=== PATIENT | female | born 1950 | race Caucasian/White ===

== ENCOUNTER 2016-05-23 12:16 | Day surgery (SDC) | payer MEDICARE, MEDICAID ==
[~2016-05-23] VITALS: Ht 167.6 cm; Wt 87.7 kg
[~2016-05-23 12:16] MED LIST: ADVAIR 250/501 DISK INH; ASPIRIN81 MG PO; BROVANA15 MCG/2 M INH; BYSTOLIC10 MG PO; CORDARONE200 MG PO; CYMBALTA30 MG PO; GLUCOPHAGE500 MG PO; IPRAT-ALBUT 0.5-3 ML INH; ISOSORBIDE MONO60 M1 PO; LASIX20 MG PO; LOTENSIN20 MG PO; PLAVIX75 MG PO; PRADAXA150 MG PO; PRAVACHOL20 MG PO; RESTORIL22.5 MG PO; SYNTHROID25 MCG PO; VENTOLIN HFA18 GM INH; VISTARIL25 MG PO; ZANTAC150 MG PO
[2016-05-23 12:58] VITALS: BP 173/72; Ht 167.6 cm; Wt 87.7 kg
[2016-05-23 13:31] LABS: BASOPHILS 0.4 % (0.0-2.0); EOSINOPHILS 1.9 % (0-7); HEMATOCRIT 40.2 % (36.0-48.0); HEMOGLOBIN 13.1 g/dL (12-16); IMMATURE GRANULOCYTES 0.6 % (0-5); LYMPHOCYTES 33.3 % (15-50); MCH 29.4 pg (26.0-34.0); MCHC 32.6 g/dL (31.0-37.0); MCV 90.1 fL (80.0-100.0); MEAN PLATELET VOLUME 10.5 fL (7.4-10.4); MONOCYTES 9.7 % (2-11); NEUTROPHILS 54.1 % (40-80); PLATELET COUNT 171 10x3/uL (130-400); RBC 4.46 10x6/uL (4.00-5.40); RDW 14.6 % (11.5-14.5); WBC 4.7 10x3/uL (4.8-10.8)
[2016-05-23 13:36] LABS: APTT 25.9 SECONDS (22.8-39.4); INR 1.03 (0.85-1.17); PROTIME 13.3 SECONDS (11.6-15.0)
[2016-05-23 13:40] LABS: ALBUMIN 3.7 g/dL (3.4-5.0); BILIRUBIN - TOTAL 0.3 mg/dL (0.2-1.3); CALCIUM 8.8 mg/dL (8.5-10.1); CARBON DIOXIDE 25.8 mmol/L (21.0-32.0); CREATININE - SERUM 1.3 mg/dL (0.6-1.3); POTASSIUM - SERUM 4.8 mmol/L (3.5-5.1); PROTEIN - SERUM 6.6 g/dL (6.4-8.2)
--- NOTE | 2016-05-23 15:08 | NUR ---
1435 BACK FROM EGD SAT 93 % PUT ON 2L N/C UP TO 95%. RESP EVEN AND NONLABORED AND SOME DROWSY. C/L IN REACH.
--- NOTE | 2016-05-23 15:25 | NUR ---
1505 SAT 95 % ON ROOM AIR. IV DCD CATHETER INTACT. UP TO THE BR WITH ASSISTANCE,TOLERATED DIET.
--- NOTE | 2016-05-23 15:45 | NUR ---
1545 PATIENT DRESSED AND READY TO GO WAITING FOR DR. SANFORD TO ROUND. NO NEEDS VOICED PASSED AIR AND NO RESPIRATORY DOSTRESS.
--- NOTE | 2016-05-23 15:45 | NUR ---
1535 PATIENT VOIDED. SAT 95% ON ROOM AIR.
--- NOTE | 2016-05-23 17:30 | NUR ---
1625 DR. SANFORD ROUNDING ON PATIENT.
--- NOTE | 2016-05-23 17:32 | NUR ---
1630 IV DCD CATHETER INTACT. WENT OVER DISCHARGE INSTRUCTIONS AND VERBALLY UNDERSTANDS.
--- NOTE | 2016-05-23 17:32 | NUR ---
1635 DISCHARGED TO HOME VIA W/C.
--- NOTE | 2016-06-26 11:24 | OP ---
PATIENT NAME: UVALDO SANCHEZ MEDICAL RECORD: [id number] :48 LOCATION:[facility] ADMISSION DATE: SURGEON: MICHAEL SANFORD MD DATE OF OPERATION: 05/23/2016 PROCEDURE: EGD with biopsy, EGD with balloon dilatation. SCOPE: An Olympus video gastroscope and a CRE Microvasive balloon from ____ Nigerian. MEDICATIONS: Per TIVA anesthesia. The patient has multiple comorbidities to include cardiac arrhythmias, coronary artery disease, DVT. She is on Plavix and aspirin. Diabetes mellitus, glaucoma, hypertension, hepatitis C, obstructive sleep apnea, pulmonary embolism, and hypothyroidism. INDICATION FOR THE PROCEDURE: Anemia, epigastric pain, dysphagia, gastroesophageal reflux disease and esophageal stricture. FINDINGS: Informed consent was given. The patient was made comfortable with the above medications. After reaching an adequate level of sedation by slow IV push, the patient was placed on her left side. The endoscope was then advanced under direct visualization through the posterior pharyngeal area and advanced to the distal esophagus. At the distal esophageal area, a Schatzki's ring was appreciated and after the inspection part of the procedure was completed, a CRE Microvasive balloon was placed in this area, dilated to 60 Nigerian, held in place for 1 minute without complication. Biopsies were then taken off of the ring and of the distal esophageal inflammation. No ulcers were seen. A hiatal hernia was noted both on direct and retroflexed views. On entering the stomach, in the body of the stomach, a gastric ulcer was appreciated. This did not have a visible vessel and was not actively bleeding. The rest of the gastric mucosa had inflammation, a few erosions, but no other ulcers were appreciated. A biopsy was taken at the antral area looking for the presence of Helicobacter pylori. The duodenal bulb to the second portion had minimal inflammation present. Biopsy was obtained. The scope was then withdrawn. IMPRESSION: 1. Distal esophageal stricture dilated to 60-Nigerian without complication. 2. Reflux esophagitis. 3. Hiatal hernia. 4. Gastric ulcer within the body of the stomach without a visible vessel, not actively bleeding. 5. Gastritis. Biopsy taken at the antral area looking for the presence of Helicobacter pylori. 6. Duodenitis. PLAN: 1. We will ask the patient to take Protonix at a dose of 40 mg p.o. q.a.m. and ranitidine 300 mg p.o. q.h.s., prescriptions provided. 2. Caution with anti-inflammatory drugs. 3. Follow reflux precautions stringently, both dietary and positional. No chocolate, tomatoes, citrus, caffeine, fatty foods, peppermint. Return to clinic on a p.r.n. basis. 4. EGD in 8 weeks to document healing of the ulcers. TRANSINT:[id number] Voice Confirmation ID: [id number] DOCUMENT ID: [id number] OPERATIVE REPORT [id number] UVALDO SANCHEZ BRENDA MD at 1124 CC: JOMAR NAYAK MD and DANIELLE WILKINS MD [id number] DICTATION DATE: 05/23/16 1423 EYEGLASS FITTER: 05/23/16 1640 [facility] 05/23/[address] [address]
== END 2016-05-23 16:35 | disposition home or self-care (01) ==
LOC: D.OPS 12:16
PROVIDERS: Anesthesiology
DX: K29.80 Duodenitis without bleeding (principal); K44.9 Diaphragmatic hernia without obstruction or gangrene; K25.9 Gastric ulcer, unspecified as acute or chronic, without hemorrhage or perforation; K21.9 Gastro-esophageal reflux disease without esophagitis; K22.2 Esophageal obstruction; F17.200 Nicotine dependence, unspecified, uncomplicated; I25.10 Atherosclerotic heart disease of native coronary artery without angina pectoris; I10 Essential (primary) hypertension; E11.9 Type 2 diabetes mellitus without complications; E03.9 Hypothyroidism, unspecified; J44.9 Chronic obstructive pulmonary disease, unspecified; G47.30 Sleep apnea, unspecified; B19.20 Unspecified viral hepatitis C without hepatic coma

== ENCOUNTER 2016-06-21 09:26 | Emergency (ER) | payer MEDICARE, MEDICAID ==
[2016-05-23 12:58] VITALS: BMI 31.2
[2016-06-21 09:52] LABS: BASOPHILS 0.2 % (0.0-2.0); HEMATOCRIT 39.8 % (36.0-48.0); HEMOGLOBIN 13.2 g/dL (12-16); IMMATURE GRANULOCYTES 0.2 % (0-5); LYMPHOCYTES 19.9 % (15-50); MCH 29.2 pg (26.0-34.0); MCHC 33.2 g/dL (31.0-37.0); MCV 88.1 fL (80.0-100.0); MEAN PLATELET VOLUME 9.7 fL (7.4-10.4); MONOCYTES 5.8 % (2-11); NEUTROPHILS 71.9 % (40-80); PLATELET COUNT 143 10x3/uL (130-400); RBC 4.52 10x6/uL (4.00-5.40); RDW 14.4 % (11.5-14.5); WBC 5.9 10x3/uL (4.8-10.8)
[2016-06-21 10:06] LABS: ALBUMIN 2.9 g/dL (3.4-5.0); ALKALINE PHOSPHATASE 63 U/L (46-116); ALT (SGPT) 100 U/L (10-68); BILIRUBIN - TOTAL 0.28 mg/dL (0.2-1.3); CALC OSMOLALITY 276 mosm/kg (275-300); CARBON DIOXIDE 23.4 mmol/L (21.0-32.0); CHLORIDE - SERUM 101 mmol/L (98-107); CREATININE - SERUM 1.2 mg/dL (0.6-1.3); GLUCOSE 124 mg/dL (74-106); POTASSIUM - SERUM 4.7 mmol/L (3.5-5.1); PROTEIN - SERUM 6.8 g/dL (6.4-8.2); SODIUM 137 mmol/L (136-145); UREA NITROGEN 17 mg/dL (7-18); eGFR NON AFRICAN AMERICAN 47 mL/min (90-120)
[2016-06-21 10:17] LABS: CKMB 1.1 U/L (0.0-3.6); CREATINE KINASE 53 UL (21-215)
[2016-06-21 10:18] LABS: TROPONIN-I < 0.017 ng/mL (0.000-0.060)
[2016-06-21 11:44] LABS: APPEARANCE HAZY (CLEAR); BILIRUBIN NEGATIVE (NEGATIVE); COLOR STRAW (YELLOW); GLUCOSE NEGATIVE (NEGATIVE); KETONE NEGATIVE (NEGATIVE); LEUKOCYTE ESTERASE 1+ (NEGATIVE); NITRITE POSITIVE (NEGATIVE); PROTEIN TRACE mg/dL (NEGATIVE); UROBILINOGEN NORMAL (NORMAL)
[2016-06-21 11:45] LABS: EPITHELIAL CELLS 0-5 /hpf (0-5); RED CELLS - URINE 0-5 /hpf (0-5)
[2016-06-21 11:46] LABS: BACTERIA MANY /hpf (NONE SEEN)
== END 2016-06-21 15:29 | disposition home or self-care (01) ==
LOC: D.ER 09:26
PROVIDERS: Emergency Medicine
DX: R06.00 Dyspnea, unspecified (principal); N39.0 Urinary tract infection, site not specified; J45.909 Unspecified asthma, uncomplicated; C34.90 Malignant neoplasm of unspecified part of unspecified bronchus or lung; J44.9 Chronic obstructive pulmonary disease, unspecified; E11.9 Type 2 diabetes mellitus without complications; F17.200 Nicotine dependence, unspecified, uncomplicated; Z95.0 Presence of cardiac pacemaker

== ENCOUNTER → 2016-07-04 12:57 | Outpatient (CLI) | payer MEDICARE, MEDICAID ==
[2016-05-23 12:58] VITALS: BMI 31.2
[~2016-07-04 12:57] MED LIST changes: +STERAPRED 5MG 65 M1 PO; +ZANTAC300 MG PO
== END | disposition home or self-care (01) ==
LOC: D.RT 07-03 13:00
DX: J44.9 Chronic obstructive pulmonary disease, unspecified (principal)

== ENCOUNTER 2016-07-29 05:50 | Day surgery (SDC) | payer MEDICARE, MEDICAID ==
[~2016-07-29] VITALS: Ht 167.6 cm; Wt 87.7 kg
[~2016-07-29 05:50] MED LIST changes: -STERAPRED 5MG 65 M1 PO; -ZANTAC300 MG PO
[2016-07-29 06:27] LABS: BASOPHILS 0.3 % (0.0-2.0); EOSINOPHILS 1.1 % (0-7); HEMATOCRIT 39.5 % (36.0-48.0); HEMOGLOBIN 12.9 g/dL (12-16); IMMATURE GRANULOCYTES 0.4 % (0-5); LYMPHOCYTES 33.1 % (15-50); MCH 29.5 pg (26.0-34.0); MCHC 32.7 g/dL (31.0-37.0); MCV 90.4 fL (80.0-100.0); MEAN PLATELET VOLUME 10.2 fL (7.4-10.4); NEUTROPHILS 56.1 % (40-80); RBC 4.37 10x6/uL (4.00-5.40); RDW 15.7 % (11.5-14.5); WBC 7.4 10x3/uL (4.8-10.8)
[2016-07-29 06:31] LABS: PLATELET COUNT 201 10x3/uL (130-400)
[2016-07-29] MEDS ORDERED: ZANTAC300 MG PO (06:38)
[2016-07-29] MEDS ORDERED: STERAPRED 5MG 65 M1 PO (06:39)
[2016-07-29 06:47] VITALS: BP 178/79; Ht 167.6 cm; Wt 87.7 kg
[2016-07-29 06:50] LABS: ALBUMIN 3.5 g/dL (3.4-5.0); ANION GAP 12.9 mmol/L (8-16); BILIRUBIN - TOTAL 0.2 mg/dL (0.2-1.3); CALCIUM 9.5 mg/dL (8.5-10.1); CARBON DIOXIDE 28.5 mmol/L (21.0-32.0); CREATININE - SERUM 1.4 mg/dL (0.6-1.3); POTASSIUM - SERUM 4.4 mmol/L (3.5-5.1); PROTEIN - SERUM 7.1 g/dL (6.4-8.2)
[2016-07-29 07:16] LABS: INR 0.92 (0.85-1.17); PROTIME 12.2 SECONDS (11.6-15.0)
--- NOTE | 2016-07-29 07:43 | NUR ---
0743-INGARTE CRE BALLOON TO 60 FR.
--- NOTE | 2016-07-29 08:29 | NUR ---
0822 MT DIET SERVED. PT TALKING ON PHONE ARRANGING RIDE HOME.
--- NOTE | 2016-07-30 10:15 | OP ---
PATIENT NAME: UVALDO ASNCHEZ MEDICAL RECORD: [id number] :48 LOCATION:[facility] ADMISSION DATE: SURGEON: RANDY CABRERA DO DATE OF OPERATION: 07/29/2016 SCOPE: Olympus video gastroscope. MEDICATIONS: Propofol 300 mg IV per anesthesia. INDICATIONS: Past gastric ulcer visualized in April of this year. This is a followup to assure healing of the ulcer and she has also had some dysphagia requiring a dilation in the past. FINDINGS: Informed consent was given. The patient was made comfortable with the above medication. After reaching an adequate level of sedation by slow IV push, the patient was placed on her left side. The endoscope was then advanced under direct visualization through the mouth to the second portion of the duodenum. The upper, middle, and distal esophagus appeared normal other than a mild narrowing at the distal esophagus just superior to the GE junction. At the GE junction, there was mild LA class B reflux induced esophagitis present. The scope was advanced into the stomach and retroflexed to view the cardia where a small sliding hiatal hernia was present. The fundus, body and antrum appeared normal. There was some mild streaky erythema in the prepyloric region. The previously visualized ulcer has healed and was not present on this examination. Scope was advanced in the duodenum where the bulb and second portion of the duodenum appeared normal. Scope was then back into the stomach and then 18-20 mm dilating balloon was placed through the channel of the scope. Dilation was performed on the distal esophageal stenosis up to 20 mm successfully. The scope was then withdrawn from the patient. The patient tolerated the procedure well and there were no complications. IMPRESSION: 1. LA class B reflux induced esophagitis. 2. Distal esophageal stenosis, dilated up to 20 mm. 3. Small sliding hiatal hernia. 4. Streaky erythema consistent with possible gastritis in the prepyloric region. PLAN AND RECOMMENDATIONS: 1. Discharge home when recovery parameters are met. 2. Continue current diet. 3. Continue current medications. 4. Follow up in the GI clinic as needed. 5. Informed the clinic if the dysphagia does not improve. If this is the case, I would recommend a barium esophagram and consideration of a motility study. TRANSINT:[id number] Voice Confirmation ID: [id number] DOCUMENT ID: [id number] OPERATIVE REPORT [id number] UVALDO SANCHEZ RANYD CABRERA DO at 1015 CC: [id number] DICTATION DATE: 07/29/16 0753 [facility]: 07/29/16 1033 [facility] 07/29/16 [id number] [place] [address]
== END 2016-07-29 09:14 | disposition home or self-care (01) ==
LOC: D.OPS 05:50
PROVIDERS: Anesthesiology
DX: B37.81 Candidal esophagitis (principal); K22.2 Esophageal obstruction; K44.9 Diaphragmatic hernia without obstruction or gangrene

== ENCOUNTER → 2016-11-14 12:47 | Outpatient (CLI) | payer MEDICARE, MEDICAID ==
[2016-07-29 06:47] VITALS: BMI 31.2
[~2016-11-14 12:47] MED LIST changes: +STERAPRED 5MG 65 M1 PO; +ZANTAC300 MG PO
== END | disposition home or self-care (01) ==
LOC: D.US 12:47
DX: R60.0 Localized edema (principal)

== ENCOUNTER 2016-12-16 10:44 | Emergency (ER) | payer MEDICARE, MEDICAID ==
[2016-07-29 06:47] VITALS: BMI 31.2
[2016-12-16 12:00] LABS: BASOPHILS 0 % (0-2); EOSINOPHILS 0 % (0-7); HEMOGLOBIN 12.8 g/dL (12-16); IMMATURE GRANULOCYTES 1.2 % (0-5); LYMPHOCYTES 6.7 % (15-50); MCH 29.9 pg (26.0-34.0); MCHC 33.7 g/dL (31.0-37.0); MCV 88.8 fL (80.0-100.0); MONOCYTES 5.8 % (2-11); NEUTROPHILS 86.3 % (40-80); PLATELET COUNT 191 10x3/uL (130-400); RBC 4.28 10x6/uL (4.00-5.40); RDW 14.6 % (11.5-14.5); WBC 8.7 10x3/uL (4.8-10.8)
[2016-12-16 12:33] LABS: ALBUMIN 3.4 g/dL (3.4-5.0); ALKALINE PHOSPHATASE 48 U/L (46-116); ALT (SGPT) 27 U/L (10-68); BILIRUBIN - TOTAL 0.19 mg/dL (0.2-1.3); CALCIUM 8.7 mg/dL (8.5-10.1); CARBON DIOXIDE 26.3 mmol/L (21.0-32.0); CHLORIDE - SERUM 101 mmol/L (98-107); CREATININE - SERUM 1.9 mg/dL (0.6-1.3); POTASSIUM - SERUM 4.8 mmol/L (3.5-5.1); PROTEIN - SERUM 6.8 g/dL (6.4-8.2); SODIUM 136 mmol/L (136-145); UREA NITROGEN 37 mg/dL (7-18); eGFR NON AFRICAN AMERICAN 28 mL/min (90-120)
[2016-12-16 12:34] LABS: PRO BNP 2382 pg/mL (0-125)
[2016-12-16 12:35] LABS: CALC OSMOLALITY 286 mosm/kg (275-300); GLUCOSE 199 mg/dL (74-106); TROPONIN-I < 0.017 ng/mL (0.000-0.060)
== END 2016-12-16 16:18 | disposition home or self-care (01) ==
LOC: D.ER 10:44
PROVIDERS: Physician Assistant
DX: J44.1 Chronic obstructive pulmonary disease with (acute) exacerbation (principal); Z86.79 Personal history of other diseases of the circulatory system; Z85.118 Personal history of other malignant neoplasm of bronchus and lung; Z85.038 Personal history of other malignant neoplasm of large intestine; Z86.718 Personal history of other venous thrombosis and embolism; R07.81 Pleurodynia; E11.9 Type 2 diabetes mellitus without complications; F17.200 Nicotine dependence, unspecified, uncomplicated

== ENCOUNTER 2017-03-06 15:45 | Inpatient (IN) | payer MEDICARE, MEDICAID ==
[~2017-03-06] VITALS: Ht 167.6 cm; Wt 87.9 kg
--- NOTE | ~2017-03-06 | HEMODYNAMI ---
PATIENT:UVALDO SANCHEZ MEDICAL RECORD: [id number] : 48 LOCATION:[facility] D.2114 ADMISSION DATE: 03/06/17 Generatedon:03/07/201713:50 Patient name: UVALDO SANCHEZ Patient #: [id number] SSN: D OB: 1950 Date of study: 03/07/2017 Page: Of Hemodynamic Procedure Report Patient Data Patient Demographics Procedure consent was obtained First Name: UVALDO Gender: Female Last Name: DANIEL : 1950 [facility] Initial: HILLARY Age: 66 year(s) Patient #: [id number] Race: Unknown Additional ID: [id number] Contact details Address: [address] [place] [address] State: [place] City: [facility] Zip code: [address] Past Medical History Allergies Allergen Reaction Date Comments Reported Codeine 10/11/2015 Sulfa drugs 10/11/2015 Other allergy 03/07/2017 sulfa, codeine Admission Admission Data Admission Date: 03/06/2017 Admission Time: 18:38 Room #: D.2114 Lab Results Lab Result Date: 03/07/2017 Lab Result Time: 0:00 Biochemistry Name Units Result Min Max Creatinine mg/dl 1.4 --(----)*- 0.6 1.3 CBC Name Units Result Min Max Hematocrit % 45.1 --(-*--)-- 42 54 Hemoglobin g/dl 15.2 --(-*--)-- 13.5 17.5 Procedure Procedure Types Cath Procedure Diagnostic Procedure C [facility] w/Coronaries Cardioversion PCI Procedure Coronary Stent Initial Miscellaneous Procedures Moderate Sedation up to 45 minutes Procedure Description Procedure Date Procedure Date: 03/07/2017 Procedure Start Time: 13:34 Procedure End Time: 13:49 Procedure Staff Name Function Davie Griffin MD Performing Physician Jose Luis Arzate RT Scrub Triston Figueroa RN Nurse Pablo Mayo RT Monitor Maura Burgos RT Monitor Procedure Data Cath Procedure Fluoroscopy Diagnostic fluoroscopy Total fluoroscopy Time: 3.6 time: 3.6 min min Diagnostic fluoroscopy Total fluoroscopy dose: 492 dose: 492 mGy mGy Contrast Material Contrast Material Type Amount (ml) Isovue 300 98 Entry Location Entry Primary Successful Side Size Upsize Upsize Entry Closure Succes sful Closure Location (Fr) 1 (Fr) 2 (Fr) Remarks Device Remarks Femoral Right 5 Fr 6 Fr Exoseal artery Short Estimated blood loss: 10 ml Diagnostic catheters Device Type Used For End Catheter Placement Cordis 5Fr Pigtail Procedure Catheter (MP) Cordis 5Fr JL 4.0 Procedure Catheter (MP) Cordis 5Fr 3DRC Catheter Procedure (MP) Procedure Complications No complications Procedure Medications Medication Administration Route Dosage 0.9% NaCl I.V. 100 ml/hr Oxygen NC 2 l/min Heparin Flush Bag added to field 2 bags (1000units/500ml NS) Lidocaine 2% added to field 20 Refer to Anesthesia Notes for Sedation Medications Fentanyl I.V. 50 mcg Versed I.V. 1 mg Versed I.V. 1 mg Fentanyl I.V. 50 mcg Versed I.V. 1 mg Heparin Bolus I.V. 4000 units Versed I.V. 1 mg Hemodynamics Rest HGB: 15.2 (g/dl) Heart Rate: 105 (bpm) Snapshots Pre Cath Intra NCS Post Cath Vital Signs Time Heart Resp SPO2 etCO2 NIBP (mmHg) Rhythm Pain Sedation Rate (ipm) (%) (mmHg) Status Level (bpm) 13:05:52 105 17 94 9 135/76(107) NSR 0 (11) 10(A) , No pain 13:10:43 67 18 95 8.3 135/63(102) NSR 0 (11) 10(A) , No pain 13:15:36 66 20 95 25.7 136/96(133) NSR 0 (11) 10(A) , No pain 13:21:10 73 17 98 32.5 130/58(92) NSR 0 (11) 10(A) , No pain 13:26:05 68 26 100 15.9 70/29(50) NSR 0 (11) 10(A) , No pain 13:31:14 62 16 99 21.2 129/69(103) NSR 0 (11) 10(A) , No pain 13:36:01 65 14 99 16.6 115/66(92) NSR 0 (11) 10(A) , No pain 13:40:46 62 14 88 29.5 119/58(94) NSR 0 (11) 10(A) , No pain 13:45:30 62 20 99 34 127/66(103) NSR 0 (11) 10(A) , No pain Medications Time Medication Route Dose Verified Delivered Reason Notes Effectiveness by by 13:05:12 0.9% NaCl I.V. 100 Triston Triston Per physician ml/hr Carolina Figueroa RN RN 13:05:26 Oxygen NC 2 Triston Triston Per physician l/min Carolina Figueroa RN RN 13:05:40 Heparin Flush added 2 Triston Triston used for Bag to bags Carolina Figueroa procedure (1000units/500ml field RN RN NS) 13:05:58 Lidocaine 2% added 20ml Triston Triston for local to vial Carolina Figueroa anesthetic RN RN 13:07:17 Refer to Triston Triston for sedation Anesthesia Notes Carolina Figueroa for Sedation RN RN Medications 13:24:37 Fentanyl I.V. 50 Triston Triston for sedation mcg Carolina Figueroa RN RN 13:28:14 Versed I.V. 1 mg Triston Triston for sedation Carolina Figueroa RN RN 13:32:29 Versed I.V. 1 mg Triston Triston for sedation Carolina Figueroa RN RN 13:32:39 Fentanyl I.V. 50 Triston Triston for sedation mcg Carolina Figueroa RN RN 13:35:33 Versed I.V. 1 mg Triston Triston for sedation Carolina Figueroa RN RN 13:41:20 Heparin Bolus I.V. 4000 Triston Triston for units Carolina Figueroa anticoagulation RN RN 13:44:33 Versed I.V. 1 mg Triston Triston for sedation Carolina Figueroa RN gambreler helper Log Time Note 12:46:21 Jose Luis Arzate RT(R) sent for patient. Start room use. 12:46:23 Time tracking: Regular hours 12:46:28 Plan of Care:Hemodynamics will remain stable., Cardiac rhythm will remain stable., Comfort level will be maintained., Respiratory function will remain adequate., Patient/ family verbilizes understanding of procedure., Procedure tolerated without complication., Recovers from procedure without complications.. 12:47:44 H&P Date Dictated: 03/06/2017 Within 30 days and on chart., H&P Addendum completed by physician on day of procedure. (MUST COMPLETE FOR ALL OUTPATIENTS). 12:48:17 Lab Result : Creatinine 1.4 mg/dl 12:48:17 Lab Result : Hemoglobin 15.2 g/dl 12:48:17 Lab Result : Hematocrit 45.1 % 12:58:34 Patient arrived from [facility] to CCL 1. Patient remains on bed/stretcher for procedure. 12:58:35 Warm blankets applied, and tracie hugger turned on for patient comfort. 12:58:36 Correct patient and procedure confirmed by team. 12:58:38 Signed procedure consent form obtained from patient. 12:58:39 ECG and BP/O2 sat monitors applied to patient. 13:04:02 Pre-procedure instructions explained to patient. 13:04:03 Pre-op teaching completed and patient verbalized understanding. 13:04:06 Family in waiting room. 13:04:08 Patient NPO since Midnight. 13:04:23 Patient allergic to Other allergysulfa, codeine 13:04:28 Is the patient allergic to Iodine/contrast media? No. 13:04:44 Is patient on blood thinner?Yes 13:04:46 ACC The patient was administered the following blood thiners within the last 24 hours: ACCPlavix 13:04:54 Vital chart was started 13:04:57 Baseline sample Acquired. 13:05:12 0.9% NaCl 100 ml/hr I.V. was administered by Triston Figueroa RN; Per physician; 13:05:18 Patient diabetic? No. 13:05:23 Patient not . Patient is over age 55. 13:05:26 Oxygen 2 l/min NC was administered by Triston Figueroa RN; Per physician; 13:05:28 Previous problem with sedation/anesthesia? No ? 13:05:30 Snore? Yes 13:05:31 Sleep apnea? Yes 13:05:33 Deviated septum? No 13:05:34 Opens mouth fully? Yes 13:05:38 Sticks out tongue? Yes 13:05:40 Heparin Flush Bag (1000units/500ml NS) 2 bags added to field was administered by Triston Figueroa RN; used for procedure; 13:05:45 Airway obstruction? Yes COPD 13:05:52 Dentures? Yes OUT 13:05:58 Lidocaine 2% 20ml vial added to field was administered by Triston Figueroa RN; for local anesthetic; 13:06:23 DR. CAREY present and monitoring patient for TIVA. 13:06:36 Quick Combo opened to sterile field. 13:06:42 Quick combo pads placed on patients chest and back. 13:07:17 Refer to Anesthesia Notes for Sedation Medications was administered by Triston Figueroa RN; for sedation; 13:07:28 Full Disclosure recording started 13:07:44 IV patent on arrival in right forearm with 0.9% NaCl at O. 13:07:47 Lab results completed and on chart. 13:07:52 --------ALL STOP TIME OUT------ 13::53 Final Timeout: patient, procedure, and site verified with staff and physician. All members of the team are in agreement. 13:08:01 Sedation plan: TIVA Propofol 13:08:23 Procedure started. 13:08:32 Defibrillator synced and charged to 200 Joules. 13:08:37 Shock delivered. 13:08:58 Patient cardioverted to sinus rhythm . 13:11:45 PT. TRANSFERED FROM BED TO THE TABLE FOR [facility]. 13:22:38 Right groin area was prepped with chlora-prep and draped in sterile fashion 13:22:39 Alarms reviewed by R. N. 13:22:39 Sharps counted by scrub and verified by R.N. 13:22:44 Use device set Femoral Dx 13:24:37 Fentanyl 50 mcg I.V. was administered by Triston Figueroa RN; for sedation; 13:25:15 Acist Syringe opened to sterile field. 13:25:16 Bag Decanter opened to sterile field. 13:25:19 Acist Hand Control opened to sterile field. 13:25:19 Acist Manifold opened to sterile field. 13:25:21 Tegaderm 4 x 4 opened to sterile field. 13:25:22 Medline Cath Pack opened to sterile field. 13:25:22 Terumo 5Fr [place] Sheath opened to sterile field. 13:25:23 St Pablo 260cm J .035 wire opened to sterile field. 13:25:24 Diagnostic Infinity 5Fr Multipack catheter opened to sterile field. 13:28:14 Versed 1 mg I.V. was administered by Triston Figueroa RN; for sedation; 13:30:17 Zero performed for pressure channel P1 13:30:23 Zero performed for pressure channel P1 13:30:38 Zero performed for pressure channel P1 13:32:29 Versed 1 mg I.V. was administered by Triston Figueroa RN; for sedation; 13:32:39 Fentanyl 50 mcg I.V. was administered by Triston Figueroa RN; for sedation; 13:34:27 Local anesthetic to right femoral artery with Lidocaine 2% by Davie Griffin MD.INITIAL ACCESS ONLY 13:35:19 A 5 Fr sheath was inserted into the Right Femoral artery 13:35:28 A Cordis 5Fr Pigtail Catheter (MP) was advanced over the wire and used for Procedure. 13:35:33 Versed 1 mg I.V. was administered by Triston Figueroa RN; for sedation; 13:35:54 LV gram done using VO 13:35:57 Injector settings: Ml/sec: 10, Volume: 20, 13:36:00 LV hemodynamics recorded. 13:36:18 EF : 50 % 13:36:29 Catheter removed. 13:36:35 A Cordis 5Fr JL 4.0 Catheter (MP) was advanced over the wire and used for Procedure. 13:37:27 LCA angiography performed. 13:38:00 Terumo 6Fr [place] Sheath opened to sterile field. 13:38:09 Catheter removed. 13:38:19 A Cordis 5Fr 3DRC Catheter (MP) was advanced over the wire and used for Procedure. 13:38:30 Merit BasixCompak Inflation Kit opened to sterile field. 13:38:33 RCA angiography performed. 13:38:59 [place] QA on Request PT Graphix J 300cm 0.014 guide wire opened to sterile field. 13:39:00 Cordis 6FR XBLAD 3.5 guide catheter opened to sterile field. 13:39:04 Catheter removed. 13:39:14 Sheath upsized to a 6 Fr Short. 13:40:05 6 Fr XBLAD 3.5 guide catheter was inserted over the wire 13:40:08 PT GRAPHIX wire advanced. 13:40:24 Wire advanced across lesion. 13:41:20 Heparin Bolus 4000 units I.V. was administered by Triston Figueroa RN; for anticoagulation; 13:42:02 Wire removed. 13:42:12 Guide Catheter removed. unable to get back-up support 13:43:16 Medtronic Launcher 5Fr EBU 3.0 guide catheter opened to sterile field. 13:43:23 6 Fr EBU 3.0 guide catheter was inserted over the wire 13:43:37 PT GRAPHIX wire advanced. 13:44:33 Versed 1 mg I.V. was administered by Triston Figueroa RN; for sedation; 13:45:00 Wire advanced across lesion. 13:45:05 Inflation Number: 1 A Leroy OTW 3.5 x 18 stent was prepped and advanced across the Prox LAD. The stent was deployed at 19 PINKY for 0:10 (min:sec). 13:45:14 Stent catheter was removed intact over wire. 13:45:18 Wire removed. 13:45:18 Guide catheter removed. 13:45:28 Cordis 6Fr Exoseal opened to sterile field. 13:45:42 Sheath removed intact; hemostasis achieved with Exoseal to the Right Femoral artery. 13:45:44 Procedure ended.(Physican Out) 13:46:00 Fluoroscopy time 03.60 minutes. 13:46:04 Fluoroscopy dose: 492 mGy 13:46:04 Flurop Dose total: 492 13:46:09 Contrast amount:Isovue 300 98ml. 13:46:10 Sharps counted by scrub and verified by R.N. 13:46:16 Post-op/insertion site Right Femoral artery dressed using a 4 x 4 and Tegaderm. 13:46:23 Post right femoral artery:stable, soft, clean and dry 13:46:26 Post Procedure Pulses reassessed and unchanged 13:46:30 Post procedure: right dorsailis pedis pulse 1+ Palpable, but thready & weak; easily obliterated. 13:46:35 Post-procedure physical assessment completed. ASA score P 2 - A patient with mild systemic disease as per Davie Griffin MD. 13:46:40 Post procedure rhythm: unchanged. 13:46:43 Estimated blood loss: 10 ml 13:46:48 Post procedure instruction explained to patient.Patient verbalizes understanding. 13:46:49 Patient needs reinforcement of post procedure teaching. 13:47:26 Procedure type changed to Cath procedure, Diagnostic procedure, [facility], C w/Coronaries, Cardioversion, PCI procedure, Coronary Stent Initial, Miscellaneous Procedures, Moderate Sedation up to 45 minutes 13:48:53 Procedure and supply charges have been captured, reviewed, submitted and are correct. 13:48:55 Procedure Complication : No complications 13:49:03 Vital chart was stopped 13:49:03 See physician's report for complete and final results. 13:49:06 Report given to PCU. 13:49:08 Patient transfered to PCU with Bed. 13:49:14 Procedure ended. 13:49:14 Full Disclosure recording stopped 13:49:46 End room use (Document Last) Intervention Summary Intervention Notes Time ActionType Lesion and Equipment Action# Pressure Duration Attributes Used 13:45:05 Place stent Prox LAD Leroy OTW 1 19 00:10 3.5 x 18 stent Device Usage Item Name Manufacture Quantity Catalog Number Hospital Part Current Mini mal Lot# / Charge Number Stock Stock Serial# Code Quick Fanwards 1 [id number] 171338 546812 282881 5 Acist Acist 1 64580 054818 569163 927997 20 Syringe Medical Systems Inc Bag Microtek 1 2002S 256832 51536 526766 5 Decanter Medical Inc. Acist Hand Acist 1 05884 210680 144939 230596 5 Control Medical Systems Inc Acist Acist 1 35532 866586 857250 373414 5 Manifold Medical Systems Inc Tegaderm 4 3M 1 1626W 319542 011787 216277 5 x 4 Medline Cardinal 1 [id number] 751961 80994 038111 5 Cath Pack Health Terumo 5Fr Terumo 1 [id number] 392491 225822 954168 [address] Pablo 1 836040 953532 589636 198451 30 260cm J .035 wire Diagnostic Cardinal 1 [id number] 892920 05954 065332 30 Infinity Health 5Fr Multipack catheter Cordis 5Fr Cardinal 1 679866 5 Pigtail Health Catheter (MP) Cordis 5Fr Cardinal 1 692919 5 JL 4.0 Health Catheter (MP) Terumo 6Fr Terumo 1 [id number] 468773 191086 073859 40 [place] Sheath Cordis 5Fr Cardinal 1 538867 5 3DRC Health Catheter (MP) Merit Merit 1 [id number] 016620 088282 658641 15 BasixCompak Medical Inflation Kit [place] Sci [place] 1 [id number] 464055 748087 268910 5 PT [employer] J 300cm 0.014 guide wire Cordis 6FR Cardinal 1 [id number] 390932 893676 193190 10 XBLAD 3.5 Health guide catheter Medtronic Medtronic 1 [id number] 996023 777866 724982 1 Launcher 5Fr EBU 3.0 guide catheter Leroy OTW Medtronic 1 [id number] 634445 3759113 708065 5 [id number] 3.5 x 18 stent Cordis 6Fr Cardinal 1 [id number] 336847 923498 537354 10 [facility] Signature Audit [place] Stage Time Signature Unsigned Intra-Procedure 03/07/2017 Maura Burgos 1:50:51 PM RT(R) Signatures Monitor : Pablo Mayo RT Signature : Date : Time : Monitor : Maura Burgos Signature : RT Date : Time : [address] [address]
[2017-03-06 16:19] LABS: BASOPHILS 0.4 % (0-2); EOSINOPHILS 3.3 % (0-7); HEMATOCRIT 45.1 % (36.0-48.0); HEMOGLOBIN 15.2 g/dL (12-16); IMMATURE GRANULOCYTES 0.2 % (0-5); LYMPHOCYTES 25.6 % (15-50); MCH 30.2 pg (26.0-34.0); MCHC 33.7 g/dL (31.0-37.0); MCV 89.7 fL (80.0-100.0); MEAN PLATELET VOLUME 9.4 fL (7.4-10.4); MONOCYTES 13.1 % (2-11); NEUTROPHILS 57.4 % (40-80); PLATELET COUNT 153 10x3/uL (130-400); RBC 5.03 10x6/uL (4.00-5.40); RDW 14.7 % (11.5-14.5); WBC 5.1 10x3/uL (4.8-10.8)
[2017-03-06 17:29] LABS: ALBUMIN 3.6 g/dL (3.4-5.0); ALKALINE PHOSPHATASE 70 U/L (46-116); ALT (SGPT) 22 U/L (10-68); BILIRUBIN - TOTAL 0.26 mg/dL (0.2-1.3); CALC OSMOLALITY 282 mosm/kg (275-300); CALCIUM 9.7 mg/dL (8.5-10.1); CARBON DIOXIDE 26.2 mmol/L (21.0-32.0); CHLORIDE - SERUM 103 mmol/L (98-107); CREATININE - SERUM 1.4 mg/dL (0.6-1.3); POTASSIUM - SERUM 4.7 mmol/L (3.5-5.1); PROTEIN - SERUM 7.3 g/dL (6.4-8.2); SODIUM 141 mmol/L (136-145); UREA NITROGEN 21 mg/dL (7-18); eGFR NON AFRICAN AMERICAN 40 mL/min (90-120)
[2017-03-06 17:31] LABS: GLUCOSE 75 mg/dL (74-106)
[2017-03-06 17:38] LABS: CREATINE KINASE 120 UL (21-215)
[2017-03-06 17:39] LABS: TROPONIN-I < 0.017 ng/mL (0.000-0.060)
[2017-03-06 20:00] VITALS: BP 118/62
--- NOTE | 2017-03-06 20:09 | NUR ---
PT RECEIVED VIA WHEELCHAIR FROM ER, AWAKE, ALERT, ORIENTED. PT IS C/O CHEST PAIN AT THIS TIME AND ASKING FOR PAIN MEDICATION. I HAVE EXPLAINED TO PT THAT THERE ARE NO ORDERS FOR ANYTHING AT THIS TIME, BUT THAT I MUST CALL THE [facility] INTERN PHYSICIAN FOR FURTHER ORDERS. PT IS IN NO ACUTE DISTRESS. TELEMETRY HAS BEEN PLACED, NO FURTHER NEEDS AT THIS TIME. CONTINUE TO MONITOR CLOSELY.
--- NOTE | 2017-03-06 20:39 | NUR ---
J[facility] PARDO [facility] PAG[facility] FOR FURTHER ORDERS.
[2017-03-07] VITALS (7 sets, daily range): BP systolic 95–158; BP diastolic 49–69; Ht 167.6 cm; Wt 87.9 kg
--- NOTE | 2017-03-07 07:30 | NUR ---
RESTING QUIETLY AAOX 4 RESP UNLABORED C/O CHEST SORENESS 10/05 WILL CONTINUE TO MONITOR
[2017-03-07 08:58] LABS: BASOPHILS 0.2 % (0-2); EOSINOPHILS 3.8 % (0-7); HEMATOCRIT 37.1 % (36.0-48.0); HEMOGLOBIN 12.7 g/dL (12-16); IMMATURE GRANULOCYTES 0.3 % (0-5); LYMPHOCYTES 21.8 % (15-50); MCH 30.7 pg (26.0-34.0); MCHC 34.2 g/dL (31.0-37.0); MCV 89.6 fL (80.0-100.0); MEAN PLATELET VOLUME 9.6 fL (7.4-10.4); MONOCYTES 8.3 % (2-11); NEUTROPHILS 65.6 % (40-80); RBC 4.14 10x6/uL (4.00-5.40); RDW 13.7 % (11.5-14.5)
[2017-03-07 09:06] LABS: PLATELET COUNT 253 10x3/uL (130-400); WBC 8.7 10x3/uL (4.8-10.8)
[2017-03-07 09:09] LABS: ANION GAP 16.4 mmol/L (8-16); CALCIUM 10.3 mg/dL (8.5-10.1); CREATININE - SERUM 1.1 mg/dL (0.6-1.3)
[2017-03-07 09:10] LABS: POTASSIUM - SERUM 3.4 mmol/L (3.5-5.1)
[2017-03-08] VITALS: BP 143/62
--- NOTE | 2017-03-08 07:14 | NUR ---
PLACE PT ON 6L OXIMIZER IN ATTEMPT TO ELEVATE O2. CURRENTLY ON 29%FI02 SPO2 86. BILATERAL PREDOMINANT INSP/EXP WHEEZE TO R APEX. BILATERAL SYMETRICAL EXCURSION. POST APPLICATION OF [id number] NO IMMEDIATE S/S RESP DISTRESS
[2017-03-08 07:46] VITALS: BP 120/56
--- NOTE | 2017-03-08 07:53 | NUR ---
02 INCREASED TO 6L OXIMIZER. CRACKLES AND RHALES NOTED. DR. EDOUARD NOTIFIED. NEW ORDERS GIVEN.
--- NOTE | 2017-03-08 09:52 | NUR ---
CXR DONE. ABGS WNL. MORPHINE GIVEN FOR PAIN. WILL CONT. PLAN OF CARE.
[2017-03-08 11:23] VITALS: BP 118/52
[2017-03-08 15:40] VITALS: BP 127/56
[2017-03-08 20:00] VITALS: BP 128/46
[2017-03-09] VITALS: BP 130/57
[2017-03-09 04:00] VITALS: BP 130/55
--- NOTE | 2017-03-09 05:29 | NUR ---
PT RESTING WELL THIS SHIFT WITHOUT C/O OR DISTRESS NOTED. CALL LIGHT WITHIN REACH. WILL CONT TO MONITOR.
[2017-03-09 06:44] LABS: BASOPHILS 0 % (0-2); EOSINOPHILS 0 % (0-7); HEMATOCRIT 41.7 % (36.0-48.0); HEMOGLOBIN 13.4 g/dL (12-16); IMMATURE GRANULOCYTES 0.2 % (0-5); LYMPHOCYTES 3.3 % (15-50); MCH 29.6 pg (26.0-34.0); MCHC 32.1 g/dL (31.0-37.0); MEAN PLATELET VOLUME 10.4 fL (7.4-10.4); NEUTROPHILS 94.5 % (40-80); RBC 4.53 10x6/uL (4.00-5.40); RDW 14.4 % (11.5-14.5)
[2017-03-09 06:46] LABS: MCV 92.1 fL (80.0-100.0); PLATELET COUNT 131 10x3/uL (130-400); WBC 12.8 10x3/uL (4.8-10.8)
[2017-03-09 06:54] LABS: ANION GAP 13.3 mmol/L (8-16); CALCIUM 9.2 mg/dL (8.5-10.1); CARBON DIOXIDE 26.1 mmol/L (21.0-32.0); CREATININE - SERUM 1.3 mg/dL (0.6-1.3)
[2017-03-09 06:55] LABS: POTASSIUM - SERUM 4.4 mmol/L (3.5-5.1)
--- NOTE | 2017-03-09 10:36 | NUR ---
RESP UL ON ISER. TELEMETRY SR. CALL LIGHT IN REACH. WILL CONT. PLAN OF CARE.
[2017-03-09 12:04] VITALS: BP 137/55
[2017-03-09 16:12] VITALS: BP 168/91
[2017-03-09 20:00] VITALS: BP 131/80
--- NOTE | 2017-03-09 20:25 | NUR ---
PT EXPECTORATES LARGE AMOUNT THICK BROWN SPUTUM INTO STERILE COLLECTION CONTAINER AND SENT TO LAB FOR CULTURE AT THIS TIME.,
[2017-03-10] VITALS: BP 135/59
--- NOTE | 2017-03-10 02:05 | NUR ---
PT RESTING SOUNDLY WITHOUT C/O OR DISTRESS NOTED. NO NEEDS VOICED. WILL CONT TO MONITOR.
[2017-03-10 04:00] VITALS: BP 138/60
[2017-03-10 05:35] LABS: BASOPHILS 0 % (0-2); EOSINOPHILS 0 % (0-7); HEMATOCRIT 39.2 % (36.0-48.0); HEMOGLOBIN 12.8 g/dL (12-16); IMMATURE GRANULOCYTES 0.4 % (0-5); LYMPHOCYTES 2.6 % (15-50); MCH 29.6 pg (26.0-34.0); MCHC 32.7 g/dL (31.0-37.0); MCV 90.5 fL (80.0-100.0); MONOCYTES 1.9 % (2-11); NEUTROPHILS 95.1 % (40-80); PLATELET COUNT 148 10x3/uL (130-400); RBC 4.33 10x6/uL (4.00-5.40); RDW 14.4 % (11.5-14.5); WBC 15.5 10x3/uL (4.8-10.8)
[2017-03-10 05:42] LABS: ANION GAP 14.8 mmol/L (8-16); CALCIUM 9.1 mg/dL (8.5-10.1); CARBON DIOXIDE 24.9 mmol/L (21.0-32.0); CREATININE - SERUM 1.3 mg/dL (0.6-1.3); POTASSIUM - SERUM 4.7 mmol/L (3.5-5.1)
--- NOTE | 2017-03-10 07:30 | NUR ---
RECEIVED PT IN BED AAOX4 RESP SOB PT JUST RETURNED TO BED FROM BATHROOM DENIES ANY NEEDS AT THIS TIME
[2017-03-10 08:48] VITALS: BP 149/61
[2017-03-10 12:48] VITALS: BP 122/51
--- NOTE | 2017-03-10 13:00 | NUR ---
IV DC'D RT FOREARM WITH CATH TIP INTACT, LEAKING AT INSERTION SITE, NO REDNESS OR EDEMA NOTED. RESITED RT ARM 22G. X 1 ATTEMPT.
[2017-03-10 16:50] VITALS: BP 143/59
--- NOTE | 2017-03-10 19:00 | NUR ---
RECEIVED REPORT AND ASSUMED PT CARE FROM DAY SHIFT NURSE @ THIS TIME.
--- NOTE | 2017-03-10 20:05 | NUR ---
CALL LIGHT ON, ARRIVED INTO ROOM AND PT IN RESP DISTRESS. SATS 82-86% ON CONT PULSE OX AT THE BEDSIDE. PT STATES UNABLE TO CATCH HER BREATH. INSPIRATORY AND EXPIRATORY WHEEZES HEARDS THROUGHT OUT ALL LUNG GARVEY. CALL TO RESP THERAPIST TORO, COMES TO GIVE PT A PRN UPDRAFT AND TO ASSESS. PT GIVEN HS MEDS AT THIS TIME AND ALSO GIVEN LORAZEPAM 0.5 MG PO AND TUSSIONEX COUGH SYRUP ORDERED. PT ALSO C/O HEADACHE - FIORICET 1 PO GIVEN. AFTER UPDRAFT PT SATS STILL REMAINS IN UPPER 80'S. PER RESP TX OXIMIZER INCREASED TO 10 LPM. SATS LOW 90'S AND PT FEELS BETTER. WILL CONT TO MONITOR.
[2017-03-10 22:46] VITALS: BP 167/70
--- NOTE | 2017-03-10 23:39 | NUR ---
PT RESTING WELL WITHOUT FURTHER C/O OF RESP DISTRESS. CONT PULSE OX REMAINS ON AT THE BEDSIDE. WILL CONT TO MONITOR.
--- NOTE | 2017-03-11 01:53 | NUR ---
PT SATS 95% WITH 10 LPM ON HOME C-PAP. RESTING WELL. NO NEEDS VOICED. WILL CONT TO MONITOR.
[2017-03-11 05:05] VITALS: BP 137/51
--- NOTE | 2017-03-11 07:29 | NUR ---
RECEIVED PT IN BED AAOX4 RESP UNLABORED DENIES ANY NEEDS OR DISCOMFORT NAD NOTED
[2017-03-11 08:34] VITALS: BP 157/58
[2017-03-11 11:43] LABS: BASOPHILS 0 % (0-2); EOSINOPHILS 0 % (0-7); HEMATOCRIT 41.8 % (36.0-48.0); HEMOGLOBIN 13.8 g/dL (12-16); IMMATURE GRANULOCYTES 0.7 % (0-5); LYMPHOCYTES 3.2 % (15-50); MCH 29.7 pg (26.0-34.0); MCV 90.1 fL (80.0-100.0); MEAN PLATELET VOLUME 10.9 fL (7.4-10.4); MONOCYTES 3.8 % (2-11); NEUTROPHILS 92.3 % (40-80); RBC 4.64 10x6/uL (4.00-5.40); RDW 14.9 % (11.5-14.5); WBC 14.7 10x3/uL (4.8-10.8)
[2017-03-11 11:46] LABS: PLATELET COUNT 178 10x3/uL (130-400)
[2017-03-11 11:57] LABS: ANION GAP 15.8 mmol/L (8-16); CALCIUM 9.1 mg/dL (8.5-10.1); CREATININE - SERUM 1.5 mg/dL (0.6-1.3); VANCOMYCIN - TROUGH 20.1 ug/mL (10.0-20.0)
[2017-03-11 12:05] LABS: POTASSIUM - SERUM 3.8 mmol/L (3.5-5.1)
[2017-03-11 12:38] VITALS: BP 155/49
[2017-03-11 16:52] VITALS: BP 172/66
--- NOTE | 2017-03-11 21:13 | NUR ---
HS MEDS GIVEN WITH FRESH ICE WATER. ASSISTED PT WITH PLACEING C PAP ON. PT DENIES PAIN OR NEEDS, BED LOW, CL IN REACH.
[2017-03-11 22:54] VITALS: BP 166/72
--- NOTE | 2017-03-11 23:09 | NUR ---
NOTIFIED BY MT THAT PT HAS CONVERTED TO A FIB, RATE OF 97. WILL CONT TO MONITOR.
--- NOTE | 2017-03-12 02:56 | NUR ---
RESTING WITH EYES CLOSED, RESPERATIONS EVEN, NO S/S DISTRESS NOTED.
--- NOTE | 2017-03-12 04:24 | NUR ---
SLATE ROOFER AT BED SIDE TO OBTAIN VITALS.
[2017-03-12 04:27] VITALS: BP 148/68
[2017-03-12 07:52] VITALS: BP 152/80
--- NOTE | 2017-03-12 09:34 | NUR ---
RESP UL NO 02 16L OXIMIZER. IV PATENT. TELEMETRY UCAF. HR 111. CALL LIGHT IN REACH. WILL CONT. PLAN OF CARE.
[2017-03-12 11:59] VITALS: BP 150/86
[2017-03-12 14:59] VITALS: BP 155/80
[2017-03-12 19:00] VITALS: BP 149/86
--- NOTE | 2017-03-12 21:38 | NUR ---
HS MEDS GIVEN, NORCO 1 TAB GIVEN FOR C/O GENERALIZED PAIN, COUGH SYRUP ALSO GIVEN AT PT REQUEST. PT DENIES OTHER NEEDS, BED LOW, CL IN REACH.
[2017-03-12 23:29] VITALS: BP 163/93
--- NOTE | 2017-03-13 00:32 | NUR ---
RESTING WITH EYES CLOSED, RESPERATIONS EVEN, NO S/S DISTRESS NOTED.
[2017-03-13 04:05] VITALS: BP 159/75
--- NOTE | 2017-03-13 05:30 | NUR ---
WIRE STRAIGHTENING MACHINE OPERATOR AT BEDSIDE TO OBTAIN VITALS, WILL CONTINUE WITH PLAN OF CARE. CALL LIGHT IN REACH.
--- NOTE | 2017-03-13 06:05 | NUR ---
X RAY JUANITA AT BED SIDE TO DO PORTABLE CHEST XRAY, 2 VIEW NOT DONE AT THIS TIME DO TO PTS O2 SATS DROPPING WITH EXERTION.
[2017-03-13 07:33] VITALS: BP 174/86
[2017-03-13 11:37] VITALS: BP 153/81
--- NOTE | 2017-03-13 14:07 | NUR ---
Nutrition follow-up: Diet: low sodium PO intake ~75% of meals Labs reviewed Wt: 192# -> weight is down ~5#; pt is on Lasix at this time +BM Will continue to provide food choices with selective menus and honor food preferences within diet restrictions. RDN following.
[2017-03-13 15:34] VITALS: BP 175/82
--- NOTE | 2017-03-13 15:43 | NUR ---
Patient Name: UVALDO SANCHEZ Admission Status: ER Accout number: [id number] Admission Date: 03-09-2017 : 1950 Admission Diagnosis:UNSTABLE ANGINA Attending: LYN YOU Current LOS: 4 Anticipated DC Date: 03-17-2017 Planned Disposition: Home with Home Health Primary Insurance: [facility] PLANNED EXTERNAL PROVIDER: [facility] Discharge Planning Comments: * Is the patient Alert and Oriented? Yes 0 * How many steps to enter\exit or inside your home? NONE 0 * PCP DR. DANIELLE WILKINS 0 * Pharmacy [facility] 0 * Preadmission Environment Home Alone 0 * ADLs Independent 0 * Equipment CPAP Nebulizer Oxygen WALKER WITH SEAT 0 * Other Equipment OXYGEN AT NIGHT [facility] - MEDICAL EQUIPMENT PROVIDER PREFERENCE 0 * List name and contact numbers for known caregivers / representatives who currently or will assist patient after discharge: JOEL MAYORGA, REBECCA, 0 * Community resources currently utilized None 0 * Please name any agencies selected above. NONE 0 * Additional services required to return to the preadmission environment? No 0 * Can the patient safely return to the preadmission environment? Yes 0 * Has this patient been hospitalized within the prior 30 days at any hospital? No 0 CM MET WITH PT IN ROOM TO DISCUSS DISCHARGE PLANNING AND NEEDS. PT REPORTS LIVING AT HOME INDEPENDENTLY AND ALONE. PT HAS CPAP, NEBULIZER, HOME OXYGEN AND WALKER WITH SEAT FROM [facility]. PT HAS HAD [facility] IN THE PAST WITH NO OUTSIDE SERVICES ASSISTING IN THE HOME CURRENTLY. CM DISCUSSED AVAILABILITY OF HOME HEALTH, REHAB SERVICES AND MEDICAL EQUIPMENT. PT THINKS SHE WILL REQUIRE PORTABLE OXYGEN AND WOULD ACCEPT HOME HEALTH WITH [facility] IF THE DOCTOR FEELS IT TO BE NECESSARY. CHOICE FOR [facility] SIGNED. PT REPORTS HER CAR IS IN THE PARKING LOT IF SHE IS ALLOWED TO DRIVE HERSELF HOME, SHE WILL; IF NOT, PT'S NEIGHBOR WILL PICK HER UP AT DISCHARGE. PT PLANS TO DISCHARGE HOME ALONE, MAY NEED PORTABLE OXYGEN AND HOME HEALTH AT DISCHARGE. CM TO FOLLOW AND ASSIST. Open Claims Representative: Efrem Hale
[2017-03-13 20:00] VITALS: BP 151/86
--- NOTE | 2017-03-13 20:25 | NUR ---
HS MEDS GIVEN WITH FESH ICE WATER, NORCO 1 TAB GIVEN FOR C/O GENERALIZED PAIN.
--- NOTE | 2017-03-13 23:06 | NUR ---
RT AT BED SIDE TO ADMINISTER UPDRAFT.
--- NOTE | 2017-03-14 02:02 | NUR ---
CALL LIGHT IN REACH, WILL CONTINUE WITH PLAN OF CARE. 71 PACED WITH PVC ON TELEMETRY
[2017-03-14 04:00] VITALS: BP 122/80
[2017-03-14 06:27] LABS: BASOPHILS 0.1 % (0-2); EOSINOPHILS 0 % (0-7); HEMATOCRIT 44.8 % (36.0-48.0); HEMOGLOBIN 14.9 g/dL (12-16); IMMATURE GRANULOCYTES 0.7 % (0-5); LYMPHOCYTES 6.1 % (15-50); MCH 29.5 pg (26.0-34.0); MCHC 33.3 g/dL (31.0-37.0); MCV 88.7 fL (80.0-100.0); MEAN PLATELET VOLUME 10.7 fL (7.4-10.4); MONOCYTES 3.3 % (2-11); NEUTROPHILS 89.8 % (40-80); RBC 5.05 10x6/uL (4.00-5.40); RDW 14.4 % (11.5-14.5); WBC 13.7 10x3/uL (4.8-10.8)
[2017-03-14 06:40] LABS: ALBUMIN 2.7 g/dL (3.4-5.0); ANION GAP 13.2 mmol/L (8-16); BILIRUBIN - TOTAL 0.4 mg/dL (0.2-1.3); CALCIUM 8.9 mg/dL (8.5-10.1); CARBON DIOXIDE 29.2 mmol/L (21.0-32.0); CREATININE - SERUM 1.3 mg/dL (0.6-1.3); PHOSPHOROUS 3.8 mg/dL (2.5-4.9); POTASSIUM - SERUM 3.4 mmol/L (3.5-5.1); PROTEIN - SERUM 6.2 g/dL (6.4-8.2)
[2017-03-14 06:49] LABS: PLATELET COUNT 240 10x3/uL (130-400)
[2017-03-14 08:21] VITALS: BP 144/37
--- NOTE | 2017-03-14 10:13 | NUR ---
TELEMETRY FLUTTER WITH PACED BEATS. HR 75. RESP UL ON 02 8L OXIMIZER. IV PATENT. CALL LIGHT IN REACH. WILL CONT. PLAN OF CARE.
[2017-03-14 12:16] VITALS: BP 124/84
--- NOTE | 2017-03-14 14:14 | OP ---
PATIENT NAME: UVALDO SANCHEZ MEDICAL RECORD: [id number] :[birth year] LOCATION:D.M2 D.2114 ADMISSION DATE:03/09/17 SURGEON: KARISSA YOU MD DATE OF OPERATION: 03/07/2017 DATE OF SERVICE: 03/07/2017 PROCEDURES: 1. PTCA stent LAD. 2. DC cardioversion. 3. Left heart catheterization. 4. Selective coronary angiography. 5. Left ventriculogram. INDICATION: Angina, coronary artery disease, and atrial fibrillation. DESCRIPTION OF PROCEDURE PERFORMED: After informed consent was obtained and after detailed explanation of risks, benefits as well as alternative therapies, the patient elected to proceed with angiogram and angioplasty. The right femoral area was prepped and draped in normal sterile fashion. The right femoral artery was cannulated via modified Seldinger technique with placement of 6-Khmer sheath. All catheters exchanged through this sheath. FINDINGS: IV conscious sedation was performed for anesthesia. Heart rate, O2 saturation, blood pressure monitoring all remained stable. She received 1 shock restoring sinus rhythm. Left ventriculogram was performed in standard 30-degree VO view, reveals preserved cardiac wall motion, ejection fraction of 50%. SELECTIVE CORONARY ANGIOGRAPHY: 1. Left main showed no significant angiographic disease. 2. Left anterior descending has a previously placed stent. This has up to 75% in-stent restenosis in the proximal aspect. 3. Left circumflex shows mild irregularities, but no flow-limiting stenosis. 4. Right coronary has mild irregularities, but no flow-limiting stenosis. PTCA STENT OF THE LAD: The stent used is a 3.5 x 18 mm [place]. Result was 0% residual stenosis. OVERALL IMPRESSION: Successful percutaneous transluminal coronary angioplasty stent of the left anterior descending going from 75% initial stenosis to 0% residual stenosis. TRANSINT:[id number] Voice Confirmation ID: [id number] DOCUMENT ID: [id number] KARISSA YOU MD at 1414 CC: [id number] DICTATION DATE: 03/07/17 1353 BODY CORPORATE MANAGER: 03/07/17 1804 ADM IN [facility] [address] [place] [address]
[2017-03-14 16:44] VITALS: BP 140/76
[2017-03-14 20:00] VITALS: BP 159/80
[2017-03-15] VITALS: BP 159/79
--- NOTE | 2017-03-15 00:45 | NUR ---
INITIAL ROUNDS COMPLETED AT 1915 HRS. PT DENIED ANY DISCOMFORT. ASSESSMENT COMPLETED AT 1950 HRS. VSS. SR PER CM HR 66. O2 6L OXIMIZER. NS AT TKO TO R HAND. IV PATENT. LIGHT SCATTERED INSPIRATORY WHHEEZES NOTED TO UPPER LOBE. LUNGS DIMINISHED IN BASES BILAT. BRUISES NOTED TO BILAT ARMS. PM MEDS GIVEN. PT CURRETNLY RESTIN WITH EYES CLOSED WITH CPAP. RESP EVEN AND REGULAR. SR UP X2, CALL LIGHT WITHN REACH.
--- NOTE | 2017-03-15 02:42 | NUR ---
pt awake; denies any discomfort. will continue to monitor.
[2017-03-15 04:00] VITALS: BP 176/86
--- NOTE | 2017-03-15 04:37 | NUR ---
PT AWAKE; DENIES ANY DISCOMFORT. WILL CONTINUE TO MONITOR.
--- NOTE | 2017-03-15 06:26 | NUR ---
VSS THROUGHOUT NIGHT. SR/PACED PER CM . PT STATED NORCO HELPED PAIN. NEEDS MET; WILL CONTINUE TO MONITOR.
[2017-03-15 06:50] LABS: BASOPHILS 0 % (0-2); EOSINOPHILS 0 % (0-7); HEMATOCRIT 43.1 % (36.0-48.0); HEMOGLOBIN 14.4 g/dL (12-16); IMMATURE GRANULOCYTES 0.9 % (0-5); LYMPHOCYTES 5.6 % (15-50); MCH 29.3 pg (26.0-34.0); MCHC 33.4 g/dL (31.0-37.0); MCV 87.8 fL (80.0-100.0); MEAN PLATELET VOLUME 10.2 fL (7.4-10.4); MONOCYTES 2.7 % (2-11); NEUTROPHILS 90.8 % (40-80); PLATELET COUNT 217 10x3/uL (130-400); RBC 4.91 10x6/uL (4.00-5.40); WBC 10.8 10x3/uL (4.8-10.8)
[2017-03-15 07:02] LABS: ALBUMIN 2.3 g/dL (3.4-5.0); ANION GAP 12.5 mmol/L (8-16); BILIRUBIN - TOTAL 0.39 mg/dL (0.2-1.3); CALCIUM 8.4 mg/dL (8.5-10.1); CARBON DIOXIDE 30.8 mmol/L (21.0-32.0); CREATININE - SERUM 1.3 mg/dL (0.6-1.3); POTASSIUM - SERUM 3.3 mmol/L (3.5-5.1); PROTEIN - SERUM 6.1 g/dL (6.4-8.2)
--- NOTE | 2017-03-15 07:30 | NUR ---
RECEIVED PT IN BED AAOX4 RESP UNLABORED SKIN W/D COLOR WNL PT DENIES ANY NEEDS OR DISCOMFORT NAD NOTED
[2017-03-15 08:00] VITALS: BP 172/84
[2017-03-15 12:00] VITALS: BP 163/84
[2017-03-15 16:00] VITALS: BP 157/73
--- NOTE | 2017-03-15 19:26 | NUR ---
IV STARTED #22 TO INNER RFA WITH ATTEMPT X2. PT TOLERATED WELL. VANCOMYCIN IVAB RESTARTED.
[2017-03-15 20:00] VITALS: BP 173/63
--- NOTE | 2017-03-15 20:23 | NUR ---
ASSESSMEN T COMPLETED AT 1950 HRS. O2 4LNC. LUNGS WITH INSP WHHEEZES UPPER LOBES, DIMINISHED IN LOWER LOBES. BRUISES NOTED TO BILAT ARMS. IV TO INNER R FA WITH VANC INFUSING. WILL CONTINUE TO MONITOR. SR UP X2, CALL LIGHT WITHIN REACH.
--- NOTE | 2017-03-15 21:43 | NUR ---
PM MEDS GIVEN. NO DISTRESS NOTED.
--- NOTE | 2017-03-16 00:16 | NUR ---
PT RESTING WITH EYES CLOSED. RESP EVEN AND REGULAR. SR UP X2, CALL LIGHT WITHIN REACH.
[2017-03-16 01:15] VITALS: BP 183/83
--- NOTE | 2017-03-16 01:58 | NUR ---
PT RESTING WITH EYES CLOSED. RESP EVEN AND REGULAR. SR UP X2, CALL LIGHT WITHIN REACH.
--- NOTE | 2017-03-16 04:40 | NUR ---
PT AWAKE;DENIES ANY DISOCMFORT. WILL CONTINUE TO MONITOR.
[2017-03-16 05:19] VITALS: BP 176/98
[2017-03-16 05:19] LABS: BASOPHILS 0 % (0-2); EOSINOPHILS 0 % (0-7); HEMATOCRIT 42.8 % (36.0-48.0); HEMOGLOBIN 14.3 g/dL (12-16); IMMATURE GRANULOCYTES 1.3 % (0-5); MCH 29.1 pg (26.0-34.0); MCHC 33.4 g/dL (31.0-37.0); MCV 87.2 fL (80.0-100.0); NEUTROPHILS 90.7 % (40-80); PLATELET COUNT 220 10x3/uL (130-400); RBC 4.91 10x6/uL (4.00-5.40); RDW 13.8 % (11.5-14.5); WBC 10.9 10x3/uL (4.8-10.8)
[2017-03-16 05:38] LABS: ALBUMIN 2.3 g/dL (3.4-5.0); ANION GAP 9.3 mmol/L (8-16); BILIRUBIN - TOTAL 0.46 mg/dL (0.2-1.3); CARBON DIOXIDE 32.6 mmol/L (21.0-32.0); CREATININE - SERUM 1.1 mg/dL (0.6-1.3); PROTEIN - SERUM 5.9 g/dL (6.4-8.2)
[2017-03-16 05:40] LABS: POTASSIUM - SERUM 2.9 mmol/L (3.5-5.1)
--- NOTE | 2017-03-16 06:23 | NUR ---
AM K+ 2.9. KCL 20MEQ POWDER IN 120CC OF ORANGE JUICE GIVEN PER ELECTROLYTE PROTOCOL. STATES NORCO RELIVED PAIN. NEEDS MET; WILL CONTINUE TO MONITOR.
--- NOTE | 2017-03-16 07:41 | NUR ---
RECEIVED PT IN BED AAOX4 RESP UNLABORED O2 ON 2LPM NC DENIES ANY NEEDS AT THIS TIME NAD NOTED
[2017-03-16 07:51] VITALS: BP 171/80
[2017-03-16] MEDS ORDERED: XARELTO15 MG PO (14:00)
[2017-03-16] MEDS ORDERED: CARDIZEM CD240 MG PO (14:00)
[2017-03-16] MEDS ORDERED: BETAPACE 120 M120 MG PO (14:00)
--- NOTE | 2017-03-16 14:00 | NUR ---
REVIEWED DISCHARGE INSTRUCTIONS WITH PT STATES UNDERSTANDING COPY GIVEN SALINE LOCK PREVIOUSLY DCD SITE SHOWS SLIGHT BRUISING PT DISCHARGED TO HOME IN STABLE CONDITION WITH ALL PERSONAL BELONGINGS
--- NOTE | 2017-03-24 09:02 | DS ---
PATIENT:UVALDO DWYER :[birth year] MEDICAL RECORD: [id number] DISCHARGE SUMMARY ADMISSION DATE: 03/09/17 DISCHARGE DATE: 03/16/17 DATE OF DISCHARGE: 03/16/2017. DISCHARGE DIAGNOSES: 1. Pneumonia. 2. Atrial fibrillation. 3. Coronary artery disease. 4. Percutaneous transluminal coronary angioplasty stent to left anterior descending this admission. 5. Chronic obstructive pulmonary disease. 6. Hypertension. 7. Sick sinus syndrome, status post pacemaker. 8. History of lung cancer. 9. History of pulmonary embolus. HOSPITAL COURSE: Mrs. Dwyer presents with respiratory failure and angina, found to have pneumonia, treated with IV antibiotics, found to have coronary artery disease, status post PTCA stent of the LAD. She had atrial fibrillation, which was new. We did a cardioversion. She, however, reverted back to atrial fibrillation, question pulmonary fibrosis, amiodarone was stopped. She was placed on sotalol. There was also a question of a left atrial thrombus on the CT scan. She was put Xarelto. She had no further anginal symptomatology. She also was discharged with Plavix. Will follow up with [facility] in 1 month. TRANSINT:[id number] Voice Confirmation ID: [id number] DOCUMENT ID: [id number] KARISSA YOU MD at 0902 CC: [id number] DICTATION DATE: 03/17/17 1022 APPLIED RESEARCHER: 03/17/17 1219 DIS IN 03/16/17 [facility] [id number] [place] [address]
== END 2017-03-16 14:15 | disposition home or self-care (01) | DRG 246 ==
LOC: D.ER 15:45 → D.M2 18:38 → OBSVTIME 18:38 → D.M2 03-09 10:22
PROVIDERS: Emergency Medicine; Family Medicine; Internal Medicine Pulmonary Disease; ADMIT Internal Medicine Interventional Cardiology
PROC: B2151ZZ Fluoroscopy of Left Heart using Low Osmolar Contrast (ICD-10-PCS; 2017-03-07)
PROC: 027034Z Dilation of Coronary Artery, One Artery with Drug-eluting Intraluminal Device, Percutaneous Approach (ICD-10-PCS; principal; 2017-03-07 08:30)
PROC: 4A023N7 Measurement of Cardiac Sampling and Pressure, Left Heart, Percutaneous Approach (ICD-10-PCS; 2017-03-07 08:30)
PROC: B2111ZZ Fluoroscopy of Multiple Coronary Arteries using Low Osmolar Contrast (ICD-10-PCS; 2017-03-07 08:30)
DX: I25.110 Atherosclerotic heart disease of native coronary artery with unstable angina pectoris (principal); J18.9 Pneumonia, unspecified organism; J96.21 Acute and chronic respiratory failure with hypoxia; I50.23 Acute on chronic systolic (congestive) heart failure; J44.0 Chronic obstructive pulmonary disease with (acute) lower respiratory infection; J44.1 Chronic obstructive pulmonary disease with (acute) exacerbation; T82.855A Stenosis of coronary artery stent, initial encounter; F17.200 Nicotine dependence, unspecified, uncomplicated; Y83.8 Other surgical procedures as the cause of abnormal reaction of the patient, or of later complication, without mention of misadventure at the time of the procedure; I48.91 Unspecified atrial fibrillation; Z79.01 Long term (current) use of anticoagulants; G47.33 Obstructive sleep apnea (adult) (pediatric); K21.9 Gastro-esophageal reflux disease without esophagitis; K44.9 Diaphragmatic hernia without obstruction or gangrene; I11.0 Hypertensive heart disease with heart failure; I27.20 Pulmonary hypertension, unspecified; E87.6 Hypokalemia; K75.9 Inflammatory liver disease, unspecified; E11.40 Type 2 diabetes mellitus with diabetic neuropathy, unspecified; I51.3 Intracardiac thrombosis, not elsewhere classified; Z86.711 Personal history of pulmonary embolism; Z95.0 Presence of cardiac pacemaker

== ENCOUNTER 2017-04-07 22:13 | Emergency (ER) | payer MEDICARE, MEDICAID ==
[~2017-04-07 22:13] MED LIST changes: +BETAPACE 120 M120 MG PO; +CARDIZEM CD240 MG PO; +XARELTO15 MG PO
== END 2017-04-08 04:00 | disposition home or self-care (01) ==
LOC: D.ER 22:13
DX: S00.83XA Contusion of other part of head, initial encounter (principal); W01.0XXA Fall on same level from slipping, tripping and stumbling without subsequent striking against object, initial encounter; Y93.89 Activity, other specified; Y92.410 Unspecified street and highway as the place of occurrence of the external cause; S81.011A Laceration without foreign body, right knee, initial encounter; J44.9 Chronic obstructive pulmonary disease, unspecified; E11.9 Type 2 diabetes mellitus without complications; Z85.038 Personal history of other malignant neoplasm of large intestine; Z95.0 Presence of cardiac pacemaker

== ENCOUNTER → 2017-06-03 13:26 | Outpatient (CLI) | payer MEDICARE, MEDICAID | END | disposition home or self-care (01) | LOC: D.CT 13:26 | DX: M25.561 Pain in right knee (principal) ==

== ENCOUNTER → 2017-07-30 21:03 | Outpatient (CLI) | payer MEDICARE, MEDICAID | END | disposition home or self-care (01) | LOC: D.MAMMO 07-10 13:00 | DX: Z12.31 Encounter for screening mammogram for malignant neoplasm of breast (principal) ==

== ENCOUNTER 2018-01-29 12:10 | Inpatient (IN) | payer MEDICARE, MEDICAID ==
[~2018-01-29] VITALS: Ht 167.6 cm; Wt 91.5 kg
--- NOTE | ~2018-01-29 | CN ---
PATIENT NAME:UVALDO DWYER MEDICAL RECORD: [id number] : [birth year] LOCATION:CLAUDIAD.2311 ADMIT DATE: 01/29/18 ACCOUNT: [id number] CONSULTING PHYSICIAN: JOMAR NAYAK MD REFERRING PHYSICIAN: HARJINDER BANSAL MD DATE OF CONSULTATION: 01/30/2018 CONSULT REQUESTING PHYSICIAN: Harjinder Bansal MD REASON FOR CONSULTATION: Pneumonia, right lower lobe, pleurisy. HISTORY OF PRESENT ILLNESS: Ms. Dwyer is a 67-year-old female, very well known to me. According to the patient, she is sick for the last few days. She has a fever. She was coughing. She has a pleuritic type of chest pain on the left side. She also has some low-grade fever. She has shortness of breath with mild exertion. She was also wheezing. REVIEW OF SYSTEMS: As in history of present illness. PAST MEDICAL HISTORY: 1. COPD. 2. Obstructive sleep apnea, on CPAP machine at home. 3. Nocturnal hypoxia. 4. Gastroesophageal reflux disease. 5. Coronary artery disease. 6. History of congestive heart failure. 7. History of hypertension. 8. History of CA of the lung, status post left upper lobe lobectomy. 9. History of pneumonia in the past. PAST SURGICAL HISTORY: 1. She is status post left upper lobe lobectomy for CA of the lung. 2. Cardiac catheterization and stent placement. 3. Cervical spine fusion. 4. Status post pacemaker placement. 5. Hysterectomy. 6. Benign tumor removed from right breast. 7. Status post partial colectomy. 8. Left hip replacement. 9. Right hip replacement. ALLERGIES: SHE IS ALLERGIC TO SULFA AND CODEINE. MEDICATIONS: [employer] is reviewed. PERSONAL AND SOCIAL HISTORY: The patient is an ex-smoker. She is a nondrinker. FAMILY HISTORY: Noncontributory. PHYSICAL EXAMINATION: GENERAL: Now, the patient is lying comfortably in bed. She is not in acute distress. VITAL SIGNS: The blood pressure is 179/67, pulse is 85, respiration is 20, temperature 98.1, and SPO2 is 90% on 3 liters nasal cannula. HEENT: Conjunctivae are pink. Sclerae are not icteric. CONSULT REPORT [id number] UVALDO DWYER NECK: Supple, no JVD. CHEST: There are bibasilar crackles, wheezes on her forceful expiration. HEART: Rhythm regular, normal sound, no murmur. ABDOMEN: Soft, bowel sounds present. No hepatosplenomegaly. RECTAL: Deferred. EXTREMITIES: No cyanosis, no clubbing, no pedal edema. SKIN: Warm, normal turgor. CENTRAL NERVOUS SYSTEM: The patient is awake and alert. There are no obvious cranial nerve abnormality. The gait was not tested. LABORATORY DATA: CBC: The WBC is 10.9, hemoglobin 12.8, hematocrit 39. Chemistry: Sodium 135, potassium 4.5, BUN is 18, creatinine 1.2. The D-dimer is 1.09. IMAGING: CTA of the chest is negative for pulmonary thromboembolism. There are some atelectatic changes on the left side. There is also right lower lobe infiltrate. Ultrasound of the lower extremity is negative for the DVT. IMPRESSION: 1. Acute exacerbation of chronic obstructive pulmonary disease. 2. Cgihf-gb-ppvfpkb hypoxic respiratory failure. 3. Pneumonia, right lower lobe. 4. Pleurisy. 5. Leukocytosis. 6. Obstructive sleep apnea, on CPAP. 7. Elevated D-dimer, no pulmonary thromboembolism. RECOMMENDATION: 1. Continue supplemental oxygen. 2. Albuterol ipratropium nebulizer. 3. Brovana and budesonide nebulizer. 4. Albuterol ipratropium nebulizer. 5. Start on Singulair. 6. Mucinex. 7. Continue empiric Zithromax and Rocephin. 8. Ambien at night. 9. Follow up labs and chest radiograph. Thank you for involving me in the care of Ms. Dwyer. TRANSINT:[id number] Voice Confirmation ID: [id number] DOCUMENT ID: [id number] JOMAR NAYAK MD CC: DANIELLE WILKINS [id number] DICTATION DATE: 01/30/18 1452 TREE SHEAR OPERATOR: 01/30/18 1650 ADM IN [facility] [id number] [place] [address]
--- NOTE | ~2018-01-29 | MORECARE ---
CASE MANAGEMENT DISCHARGE SUMMARY PATIENT: UVALDO SANCHEZ UNIT: [id number] ADM DATE: 01/29/18 AGE: 67 : [birth year] SEX: F ROOM/BED: D.02 AUTHOR: ERIC,DOC PHYSICIAN: REFERRING PHYSICIAN: ASHU BANSAL MD DATE OF SERVICE: 02/06/18 Discharge Plan Patient Name: UVALDO SANCHEZ Facility: [facility]:[place] : 1950 Planned Disposition: Home Anticipated Discharge Date: 02/01/18 Discharge Date: 02/06/2018 Expected LOS: 3 Initial Reviewer: [email or web address] Initial Review Date: 01/29/2018 Generated: 02/06/18 6:26 pm Comments DCP- Discharge Planning Updated by [email or web address]: Anupama Millard on 02/06/18 4:[address] IMM explained and served @ 1550 DCP- Discharge Planning Updated by [email or web address]: Josefina Dow on 01/29/18 4:[address] Patient Name: UVALDO SANCHEZ Admission Status: ER Accout number: [id number] Admission Date: 01-29-2018 : 1950 Admission Diagnosis: Attending: NIMISHA, Current LOS: 1 Anticipated DC Date: 02-01-2018 Planned Disposition: Home Primary Insurance: [facility] [employer] Discharge Planning Comments: CM met with patient to complete initial dc planning assessment. CM educated patient on the CM role and verbal consent given by patient to complete assessment. Patient lives at home alone. Patient reports she in independent in her care at home and denied need for community resources at this time. She did report that she gets Meals on Wheels at home. Patient is unsure who her O2 company is at home. At discharge patient plans to return home and feels this is a safe discharge. CM will continue to follow and will assist as needed with dc plans/needs. See below for more assessment information. Is the patient Alert and Oriented? Yes * How many steps to enter\exit or inside your home? None * PCP Dr. Bean * Pharmacy [facility] * Preadmission Environment Home Alone * ADLs Independent * Equipment Cane CPAP Nebulizer Oxygen Walker * List name and contact numbers for known caregivers / representatives who currently or will assist patient after discharge: Terese Easley [phone] * Verbal permission to speak to the caregivers and representatives has been obtained from the patient. Yes * Community resources currently utilized Meals on Wheels * Additional services required to return to the preadmission environment? No * Can the patient safely return to the preadmission environment? Yes * Has this patient been hospitalized within the prior 30 days at any hospital? No Head Of Quality: Josefina Dow RN, [facility] DCPIA - Discharge Planning Initial Assessment Updated by [email or web address]: Josefina Dow on 01/29/18 4:58 pm * Is the patient Alert and Oriented? Yes * How many steps to enter\exit or inside your home? None * PCP Dr. Bean * Pharmacy [facility] * Preadmission Environment Home Alone * ADLs Independent * Equipment Cane CPAP Nebulizer Oxygen Walker * List name and contact numbers for known caregivers / representatives who currently or will assist patient after discharge: Terese Easley [phone] * Verbal permission to speak to the caregivers and representatives has been obtained from the patient. Yes * Community resources currently utilized Meals on Wheels * Additional services required to return to the preadmission environment? No * Can the patient safely return to the preadmission environment? Yes * Has this patient been hospitalized within the prior 30 days at any hospital? No Coverage Notice Reviewer: [email or web address] Tracee Millard Notice Issued Date-Time: 02/06/2018 15:50 Notice Type: IM Discharge Notice Notice Delivered To: Patient Relationship to Patient: Self Supervisor [employer] Name: Delivery Method: HAND - Hand Delivered Sun Days: Prior Verbal Notification: Recipient Understood Notice: Yes Recipient Signature: Yes Med Rec Note Co-signed by Attending: Coverage Notice Comment: Last DP export: 01/29/18 4:10 p Patient Name: UVALDO SANCHEZ Page [id number] at 1727 All edits/amendments must be made on the electronic document DICTATION DATE: 02/06/181725 LAY OUT DRAFTER: ROBERT 02/06/181725 RPT#: [id number] DC DATE:02/06/18 STATUS: DIS IN [facility] [address] [place] [address] END OF REPORT
--- NOTE | ~2018-01-29 | OP ---
PATIENT NAME: UVALDO SANCHEZ MEDICAL RECORD: [id number] :[birth year] LOCATION:[facility] ADMISSION DATE:01/29/18 SURGEON: KARISSA YOU MD DATE OF OPERATION: 02/05/2018 PROCEDURE: DC cardioversion. INDICATION: Atrial fibrillation. PROCEDURE IN DETAIL: IV conscious sedation was performed per anesthesia. Continuous heart rate, O2 saturation, blood pressure monitoring all undertaken, all of which remained stable. She received 1 shock at 275 joules restoring sinus rhythm. OVERALL IMPRESSION: Successful DC cardioversion from atrial fibrillation to sinus rhythm. TRANSINT:[id number] Voice Confirmation ID: [id number] DOCUMENT ID: [id number] KARISSA YOU MD at 0924 CC: [id number] DICTATION DATE: 02/05/18 1155 SPARK PLUG ASSEMBLER: 02/05/18 1202 DIS IN 02/06/18 [facility] [address] [place] [address]
[2018-01-29] MEDS ORDERED: PIOGLITAZONE15 MG PO (12:19)
[2018-01-29] MEDS ORDERED: ULTRAM50 MG PO (12:20)
[2018-01-29] MEDS ORDERED: IMODIUM2 MG PO (12:21)
[2018-01-29] MEDS ORDERED: CELEXA20 MG PO (12:22)
[2018-01-29] MEDS ORDERED: BAYER CHEWABLE81 MG PO (12:22)
[2018-01-29] MEDS ORDERED: AMBIEN10 MG PO (12:23)
[2018-01-29] MEDS ORDERED: MUCINEX DM ER1 EAC1 PO (12:24)
[2018-01-29 12:56] LABS: BASOPHILS 0.1 % (0-2); HEMATOCRIT 38.4 % (36.0-48.0); HEMOGLOBIN 12.8 g/dL (12-16); IMMATURE GRANULOCYTES 0.6 % (0-5); LYMPHOCYTES 16.7 % (15-50); MCHC 33.3 g/dL (31.0-37.0); MCV 87.1 fL (80.0-100.0); MEAN PLATELET VOLUME 9.5 fL (7.4-10.4); MONOCYTES 7.9 % (2-11); NEUTROPHILS 73.7 % (40-80); PLATELET COUNT 163 10x3/uL (130-400); RBC 4.41 10x6/uL (4.00-5.40); RDW 15.4 % (11.5-14.5); WBC 8.2 10x3/uL (4.8-10.8)
[2018-01-29 13:00] VITALS: BP 144/53
[2018-01-29 13:14] LABS: ALBUMIN 3.1 g/dL (3.4-5.0); ALKALINE PHOSPHATASE 56 U/L (46-116); ALT (SGPT) 77 U/L (10-68); BILIRUBIN - TOTAL 0.37 mg/dL (0.2-1.3); CALC OSMOLALITY 263 mosm/kg (275-300); CALCIUM 8.4 mg/dL (8.5-10.1); CARBON DIOXIDE 26.6 mmol/L (21.0-32.0); CHLORIDE - SERUM 98 mmol/L (98-107); CREATININE - SERUM 1.1 mg/dL (0.6-1.3); POTASSIUM - SERUM 4.4 mmol/L (3.5-5.1); PROTEIN - SERUM 6.6 g/dL (6.4-8.2); SODIUM 131 mmol/L (136-145); UREA NITROGEN 12 mg/dL (7-18); eGFR NON AFRICAN AMERICAN 52 mL/min (90-120)
[2018-01-29 13:15] LABS: GLUCOSE 108 mg/dL (74-106)
[2018-01-29 13:22] LABS: PRO BNP 3468 pg/mL (0-125); TROPONIN-I < 0.017 ng/mL (0.000-0.060)
[2018-01-29 14:00] VITALS: BP 163/53
[2018-01-29 15:00] VITALS: BP 149/54
[2018-01-29 16:00] VITALS: BP 185/79
[2018-01-29 17:58] VITALS: BP 185/74; BMI 30.7
[2018-01-29 20:00] VITALS: BP 137/56
[2018-01-29 20:08] LABS: CKMB 0.6 U/L (0.0-3.6); CREATINE KINASE 61 UL (21-215)
[2018-01-29 20:10] LABS: TROPONIN-I < 0.017 ng/mL (0.000-0.060)
[2018-01-30] VITALS: BP 138/56
[2018-01-30 02:05] LABS: CKMB 0.8 U/L (0.0-3.6); CREATINE KINASE 49 UL (21-215)
[2018-01-30 02:06] LABS: TROPONIN-I < 0.017 ng/mL (0.000-0.060)
[2018-01-30 04:00] VITALS: BP 145/71
[2018-01-30 06:53] LABS: BASOPHILS 0 % (0-2); EOSINOPHILS 0 % (0-7); HEMATOCRIT 39.1 % (36.0-48.0); HEMOGLOBIN 12.8 g/dL (12-16); IMMATURE GRANULOCYTES 0.2 % (0-5); LYMPHOCYTES 4.1 % (15-50); MCH 29.2 pg (26.0-34.0); MCHC 32.7 g/dL (31.0-37.0); MEAN PLATELET VOLUME 9.9 fL (7.4-10.4); MONOCYTES 1.2 % (2-11); NEUTROPHILS 94.5 % (40-80); PLATELET COUNT 167 10x3/uL (130-400); RBC 4.38 10x6/uL (4.00-5.40); RDW 15.7 % (11.5-14.5)
[2018-01-30 07:21] LABS: MCV 89.3 fL (80.0-100.0); WBC 10.9 10x3/uL (4.8-10.8)
[2018-01-30 07:25] LABS: ALKALINE PHOSPHATASE 55 U/L (46-116); ALT (SGPT) 65 U/L (10-68); BILIRUBIN - TOTAL 0.22 mg/dL (0.2-1.3); CALCIUM 8.1 mg/dL (8.5-10.1); CARBON DIOXIDE 27.9 mmol/L (21.0-32.0); CHLORIDE - SERUM 101 mmol/L (98-107); CKMB 0.9 U/L (0.0-3.6); CREATINE KINASE 54 UL (21-215); CREATININE - SERUM 1.2 mg/dL (0.6-1.3); MAGNESIUM - SERUM 1.9 mg/dL (1.8-2.4); POTASSIUM - SERUM 4.5 mmol/L (3.5-5.1); PROTEIN - SERUM 6.4 g/dL (6.4-8.2); SODIUM 135 mmol/L (136-145); TROPONIN-I < 0.017 ng/mL (0.000-0.060); eGFR NON AFRICAN AMERICAN 47 mL/min (90-120)
[2018-01-30 07:28] LABS: CALC OSMOLALITY 276 mosm/kg (275-300); GLUCOSE 187 mg/dL (74-106); UREA NITROGEN 18 mg/dL (7-18)
[2018-01-30 07:54] VITALS: BP 186/99
[2018-01-30 11:27] VITALS: BP 179/67
[2018-01-30 14:55] VITALS: BP 170/70
[2018-01-30 20:00] VITALS: BP 179/68
[2018-01-31] VITALS (22 sets, daily range): BP systolic 130–198; BP diastolic 68–111
[2018-01-31 03:43] LABS: BASOPHILS 0 % (0-2); EOSINOPHILS 0 % (0-7); HEMATOCRIT 43.4 % (36.0-48.0); HEMOGLOBIN 14.1 g/dL (12-16); IMMATURE GRANULOCYTES 0.5 % (0-5); LYMPHOCYTES 2.4 % (15-50); MCH 29.4 pg (26.0-34.0); MCHC 32.5 g/dL (31.0-37.0); MCV 90.6 fL (80.0-100.0); MEAN PLATELET VOLUME 10.3 fL (7.4-10.4); MONOCYTES 2.3 % (2-11); NEUTROPHILS 94.8 % (40-80); PLATELET COUNT 206 10x3/uL (130-400); RBC 4.79 10x6/uL (4.00-5.40); WBC 26.1 10x3/uL (4.8-10.8)
[2018-01-31 03:52] LABS: BILIRUBIN - TOTAL 0.24 mg/dL (0.2-1.3); CALCIUM 7.9 mg/dL (8.5-10.1); CARBON DIOXIDE 22.4 mmol/L (21.0-32.0); CREATININE - SERUM 1.4 mg/dL (0.6-1.3); MAGNESIUM - SERUM 2.1 mg/dL (1.8-2.4); PROTEIN - SERUM 6.9 g/dL (6.4-8.2)
[2018-01-31 03:53] LABS: ANION GAP 14.8 mmol/L (8-16); POTASSIUM - SERUM 5.2 mmol/L (3.5-5.1)
[2018-01-31 04:51] LABS: APPEARANCE CLEAR (CLEAR); BILIRUBIN NEGATIVE (NEGATIVE); COLOR YELLOW (YELLOW); GLUCOSE NEGATIVE (NEGATIVE); KETONE NEGATIVE (NEGATIVE); NITRITE NEGATIVE (NEGATIVE); PROTEIN NEGATIVE (NEGATIVE); UROBILINOGEN NORMAL (NORMAL)
[2018-02-01] VITALS (24 sets, daily range): BP systolic 133–186; BP diastolic 71–117
[2018-02-01 02:49] LABS: BASOPHILS 0 % (0-2); EOSINOPHILS 0 % (0-7); HEMATOCRIT 37.9 % (36.0-48.0); IMMATURE GRANULOCYTES 0.3 % (0-5); MCH 28.7 pg (26.0-34.0); MCHC 31.7 g/dL (31.0-37.0); MCV 90.7 fL (80.0-100.0); MEAN PLATELET VOLUME 10.4 fL (7.4-10.4); MONOCYTES 2.1 % (2-11); NEUTROPHILS 94.6 % (40-80); RBC 4.18 10x6/uL (4.00-5.40); RDW 16.2 % (11.5-14.5)
[2018-02-01 02:50] LABS: PLATELET COUNT 152 10x3/uL (130-400); WBC 13.2 10x3/uL (4.8-10.8)
[2018-02-01 02:57] LABS: ALBUMIN 2.7 g/dL (3.4-5.0); BILIRUBIN - TOTAL 0.17 mg/dL (0.2-1.3); CALCIUM 8.4 mg/dL (8.5-10.1); CREATININE - SERUM 1.4 mg/dL (0.6-1.3); MAGNESIUM - SERUM 2.1 mg/dL (1.8-2.4); POTASSIUM - SERUM 4.2 mmol/L (3.5-5.1); PROTEIN - SERUM 6.1 g/dL (6.4-8.2)
[2018-02-01 02:58] LABS: ANION GAP 10.8 mmol/L (8-16); CARBON DIOXIDE 28.4 mmol/L (21.0-32.0)
[2018-02-02] VITALS (40 sets, daily range): BP systolic 127–207; BP diastolic 72–148; BMI 30.6
[2018-02-02 05:26] LABS: BASOPHILS 0 % (0-2); EOSINOPHILS 0 % (0-7); HEMATOCRIT 38.8 % (36.0-48.0); HEMOGLOBIN 12.6 g/dL (12-16); IMMATURE GRANULOCYTES 0.2 % (0-5); LYMPHOCYTES 4.8 % (15-50); MCH 28.9 pg (26.0-34.0); MCHC 32.5 g/dL (31.0-37.0); MEAN PLATELET VOLUME 9.9 fL (7.4-10.4); MONOCYTES 3.2 % (2-11); NEUTROPHILS 91.8 % (40-80); PLATELET COUNT 156 10x3/uL (130-400); RBC 4.36 10x6/uL (4.00-5.40)
[2018-02-02 05:33] LABS: WBC 9.5 10x3/uL (4.8-10.8)
[2018-02-02 05:44] LABS: ALBUMIN 2.8 g/dL (3.4-5.0); ANION GAP 12.4 mmol/L (8-16); BILIRUBIN - TOTAL 0.33 mg/dL (0.2-1.3); CALCIUM 8.5 mg/dL (8.5-10.1); CARBON DIOXIDE 27.3 mmol/L (21.0-32.0); POTASSIUM - SERUM 3.7 mmol/L (3.5-5.1); PROTEIN - SERUM 6.2 g/dL (6.4-8.2)
[2018-02-02 22:27] LABS: CKMB 0.9 U/L (0.0-3.6); CREATINE KINASE 60 UL (21-215); TROPONIN-I 0.023 ng/mL (0.000-0.060)
[2018-02-03] VITALS (46 sets, daily range): BP systolic 103–152; BP diastolic 53–94
[2018-02-03 05:20] LABS: BASOPHILS 0 % (0-2); EOSINOPHILS 0 % (0-7); HEMATOCRIT 37.9 % (36.0-48.0); HEMOGLOBIN 12.4 g/dL (12-16); IMMATURE GRANULOCYTES 0.3 % (0-5); LYMPHOCYTES 6.7 % (15-50); MCH 28.6 pg (26.0-34.0); MCHC 32.7 g/dL (31.0-37.0); MCV 87.3 fL (80.0-100.0); MEAN PLATELET VOLUME 9.9 fL (7.4-10.4); MONOCYTES 5.5 % (2-11); NEUTROPHILS 87.5 % (40-80); PLATELET COUNT 143 10x3/uL (130-400); RBC 4.34 10x6/uL (4.00-5.40); RDW 15.4 % (11.5-14.5)
[2018-02-03 05:25] LABS: WBC 6.7 10x3/uL (4.8-10.8)
[2018-02-03 06:39] LABS: ALBUMIN 2.7 g/dL (3.4-5.0); BILIRUBIN - TOTAL 0.28 mg/dL (0.2-1.3); MAGNESIUM - SERUM 1.8 mg/dL (1.8-2.4); PROTEIN - SERUM 5.6 g/dL (6.4-8.2)
[2018-02-03 06:43] LABS: ANION GAP 6.3 mmol/L (8-16); CARBON DIOXIDE 35.5 mmol/L (21.0-32.0)
[2018-02-03 06:44] LABS: POTASSIUM - SERUM 2.8 mmol/L (3.5-5.1)
[2018-02-04] VITALS (22 sets, daily range): BP systolic 107–142; BP diastolic 51–88; Ht 167.6 cm; Wt 91.5 kg
[2018-02-04 05:21] LABS: BASOPHILS 0 % (0-2); EOSINOPHILS 0 % (0-7); HEMOGLOBIN 12.6 g/dL (12-16); LYMPHOCYTES 7.7 % (15-50); MCHC 33.2 g/dL (31.0-37.0); MCV 87.6 fL (80.0-100.0); MEAN PLATELET VOLUME 9.5 fL (7.4-10.4); MONOCYTES 5.2 % (2-11); NEUTROPHILS 86.1 % (40-80); PLATELET COUNT 145 10x3/uL (130-400); RBC 4.34 10x6/uL (4.00-5.40); RDW 15.6 % (11.5-14.5)
[2018-02-04 05:34] LABS: ANION GAP 8.3 mmol/L (8-16); CARBON DIOXIDE 34.8 mmol/L (21.0-32.0); CREATININE - SERUM 1.1 mg/dL (0.6-1.3); PHOSPHOROUS 3.3 mg/dL (2.5-4.9)
[2018-02-04 05:48] LABS: POTASSIUM - SERUM 3.1 mmol/L (3.5-5.1)
[2018-02-04 13:33] LABS: CKMB 0.3 U/L (0.0-3.6); CREATINE KINASE 68 UL (21-215)
[2018-02-04 23:12] LABS: CKMB 0.6 U/L (0.0-3.6); CREATINE KINASE 57 UL (21-215); TROPONIN-I 0.022 ng/mL (0.000-0.060)
[2018-02-05] VITALS (23 sets, daily range): BP systolic 109–141; BP diastolic 36–90
[2018-02-05 06:21] LABS: CREATINE KINASE 52 UL (21-215); TROPONIN-I < 0.017 ng/mL (0.000-0.060)
[2018-02-05 08:19] LABS: ANION GAP 9.4 mmol/L (8-16); CALCIUM 7.9 mg/dL (8.5-10.1); CARBON DIOXIDE 32.8 mmol/L (21.0-32.0); CREATININE - SERUM 1.2 mg/dL (0.6-1.3); PHOSPHOROUS 3.4 mg/dL (2.5-4.9); POTASSIUM - SERUM 3.2 mmol/L (3.5-5.1)
[2018-02-06] VITALS: BP 120/48
[2018-02-06 01:00] VITALS: BP 125/52
[2018-02-06 02:00] VITALS: BP 134/51
[2018-02-06 03:00] VITALS: BP 140/65
[2018-02-06 05:56] LABS: BASOPHILS 0 % (0-2); EOSINOPHILS 0 % (0-7); HEMATOCRIT 37.5 % (36.0-48.0); HEMOGLOBIN 12.2 g/dL (12-16); IMMATURE GRANULOCYTES 1.5 % (0-5); LYMPHOCYTES 6.6 % (15-50); MCH 28.6 pg (26.0-34.0); MCHC 32.5 g/dL (31.0-37.0); MCV 87.8 fL (80.0-100.0); MEAN PLATELET VOLUME 9.9 fL (7.4-10.4); MONOCYTES 4.2 % (2-11); NEUTROPHILS 87.7 % (40-80); PLATELET COUNT 156 10x3/uL (130-400); RBC 4.27 10x6/uL (4.00-5.40); RDW 15.7 % (11.5-14.5); WBC 7.9 10x3/uL (4.8-10.8)
[2018-02-06 06:00] VITALS: BP 127/71
[2018-02-06 06:11] LABS: ALBUMIN 2.5 g/dL (3.4-5.0); ANION GAP 10.6 mmol/L (8-16); BILIRUBIN - TOTAL 0.35 mg/dL (0.2-1.3); CARBON DIOXIDE 33.9 mmol/L (21.0-32.0); CREATININE - SERUM 1.1 mg/dL (0.6-1.3); MAGNESIUM - SERUM 1.9 mg/dL (1.8-2.4); PHOSPHOROUS 3.3 mg/dL (2.5-4.9); POTASSIUM - SERUM 3.5 mmol/L (3.5-5.1); PROTEIN - SERUM 5.4 g/dL (6.4-8.2)
[2018-02-06] MEDS ORDERED: HYDRALAZINE HCL50 MG PO (10:17)
[2018-02-06] MEDS ORDERED: ZESTRIL40 MG PO (10:17)
[2018-02-06] MEDS ORDERED: NORVASC10 MG PO (10:17)
[2018-02-06] MEDS ORDERED: LASIX40 MG PO (10:18)
[2018-02-06] MEDS ORDERED: TESSALON PERLE100 MG PO (10:18)
== END 2018-02-06 15:55 | disposition home or self-care (01) | DRG 177 ==
LOC: D.ER 12:10 → D.EDHOLD 15:47 → D.M2 15:47 → D.ICU 15:47 → D.CVICU 15:47 → D.M2 16:24 → D.ICU 01-31 03:33 → D.CVICU 02-04 16:00
PROVIDERS: Family Medicine; Internal Medicine Nephrology; Internal Medicine Pulmonary Disease
PROC: 5A09357 Assistance with Respiratory Ventilation, Less than 24 Consecutive Hours, Continuous Positive Airway Pressure (ICD-10-PCS; 2018-01-31)
PROC: 05H633Z Insertion of Infusion Device into Left Subclavian Vein, Percutaneous Approach (ICD-10-PCS; principal; 2018-02-01)
DX: J15.6 Pneumonia due to other Gram-negative bacteria (principal); J96.21 Acute and chronic respiratory failure with hypoxia; J96.22 Acute and chronic respiratory failure with hypercapnia; I13.0 Hypertensive heart and chronic kidney disease with heart failure and stage 1 through stage 4 chronic kidney disease, or unspecified chronic kidney disease; E87.2 Acidosis; E87.1 Hypo-osmolality and hyponatremia; F17.203 Nicotine dependence unspecified, with withdrawal; E72.20 Disorder of urea cycle metabolism, unspecified; R04.2 Hemoptysis; E11.22 Type 2 diabetes mellitus with diabetic chronic kidney disease; N18.3 Chronic kidney disease, stage 3 (moderate); I50.9 Heart failure, unspecified; E03.9 Hypothyroidism, unspecified; Z85.118 Personal history of other malignant neoplasm of bronchus and lung; E78.5 Hyperlipidemia, unspecified; F32.9 Major depressive disorder, single episode, unspecified; K21.9 Gastro-esophageal reflux disease without esophagitis; I25.10 Atherosclerotic heart disease of native coronary artery without angina pectoris; Z95.5 Presence of coronary angioplasty implant and graft; G47.33 Obstructive sleep apnea (adult) (pediatric); Z99.81 Dependence on supplemental oxygen; I48.0 Paroxysmal atrial fibrillation; E11.21 Type 2 diabetes mellitus with diabetic nephropathy; E11.65 Type 2 diabetes mellitus with hyperglycemia; J13 Pneumonia due to Streptococcus pneumoniae; J43.9 Emphysema, unspecified

== ENCOUNTER 2018-02-09 15:43 | Observation (INO) | payer MEDICARE, MEDICAID ==
[~2018-02-09] VITALS: Ht 167.6 cm; Wt 87.3 kg
--- NOTE | ~2018-02-09 | CN ---
PATIENT NAME:UVALDO SANCHEZ MEDICAL RECORD: [id number] : [birth year] LOCATION:D.Leif D.2119 ADMIT DATE: 02/09/18 ACCOUNT: [id number] CONSULTING PHYSICIAN: NAZ MAS MD REFERRING PHYSICIAN: DANIELLE WILKINS MD DATE OF CONSULTATION: 02/10/2018 HISTORY OF PRESENT ILLNESS: A 67-year-old female with a history of coronary artery disease, status post intervention. She also has a history of sick sinus syndrome, status post pacemaker placement and recent cardioversion and pneumonitis, has been trying to increase activity after previous illness, had onset of angina with minimal exertion yesterday, radiating to jaw accompanied with shortness of breath, chest heaviness, had a history of intervention approximately 1 year ago. Pacemaker interrogation, no recurrence of atrial fibrillation. We are asked to see her concerning her cardiovascular status. PAST MEDICAL HISTORY: 1. History of coronary artery disease as described above. 2. Sick sinus syndrome. 3. PAF. 4. Diabetes mellitus. 5. Hypothyroidism, on replacement. 6. Dyslipidemia. MEDICATIONS: Include, Brovana 15 mcg b.i.d., amlodipine 10 every day, hydralazine 100 t.i.d., lisinopril 40 daily every day, sotalol 120 b.i.d., aspirin 81 every day, Lasix 40 every day, Zantac 300 every day, pioglitazone 50 mg every day, Synthroid 25 mcg every day. ALLERGIES: SULFA, CODEINE. SOCIAL HISTORY: Nonsmoker, has some trouble with ADLs, has been trying to rehab some. REVIEW OF SYSTEMS: The patient reports easy bruising but reports no swollen glands. The patient reports no fever, no night sweats, no significant weight gain, no significant weight loss. No significant exercise tolerance. The patient reports no dry eyes, no irritation, no vision change. Patient reports no difficulty hearing and no ear pain. Patient reports no frequent nose bleeds or nose and sinus problems. Patient reports on arm pain on exertion. No shortness of breath while lying down. No history of heart murmur. Patient reports no cough, no wheezing or coughing up blood. Patient reports no abdominal pain, no vomiting. Normal appetite. No diarrhea and not vomiting blood. No nausea and no constipation. Patient reports no incontinence. No difficulty urinating. No hematuria. No increased frequency. Patient reports no muscle aches. No weakness, no arthralgias, no back pain. No swelling of the extremities. Patient reports no abnormal mole, no jaundice, no rashes. Reports no loss of consciousness. No weakness and no numbness. No seizures, dizziness, or headaches. The patient reports no depression, no sleep disturbance, feeling safe in a relationship and no alcohol abuse. Patient reports on fatigue. Reports no runny nose or sinus pressure. No itching, no hives, and no frequent sneezing. PHYSICAL EXAMINATION: GENERAL: Pleasant female, in no acute distress. CONSULT REPORT [id number] [facility] VITAL SIGNS: Blood pressure 145/63, pulse 80 and regular. HEENT: Normocephalic, atraumatic. NECK: No bruits noted. HEART: Regular. II/ systolic ejection murmur. LUNGS: Good air excursion. ABDOMEN: Soft, nontender. EXTREMITIES: Pulses 2+ with no edema. NEUROLOGIC: Grossly intact. Pacemaker interrogation shows no PAF, good sensing threshold. IMPRESSION: Acute coronary syndrome, probably exacerbated with recent illness and increased catecholamine drive. We will plan for diagnostic angiography, intervention based on above. TRANSINT:[id number] Voice Confirmation ID: [id number] DOCUMENT ID: [id number] NAZ MAS MD at 0802 CC: [id number] DICTATION DATE: 02/10/18829 HEAD PACKAGER: 02/10/18 1031 DIS IN 02/11/18 [facility] [address] [place] [address]
--- NOTE | ~2018-02-09 | MORECARE ---
CASE MANAGEMENT DISCHARGE SUMMARY PATIENT: UVALDO SANCHEZ [place] UNIT: [id number] ADM DATE: 02/09/18 AGE: 67 : 49 SEX: F ROOM/BED: D.1851 AUTHOR: LUIS REYES PHYSICIAN: REFERRING PHYSICIAN: DANIELLE WILKINS MD DATE OF SERVICE: 02/11/18 Discharge Plan Patient Name: UVALDO ASNCHEZ Facility: [facility]:[place] : 1950 Planned Disposition: Home Anticipated Discharge Date: 02/11/18 Discharge Date: 02/11/2018 Expected LOS: 2 Initial Reviewer: [id number] Initial Review Date: 02/11/2018 Generated: 02/11/18 5:53 pm Coverage Notice Reviewer: [id number] Tracee Crowley Notice Issued Date-Time: 02/10/2018 15:39 Notice Type: Medicare Outpatient Observation Notice Notice Delivered To: Patient Relationship to Patient: Self Tower Watchman Name: Delivery Method: HAND - Hand Delivered Sun Days: Prior Verbal Notification: Recipient Understood Notice: Recipient Signature: Med Rec Note Co-signed by Attending: Coverage Notice Comment: PATIENT VERY DROWSY, JUST BACK FROM [employer]. NOTICE LEFT ON BEDSIDE TABLE WITH MY NAME AND NUMBER IF SHE HAS QUESTIONS. EXPLAINED I WAS LEAVING FOR THE DAY AND WILL BE BACK TOMORROW, BUT UNSURE IF SHE UNDERSTOOD WHAT WAS BEING SAID. Patient Name: UVALDO SANCHEZ Page 14000 at 1653 All edits/amendments must be made on the electronic document DICTATION DATE: 02/11/181651 AVIONICS MECHANIC: ROBERT 02/11/181651 RPT#: [id number] DC DATE:02/11/18 STATUS: DIS IN [facility] [address] [place] [address] END OF REPORT
--- NOTE | ~2018-02-09 | EC ---
PATIENT:UVALDO SANCHEZ DATE OF SERVICE: 02/09/18 SEX: F MEDICAL RECORD: [id number] DATE OF : [birth year] LOCATION:D.M2 D.211 AGE OF PATIENT: 67 ADMISSION DATE: 02/09/18 REFERRING PHYSICIAN: INTERPRETING PHYSICIAN: KARISSA GRIFFIN MD ECHOCARDIOGRAM REPORT ECHO CHARGES 4 ECHO COMPLETE Date: 02/10/18 CLINICAL DIAGNOSIS: EVALUATE CHF ECHOCARDIOGRAPHIC MEASUREMENTS (adult normal given) AC root (d.<3.7cm) 2.4 cm LV Septum d (<1.2 cm> 1.6 cm Valve Excursion 1.2 cm LV Septum (systole) 1.7 cm Left Atria (s.<4.0cm> 4.2 cm LVPW d(<1.2cm) 0.8 cm RV (d.<2.3cm) 3.2 cm LVPW (sytole) 0.9 cm LV diastole(<5.6CM) 5.6 cm MV E-F(>70mm/sec) cm LV systole 4.8 cm LVOT Diameter 1.7 cm MV exc.(>10mm) cm Est.ejection fraction (50-75%) % DOPPLER: LVIT cm/sec A 34 cm/sec E 100 cm/sec LA cm/sec RVSP 28.8 mmHg LVOT 116 cm/sec AOP1/2T m/s Asc. Ao 154 cm/sec RVOT 81 cm/sec RA cm/sec PA 91 cm/sec AV Gradient Peak 9.5 mmHg AV Mean 6.3 mmHg AV Area 1.7 cm MV Gradient Peak 6.2 mmHg MV Mean 1.4 mmHg MV Area cm COMMENTS: Beck Tender: Domenic [facility] Net Sql Developer: 1 Dr. Griffin TAPE# PACS Pericardial Effusion N DATE OF SERVICE: 02/10/2018 FINDINGS: 1. Left ventricular chamber size is within normal limits. Left ventricular systolic function is normal. Overall ejection fraction estimated at 55%. 2. Left atrium is enlarged at 4.2 cm. Right atrium and right ventricular chamber sizes are within normal limits. 3. Valvular structures have normal structure and motion. No evidence of vegetative endocarditis. 4. Doppler interrogation reveals mild aortic insufficiency, mild mitral ECHOCARDIOGRAM REPORT [id number] UVADLO SANCHEZ regurgitation, trace tricuspid regurgitation. No other valvular insufficiency or stenosis. Pulmonary systolic pressure is estimated at 28 mmHg. 5. No evidence of pericardial effusion or left ventricular thrombus. TRANSINT:[id number] Voice Confirmation ID: [id number] DOCUMENT ID: [id number] KARISSA GRIFFIN MD at 0924 CC: [id number] DICTATION DATE: 02/10/18 1045 BINDERY HELPER: 02/10/18 1120 DIS IN 02/11/18 [place] [address] [place] [id number]
--- NOTE | ~2018-02-09 | HEMODYNAMI ---
PATIENT:UVALDO SANCHEZ MEDICAL RECORD: [id number] : 48 LOCATION:D. D.2119 ADMISSION DATE: 02/09/18 Generatedon:02/10/201814:41 Patient name: UVALDO SANCHEZ Patient #: [id number] SSN: D OB: 1950 Date of study: 02/10/2018 Page: Of Hemodynamic Procedure Report Patient Data Patient Demographics Procedure consent was obtained First Name: UVALDO Gender: Female Last Name: DANIEL : 1950 [facility] Initial: HILLARY Age: 67 year(s) Patient #: [id number] Race: Unknown Additional ID: [id number] Contact details Address: [address] [place] [address] State: [place] City: [facility] Zip code: [address] Past Medical History Allergies Allergen Reaction Date Comments Reported Codeine 10/11/2015 Sulfa drugs 10/11/2015 Other allergy 03/07/2017 sulfa, codeine Other allergy 02/10/2018 SULFA, CODEINE Admission Admission Data Admission Date: 02/09/2018 Admission Time: 18:16 Room #: D.2119 Lab Results Lab Result Date: 02/10/2018 Lab Result Time: 0:00 Biochemistry Name Units Result Min Max BUN mg/dl 19 --(----)*- 7 18 Creatinine mg/dl 1 --(--*-)-- 0.6 1.3 CBC Name Units Result Min Max Hemoglobin g/dl 14.8 --(-*--)-- 13.5 17.5 Procedure Procedure Types Cath Procedure Diagnostic Procedure LHC LHC w/Coronaries PCI Procedure Coronary Stent Coronary Stent Initial Procedure Description Procedure Date Procedure Date: 02/10/2018 Procedure Start Time: 14:17 Procedure End Time: 14:38 Procedure Staff Name Function Rickie Stacy MD Performing Physician Maura Burgos RT Monitor Jose Luis Arzate RT Scrub Klever Amor RN Electronics Scale Tester Jennifer Silva RN Electronics Scale Tester Lesia Snyder RT Monitor Procedure Data Cath Procedure Fluoroscopy Diagnostic fluoroscopy Total fluoroscopy Time: 3.7 time: 3.7 min min Diagnostic fluoroscopy Total fluoroscopy dose: dose: 1056 mGy 1056 mGy Contrast Material Contrast Material Type Amount (ml) Isovue 300 88 Entry Location Entry Primary Successful Side Size Upsize Upsize Entry Closure Succes sful Closure Location (Fr) 1 (Fr) 2 (Fr) Remarks Device Remarks Femoral Right 5 Fr 6 Fr Exoseal artery Short Estimated blood loss: 10 ml Diagnostic catheters Device Type Used For End Catheter Placement MULTIPACK JL 4.0 5Fr Left Coronary catheter Angiography MULTIPACK 3DRC 5Fr Right Coronary catheter Angiography DIAGNOSTIC JL 3.5 5Fr Left Coronary catheter ([id number]) Angiography MULTIPACK Pigtail 5 Fr LV Angiography catheter Procedure Complications No complications Procedure Medications Medication Administration Route Dosage Oxygen etCO2 Nasal cannula 2 l/min Heparin Flush Bag added to field 2 bags (1000units/500ml NS) 0.9% NaCl I.V. 100 ml/hr Lidocaine 2% added to field 20 Versed I.V. 2 mg Fentanyl I.V. 100 mcg Versed I.V. 2 mg Fentanyl I.V. 100 mcg Heparin Bolus I.V. 4000 units Integrilin (Bolus I.V. 7.9 ml 2mg/ml) Plavix P.O. 600 mg Hemodynamics Rest HGB: 14.8 (g/dl) Heart Rate: 60 (bpm) Pressure Samples Time Site Value (mmHg) Purpose Heart Use Rate(bpm) 14:24 LV 98/4,8 EDP 73 14:25 AO 111/56(68) Pullback 64 14:25 LV 100/10,11 Pullback 64 Gradients Valve Time Site 1 Site 2 Mean SEP/DFP Peak To Heart Use (mmHg) (sec/min) Peak Rate (mmHg) (bpm) Aortic 14:25 LV AO 0 6 0 64 100/10,11 111/56(68) Calculations Valve P-P Mean Valve Index Valve Source Name Gradient Area Flow (cm2) Aortic 0 0 0 0 Snapshots Pre Cath Intra NCS Post Cath Vital Signs Time Heart Resp SPO2 etCO2 NIBP Rhythm Pain Sedation Rate (ipm) (%) (mmHg) (mmHg) Status Level (bpm) 13:58:21 67 15 95 36 141/63(97) NSR 0 (11) 10(A) , No pain 14:02:43 62 26 96 37 118/54(90) NSR 0 (11) 10(A) , No pain 14:07:01 59 16 96 28.7 102/50(81) NSR 0 (11) 10(A) , No pain 14:11:13 61 16 96 30 103/53(80) NSR 0 (11) 10(A) , No pain 14:15:27 60 16 95 33 103/47(80) NSR 0 (11) 10(A) , No pain 14:19:37 59 15 97 33.2 100/58(78) NSR 0 (11) 9(A) , No pain 14:23:49 60 15 96 30 120/52(90) NSR 0 (11) 9(A) , No pain 14:27:59 60 17 96 33.2 119/52(94) NSR 0 (11) 9(A) , No pain 14:32:19 60 12 95 36.3 106/45(81) NSR 0 (11) 10(A) , No pain 14:36:33 60 15 96 35.5 86/46(67) NSR 0 (11) 10(A) , No pain Medications Time Medication Route Dose Verified Delivered Reason Notes Effectiveness by by 13:51:56 Oxygen etCO2 2 Rickie Zuniga Per physician Nasal l/min St Carlos Lizarraga RN cannula 13:52:03 Heparin Flush added 2 Rickie Zuniga used for Bag to bags [facility] Carlos Lizarraga RN procedure (1000units/500ml field CARDENAS NS) 13:52:13 0.9% NaCl I.V. 100 Rickie Zuniga Per physician ml/hr [facility] Carlos Lizarraga RN, MD 13:59:56 Lidocaine 2% added 20ml Rickie Damian for local to vial [place] [facility] Gonzalez anesthetic field MD CARDENAS 14:13:41 Versed I.V. 2 mg Rickie Ernst for sedation St Carlos Amor RN, MD 14:13:49 Fentanyl I.V. 100 Rickie Ernst for sedation mcg [facility] Carlos Amor RN, MD 14:18:20 Versed I.V. 2 mg Rickie Rodriguezie for sedation [facility] Carlos Amor RN, MD 14:18:23 Fentanyl I.V. 100 Rickie Ernst for sedation mcg [facility] Carlos Amor RN, MD 14:24:18 Heparin Bolus I.V. 4000 Rickie Ernst for verif ied units [facility] Carlos Amor RN anticoagulation with Dr. MD Quintanilla 14:28:50 Integrilin I.V. 7.9 Rickie Rodriguez for waste d (Bolus 2mg/ml) ml St Carlos Silva anticoagulation 2.1mL MD VILLAGOMEZ 14:31:12 Plavix P.O. [address] for mg [address] Carlos Silva antiplatelet RN therapy Procedure Log Time Note 13:27:22 Signed procedure consent form obtained from patient. 13:27:23 Time tracking: Regular hours (M-F 7:00 - 5:00) 13:27:28 Plan of Care:Hemodynamics will remain stable., Cardiac rhythm will remain stable., Comfort level will be maintained., Respiratory function will remain adequate., Patient/ family verbilizes understanding of procedure., Procedure tolerated without complication., Recovers from procedure without complications.. 13:27:32 Diagnostic Cath status Elective 13:27:40 H&P Date Dictated: 02/09/2018 Within 30 days and on chart., H&P Addendum completed by physician on day of procedure. (MUST COMPLETE FOR ALL OUTPATIENTS). 13:28:09 Lab Result : BUN 19 mg/dl 13:28:09 Lab Result : Hemoglobin 14.8 g/dl 13:28:09 Lab Result : Creatinine 1 mg/dl 13:28:52 Patient allergic to Other allergySULFA, CODEINE 13:36:31 Maura Burgos RT(R) sent for patient. Start room use. 13:51:56 Oxygen 2 l/min etCO2 Nasal cannula was administered by Efrain Lizarraga RN; Per physician; 13:52:03 Heparin Flush Bag (1000units/500ml NS) 2 bags added to field was administered by Efrain Lizarraga RN; used for procedure; 13:52:13 0.9% NaCl 100 ml/hr I.V. was administered by Efrain Lizarraga RN; Per physician; 13:52:19 Patient received from PCU to CCL 2 Alert and oriented. Tansferred to table in Supine position. 13:52:21 Warm blankets applied, and tracie hugger turned on for patient comfort. 13:52:21 Correct patient and procedure confirmed by team. 13:52:22 ECG and BP/O2 sat monitors applied to patient. 13:57:11 Vital chart was started 13:59:56 Lidocaine 2% 20ml vial added to field was administered by Rickie Stacy MD; for local anesthetic; 14:06:30 Baseline sample Acquired. 14:06:35 Rhythm: sinus rhythm 14:06:38 Full Disclosure recording started 14:06:39 Pre-procedure instructions explained to patient. 14:06:40 Pre-op teaching completed and patient verbalized understanding. 14:06:44 Family unavailable. 14:06:45 Patient NPO since Midnight. 14:06:47 Is the patient allergic to Iodine/contrast media? No. 14:06:49 Is patient on blood thinner?No 14:06:51 Patient diabetic? No. 14:06:53 Previous problem with sedation/anesthesia? No ? 14:06:56 Snore? Yes 14:06:57 Sleep apnea? Yes 14:06:58 Deviated septum? No 14:06:59 Opens mouth fully? Yes 14:06:59 Sticks out tongue? Yes 14:07:08 Airway obstruction? Yes COPD 14:07:13 Dentures? Yes OUT 14:07:16 Pre procedure: right dorsailis pedis pulse 1+ Palpable, but thready & weak; easily obliterated 14:07:19 Patient pain scale 0/10 ?. 14:09:25 IV patent on arrival in right forearm with 0.9% NaCl at [facility]. 14:09:28 Lab results completed and on chart. 14:09:32 Right groin area was prepped with chlora-prep and draped in sterile fashion 14:09:34 Alarms reviewed by R. N. 14:09:34 Sharps counted by scrub and verified by R.N. 14:11:59 Physician arrived 14:12:00 --------ALL STOP TIME OUT------ 14:12:01 Final Timeout: patient, procedure, and site verified with staff and physician. All members of the team are in agreement. 14:12:08 Right groin site verified by team. 14:12:14 Physical assessment completed. ASA score P 2 - A patient with mild systemic disease as per Rickie Stacy MD. 14:12:19 Sedation plan: IV Moderate Sedation Medication:Versed, Fentanyl 14:12:48 Zero performed for pressure channel P1 14:13:41 Versed 2 mg I.V. was administered by Klever Amor RN; for sedation; 14:13:49 Fentanyl 100 mcg I.V. was administered by Klever Amor RN; for sedation; 14:14:57 Use device set Femoral Dx 14:14:58 ACIST Syringe (33362) opened to sterile field. 14:14:58 Bag Decanter () opened to sterile field. 14:14:59 Medline Cath Pack ([id number]) opened to sterile field. 14:15:00 DIAGNOSTIC WIRE .035 260cm J wire (885930) opened to sterile field. 14:15:01 ACIST Hand Control (15664) opened to sterile field. 14:15:02 ACIST Manifold (97671) opened to sterile field. 14:15:03 DIAGNOSTIC Multipack 5Fr catheter set (CH0828) opened to sterile field. 14:15:05 Tegaderm 4 x 4 (1626W) opened to sterile field. 14:15:05 SHEATH Prelude 5Fr 0.035 (EUL-0E-62-035) opened to sterile field. 14:16:07 Lesia Snyder RT(R) relieved Jose Luis Arzate RT(R) as monitor 14:16:59 Procedure started. 14:17:02 Local anesthetic to right femoral artery with Lidocaine 2% by Rickie Stacy MD.INITIAL ACCESS ONLY 14:17:49 A 5 Fr sheath was inserted into the Right Femoral artery 14:18:17 A MULTIPACK JL 4.0 5Fr catheter was advanced over the wire and used for Left Coronary Angiography. 14:18:20 Versed 2 mg I.V. was administered by Klever Amor RN; for sedation; 14:18:23 Fentanyl 100 mcg I.V. was administered by Klever Amor RN; for sedation; 14:20:36 Catheter removed. 14:20:51 A MULTIPACK 3DRC 5Fr catheter was advanced over the wire and used for Right Coronary Angiography. 14:21:22 Catheter removed. 14:21:53 A DIAGNOSTIC JL 3.5 5Fr catheter ([id number]) was advanced over the wire and used for Left Coronary Angiography. 14:23:40 Catheter removed. 14:23:48 A MULTIPACK Pigtail 5 Fr catheter was advanced over the wire and used for LV Angiography. 14:24:18 Heparin Bolus 4000 units I.V. was administered by Klever Amor RN; for anticoagulation; verified with Dr. Quintanilla 14:25:18 Catheter removed. 14:26:12 Sheath upsized to a 6 Fr Short. 14:27:09 Use device set NIGHTMUTE PCI 14:27:12 SHEATH Prelude 6Fr 0.035 (BWW-4Q-52-035) opened to sterile field. 14:27:15 INFLATOR Merit BasixCompak (EP1599) opened to sterile field. 14:27:32 GUIDE 6FR JL 3.5 guide catheter ([id number]) opened to sterile field. 14:27:38 WHISPER 300cm guide wire ([id number]) opened to sterile field. 14:28:08 6 Fr JL 3.5 guide catheter was inserted over the wire 14:28:38 Whisper wire advanced. 14:28:50 Integrilin (Bolus 2mg/ml) 7.9 ml I.V. was administered by Jennifer Silva RN; for anticoagulation; wasted 2.1mL 14:30:24 Wire advanced across lesion. 14:31:12 Plavix 600 mg P.O. was administered by Jennifer Silva RN; for antiplatelet therapy; 14:31:33 Place stent Inflation Number: 1 A INTEGRITY OTW 3.5 X 12 stent ([id number]) was prepped and advanced across the Mid LAD. The stent was deployed at 14 PINKY for 0:45 (min:sec). 14:31:59 Stent catheter was removed intact over wire. 14:32:00 Wire removed. 14:32:01 Guide catheter removed. 14:32:19 EXOSEAL 6Fr (EX600) opened to sterile field. 14:32:58 Sheath removed intact; hemostasis achieved with Exoseal to the Right Femoral artery. 14:33:34 Procedure ended.(Physican Out) 14:36:51 Fluoroscopy time 03.70 minutes. 14:36:55 Fluoroscopy dose: 1056 mGy 14:36:55 Flurop Dose total: 1056 14:36:58 Contrast amount:Isovue 300 88ml. 14:37:02 Sharps counted by scrub and verified by R.N. 14:37:04 Insertion/operative site no bleeding no hematoma. 14:37:07 Post-op/insertion site Right Femoral artery dressed using a 4 x 4 and Tegaderm. 14:37:09 Post Procedure Pulses reassessed and unchanged 14:37:11 Post-procedure physical assessment completed. ASA score P 2 - A patient with mild systemic disease as per Rickie Stacy MD. 14:37:16 Post procedure rhythm: unchanged. 14:37:19 Estimated blood loss: 10 ml 14:37:20 Post procedure instruction explained to patient.Patient verbalizes understanding. 14:37:21 Patient needs reinforcement of post procedure teaching. 14:38:04 Procedure type changed to Cath procedure, Diagnostic procedure, LHC, LHC w/Coronaries, PCI procedure, Coronary Stent, Coronary Stent Initial 14:38:07 Procedure and supply charges have been captured, reviewed, submitted and are correct. 14:38:35 Procedure Complication : No complications 14:38:38 Vital chart was stopped 14:38:38 See physician's report for complete and final results. 14:38:43 Report given to PCU. 14:38:45 Patient transfered to PCU with Bed. 14:38:47 Procedure ended. 14:38:47 Full Disclosure recording stopped 14:39:08 End room use (Document Last) Intervention Summary Intervention Notes Time ActionType Lesion and Equipment Action# Pressure Duration Attributes Used 14:31:33 Place stent Mid LAD INTEGRITY 1 14 00:45 OTW 3.5 X 12 stent ([id number]) Device Usage Item Name Manufacture Quantity Catalog Number Hospital Part Current Minimal Lot# / Charge Number Stock Stock Serial# Code ACIST Syringe Acist 1 97794 876500 642600 393035 20 (74228) Medical Systems Inc Bag Decanter Microtek 1 2001S 504218 57414 418431 5 () Medical Inc. Medline Cath Cardinal 1 [id number] 514619 25894 463991 5 Pack Health ([id number]) DIAGNOSTIC WIRE [facility] [place] 1 930557 074131 952480 133898 30 .035 260cm J wire (558838) ACIST Hand Acist 1 77256 518088 219423 770997 5 Control (64726) Medical Systems Inc ACIST Manifold Acist 1 15186 787390 831987 964614 5 (94249) Medical Systems Inc DIAGNOSTIC Cardinal 1 WH9159 107189 14842 831529 30 Multipack 5Fr Health catheter set (PD3038) Tegaderm 4 x 4 3M 1 1626W 681868 745448 813090 5 (1626W) SHEATH Prelude Merit 1 [id number]-9T-[id number] 353247 742788 306634 5 5Fr 0.035 Medical (ZYV-3I-35-035) MULTIPACK JL Cardinal 1 456529 5 4.0 5Fr Health catheter MULTIPACK 3DRC Cardinal 1 244033 5 5Fr catheter Health DIAGNOSTIC JL Cardinal 1 [id number] 579240 341426 703564 5 3.5 5Fr Health catheter (727425L) MULTIPACK Cardinal 1 145059 5 Pigtail 5 Fr Health catheter SHEATH Prelude Merit 1 YHD-3U-60-35 535045 9528279 391941 5 6Fr 0.035 Medical (KHQ-4P-28-035) INFLATOR Merit Merit 1 AB4478 360436 851053 497225 15 [facility] ([id number]) GUIDE 6FR JL Medtronic 1 [id number] 679022 56313 975947 1 3.5 guide catheter (IJ9UE52) WHISPER 300cm Razo 1 [id number] 574414 266370 494073 5 guide wire Vascular ([id number]) INTEGRITY OTW Medtronic 1 [id number] 402968 472774 1 [id number] 3.5 X 12 stent ([id number]) EXOSEAL 6Fr Cardinal 1 EX600 946286 209552 287343 10 (EX600) Health Signature Audit [place] Stage Time Signature Unsigned Intra-Procedure 02/10/2018 Jose Luis Arzate 2:41:48 PM RT(R) Signatures Monitor : Maura Burgos Signature : RT Date : Time : Monitor : Lesia Signature : Counts RT Date : Time : [place] [id number] [place] [address]
--- NOTE | ~2018-02-09 | OP ---
PATIENT NAME: UVALDO SANCHEZ MEDICAL RECORD: [id number] :48 LOCATION:D.M2 D.2119 ADMISSION DATE:02/09/18 SURGEON: NAZ MAS MD DATE OF OPERATION: 02/10/2018 PROCEDURES: Left heart cath, selective coronary angiography, right femoral artery approach. CATHETERS: A 5-Mexican sheath, 5/4 left and right Ladi, 5/4 pig. The procedure was well tolerated. The patient was returned to cline. Sheath was removed. ExoSeal device was placed. FINDINGS: Left ventriculography in 30-degree VO view; normal wall motion and normal systolic function. CORONARY ANATOMY: LEFT MAIN: Left main is free of disease. LAD: LAD proximal to the previously placed stent shows about 80% end-stent restenosis. CIRCUMFLEX: Circumflex is free of disease. RIGHT CORONARY: It is somewhat of a codominant system with small right previously placed stents widely patent. PLAN: Intervention on LAD momentarily. DESCRIPTION OF PROCEDURE: A 5-Mexican sheath was exchanged for a 6-Mexican sheath. A JL-3.5 catheter provided excellent guide catheter support followed by 300-cm Whisper wire. Stent deployed was a 3.5 x 12 Integrity nondrug-eluting stent up to 14 atmospheres. Final injection shows excellent resolution of 80% stenosis, no significant residual. OSCAR flow was 3 throughout the procedure. Heparin and Integrilin were used in the case. Sheath was closed with ExoSeal device. Plavix was loaded in the lab. TRANSINT:[id number] Voice Confirmation ID: [id number] DOCUMENT ID: [id number] NAZ MAS MD at 0802 CC: [id number] DICTATION DATE: 02/10/18 1453 KILN FURNITURE SAW TENDER: 02/10/18 1525 DIS IN 02/11/18 [place] [id number] [place] [address]
[~2018-02-09 15:43] MED LIST changes: +AMBIEN10 MG PO; +BAYER CHEWABLE81 MG PO; +CELEXA20 MG PO; +HYDRALAZINE HCL50 MG PO; +IMODIUM2 MG PO; +LASIX40 MG PO; +MUCINEX DM ER1 EAC1 PO; +NORVASC10 MG PO; +PIOGLITAZONE15 MG PO; +TESSALON PERLE100 MG PO; +ULTRAM50 MG PO; +ZESTRIL40 MG PO
[2018-02-09 16:01] VITALS: BP 142/58
[2018-02-09 16:51] LABS: BASOPHILS 0.1 % (0-2); EOSINOPHILS 0.1 % (0-7); HEMATOCRIT 39.4 % (36.0-48.0); HEMOGLOBIN 13.2 g/dL (12-16); IMMATURE GRANULOCYTES 1.8 % (0-5); LYMPHOCYTES 14.7 % (15-50); MCH 29.1 pg (26.0-34.0); MCHC 33.5 g/dL (31.0-37.0); MCV 86.8 fL (80.0-100.0); MEAN PLATELET VOLUME 9.5 fL (7.4-10.4); MONOCYTES 7.4 % (2-11); NEUTROPHILS 75.9 % (40-80); PLATELET COUNT 157 10x3/uL (130-400); RBC 4.54 10x6/uL (4.00-5.40); WBC 9.7 10x3/uL (4.8-10.8)
[2018-02-09 17:00] VITALS: BP 149/62
[2018-02-09 17:00] LABS: APTT 20.2 SECONDS (22.8-39.4); INR 0.9 (0.85-1.17); PROTIME 11.8 SECONDS (11.6-15.0)
[2018-02-09 17:09] LABS: ALBUMIN 2.6 g/dL (3.4-5.0); ALKALINE PHOSPHATASE 38 U/L (46-116); ALT (SGPT) 139 U/L (10-68); BILIRUBIN - TOTAL 0.35 mg/dL (0.2-1.3); CALC OSMOLALITY 285 mosm/kg (275-300); CALCIUM 8.3 mg/dL (8.5-10.1); CARBON DIOXIDE 33.7 mmol/L (21.0-32.0); CHLORIDE - SERUM 98 mmol/L (98-107); CREATININE - SERUM 1.4 mg/dL (0.6-1.3); GLUCOSE 169 mg/dL (74-106); PROTEIN - SERUM 5.3 g/dL (6.4-8.2); SODIUM 138 mmol/L (136-145); UREA NITROGEN 28 mg/dL (7-18); eGFR NON AFRICAN AMERICAN 40 mL/min (90-120)
[2018-02-09 17:24] LABS: CKMB 0.9 U/L (0.0-3.6); CREATINE KINASE 103 UL (21-215); PRO BNP 8146 pg/mL (0-125); TROPONIN-I 0.025 ng/mL (0.000-0.060)
[2018-02-09 19:10] VITALS: BP 138/55
[2018-02-10 00:25] VITALS: BP 114/61
[2018-02-10 01:02] LABS: CKMB 0.6 U/L (0.0-3.6); CREATINE KINASE 83 UL (21-215); TROPONIN-I 0.028 ng/mL (0.000-0.060)
[2018-02-10 04:00] VITALS: BP 131/68
[2018-02-10 07:56] VITALS: BP 145/63
[2018-02-10 09:21] LABS: BASOPHILS 0 % (0-2); EOSINOPHILS 0.3 % (0-7); HEMOGLOBIN 12.7 g/dL (12-16); IMMATURE GRANULOCYTES 1.8 % (0-5); MCH 28.5 pg (26.0-34.0); MCHC 32.6 g/dL (31.0-37.0); MCV 87.6 fL (80.0-100.0); MEAN PLATELET VOLUME 9.8 fL (7.4-10.4); MONOCYTES 8.6 % (2-11); NEUTROPHILS 73.3 % (40-80); PLATELET COUNT 148 10x3/uL (130-400); RBC 4.45 10x6/uL (4.00-5.40); RDW 15.2 % (11.5-14.5); WBC 10.7 10x3/uL (4.8-10.8)
[2018-02-10 09:30] LABS: ANION GAP 6.4 mmol/L (8-16); CALCIUM 8.3 mg/dL (8.5-10.1); CARBON DIOXIDE 37.2 mmol/L (21.0-32.0); CREATININE - SERUM 1.2 mg/dL (0.6-1.3)
[2018-02-10 09:32] LABS: POTASSIUM - SERUM 3.6 mmol/L (3.5-5.1)
[2018-02-10 10:57] VITALS: BP 100/43
[2018-02-10 12:27] VITALS: Ht 167.6 cm; Wt 87.3 kg
[2018-02-10 13:35] LABS: TROPONIN-I 0.028 ng/mL (0.000-0.060)
[2018-02-10 15:30] VITALS: BP 99/44
[2018-02-10 21:28] VITALS: BP 108/45
[2018-02-11 01:34] VITALS: BP 141/57
[2018-02-11 06:10] VITALS: BP 143/64
[2018-02-11 10:19] VITALS: BP 127/61
[2018-02-11 11:20] VITALS: BP 109/52
[2018-02-11] MEDS ORDERED: PLAVIX75 MG PO (11:58)
== END 2018-02-11 13:19 | disposition home or self-care (01) ==
LOC: D.ER 15:43 → D.EDHOLD 18:16 → D.M2 18:16 → OBSVTIME 18:16 → D.M2 18:44
PROVIDERS: Emergency Medicine; Internal Medicine Interventional Cardiology
DX: I25.110 Atherosclerotic heart disease of native coronary artery with unstable angina pectoris (principal); Z95.0 Presence of cardiac pacemaker; I48.0 Paroxysmal atrial fibrillation; E11.65 Type 2 diabetes mellitus with hyperglycemia; E03.9 Hypothyroidism, unspecified; E78.5 Hyperlipidemia, unspecified; K21.9 Gastro-esophageal reflux disease without esophagitis; I50.9 Heart failure, unspecified; J44.9 Chronic obstructive pulmonary disease, unspecified; Z87.891 Personal history of nicotine dependence

== ENCOUNTER 2018-05-11 11:53 | Inpatient (IN) | payer MEDICARE, MEDICAID ==
[~2018-05-11] VITALS: Ht 152.4 cm; Wt 90.5 kg
--- NOTE | ~2018-05-11 | HEMODYNAMI ---
PATIENT:UVALDO SANCHEZ MEDICAL RECORD: [id number] : 48 LOCATION:D. D.1211 ADMISSION DATE: 05/11/18 Generatedon:05/21/201812:47 Patient name: UVALDO SANCHEZ Patient #: [id number] SSN: D OB: 1950 Date of study: 05/21/2018 Page: Of Hemodynamic Procedure Report Patient Data Patient Demographics Procedure consent was obtained First Name: UVALDO Gender: Female Last Name: DANIEL : 1950 [facility] Initial: HLILARY Age: 68 year(s) Patient #: [id number] Race: Unknown Additional ID: [id number] Contact details Address: [address] [place] [address] State: [place] City: [facility] Zip code: [address] Past Medical History Allergies Allergen Reaction Date Comments Reported Codeine 10/11/2015 Sulfa drugs 10/11/2015 Other allergy 03/07/2017 sulfa, codeine Other allergy 02/10/2018 SULFA, CODEINE Sulfa drugs 05/13/2018 Other allergy 05/21/2018 Sulfa, codeine Admission Admission Data Admission Date: 05/11/2018 Admission Time: 15:53 Admit Source: Other Room #: D.1211 Procedure Procedure Types Cath Procedure PCI Procedure Coronary Stent Coronary Stent Initial Procedure Description Procedure Date Procedure Date: 05/21/2018 Procedure Start Time: 12:37 Procedure End Time: 12:44 Procedure Staff Name Function Davie [facility] MD Performing Physician Kelly Davis RT Monitor Klever Amor RN Nurse Jenny Vasquez RT Scrub Procedure Data Cath Procedure Fluoroscopy Diagnostic fluoroscopy Total fluoroscopy Time: 1.2 time: 1.2 min min Diagnostic fluoroscopy Total fluoroscopy dose: 231 dose: 231 mGy mGy Contrast Material Contrast Material Type Amount (ml) Isovue 300 31 Entry Location Entry Primary Successful Side Size Upsize Upsize Entry Closure Feliz ccessful Closure Location (Fr) 1 (Fr) 2 (Fr) Remarks Device Remarks Radial Right 6 Fr Mechanical artery Short Compression Estimated blood loss: 5 ml Procedure Complications No complications Procedure Medications Medication Administration Route Dosage Oxygen etCO2 Nasal cannula 3 l/min Lidocaine 2% added to field 20 Heparin Flush Bag added to field 2 bags (1000units/500ml NS) 0.9% NaCl I.V. 100 ml/hr Benadryl I.V. 50 mg Heparin Bolus I.V. 4000 units Versed I.V. 1 mg Fentanyl I.V. 50 mcg Fentanyl I.V. 50 mcg Versed I.V. 0.5 mg Radial Cocktail I.A. 1 syringe (Verapomil 2mg/Nitro 400mcg/Heparin 1500units) Hemodynamics Rest Heart Rate: 80 (bpm) Snapshots Pre Cath Intra NCS Post Cath Vital Signs Time Heart Resp SPO2 etCO2 NIBP (mmHg) Rhythm Pain Sedation Rate (ipm) (%) (mmHg) Status Level (bpm) 12:17:32 78 15 98 0 165/106(135) Paced 0 (11) 10(A) , No pain 12:21:50 84 27 98 0 153/95(127) Paced 0 (11) 10(A) , No pain 12:26:04 84 17 98 0 162/101(129) Paced 0 (11) 10(A) , No pain 12:30:08 81 13 98 0 146/93(126) NSR 0 (11) 10(A) , No pain 12:34:22 80 17 97 0 148/87(119) NSR 0 (11) 10(A) , No pain 12:38:33 81 14 95 0 159/101(126) NSR 0 (11) 9(A) , No pain 12:42:54 61 12 94 0 125/79(95) NSR 0 (11) 10(A) , No pain Medications Time Medication Route Dose Verified Delivered Reason Not es Effectiveness by by 12:15:46 Oxygen etCO2 3 l/min Davie Ernst used for Nasal Elias Amor synthetic chemist cannula 12:16:04 Lidocaine 2% added 20ml Davie Broderick for local to vial Elias Griffin MD anesthetic field 12:16:10 Heparin Flush added 2 bags Davie Broderick used for Bag to Elias Griffin MD procedure (1000units/500ml field NS) 12:16:22 0.9% NaCl I.V. 100 Davie Buffie used for ml/hr Elias Amor RN procedure 12:19:55 Benadryl I.V. 50 mg Davie Ernst used for Elias Amor RN procedure 12:31:18 Versed I.V. 1 mg Davie Ernst for sedation Elias Amor RN 12:31:25 Fentanyl I.V. 50 mcg Davie Ernst for sedation Elias Amor RN 12:35:30 Versed I.V. 0.5 mg Davie Ernst for sedation Elias Amor RN 12:35:31 Fentanyl I.V. 50 mcg Davie Ernst for sedation Elias Amor RN 12:38:43 Radial Cocktail I.A. 1 Davie Broderick for (Verapomil syringe Elias Griffin MD vasodilation 2mg/Nitro 400mcg/Heparin 1500units) 12:39:40 Heparin Bolus I.V. 4000 Davie Ernst for dante ified units Elias Amor RN anticoagulation with dr griffin Procedure Log Time Note 11:45:40 Admit Source: Other 11:46:01 Diagnostic Cath status Elective 11:46:03 Jenny Vasquez RT(R) sent for patient. Start room use. 11:46:04 Time tracking: Regular hours (M-F 7:00 - 5:00) 11:46:08 Plan of Care:Hemodynamics will remain stable., Cardiac rhythm will remain stable., Comfort level will be maintained., Respiratory function will remain adequate., Patient/ family verbilizes understanding of procedure., Procedure tolerated without complication., Recovers from procedure without complications.. 11:47:23 Patient allergic to Other allergySulfa, codeine 12:07:00 Patient received from Med II to CCL 2 Alert and oriented. Tansferred to table in Supine position. 12:07:01 Warm blankets applied, and tracie hugger turned on for patient comfort. 12:07:01 Correct patient and procedure confirmed by team. 12:07:02 Signed procedure consent form obtained from patient. 12:07:03 ECG and BP/O2 sat monitors applied to patient. 12:15:46 Oxygen 3 l/min etCO2 Nasal cannula was administered by Klever Amor RN; used for procedure; 12:16:04 Lidocaine 2% 20ml vial added to field was administered by Davie Griffin MD; for local anesthetic; 12:16:10 Heparin Flush Bag (1000units/500ml NS) 2 bags added to field was administered by Davie Griffin MD; used for procedure; 12:16:22 0.9% NaCl 100 ml/hr I.V. was administered by Klever Amor RN; used for procedure; 12:16:27 Vital chart was started 12:17:45 Baseline sample Acquired. 12:17:52 Rhythm: sinus rhythm 12:18:06 Full Disclosure recording started 12:18:10 H&P Date Dictated: 05/21/2018 Within 30 days and on chart.. 12:18:11 Pre-procedure instructions explained to patient. 12:18:12 Pre-op teaching completed and patient verbalized understanding. 12:18:34 Family unavailable. 12:18:37 Patient NPO since Midnight. 12:18:39 Is the patient allergic to Iodine/contrast media? No. 12:18:50 Was the patient premedicated? No 12:18:52 Is patient on blood thinner?Yes 12:18:55 ACC The patient was administered the following blood thiners within the last 24 hours: ACCPlavix 12:18:56 Patient diabetic? No. 12:18:59 Previous problem with sedation/anesthesia? No ? 12:19:00 Snore? Yes 12:19:01 Sleep apnea? Yes 12:19:03 Deviated septum? No 12:19:04 Opens mouth fully? Yes 12:19:08 Sticks out tongue? Yes 12:19:19 Airway obstruction? Yes copd 12:19:23 Dentures? Yes in tight 12:19:26 Pre procedure: right dorsailis pedis pulse 2+ Normal; easily identifiable; not easily obliterated 12:19:27 Pre procedure: left dorsailis pedis pulse 2+ Normal; easily identifiable; not easily obliterated 12:19:29 Patient pain scale 0/10 ?. 12:19:40 IV patent on arrival in right antecubital with 0.9% NaCl at [facility]. 12:19:42 Lab results completed and on chart. 12:19:55 Benadryl 50 mg I.V. was administered by Klever Amor RN; used for procedure; 12:20:33 Right Radial & Right Groin area was prepped with chlora-prep and draped in sterile fashion 12:20:34 Alarms reviewed by Smith Ding 12:20:35 Sharps counted by scrub and verified by R.N. 12:29:00 Use device set Radial Dx or PCI 12:29:02 ACIST Syringe (68499) opened to sterile field. 12:29:02 Medline Cath Pack ([id number]) opened to sterile field. 12:29:02 Bag Decanter (2002S) opened to sterile field. 12:29:03 DIAGNOSTIC WIRE .035 260cm J wire (228042) opened to sterile field. 12:29:03 ACIST Hand Control (56393) opened to sterile field. 12:29:04 ACIST Manifold (08429) opened to sterile field. 12:29:04 Tegaderm 4 x 4 (1626W) opened to sterile field. 12:29:05 MBrace Wrist Support ([id number]) opened to sterile field. 12:29:06 SHEATH 6FR Slender (80-7690) opened to sterile field. 12:29:27 INFLATOR Merit BasixCompak (FC1862) opened to sterile field. 12:29:27 CHOICE PT Extra Support 182cm wire ([id number]) opened to sterile field. 12:30:44 Physician arrived 12:30:45 --------ALL STOP TIME OUT------ 12:30:46 Final Timeout: patient, procedure, and site verified with staff and physician. All members of the team are in agreement. 12:30:48 Right Radial & Right Groin site verified by team. 12:30:50 Physical assessment completed. ASA score P 2 - A patient with mild systemic disease as per Davie Griffin MD. 12:30:54 Sedation plan: IV Moderate Sedation Medication:Versed, Fentanyl 12:31:18 Versed 1 mg I.V. was administered by Klever Amor RN; for sedation; 12:31:25 Fentanyl 50 mcg I.V. was administered by Klever Amor RN; for sedation; 12:35:02 Zero performed for pressure channel P1 12:35:30 Versed 0.5 mg I.V. was administered by Klever Amor RN; for sedation; 12:35:31 Fentanyl 50 mcg I.V. was administered by Klever Amor RN; for sedation; 12:37:19 Procedure started. 12:37:35 Local anesthetic to right radial artery with Lidocaine 2% by Davie Griffin MD.INITIAL ACCESS ONLY 12:37:44 A 6 Fr Short sheath was inserted into the Right Radial artery 12:38:43 Radial Cocktail (Verapomil 2mg/Nitro 400mcg/Heparin 1500units) 1 syringe I.A. was administered by Davie Griffin MD; for vasodilation; 12:39:04 GUIDE 6FR XBLAD 3.5 catheter ([id number]) opened to sterile field. 12:39:13 6 Fr xblad 3.5 guide catheter was inserted over the wire 12:39:19 choice pt wire advanced. 12:39:20 Wire advanced across lesion. 12:39:40 Heparin Bolus 4000 units I.V. was administered by Klever Amor RN; for anticoagulation; verified with dr griffin 12:42:07 Place stent Inflation Number: 1 A BRIANNA RX 3.5 x 15 stent ([id number]) was prepped and advanced across the Prox LAD. The stent was deployed at 17 PINKY for 0:10 (min:sec). 12:43:13 Stent catheter was removed intact over wire. 12:43:15 Wire removed. 12:43:15 Guide catheter removed. 12:43:19 TR BAND Standard ([id number]) opened to sterile field. 12:43:31 Sheath removed intact; hemostasis achieved with Mechanical Compression to the Right Radial artery. 12:43:35 Procedure ended.(Physican Out) 12:43:50 Fluoroscopy time 01.20 minutes. 12:43:54 Flurop Dose total: 231 12:43:54 Fluoroscopy dose: 231 mGy 12:43:58 Contrast amount:Isovue 300 31ml. 12:43:59 Sharps counted by scrub and verified by R.N. 12:44:01 TR band inflated with 10cc of air. 12:44:03 Insertion/operative site no bleeding no hematoma. 12:44:09 Post right radial artery:stable 12:44:11 Post Procedure Pulses reassessed and unchanged 12:44:13 Post procedure rhythm: unchanged. 12:44:15 Estimated blood loss: 5 ml 12:44:17 Post procedure instruction explained to patient.Patient verbalizes understanding. 12:44:17 Patient needs reinforcement of post procedure teaching. 12:44:23 Procedure and supply charges have been captured, reviewed, submitted and are correct. 12:44:28 Procedure Complication : No complications 12:44:30 Vital chart was stopped 12:44:32 See physician's report for complete and final results. 12:44:37 Report given to [facility]. 12:44:40 Patient transfered to [facility] with Stretcher. 12:44:43 Procedure ended. 12:44:43 Full Disclosure recording stopped 12:45:07 ACC-PCI Only Patient was given prescriptions, or instructed by Davie Griffin MD to start/continue the following medications upon discharge: Plavix 12:45:09 End room use (Document Last) Intervention Summary Intervention Notes Time ActionType Lesion and Equipment Used Action# Pressure Duration Attributes 12:42:[address] Place stent Prox LAD BRIANNA RX 3.5 x 1 17 00:10 15 stent ([id number]) Device Usage Item Name Manufacture Quantity Catalog Number Hospital Part Current M inimal Lot# / Charge Number Stock Stock Serial# Code ACIST Syringe Acist 1 85896 797423 850786 420185 2 0 (82111) Medical Systems Inc Medline Cath Medline 1 [id number] 227394 92489 508163 5 Pack ([id number]) Bag Decanter Microtek 1 2001S 949090 03862 963095 5 (2001S) Medical Inc. DIAGNOSTIC [place] 1 460248 962111 443629 089308 3 0 WIRE .035 260cm J wire (855888) ACIST Hand Acist 1 38697 733021 831513 604406 5 Control Medical (13695) Systems Inc ACIST Manifold Acist 1 57207 428005 469629 137377 5 (54128) Medical Systems Inc Tegaderm 4 x 4 3M 1 1626W 560970 549956 320010 5 (1626W) MBrace Wrist Advanced 1 140-0250-00 991260 30933 820297 5 Support Vascular ([id number]) Dynamics SHEATH 6FR Terumo 1 [id number] 304342 781548 930037 5 Slender (80-1060) INFLATOR Merit Merit 1 ZQ0249 408888 992330 260563 1 5 Premium [employer]vert [employer] Medical ([id number]) CHOICE PT [place] 1 [id number] 383877 609738 368311 5 Extra Support Scientific 182cm wire ([id number]) GUIDE 6FR Cardinal 1 [id number] 593309 632336 331436 1 0 XBLAD 3.5 Health catheter (12752973) BRIANNA RX 3.5 x Medtronic 1 [id number] 011970 4860098 832653 5 [id number] 15 stent ([id number]) TR BAND Terumo 1 [id number] 466644 737572 066047 4 0 Standard ([id number]) Signature Audit [place] Stage Time Signature Unsigned Intra-Procedure 05/21/2018 Kelly Davis 12:46:52 PM RT(R) Signatures Monitor : Kelly Davis RT Signature : Date : Time : [place] [id number] [place] [address]
--- NOTE | ~2018-05-11 | HEMODYNAMI ---
PATIENT:UVALDO SANCHEZ MEDICAL RECORD: [id number] : 48 [facility] ADMISSION DATE: 05/11/18 Generatedon:05/13/201812:23 Patient name: UVALDO SANCHEZ Patient #: [id number] SSN: D OB: 1950 Date of study: 05/13/2018 Page: Of Hemodynamic Procedure Report Patient Data Patient Demographics Procedure consent was obtained First Name: UVALDO Gender: Female Last Name: DANIEL : 1950 [facility] Initial: HILLARY Age: 68 year(s) Patient #: [id number] Race: Unknown Additional ID: [id number] Contact details Address: [address] [place] [address] State: [place] City: [facility] Zip code: [address] Past Medical History Allergies Allergen Reaction Date Comments Reported Codeine 10/11/2015 Sulfa drugs 10/11/2015 Other allergy 03/07/2017 sulfa, codeine Other allergy 02/10/2018 SULFA, CODEINE Sulfa drugs 05/13/2018 Admission Admission Data Admission Date: 05/11/2018 Admission Time: 15:53 Room #: D.2115 Lab Results Lab Result Date: 05/13/2018 Lab Result Time: 0:00 Biochemistry Name Units Result Min Max BUN mg/dl 44 --(----)-* 7 18 Creatinine mg/dl 2.1 --(----)-* 0.6 1.3 CBC Name Units Result Min Max Hemoglobin g/dl 11.6 *-(----)-- 13.5 17.5 Procedure Procedure Types Cath Procedure Diagnostic Procedure C [facility] w/Coronaries Sedation Charges Moderate Sedation up to 15 minutes PCI Procedure Coronary Stent Coronary Stent Initial Procedure Description Procedure Date Procedure Date: 05/13/2018 Procedure Start Time: 12:08 Procedure End Time: 12:22 Procedure Staff Name Function Davie Griffin MD Performing Physician Triston Figueroa RN Loan Closer Maura Burgos RT Scryen Silva RN Nurse Lesia Snyder RT Monitor Procedure Data Cath Procedure Fluoroscopy Diagnostic fluoroscopy Total fluoroscopy Time: 1.4 time: 1.4 min min Diagnostic fluoroscopy Total fluoroscopy dose: 376 dose: 376 mGy mGy Contrast Material Contrast Material Type Amount (ml) Isovue 300 30 Entry Location Entry Primary Successful Side Size Upsize Upsize Entry Closure Succes sful Closure Location (Fr) 1 (Fr) 2 (Fr) Remarks Device Remarks Femoral Right 5 Fr 6 Fr Exoseal artery Short Estimated blood loss: 10 ml Diagnostic catheters Device Type Used For End Catheter Placement MULTIPACK JL 4.0 5Fr Left Coronary catheter Angiography MULTIPACK 3DRC 5Fr Right Coronary catheter Angiography MULTIPACK Pigtail 5 Fr LV Angiography catheter Procedure Complications No complications Procedure Medications Medication Administration Route Dosage 0.9% NaCl I.V. 100 ml/hr Oxygen etCO2 Nasal cannula 6 l/min Lidocaine 2% added to field 20 Heparin Flush Bag added to field 2 bags (1000units/500ml NS) Versed I.V. 1 mg Heparin Bolus I.V. 4000 units Hemodynamics Rest HGB: 11.6 (g/dl) Heart Rate: 74 (bpm) Snapshots Pre Cath Intra NCS Post Cath Vital Signs Time Heart Resp SPO2 etCO2 NIBP (mmHg) Rhythm Pain Sedation Rate (ipm) (%) (mmHg) Status Level (bpm) 12:03:35 68 19 80 33.9 205/97(154) NSR 0 (11) 10(A) , No pain 12:08:01 60 24 79 8.3 177/81(127) NSR 0 (11) 9(A) , No pain 12:16:58 60 22 79 16 151/68(125) NSR 0 (11) 9(A) , No pain 12:21:30 60 14 84 29.4 154/49(108) NSR 0 (11) 10(A) , No pain Medications Time Medication Route Dose Verified Delivered Reason Notes Effectiveness by by 12:02:31 Versed I.V. 1 mg Davie Jennifer for sedation Elias Silva RN 12:02:37 0.9% NaCl I.V. 100 Davie Jennifer used for ml/hr Elias Silva consulting marine engineer 12:02:43 Oxygen etCO2 6 Davie Jennifer used for Nasal l/min Elias Silva procedure cannula RN 12:02:49 Lidocaine 2% added 20ml Davie Davie for local to vial Elias Griffin MD anesthetic field 12:02:54 Heparin Flush added 2 Davie Broderick used for Bag to bags Elias Griffin MD procedure (1000units/500ml field NS) 12:17:25 Heparin Bolus I.V. 4000 Davie Jennifer for verif ied units Elias Silva anticoagulation with Dr. DAHLIA Griffin Procedure Log Time Note 11:41:06 Triston Figueroa RN sent for patient. Start room use. 11:44:24 Signed procedure consent form obtained from patient. 11:44:25 Diagnostic Cath status Elective 11:44:26 Time tracking: Regular hours (M-F 7:00 - 5:00) 11:44:31 Plan of Care:Hemodynamics will remain stable., Cardiac rhythm will remain stable., Comfort level will be maintained., Respiratory function will remain adequate., Patient/ family verbilizes understanding of procedure., Procedure tolerated without complication., Recovers from procedure without complications.. 11:45:26 Patient allergic to Sulfa drugs 11:45:53 Lab Result : BUN 44 mg/dl 11:45:53 Lab Result : Hemoglobin 11.6 g/dl 11:45:53 Lab Result : Creatinine 2.1 mg/dl 11:51:38 Patient received from Med II to CCL 1 Alert and oriented. Tansferred to table in Supine position. 11:51:39 Warm blankets applied, and tracie hugger turned on for patient comfort. 11:51:40 Correct patient and procedure confirmed by team. 11:51:42 ECG and BP/O2 sat monitors applied to patient. 11:53:56 H&P Date Dictated: 05/12/2018 Within 30 days and on chart.. 11:53:58 Pre-procedure instructions explained to patient. 11:53:59 Pre-op teaching completed and patient verbalized understanding. 11:54:02 Patient NPO since Midnight. 11:54:15 Lab results completed and on chart. 11:55:20 Is the patient allergic to Iodine/contrast media? No. 11:55:38 Is patient on blood thinner?Yes 11:55:42 ACC The patient was administered the following blood thiners within the last 24 hours: ACCPlavix 11:55:44 Patient diabetic? Yes. 11:55:45 If diabetic: On Metformin? Yes 11:55:47 If on Metformin: Last Dose? 05/11/2018 11:55:51 Previous problem with sedation/anesthesia? Yes ? 11:55:52 Snore? Yes 11:55:53 Sleep apnea? Yes 11:55:54 Deviated septum? No 11:55:54 Opens mouth fully? Yes 11:55:55 Sticks out tongue? Yes 11:56:02 Airway obstruction? Yes COPD 11:56:05 Dentures? Yes IN TIGHT 11:56:08 Pre procedure: right dorsailis pedis pulse 2+ Normal; easily identifiable; not easily obliterated 11:56:11 Patient pain scale 0/10 ?. 11:56:27 IV patent on arrival in right antecubital with 0.9% NaCl at [facility]. 11:56:32 Right groin area was prepped with chlora-prep and draped in sterile fashion 11:56:33 Alarms reviewed by R. N. 11:56:33 Sharps counted by scrub and verified by R.N. 11:56:37 Use device set Femoral Dx 11:56:38 ACIST Syringe (39283) opened to sterile field. 11:56:38 Bag Decanter (2002S) opened to sterile field. 11:56:39 Medline Cath Pack ([id number]) opened to sterile field. 11:56:39 ACIST Hand Control (78132) opened to sterile field. 11:56:40 ACIST Manifold (33366) opened to sterile field. 11:56:41 Tegaderm 4 x 4 (1626W) opened to sterile field. 11:56:43 SHEATH 5FR Young Harris (NHW359) opened to sterile field. 11:56:43 DIAGNOSTIC WIRE .035 260cm J wire (326463) opened to sterile field. 11:56:44 DIAGNOSTIC Multipack 5Fr catheter set ([id number]) opened to sterile field. 11:56:51 Vital chart was started 11:56:58 Baseline sample Acquired. 11:57:09 Full Disclosure recording started 11:57:17 Physician arrived 11:57:18 --------ALL STOP TIME OUT------ 11:57:18 Final Timeout: patient, procedure, and site verified with staff and physician. All members of the team are in agreement. 11:57:20 Right groin site verified by team. 11:57:23 Physical assessment completed. ASA score P 3 - A patient with severe systemic disease as per Davie Griffin MD. 11:57:25 Sedation plan: IV Moderate Sedation Medication:Versed, Fentanyl 12:02:31 Versed 1 mg I.V. was administered by Jennifer Silva RN; for sedation; 12:02:37 0.9% NaCl 100 ml/hr I.V. was administered by Jennifer Silva RN; used for procedure; 12:02:43 Oxygen 6 l/min etCO2 Nasal cannula was administered by Jennifer Silva RN; used for procedure; 12:02:49 Lidocaine 2% 20ml vial added to field was administered by Davie Griffin MD; for local anesthetic; 12:02:54 Heparin Flush Bag (1000units/500ml NS) 2 bags added to field was administered by Davie Griffin MD; used for procedure; 12:03:55 Zero performed for pressure channel P1 12:03:59 Zero performed for pressure channel P1 12:08:50 Procedure started. 12:08:52 Local anesthetic to right femoral artery with Lidocaine 2% by Davie Griffin MD.INITIAL ACCESS ONLY 12:11:26 Pt arrived to CL on 4LNC, SpO2 75% on 6LNC. Dr. Griffin notified and aware of O2 sats w/ no new orders given at this time. 12:11:28 A 5 Fr sheath was inserted into the Right Femoral artery 12:12:30 A MULTIPACK Pigtail 5 Fr catheter was advanced over the wire and used for LV Angiography. 12:12:31 LV gram done using VO 12:12:36 EF : 60 % 12:12:39 Injector settings: Ml/sec: 10, Volume: 20, 12:12:41 Catheter removed. 12:13:15 A MULTIPACK JL 4.0 5Fr catheter was advanced over the wire and used for Left Coronary Angiography. 12:13:23 Use device set [facility] PCI 12:13:25 SHEATH 6FR Young Harris (YST248) opened to sterile field. 12:13:34 INFLATOR Merit BasixCompak (RS5522) opened to sterile field. 12:13:36 CHOICE PT Extra Support 182cm wire ([id number]) opened to sterile field. 12:14:16 Catheter removed. 12:14:37 Sheath upsized to a 6 Fr Short. 12:15:05 A MULTIPACK 3DRC 5Fr catheter was advanced over the wire and used for Right Coronary Angiography. 12:15:37 Catheter removed. 12:15:53 GUIDE 6FR 3DRC catheter ([id number]) opened to sterile field. 12:16:53 6 Fr 3DRC guide catheter was inserted over the wire 12:17:10 CHOICE PT ES wire advanced. 12:17:25 Heparin Bolus 4000 units I.V. was administered by Jennifer Silva RN; for anticoagulation; verified with Dr. Griffin 12:18:23 Place stent Inflation Number: 1 A BRIANNA RX 2.5 x 15 stent ([id number]) was prepped and advanced across the Prox RCA. The stent was deployed at 19 PINKY for 0:08 (min:sec). 12:18:46 Stent catheter was removed intact over wire. 12:18:47 Wire removed. 12:18:47 Guide catheter removed. 12:18:55 Sheath removed intact; hemostasis achieved with Exoseal to the Right Femoral artery. 12:18:56 Procedure ended.(Physican Out) 12:19:32 Fluoroscopy time 01.40 minutes. 12:19:35 Flurop Dose total: 376 12:19:35 Fluoroscopy dose: 376 mGy 12:19:38 Contrast amount:Isovue 300 30ml. 12:19:39 Sharps counted by scrub and verified by R.N. 12:20:18 Insertion/operative site no bleeding no hematoma. 12:20:20 Post-op/insertion site Right Femoral artery dressed using a 4 x 4 and Tegaderm. 12:20:25 Post right femoral artery:stable, clean and dry 12:20:27 Post Procedure Pulses reassessed and unchanged 12:20:29 Post-procedure physical assessment completed. ASA score P 3 - A patient with severe systemic disease as per Davie Griffin MD. 12:20:32 Post procedure rhythm: sinus rhythm 12:20:39 Estimated blood loss: 10 ml 12:20:50 Post procedure instruction explained to patient.Patient verbalizes understanding. 12:20:51 Patient needs reinforcement of post procedure teaching. 12:21:01 Procedure and supply charges have been captured, reviewed, submitted and are correct. 12:21:11 Procedure type changed to Cath procedure, Diagnostic procedure, LHC, [facility] w/Coronaries, Sedation Charges, Moderate Sedation up to 15 minutes, PCI procedure, Coronary Stent, Coronary Stent Initial 12:21:15 See physician's report for complete and final results. 12:21:21 Procedure Complication : No complications 12:21:28 EXOSEAL 6Fr (EX600) opened to sterile field. 12:22:39 Vital chart was stopped 12:22:40 Report given to PCU. 12:22:44 Patient transfered to PCU with Bed. 12:22:52 Procedure ended. 12:22:52 Full Disclosure recording stopped 12:22:55 End room use (Document Last) Intervention Summary Intervention Notes Time ActionType Lesion and Equipment Used Action# Pressure Duration Attributes 12:18:23 Place stent Prox RCA BRIANNA RX 2.5 x 1 19 00:08 15 stent ([id number]) Device Usage Item Name Manufacture Quantity Catalog Number Hospital Part Current M inimal Lot# / Charge Number Stock Stock Serial# Code ACIST Syringe Acist 1 17097 277708 303613 523388 2 0 (94267) Medical Systems Inc Bag Decanter Microtek 1 2002S 231711 89218 721408 5 (2001S) Medical Inc. Medline Cath Medline 1 [id number] 113975 06868 651472 5 Pack ([id number]) ACIST Hand Acist 1 43437 683463 091519 625061 5 Control Medical (72449) Systems Inc ACIST Manifold Acist 1 22277 211172 079100 192607 5 (59072) Medical Systems Inc Tegaderm 4 x 4 3M 1 1626W 360403 579653 036925 5 (1626W) SHEATH 5FR Terumo 1 MQE511 465742 849305 768465 5 Young Harris (XKJ659) DIAGNOSTIC [place] 1 102472 498603 383767 256226 3 0 WIRE .035 260cm J wire (618770) DIAGNOSTIC Cardinal 1 DY3926 542210 84979 043332 3 0 Multipack 5Fr Health catheter set (CP3069) MULTIPACK JL Cardinal 1 822269 5 4.0 5Fr Health catheter SHEATH 6FR Terumo 1 QBL030 818895 893252 385848 4 0 Young Harris (YXE363) INFLATOR Merit Merit 1 LY1285 275460 474048 255144 [address] [facility] (OX8407) CHOICE PT Munden 1 [id number] 729744 195868 491336 5 Extra Support Scientific 182cm wire ([id number]) MULTIPACK 3DRC Cardinal 1 612973 5 5Fr catheter Health MULTIPACK Cardinal 1 212598 5 Pigtail 5 Fr Health catheter GUIDE 6FR 3DRC Medtronic 1 [id number] 182548 273030 097254 1 catheter ([id number]) BRIANNA RX 2.5 x Medtronic 1 [id number] 229248 6076641 336058 5 [id number] 15 stent ([id number]) EXOSEAL 6Fr Cardinal 1 EX600 938238 343473 293207 1 0 (EX600) Health Signature Audit [place] Stage Time Signature Unsigned Intra-Procedure 05/13/2018 Lesia 12:23:08 PM Counts RT(R) Signatures Monitor : Lesia Signature : Counts RT Date : Time : [place] [id number] [place] [address]
[2018-05-11 12:24] LABS: BASOPHILS 0.2 % (0-2); EOSINOPHILS 0.5 % (0-7); HEMOGLOBIN 12.6 g/dL (12-16); IMMATURE GRANULOCYTES 0.3 % (0-5); LYMPHOCYTES 9.2 % (15-50); MCH 27.4 pg (26.0-34.0); MCHC 30.7 g/dL (31.0-37.0); MCV 89.1 fL (80.0-100.0); MEAN PLATELET VOLUME 9.7 fL (7.4-10.4); MONOCYTES 8.1 % (2-11); NEUTROPHILS 81.7 % (40-80); RDW 15.7 % (11.5-14.5); WBC 6.5 10x3/uL (4.8-10.8)
[2018-05-11 12:25] LABS: PLATELET COUNT 194 10x3/uL (130-400)
[2018-05-11 12:44] LABS: ALKALINE PHOSPHATASE 44 U/L (46-116); ALT (SGPT) 14 U/L (10-68); CALC OSMOLALITY 280 mosm/kg (275-300); CALCIUM 8.9 mg/dL (8.5-10.1); CARBON DIOXIDE 30.3 mmol/L (21.0-32.0); CHLORIDE - SERUM 101 mmol/L (98-107); CREATININE - SERUM 1.3 mg/dL (0.6-1.3); GLUCOSE 165 mg/dL (74-106); POTASSIUM - SERUM 4.1 mmol/L (3.5-5.1); PROTEIN - SERUM 6.7 g/dL (6.4-8.2); SODIUM 138 mmol/L (136-145); UREA NITROGEN 16 mg/dL (7-18); eGFR NON AFRICAN AMERICAN 43 mL/min (90-120)
[2018-05-11 12:56] LABS: CKMB 0.7 U/L (0.0-3.6); CREATINE KINASE 65 UL (21-215); PRO BNP 3069 pg/mL (0-125); TROPONIN-I 0.033 ng/mL (0.000-0.060)
[2018-05-11 13:03] VITALS: BP 138/80
--- NOTE | 2018-05-11 13:30 | NUR ---
PT STABLE, CALL LIGHT WITHIN REACH, DENIES NEEDS, WILL CONTINUE TO MONITOR.
[2018-05-11 14:08] VITALS: BP 159/70
--- NOTE | 2018-05-11 15:00 | NUR ---
PT STABLE, CALL LIGHT WITHIN REACH, DENIES NEEDS, WILL CONTINUE TO MONITOR.
--- NOTE | 2018-05-11 16:00 | NUR ---
PT STABLE, CALL LIGHT WIHTIN REACH, DENIES NEEDS, WILL CONTINUE TO MONITOR.
[2018-05-11 17:00] VITALS: BP 112/50
--- NOTE | 2018-05-11 17:05 | NUR ---
ROCEPHIN INFUSION COMPLETE AT THIS TIME. PT STABLE, CALL LIGHT WITHIN REACH, DENIES NEEDS, WILL CONTINUE TO MONITOR.
[2018-05-11 17:15] VITALS: BP 145/77
--- NOTE | 2018-05-11 17:15 | NUR ---
ATTEMPTED TO CALL REPORT TO APOLONIA. NURSE NOT ON FLOOR. ROOM REPORTED NOT CLEAN PT STABLE, CALL LIGHT WITHIN REACH, DENIES NEEDS, WILL CONTINUE TO MONITOR.
--- NOTE | 2018-05-11 18:07 | NUR ---
REPORT CALLED TO NURSE APOLONIA. ROOM 2115. ROOM REPORT TO STILL BE DIRTY. PT STABLE, CALL LIGHT WITHIN REACH, DENIES NEEDS, WILL CONTINUE TO MONITOR.
--- NOTE | 2018-05-11 19:11 | NUR ---
REPORT HANDED OFF TO DAHLIA HUGHES. PT STABLE, CALL LIGHT WITHIN REACH, DENIES NEEDS. DINNER TRAY PROVIDED.
--- NOTE | 2018-05-11 20:04 | NUR ---
ARRIVED TO FLOOR FROM ER, ORIENTED TO UNIT AND PLACED ON TELEMETRY. CALL LIGHT IN REACH, SEE NURSE ASSESSMENT.
--- NOTE | 2018-05-11 20:24 | NUR ---
78 SR ON TELEMETRY
[2018-05-11 22:49] LABS: CREATINE KINASE 71 UL (21-215)
[2018-05-11 22:54] LABS: TROPONIN-I 0.227 ng/mL (0.000-0.060)
[2018-05-12] VITALS: BP 114/48
--- NOTE | 2018-05-12 03:20 | NUR ---
LYING IN BED, RESPIRATIONS EVEN AND UNLABORED. CALL LIGHT IN REACH, WILL CONTINUE WITH PLAN OF CARE.
[2018-05-12 04:00] VITALS: BP 120/57
[2018-05-12] MEDS ORDERED: K-TAB10 MEQ PO (04:35)
[2018-05-12] MEDS ORDERED: CARDIZEM CD240 MG PO (04:37)
[2018-05-12] MEDS ORDERED: SINGULAIR10 MG PO (04:39)
[2018-05-12 06:47] LABS: BASOPHILS 0 % (0-2); EOSINOPHILS 0 % (0-7); HEMATOCRIT 43.2 % (36.0-48.0); HEMOGLOBIN 13.2 g/dL (12-16); IMMATURE GRANULOCYTES 0.4 % (0-5); LYMPHOCYTES 6.9 % (15-50); MCH 27.8 pg (26.0-34.0); MCHC 30.6 g/dL (31.0-37.0); MCV 90.9 fL (80.0-100.0); MEAN PLATELET VOLUME 10.8 fL (7.4-10.4); MONOCYTES 0.2 % (2-11); NEUTROPHILS 92.5 % (40-80); PLATELET COUNT 222 10x3/uL (130-400); RBC 4.75 10x6/uL (4.00-5.40); WBC 5.2 10x3/uL (4.8-10.8)
[2018-05-12 07:40] LABS: ALBUMIN 3.2 g/dL (3.4-5.0); ALKALINE PHOSPHATASE 49 U/L (46-116); ALT (SGPT) 17 U/L (10-68); BILIRUBIN - TOTAL 0.25 mg/dL (0.2-1.3); CALCIUM 8.9 mg/dL (8.5-10.1); CARBON DIOXIDE 31.6 mmol/L (21.0-32.0); CHLORIDE - SERUM 97 mmol/L (98-107); CKMB 1.4 U/L (0.0-3.6); CREATINE KINASE 76 UL (21-215); GLUCOSE 190 mg/dL (74-106); POTASSIUM - SERUM 4.1 mmol/L (3.5-5.1); PROTEIN - SERUM 7.5 g/dL (6.4-8.2); SODIUM 137 mmol/L (136-145)
[2018-05-12 07:52] LABS: CALC OSMOLALITY 283 mosm/kg (275-300); CREATININE - SERUM 2.2 mg/dL (0.6-1.3); UREA NITROGEN 26 mg/dL (7-18); eGFR NON AFRICAN AMERICAN 23 mL/min (90-120)
[2018-05-12 07:57] LABS: TROPONIN-I 0.113 ng/mL (0.000-0.060)
[2018-05-12 09:10] VITALS: BP 137/44
--- NOTE | 2018-05-12 09:55 | NUR ---
NOT HAVING HC TODAY. DIET CONT. CALL LIGHT IN REACH. WILL CONT. PLAN OF CARE.
[2018-05-12 11:23] LABS: CKMB 1.6 U/L (0.0-3.6); CREATINE KINASE 71 UL (21-215)
[2018-05-12 11:24] LABS: TROPONIN-I 0.079 ng/mL (0.000-0.060)
[2018-05-12 11:53] VITALS: BP 107/59
--- NOTE | 2018-05-12 13:29 | EC ---
PATIENT:UVALDO SANCHEZ DATE OF SERVICE: 05/11/18 SEX: F MEDICAL RECORD: [id number] DATE OF : [birth year] LOCATION:D.M2 D.211 AGE OF PATIENT: 68 ADMISSION DATE: 05/11/18 REFERRING PHYSICIAN: INTERPRETING PHYSICIAN: KARISSA GRIFFIN MD ECHOCARDIOGRAM REPORT ECHO CHARGES 4 ECHO COMPLETE Date: 05/12/18 CLINICAL DIAGNOSIS: CHF ECHOCARDIOGRAPHIC MEASUREMENTS (adult normal given) AC root (d.<3.7cm) 2.8 cm LV Septum d (<1.2 cm> 1.5 cm Valve Excursion 1.6 cm LV Septum (systole) 1.7 cm Left Atria (s.<4.0cm> 4.0 cm LVPW d(<1.2cm) 0.8 cm RV (d.<2.3cm) 2.7 cm LVPW (sytole) 1.1 cm LV diastole(<5.6CM) 5.6 cm MV E-F(>70mm/sec) cm LV systole 4.5 cm LVOT Diameter 1.6 cm MV exc.(>10mm) cm Est.ejection fraction (50-75%) % DOPPLER: LVIT cm/sec A 37 cm/sec E 115 cm/sec LA cm/sec RVSP 37.7 mmHg LVOT 122 cm/sec AOP1/2T m/s Asc. Ao 150 cm/sec RVOT 69 cm/sec RA cm/sec PA 101 cm/sec AV Gradient Peak 9.0 mmHg AV Mean 4.4 mmHg AV Area 1.7 cm MV Gradient Peak 5.0 mmHg MV Mean 1.6 mmHg MV Area cm COMMENTS: Vp Production: Domenic [facility] Farm Machine Tender: 1 Dr. Griffin TAPE# PACS Pericardial Effusion N DATE OF SERVICE: 05/11/2018 ECHOCARDIOGRAM DATE OF SERVICE: 05/11/2018 FINDINGS: 1. Left ventricular chamber size is within normal limits. Left ventricular systolic function is normal. Overall ejection fraction estimated at 55%. 2. Left atrium, right atrium, and right ventricle chamber sizes are within ECHOCARDIOGRAM REPORT [id number] UVALDO SANCHEZ normal limits. 3. Valvular structures have normal structure and motion. 4. Doppler interrogation reveals mild tricuspid regurgitation, no other valvular insufficiency or stenosis. Pulmonary systolic pressure is estimated at 37 mmHg. 5. No evidence of pericardial effusion or left ventricular thrombus. TRANSINT:[id number] Voice Confirmation ID: [id number] DOCUMENT ID: [id number] KARISSA GRIFFIN MD at 1329 CC: [id number] DICTATION DATE: 05/12/18 1221 CAR DEALER: 05/12/18 1305 ADM IN [facility] [address] [place] [address]
--- NOTE | 2018-05-12 13:29 | CN ---
PATIENT NAME:UVALDO DWYER MEDICAL RECORD: [id number] : 48 LOCATION:D. D.2115 ADMIT DATE: 05/11/18 ACCOUNT: [id number] CONSULTING PHYSICIAN: KARISSA YOU MD REFERRING PHYSICIAN: TEREZA ROME MD DATE OF CONSULTATION: 05/11/2018 CARDIOLOGY CONSULT DIAGNOSES: 1. Angina. 2. Coronary artery disease. 3. Previous multivessel PTCA and stent. 4. Paroxysmal atrial fibrillation, controlled in sinus rhythm on Betapace. 5. Hypertension. 6. COPD. 7. Bronchitis/possible pneumonia. HISTORY: Mrs. Dwyer presents with chest discomfort and shortness of breath. She does have a history of COPD. Her cough has been productive as of recent. She has not had any fevers. She has past history of multivessel cardiac stenting, the last being in January. PHYSICAL EXAMINATION: GENERAL APPEARANCE: Well-nourished, well-developed, appears stated age. Level of distress, comfortable. PSYCHIATRIC: Mental status, alert, normal affect. Orientation, oriented to time, place and person. EYES: Lids and conjunctiva, noninjected. No discharge, no pallor. ENT: Lips, teeth, gums, normal dentition. Oropharynx, no cyanosis, no pallor. NECK: Carotid arteries, bilateral normal upstroke, no bruits, no thrills. JUGULAR VEINS: No jugular venous pressure or distention. CERVICAL LYMPH NODES: Nontender, nonenlarged. THYROID: Not enlarged. Nontender. No nodules. LUNGS: Respiratory effort, unlabored. CHEST: Normal curvature. No thoracic deformity. No chest wall tenderness. Percussion, resonant. Auscultation, clear. No wheezes, no rales, no rhonchi. CARDIOVASCULAR: Precordial exam, nondisplaced. No heaves or pericardial thrills. Rate and rhythm, regular. Heart sounds, normal S1, normal S2. No S3, no gallop, no rub. Systolic murmur, not heard. Diastolic murmur, not heard. EXTREMITIES: No cyanosis, no edema. Peripheral pulses, full and equal in all extremities, except as noted. No bruits appreciated. ABDOMEN: Soft, nondistended. Normal aorta. No bruit. Nontender. No masses. Liver, nontender, no hepatomegaly. Spleen, nontender, no splenomegaly. MUSCULOSKELETAL: No joint tenderness. No joint swelling. No erythema. NEUROLOGICAL: Normal gait, normal strength, normal tone. SKIN: Warm and dry. OVERALL IMPRESSION: Anginal symptomatology with COPD exacerbation. At this time, we will center treatment on the lung disease. She has no acute ST-T abnormalities on her EKG, hence she has not had ST elevation VT. We will give her morphine and nitro paste. We will plan for cardiac catheterization prior to discharge on this admission if she continues with this pattern. TRANSINT:[id number] Voice Confirmation ID: [id number] DOCUMENT ID: [id number] CONSULT REPORT [id number] UVALDO DWYER JEFFREY MD at 1329 CC: [id number] DICTATION DATE: 05/11/18 1631 MEDICAL LABORATORY TECHNICAL OFFICER: 05/11/18 193 ADM IN [facility] [address] [place] [address]
--- NOTE | 2018-05-12 13:30 | NUR ---
BILAT SCDS APPLIED.
[2018-05-12 15:43] VITALS: BMI 36.1
[2018-05-12 15:52] VITALS: BP 113/82; BP 83/32
--- NOTE | 2018-05-12 19:27 | NUR ---
RECIEVED UP IN BED WITH EYES OPEN AND TV ON. ALERT AND ORIENTED X4. TELEMETRY IN PLACE. SCD'S IN PLACE. DENIES ANY NEEDS AT THIS TIME.
[2018-05-12 20:00] VITALS: BP 131/52
[2018-05-13] VITALS (10 sets, daily range): BP systolic 120–178; BP diastolic 57–86
[2018-05-13 06:02] LABS: BASOPHILS 0.1 % (0-2); EOSINOPHILS 0 % (0-7); HEMATOCRIT 37.8 % (36.0-48.0); HEMOGLOBIN 11.6 g/dL (12-16); IMMATURE GRANULOCYTES 0.4 % (0-5); LYMPHOCYTES 4.2 % (15-50); MCH 27.4 pg (26.0-34.0); MCHC 30.7 g/dL (31.0-37.0); MCV 89.2 fL (80.0-100.0); MEAN PLATELET VOLUME 10.5 fL (7.4-10.4); MONOCYTES 2.8 % (2-11); NEUTROPHILS 92.5 % (40-80); PLATELET COUNT 192 10x3/uL (130-400); RBC 4.24 10x6/uL (4.00-5.40); RDW 15.7 % (11.5-14.5)
[2018-05-13 06:18] LABS: ANION GAP 10.6 mmol/L (8-16); CALCIUM 8.7 mg/dL (8.5-10.1); CREATININE - SERUM 2.1 mg/dL (0.6-1.3); POTASSIUM - SERUM 4.6 mmol/L (3.5-5.1)
--- NOTE | 2018-05-13 11:51 | NUR ---
PRE-OPS GIVEN. TO STRAIGHT EDGER BY BED.
--- NOTE | 2018-05-13 12:43 | NUR ---
BACK FROM . O2 SAT 96% ON 12L NRB. RIGHT GROIN STABLE WITHOUT BLEEDING OR HEMATOMA NOTED. WILL MONITOR.
--- NOTE | 2018-05-13 16:13 | NUR ---
RESP BECOMING WEAK AND SLOW. ABG CRITICAL. CHANGED FROM NON REBREATHER TO C-PAP. WAITING FOR ICU BED.
--- NOTE | 2018-05-13 16:39 | OP ---
PATIENT NAME: UVALDO SANCHEZ MEDICAL RECORD: [id number] :48 LOCATION:D.M2 D.2115 ADMISSION DATE:05/11/18 SURGEON: KARISSA YOU MD DATE OF OPERATION: 05/13/2018 PROCEDURES: 1. PTCA and stent, RCA. 2. Left heart catheterization. 3. Selective coronary angiography. 4. Left ventriculogram. INDICATION: Angina and coronary artery disease. PROCEDURE IN DETAIL: After informed consent was obtained with detailed explanation of risks and benefits as well as alternative therapies, the patient elected to proceed with angiogram and angioplasty. The right femoral area was prepped and draped in normal sterile fashion. The right femoral artery was cannulated via modified Seldinger technique with placement of 6-Citizen Of [place] sheath. All catheters were exchanged through this sheath. FINDINGS: The left ventriculogram performed in standard 30-degree VO view reveals good cardiac wall motion throughout all segments. Overall ejection fraction is estimated at 60%. SELECTIVE CORONARY ANGIOGRAPHY: 1. Left main is with no significant angiographic disease. 2. Left anterior descending has 75% stenosis proximally. 3. Left circumflex has [id number] irregularities, but no flow-limiting stenosis. 4. Right coronary has 80% to 85% stenosis proximally. PTCA AND STENT OF THE RCA: Stent used was 2.5 x 15 mm Leroy. Result was 0% residual stenosis. OVERALL IMPRESSION: Successful PTCA and stent of the RCA. Due to her renal insufficiency and dye conservation, we will proceed with PTCA and stent of the LAD at a separate setting in the near future. TRANSINT:[id number] Voice Confirmation ID: [id number] DOCUMENT ID: [id number] KARISSA YOU MD at 1639 CC: [id number] DICTATION DATE: 05/13/18 1228 PULMONOLOGIST: 05/13/18 1420 [place] [address]
--- NOTE | 2018-05-13 17:09 | NUR ---
TRANSFERED FROM ICU BY BED TO ROOM 2308.
--- NOTE | 2018-05-13 17:18 | NUR ---
1705 RECEIVED PATIENT FROM FLOOR PLACED ON BPAP AT 60% O2 SAT 99% HEART RATE 63 BP 214/87 (142) RR [address] ROME ON UNIT TO SEE PATIENT
--- NOTE | 2018-05-13 18:54 | NUR ---
1800 GAVE LASIX 40MG IV PLACED HERCULES CATH WITH CLEAR YELLOW RETURN
--- NOTE | 2018-05-13 19:10 | NUR ---
SHIFT ASSESSMENT COMPLETE. PT IS A&O X4 WITH NO COMPLAINTS OF PAIN OR DISCOMFORT. PERRLA, 3 MM, BRISK REACTION TO LIGHT. SHE WEARS DENTURES, BUT THEY ARE NOT IN AT THIS TIME. BIPAP ON @ 40% FIO2, O2 SAT 98%. WHEEZES HEARD BILAT. S1S2 AUDIBLE, NSR SHOWING ON MONITOR. ABD IS FLAT AND NONTENDER TO TOUCH, BS ACTIVE X4. HERCULES CATH INTACT DRAINING CLEAR YELLOW URINE. R GROIN CATH SITE DRESSING CDI, NO SIGNS OF HEMATOMA FORMATION NOTED. RADIAL AND PEDAL PULSES PALP. HAND BREAKER ENGINEER AND FOOT PUMPS EQUAL AND STRONG. CALL LIGHT IN REACH, BED IN LOWEST POSITION. VSS. WILL CONT WITH POC.
--- NOTE | 2018-05-13 20:00 | NUR ---
PT'S SISTER JOHNATHON AT BEDSIDE. PT AND SISTER BOTH STATED TO CALL HER (JOHNATHON) WITH ANY MAJOR MEDICAL CHANGES. EMERGENCY CONTACT UPDATED IN CHART.
--- NOTE | 2018-05-13 21:00 | NUR ---
PM MEDS TAKEN WITHOUT DIFFICULTY. BIPAP ON AT 40%. REPOSITIONED FOR COMFORT. VSS. CALL LIGHT IN REACH, WILL CONT WITH POC.
--- NOTE | 2018-05-13 23:00 | NUR ---
REASSESSMENT COMPLETE. NO CHANGES FROM PREVIOUS ASSESSMENT. VSS. R GROIN DRESSING CDI, NO HEMATOMA FORMATION NOTED. SHE IS RESTING PEACEFULLY AND DENIES ANY PAIN. CALL LIGHT IN REACH, BED IN LOWEST POSITION. WILL CONT TO MONITOR CLOSELY.
[2018-05-14] VITALS (25 sets, daily range): BP systolic 126–176; BP diastolic 64–100
--- NOTE | 2018-05-14 01:00 | NUR ---
REPOSITIONED FOR COMFORT. VSS. NO SIGNS OF PAIN OR DISCOMFORT AT THIS TIME. PT IS RESTING PEACEFULLY. WILL CONT WITH POC.
--- NOTE | 2018-05-14 03:10 | NUR ---
REASSESSMENT COMPLETE. PARTIAL LINEN CHANGE PROVIDED. SMALL SKIN TEAR NOTED ON BUTTOCKS, SCANT AMOUNT OF BLOOD. SMALL BM. PT STATES SHE IS HAVING 10/10 PAIN R/T R GROIN CATH SITE AND CHRONIC BACK PAIN. REPOSITIONED FOR COMFORT. ADMIN PRN PAIN MED PER ORDER. NO FURTHER FINDINGS AT THIS TIME. WILL CONT WITH POC.
--- NOTE | 2018-05-14 04:00 | NUR ---
HERCULES CARE PROVIDED. I&O COLLECTED.
[2018-05-14 05:03] LABS: BASOPHILS 0 % (0-2); EOSINOPHILS 0 % (0-7); HEMATOCRIT 38.6 % (36.0-48.0); HEMOGLOBIN 12.1 g/dL (12-16); IMMATURE GRANULOCYTES 0.8 % (0-5); MCH 28.3 pg (26.0-34.0); MCHC 31.3 g/dL (31.0-37.0); MCV 90.2 fL (80.0-100.0); MEAN PLATELET VOLUME 10.9 fL (7.4-10.4); MONOCYTES 3.7 % (2-11); NEUTROPHILS 91.5 % (40-80); PLATELET COUNT 162 10x3/uL (130-400); RBC 4.28 10x6/uL (4.00-5.40); RDW 15.7 % (11.5-14.5)
[2018-05-14 05:06] LABS: WBC 10.4 10x3/uL (4.8-10.8)
--- NOTE | 2018-05-14 05:10 | NUR ---
REPOSITIONED FOR COMFORT. VSS. PT DENIES ANY NEEDS AT THIS TIME. WILL CONT WITH POC.
[2018-05-14 05:31] LABS: ALBUMIN 2.9 g/dL (3.4-5.0); ANION GAP 13.5 mmol/L (8-16); BILIRUBIN - TOTAL 0.17 mg/dL (0.2-1.3); CALCIUM 8.5 mg/dL (8.5-10.1); CARBON DIOXIDE 28.9 mmol/L (21.0-32.0); MAGNESIUM - SERUM 2.1 mg/dL (1.8-2.4); PHOSPHOROUS 5.4 mg/dL (2.5-4.9); POTASSIUM - SERUM 4.4 mmol/L (3.5-5.1); PROTEIN - SERUM 6.5 g/dL (6.4-8.2)
--- NOTE | 2018-05-14 07:41 | NUR ---
PT RESTING WITH BIPAP ON. AROUSED BY VERBAL STIMULI. NO S/S OF ACUTE DISTRESS. CL IN PLACE.
--- NOTE | 2018-05-14 10:30 | NUR ---
PT RESTING IN BED. WANTS TO EAT. RESP WAITING ON ABG RESULTS. ELECTRICIAN TELEPHONE VISITING ABOUT PT INTAKE AND ADDING A SUPPLEMENT SINCE PT IS NOT EATING. CO OF L ABD PAIN. MORPHINE GIVEN PER MD ORDER. NO S/S OF ACUTE DISTRESS. CL IN PLACE.
--- NOTE | 2018-05-14 10:31 | NUR ---
Nutrition follow-up: Pt now in ICU. BIPAP in place and unable to eat at this time. Labs reviewed +BM Wt: 196# Pt scheduled for cath 05/15/18 Due to destating when BIPAP removed, recommend starting ProcalAmine PPN @ 75 ml/hr to meet 25% of estimated kcal needs and 100% of estimated protein needs. RDN following.
--- NOTE | 2018-05-14 12:49 | NUR ---
PT RESTING IN BED. BIPAP ON. HOB ELEVATED 45. NO S/S OF ACUTE DISTRESS. CL IN PLACE.
--- NOTE | 2018-05-14 13:37 | NUR ---
PT RESTING IN BED WITH EYES CLOSED. AROUSED BY VERBAL STIMULI.BIPAP ON. NO S/S OF ACUTE DISTRESS. CL IN PLACE.
--- NOTE | 2018-05-14 17:21 | NUR ---
LATE ENTRY 1700: TOOK PT TO LUNG SCAN WITH RESP. PT TRANSFER TO TABLE. BIPAP ON. PT NOT CRIS WELL. SAT PT UP. TRANSFERED BACK TO STRETCHER. PT STABLE. BROUGHT PT BACK TO UNIT. BIPAP ON. FAN BROUGHT IN TO ROOM. NO S/S OF ACUTE DISTRESS. CL IN PLACE.
--- NOTE | 2018-05-14 18:22 | NUR ---
IV LEAKING. DC WITH TIP IN TACT.. RESITED TO R FOREARM. 22 GAUGE. FLUSHED WELL. NO REDDNESS OR SWELLING NOTED. NO S/S OF ACUTE DISTRESS. CL IN PLACE.
--- NOTE | 2018-05-14 19:00 | NUR ---
SHIFT ASSESSMENT COMPLETE. PT IS A&OX4 AND STATES THAT SHE HAS MINOR PAIN SECONDARY TO HER R GROIN INCISION. REPOSITIONED FOR COMFORT. SEE FLOWSHEET FOR FURTHER DETAILS. BIPAP ON AND FUNCTIONING, FIO2 @ 40%. R FA PIV INFUSING NS @ KVO. PACEMAKER NOTED TO R UPPER CHEST. L HAND WRAPPED IN COBAN, SKIN TEAR NOTED. R STERLING CATH SITE CDI, NO S/S OF HEMATOMA FORMATION NOTED. SMALL SKIN TEAR ON BUTTOCKS. HERCULES CATH INTACT DRAINING CLEAR YELLOW URINE. RADIAL AND PEDAL PULSES PALP, ALL SENSATIONS FELT IN UPPER AND LOWER EXT, CAP REFILL < 3 SEC. S1S2 AUDIBLE, NSR SHOWING ON MONITOR. RR SHALLOW, EXP WHEEZES HEARD THROUGHOUT MOST LOBES, LEFT UPPER LOBECTOMY NOTED IN PT'S HX. ORAL CARE PROVIDED. CALL LIGHT IN REACH, PT DENIES ANY FURTHER NEEDS AT THIS TIME. WILL CONT WITH POC.
--- NOTE | 2018-05-14 21:00 | NUR ---
FSBS 159. PT IS UNABLE TO TOLERATE EATING DUE TO INCREASED SOB WITHOUT BIPAP. HELD INSULIN. PO MEDS TAKEN. ORAL CARE PROVIDED. REPOSITIONED FOR COMFORT. VSS. WILL CONT WITH POC.
--- NOTE | 2018-05-14 23:00 | NUR ---
REASSESSMENT COMPLETE. SEE FLOWSHEET FOR FURTHER DETAILS. VSS. REPOSITIONED FOR COMFORT. WILL CONT WITH POC.
[2018-05-15] VITALS (25 sets, daily range): BP systolic 117–174; BP diastolic 68–103
--- NOTE | 2018-05-15 01:00 | NUR ---
PT RESTING PEACEFULLY WITH NO SIGNS OF ACUTE DISTRESS NOTED. VSS. WILL CONT WITH POC.
--- NOTE | 2018-05-15 03:00 | NUR ---
REASSESSMENT COMPLETE. NO CHANGES IN PT CONDITION. VSS. SEE FLOWSHEET FOR FURTHER DETAILS. REPOSITIONED FOR COMFORT. ORAL CARE PROVIDED. WILL CONT TO MONITOR.
[2018-05-15 04:16] LABS: BASOPHILS 0.1 % (0-2); EOSINOPHILS 0 % (0-7); HEMATOCRIT 41.5 % (36.0-48.0); HEMOGLOBIN 12.6 g/dL (12-16); IMMATURE GRANULOCYTES 1.1 % (0-5); MCH 27.5 pg (26.0-34.0); MCHC 30.4 g/dL (31.0-37.0); MCV 90.4 fL (80.0-100.0); MEAN PLATELET VOLUME 10.6 fL (7.4-10.4); MONOCYTES 4.6 % (2-11); NEUTROPHILS 90.2 % (40-80); PLATELET COUNT 143 10x3/uL (130-400); RBC 4.59 10x6/uL (4.00-5.40); RDW 15.5 % (11.5-14.5); WBC 10.9 10x3/uL (4.8-10.8)
[2018-05-15 04:20] LABS: CARBON DIOXIDE 27.1 mmol/L (21.0-32.0); CREATININE - SERUM 1.6 mg/dL (0.6-1.3); PHOSPHOROUS 4.7 mg/dL (2.5-4.9)
[2018-05-15 04:23] LABS: POTASSIUM - SERUM 5.1 mmol/L (3.5-5.1)
--- NOTE | 2018-05-15 05:15 | NUR ---
PO MEDS ADMINISTERED. PT DENIES ANY NEEDS AT THIS TIME. REPOSITIONED FOR COMFORT. WILL CONT WITH POC.
--- NOTE | 2018-05-15 10:24 | NUR ---
VENITAM CHANGE NOTED. AFIB RVR. 100 TO 120. BETAPACE GIVEN. CARDIOLOGY HERE AT BS. REPORTED FINDINGS. REC;D NOTICE THAT PT WILL GO TO ELECTRONICS TEST ENGINEER TODAY. WILL OBTAIN CONCENT FORM.
--- NOTE | 2018-05-15 10:47 | MORECARE ---
CASE MANAGEMENT DISCHARGE SUMMARY PATIENT: UVALDO SANCHEZ [facility]ILL[place] UNIT: [id number] ADM DATE: 05/11/18 AGE: 68 : 48 SEX: F ROOM/BED: D.2308 AUTHOR: LUIS REYES PHYSICIAN: REFERRING PHYSICIAN: TEREZA ROME MD DATE OF SERVICE: 05/15/18 Discharge Plan Patient Name: UVALDO SANCHEZ [facility] : 1950 Planned Disposition: Anticipated Discharge Date: Discharge Date: Expected LOS: Initial Reviewer: [email or web address] Initial Review Date: 05/11/2018 Generated: 05/15/18 11:46 am Comments DCP- Discharge Planning Updated by [email or web address]: Anupama Millard on 05/15/18 9:[address] CM attempted to do intake assessment for discharge planning. Patient is currently on BiPap and unable to talk. No family available at this time. CM will continue to follow and assist as needed with discharge planning / needs Patient Name: UVALDO SANCHEZ Page [id number] at 1047 All edits/amendments must be made on the electronic document DICTATION DATE: 05/15/18 1046 TIME STUDY CLERK: ROBERT 05/15/18 1046 RPT#: [id number] DC DATE: STATUS: ADM IN [facility] [address] [place] [address] END OF REPORT
--- NOTE | 2018-05-15 12:45 | NUR ---
ABG RESULTS GIVEN TO DR EDMONDS. DR EDMONDS SPOKE TO PT'S SISTER AT BS. MANAGER OF DIGITAL CALLED AND REPORT THAT PT IS NOT GOING TO MANAGER OF DIGITAL TODAY.
--- NOTE | 2018-05-15 14:58 | NUR ---
PT PLACED ON 2LNC AND BIPAP TAKEN OFF. PT SIPS WATER WITH OUT DIFFICULTY.
--- NOTE | 2018-05-15 19:00 | NUR ---
SHIFT ASSESSMENT COMPLETE. PT IS CONFUSED TO PLACE AND SITUATION. REORIENTED EASILY, PERRLA, 3 MM, BRISK REACTION TO LIGHT. SKIN PROTECTOR NOTED ON BRIDGE OF NOSE. BIPAP ON @ 40%. S1S2 AUDIBLE, HR 93, A-FIB NOTED ON MONITOR. RR SHALLOW, EXP WHEEZES HEARD BILAT. ABD IS SOFT, BS ACTIVE X4. R GROIN CATH SITE DRESSING CDI, NO HEMATOMA FORMATION NOTED. L HAND SKIN TEAR NOTED, OINTMENT AND 2X2'S PLACED OVER SITE, WRAPPED WITH BRYNN BANDAGE. HERCULES CATH INTACT DRAINING CLEAR YELLOW URINE. RADIAL AND PEDAL PULSES PALP. R FA PIV INFUSING NS @ KVO. CALL LIGHT IN REACH. REPOSITIONED FOR COMFORT. VSS. WILL CONT WITH POC.
--- NOTE | 2018-05-15 21:00 | NUR ---
PO MEDS GIVEN WITHOUT DIFFICULTY. PT DRANK 1/2 GLUCERNA SHAKE. FSBS 153, 2 UN INSULIN ADMIN PER SLIDING SCALE. ORAL CARE PROVIDED. REPOSTIIONED FOR COMFORT. WILL CONT WITH POC. CALL LIGHT IN REACH. PT DENIES ANY FURTHER NEEDS.
--- NOTE | 2018-05-15 23:10 | NUR ---
REASSESSMENT COMPLETE. NO CHANGES FROM PREVIOUS ASSESSMENT. REPOSITIONED FOR COMFORT. SEE FLOWSHEET FOR FURTHER DETAILS. VSS. WILL CONT WITH POC.
[2018-05-16] VITALS (24 sets, daily range): BP systolic 124–197; BP diastolic 50–100
--- NOTE | 2018-05-16 | NUR ---
COMPLETE BED BATH AND LINEN CHANGE PROVIDED. PT ABLE TO ASSIST WITH TURNING, TOLERATED WELL. RT AT BEDSIDE TO GIVE PT NEW BIPAP MASK. VSS. WILL CONT WITH POC.
--- NOTE | 2018-05-16 01:00 | NUR ---
PT RESTING. NO SIGNS OF ACUTE DISTRESS NOTED.
--- NOTE | 2018-05-16 03:10 | NUR ---
REASSESSMENT COMPLETE. PT DENEIS ANY NEEDS AT THIS TIME. HR REMAINS IN A-FIB. NO CHANGES FROM PREVIOUS ASSESSMENT. WILL CONT TO MONITOR CLOSELY.
[2018-05-16 03:59] LABS: BASOPHILS 0 % (0-2); EOSINOPHILS 0 % (0-7); HEMATOCRIT 39.5 % (36.0-48.0); HEMOGLOBIN 12.4 g/dL (12-16); IMMATURE GRANULOCYTES 0.7 % (0-5); LYMPHOCYTES 6.7 % (15-50); MCH 27.4 pg (26.0-34.0); MCHC 31.4 g/dL (31.0-37.0); MEAN PLATELET VOLUME 10.4 fL (7.4-10.4); MONOCYTES 4.6 % (2-11); PLATELET COUNT 145 10x3/uL (130-400); RBC 4.52 10x6/uL (4.00-5.40); RDW 15.1 % (11.5-14.5)
[2018-05-16 04:05] LABS: MCV 87.4 fL (80.0-100.0); WBC 5.8 10x3/uL (4.8-10.8)
[2018-05-16 04:12] LABS: CALCIUM 9.2 mg/dL (8.5-10.1); CARBON DIOXIDE 33.6 mmol/L (21.0-32.0); CREATININE - SERUM 1.4 mg/dL (0.6-1.3); MAGNESIUM - SERUM 2.2 mg/dL (1.8-2.4); POTASSIUM - SERUM 4.6 mmol/L (3.5-5.1)
[2018-05-16 04:18] LABS: PHOSPHOROUS 2.3 mg/dL (2.5-4.9)
--- NOTE | 2018-05-16 05:00 | NUR ---
REPOSITIONED FOR COMFORT. PT DENIES ANY NEEDS. WILL CONT WITH POC.
--- NOTE | 2018-05-16 07:00 | NUR ---
PIV TO R FA INFILTRATED. WARM COMPRESSED APPLIED TO SKIN. PT IS ANXIOUIS AND STATES, "I CAN'T BE POKED ANYMORE!" REPOSITIONED PT AND INSTRUCTED HER TO TAKE DEEP BREATHS. PT IS STABLE. WILL RESITE PIV.
--- NOTE | 2018-05-16 07:10 | NUR ---
CALLED PHARM FOR 15 mM SODIUM PHOS.
--- NOTE | 2018-05-16 08:49 | NUR ---
ATTEMPTS TO OBTAIN IV ACCESS REMAIN UNSUCCESSFUL AFTER SEVERAL ATTEMPTS. MEAL TRAY PROVIDED AND TAKEN OFF BIPAP TO ALLOW PT TO EAT. MEAL TRAY SET UP DONE AND PT FEEDS SELF.
--- NOTE | 2018-05-16 10:40 | NUR ---
RESITE IV 20GA TO RT FA. IV ABX INFUSING ORDERED.
--- NOTE | 2018-05-16 19:14 | NUR ---
REPORT RECEIVED, CARE ASSUMED. INITIAL ASSESSMENT COMPLETED, SEE FLOWSHEET. NO SIGNS OF ACUTE DISTRESS. SISTER CALLED AND VERIFIED PASSWORD, UPDATE GIVEN VIA PHONE. WILL CONTINUE TO MONITOR.
--- NOTE | 2018-05-16 21:14 | NUR ---
NO ACUTE CHANGES NOTED. NO SIGNS OF ACUTE DISTRESS. WILL CONTINUE TO MONITOR.
--- NOTE | 2018-05-16 23:14 | NUR ---
REASSESSMENT COMPLETED, SEE FLOWSHEET. NO SIGNS OF ACUTE DISTRESS. WILL CONTINUE TO MONITOR.
[2018-05-17] VITALS (24 sets, daily range): BP systolic 138–169; BP diastolic 62–107
--- NOTE | 2018-05-17 01:15 | NUR ---
PT RESTING IN BED WITH EYES CLOSED. NO SIGNS OF ACUTE DISTRESS. WILL CONTINUE TO MONITOR.
--- NOTE | 2018-05-17 03:15 | NUR ---
REASSESSMENT COMPLETED, SEE FLOWSHEET. PT RESTING IN BED WITH EYES CLOSED. NO SIGNS OF ACUTE DISTRESS. WILL CONTINUE TO MONITOR.
[2018-05-17 03:18] LABS: BASOPHILS 0.2 % (0-2); EOSINOPHILS 0 % (0-7); HEMATOCRIT 39.6 % (36.0-48.0); HEMOGLOBIN 12.6 g/dL (12-16); IMMATURE GRANULOCYTES 0.8 % (0-5); MCH 27.5 pg (26.0-34.0); MCHC 31.8 g/dL (31.0-37.0); MCV 86.5 fL (80.0-100.0); MEAN PLATELET VOLUME 10.6 fL (7.4-10.4); MONOCYTES 6.3 % (2-11); NEUTROPHILS 83.7 % (40-80); PLATELET COUNT 157 10x3/uL (130-400); RBC 4.58 10x6/uL (4.00-5.40); RDW 15.2 % (11.5-14.5); WBC 6.1 10x3/uL (4.8-10.8)
[2018-05-17 03:40] LABS: ANION GAP 9.4 mmol/L (8-16); CALCIUM 9.2 mg/dL (8.5-10.1); CARBON DIOXIDE 31.4 mmol/L (21.0-32.0); CREATININE - SERUM 1.5 mg/dL (0.6-1.3); MAGNESIUM - SERUM 2.3 mg/dL (1.8-2.4); PHOSPHOROUS 2.8 mg/dL (2.5-4.9); POTASSIUM - SERUM 4.8 mmol/L (3.5-5.1)
--- NOTE | 2018-05-17 05:15 | NUR ---
PT RESTING IN BED WITH EYES CLOSED. AM LABS REVIEWED, NO ACTION REQUIRED. NO SIGNS OF ACUTE DISTRESS. WILL CONTINUE TO MONITOR.
--- NOTE | 2018-05-17 07:00 | NUR ---
AWAKES EASILY TO VERBAL STIMULI. BIPAP MASK ON PATIENT. BILATERAL LUNG CONGESTION NOTED. IV RIGHT FOREARM WITHOUT REDNESS OR SWELLING INFUSING WITH NS AT KVO RATE HERCULES CATH PATENT. MONITOR SR. NO DISTRESS.
--- NOTE | 2018-05-17 08:00 | NUR ---
OFF BIPAP FOR BREAKFAST ON NC AT 4 LITERS.
--- NOTE | 2018-05-17 09:00 | NUR ---
PO MEDS GIVEN TAKEN WITHOUT DIFFICULTY NO RESP DISTRESS.
--- NOTE | 2018-05-17 10:30 | NUR ---
RESP DISTRESS. BLOOD PRESSURE UP PULSE OX IN 80'S. BIPAP REPLACED. VERY ANXIOUS MORPHINE 4 MG IV GIVEN.
--- NOTE | 2018-05-17 11:30 | NUR ---
RESTING WELL NO DISTRESS
--- NOTE | 2018-05-17 12:00 | NUR ---
VISITORS HERE. AWAKES EASILY. LUNCH SERVED. BIPAP OFF ON NC AT 4 LITERS. NO APPETITE FEW BITES OF MASH POTATOES. DR. EDMONDS HERE.
--- NOTE | 2018-05-17 12:45 | NUR ---
SEEING BUGS ON THE GALAN STATES THERE IS WATER DRIPPING FROM THE CEILING.
--- NOTE | 2018-05-17 13:00 | NUR ---
RESP DISTRESS. PULSE OX AT 86%. PLACED BACK ON BIPAP AT 40%
--- NOTE | 2018-05-17 13:40 | NUR ---
RESTING WELL NO DISTRESS
--- NOTE | 2018-05-17 15:00 | NUR ---
BI PAP MASK ON NO DISTRESS
--- NOTE | 2018-05-17 17:00 | NUR ---
BI PAP MASK ON WATCH TV. NAPPING AT INTERVALS
--- NOTE | 2018-05-17 19:00 | NUR ---
SHIFT ASSESSMENT COMPLETE. REMOVED BIPAP FOR PHYSICAL ASSESSMENT. NC ON @ 4 L/MIN AT THIS TIME. PT IS A&O X2, CONFUSED OF TIME AND SITUATION. SHE REORIENTS EASILY. NOSE AND THROAT ARE DRY FROM BIPAP. ORAL CARE PROVIDED. POOR DENTITION NOTED. S1S2 AUDIBLE, NSR SHOWING ON MONITOR. PACEMAKER ON RIGHT UPPER CHEST. EXP WHEEZE HEARD BILAT. NON-PRODUCTIVE WET COUGH. ABD FLAT AND NON TENDER TO TOUCH. R FA PIV INFUSING NS @ KVO. BILAT ARMS HAVE BRUISING NOTED. ELEVATED L ARM D/T DEPENDENT EDEMA. SKIN TEAR ON L HAND, ERIBERTO. HERCULES CATH INTACT DRAINING CLEAR YELLOW URINE. R GROIN, CATH SITE, NO HEMATOMA FORMATION NOTED. RADIAL AND PEDAL PULSES PALP. SCDS REMOVED AND SKIN ASSESSED, WNL. NON-SKID SOCKS PROVIDED. REPOSITIONED FOR COMFORT. VSS. CALL LIGHT IN REACH. WILL CONT CLOSE MONITORING IN ICU.
--- NOTE | 2018-05-17 21:10 | NUR ---
FSBS 165, 2 UN INSULIN ADMIN PER SLIDING SCALE. PO MEDS TAKED WITHOUT DIFFICULTY. REPOSITIONED FOR COMFORT. VSS. CALL LIGHT IN REACH. WILL CONT WITH POC.
--- NOTE | 2018-05-17 23:10 | NUR ---
REASSESSMENT COMPLETE. PT IS CONFUSED TO SITUATION. REORIENTS EASILY. NO CHANGES FROM PREVIOUS ASSESSMENT. NO S/S OF RESP DISTRESS NOTED AT THIS TIME. CALL LIGHT IN REACH. BED IN LOWEST POSITION. WILL CONT WITH POC.
[2018-05-18] VITALS (25 sets, daily range): BP systolic 130–170; BP diastolic 68–91; Ht 152.4 cm; Wt 90.5 kg
--- NOTE | 2018-05-18 00:20 | NUR ---
R FA PIV SITE LEAKING. REDRESSED. NO REDNESS OR SWELLING NOTED. PIV INTACT AND INFUSING WITH NO COMPLICATIONS. REPOSITIONED FOR COMFORT. BIPAP ON @ 40%. PARTIAL LINEN CHANGE PROVIDED. SHE DENIES ANY FURTHER NEEDS. WILL CONT WITH POC.
--- NOTE | 2018-05-18 01:10 | NUR ---
PT RESTING WITH NO SIGNS OF ACUTE DISTRESS NOTED. VSS. BIPAP ON @ 40%. CALL LIGHT IN REACH. WILL CONT WITH POC.
--- NOTE | 2018-05-18 03:10 | NUR ---
REASSESSMENT COMPLETE. NO CHANGES FROM PREVIOUS ASSESSMENT. PT RESTING PEACEFULLY WITH NO SIGNS OF ACUTE DISTRESS. BIPAP ON @ 40%, O2 SAT 98%. CALL LIGHT WITHIN REACH. WILL CONT WITH POC.
[2018-05-18 04:29] LABS: HEMATOCRIT 40.3 % (36.0-48.0); HEMOGLOBIN 12.9 g/dL (12-16); MCH 27.3 pg (26.0-34.0); MCV 85.4 fL (80.0-100.0); MEAN PLATELET VOLUME 10.1 fL (7.4-10.4); PLATELET COUNT 160 10x3/uL (130-400); RBC 4.72 10x6/uL (4.00-5.40); RDW 15.1 % (11.5-14.5); WBC 5.9 10x3/uL (4.8-10.8)
[2018-05-18 04:58] LABS: ALBUMIN 2.8 g/dL (3.4-5.0); ANION GAP 11.4 mmol/L (8-16); BILIRUBIN - TOTAL 0.41 mg/dL (0.2-1.3); CALCIUM 9.5 mg/dL (8.5-10.1); CARBON DIOXIDE 31.2 mmol/L (21.0-32.0); CREATININE - SERUM 1.4 mg/dL (0.6-1.3); MAGNESIUM - SERUM 2.3 mg/dL (1.8-2.4); PHOSPHOROUS 3.1 mg/dL (2.5-4.9); POTASSIUM - SERUM 4.6 mmol/L (3.5-5.1); PROTEIN - SERUM 6.1 g/dL (6.4-8.2)
--- NOTE | 2018-05-18 05:00 | NUR ---
REPOSITIONED FOR COMFORT. LAB AT [facility] DRAWING LAB. SHE DENIES ANY NEEDS AT THIS TIME. WILL CONT WITH POC.
[2018-05-18 05:12] LABS: EOSINOPHILS 1 % (0-7); LYMPHOCYTES 9 % (15-50); MONOCYTES 5 % (2-11); NEUTROPHILS 85 % (40-80); PLATELET ESTIMATE NORMAL
--- NOTE | 2018-05-18 06:40 | NUR ---
CONSENTS SIGNED AND PLACED ON FRONT OF CHART.
--- NOTE | 2018-05-18 07:00 | NUR ---
REC'D REPORT AND RESUMED CARE, SLEEPING WITH BIPAP IN USE, 40% FIO2, SAT 97% ON MONITOR, AROUSABLE TO VERBAL STIMULI, ORIENTED X4, ASSESSMENT COMPLETE PER FLOWSHEET, DENIES PAIN, CALL LIGHT IN REACH, NO NEEDS AT THIS TIME
--- NOTE | 2018-05-18 08:00 | NUR ---
CALL TO ANESTHESIOLOGY TEACHER RE PENDING CATH, PATIENT NO SCHEDULE FOR TODAY AND WILL NEED RESPIRATORY CLEARANCE BEFORE GOING BACK, BREAKFAST TRAY TO BEDSIDE. BIPAP OFF, INDEPENDENT WITH SET UP AND EATING
--- NOTE | 2018-05-18 09:18 | NUR ---
MORNING MEDS GIVEN PER PAR FLOWSHEET, BIPAP BACK ON
--- NOTE | 2018-05-18 10:30 | NUR ---
Nutrition follow-up: Diet: consistent CHO PO intake very poor due to breathing issues Bipap in place labs reviewed Wt: 192# Scheduled for heart cath today Will need nutrition support started soon if po intake remains poor. RDN following.
--- NOTE | 2018-05-18 11:21 | NUR ---
PC FROM SISTER ALLY, PASSWORD OBTAIN, STATUS GIVEN, PLEASE CALL HER WITH ANY ACUTE CHANGES
--- NOTE | 2018-05-18 12:05 | NUR ---
REFUSED LUNCH TRAY, STATES SHE WANTED TO SLEEP AND KEEP BIPAP ON AT THIS TIME
--- NOTE | 2018-05-18 14:34 | NUR ---
SLEEPING WITH NO SIGN OF DISTRESS, VSS, DENIES PAIN AT THIS TIME
--- NOTE | 2018-05-18 17:00 | NUR ---
BIPAP OFF AND 4L HF NC ON FOR DINNER MEAL
--- NOTE | 2018-05-18 17:50 | NUR ---
ULTRAM 50 MG PO GIVNE FOR PAIN 12/05 IN THRORACIC AREA, BIPAP BACK ON AFTER, PER REQUEST
--- NOTE | 2018-05-18 18:32 | MORECARE ---
CASE MANAGEMENT DISCHARGE SUMMARY PATIENT: UVALDO SANCHEZ HILLARY UNIT: [id number] ADM DATE: 05/11/18 AGE: 68 : 48 SEX: F ROOM/BED: D.2308 AUTHOR: LUIS REYES PHYSICIAN: REFERRING PHYSICIAN: TEREZA ROME MD DATE OF SERVICE: 05/18/18 Discharge Plan Patient Name: UVALDO SANCHEZ Facility: [facility]:[place] : 1950 Planned Disposition: Home Anticipated Discharge Date: Discharge Date: Expected LOS: Initial Reviewer: [email or web address] Initial Review Date: 05/18/2018 Generated: 05/18/18 7:32 pm Comments DCP- Discharge Planning Updated by [email or web address]: Anupama Millard on 05/15/18 9:[address] CM attempted to do intake assessment for discharge planning. Patient is currently on BiPap and unable to talk. No family available at this time. CM will continue to follow and assist as needed with discharge planning / needs DCPIA - Discharge Planning Initial Assessment Updated by [email or web address]: Anupama Millard on 05/18/18 6:29 pm * Is the patient Alert and Oriented? Yes * How many steps to enter\exit or inside your home? * PCP [facility] * Pharmacy [facility] * Preadmission Environment Home Alone * ADLs Independent * Other Equipment BIPAP, 02, CANE, WALKER, NEBULIZER, * List name and contact numbers for known caregivers / representatives who currently or will assist patient after discharge: JOSH TELLEZ - AUNT - ?? * Verbal permission to speak to the caregivers and representatives has been obtained from the patient. Yes * Community resources currently utilized Home Health * Please name any agencies selected above. UNKNOWN PROVIDER * Additional services required to return to the preadmission environment? No * Can the patient safely return to the preadmission environment? Yes * Has this patient been hospitalized within the prior 30 days at any hospital? No Last DP export: 05/15/18 9:46 a Patient Name: UVALDO SANCHEZ Page [id number] at 1832 All edits/amendments must be made on the electronic document DICTATION DATE: 01/21/19 1832 MATH TEACHER: ROBERT 05/18/181831 RPT#: [id number] DC DATE: STATUS: ADM IN [facility] [address] [place] [address] END OF REPORT
--- NOTE | 2018-05-18 18:41 | MORECARE ---
CASE MANAGEMENT DISCHARGE SUMMARY PATIENT: UVALDO SANCHEZ H[place] UNIT: [id number] ADM DATE: 05/11/18 AGE: 68 : 48 SEX: F ROOM/BED: D.2308 AUTHOR: ERIC,DOC PHYSICIAN: REFERRING PHYSICIAN: TEREZA ROME MD DATE OF SERVICE: 05/18/18 Discharge Plan Patient Name: UVALDO SANCHEZ Facility: [facility]:[place] : 1950 Planned Disposition: Home Anticipated Discharge Date: Discharge Date: Expected LOS: Initial Reviewer: [email or web address] Initial Review Date: 05/18/2018 Generated: 05/18/18 7:41 pm Comments DCP- Discharge Planning Updated by [email or web address]: Anupama Millard on 05/18/18 5:[address] Patient Name: UVALDO SANCHEZ Admission Status: ER Accout number: [id number] Admission Date: 05-11-2018 : 1950 Admission Diagnosis:CHRONIC OBSTRUCTIVE PULMONARY DISEASE W (ACUTE) EXACERB Attending: TEREZA ROME Current LOS: 7 Anticipated DC Date: Planned Disposition: Home Primary Insurance: [facility] [employer] Discharge Planning Comments: CM met with patient at bedside. Patient states she lives alone and plans to return to her home after discharge. Patient states she has a BIPAP, 02, nebulizer, walker and cane at home. Patient states she has home health visits but doesn't know who her provider is. CM will continue to follow and assist as needed with discharge planning / needs. Half Section Ironer: Anupama Millard DCP- Discharge Planning Updated by [email or web address]: Anupama Millard on 05/15/18 9:[address] CM attempted to do intake assessment for discharge planning. Patient is currently on BiPap and unable to talk. No family available at this time. CM will continue to follow and assist as needed with discharge planning / needs DCPIA - Discharge Planning Initial Assessment Updated by [email or web address]: Anupama Millard on 05/18/18 6:29 pm * Is the patient Alert and Oriented? Yes * How many steps to enter\exit or inside your home? * PCP [facility] * Pharmacy [facility] * Preadmission Environment Home Alone * ADLs Independent * Other Equipment BIPAP, 02, CANE, WALKER, NEBULIZER, * List name and contact numbers for known caregivers / representatives who currently or will assist patient after discharge: JOSH TELLEZ - AUNT - ?? * Verbal permission to speak to the caregivers and representatives has been obtained from the patient. Yes * Community resources currently utilized Home Health * Please name any agencies selected above. UNKNOWN PROVIDER * Additional services required to return to the preadmission environment? No * Can the patient safely return to the preadmission environment? Yes * Has this patient been hospitalized within the prior 30 days at any hospital? No Last DP export: 05/18/18 5:32 p Patient Name: UVALDO SANCHEZ Page [id number] at 1841 All edits/amendments must be made on the electronic document DICTATION DATE: 05/18/181839 VIDEO PRODUCTION ASSISTANT: ROBERT 05/18/181839 RPT#: [id number] DC DATE: STATUS: ADM IN [facility] [address] [place] [address] END OF REPORT
--- NOTE | 2018-05-18 19:00 | NUR ---
SHIFT ASSESSMENT COMPLETE. PT IS LYING IN BED AND DOES NOT COMPLAIN OF ANY PAIN OR DISCOMFORT. BIPAP ON @ 40%. SHE IS AGITATED AND STATES THAT SHE WANTS HER HEART CATH. EDUCATED HER ON HER PLAN OF CARE AND STATED THAT HER RESP STAUS IS NOT STABLE AT THIS TIME. SHE STATES THAT SHE UNDERSTANDS. REPOSITIONED HER IN THE BED. S1S2 AUDIBLE. HR 60, NSR SHOWING ON MONITOR. R CHEST PACEMAKER NOTED. BILAT EXP WHEEZES HEARD. ABD FLAT, NONTENDER TO TOUCH. BS HYPOACTIVE X4. OLD CATH SITE NOTED TO R GROIN. HERCULES CATH INTACT DRAINING CONCENTRATED URINE. SCDS REMOVED AND SKIN ASSESSED, WNL. RADIAL AND PEDAL PULSES PALP. BILAT ARMS, BRUISING NOTED. L ARM SKIN TEAR. VSS. ALL NEEDS MET. WILL CONT WITH POC.
--- NOTE | 2018-05-18 21:00 | NUR ---
PO MEDS TAKEN WITHOUT DIFFICULTY. PT PLACED ON 4 L VIA NC. TOLERATED WELL. NO NEEDS AT THIS TIME. WILL CONT WITH POC.
--- NOTE | 2018-05-18 23:00 | NUR ---
REASSESSMENT COMPLETE. COMPLETE LINEN CHANGE PROVIDED. SMALL SKIN TEAR NOTED ON L ELBOW. DRESSED WOUND. NO CHANGES FROM PREVIOUS ASSESSMENT. VSS. CALL LIGHT IN REACH. WILL CONT TO MONITOR.
[2018-05-19] VITALS (23 sets, daily range): BP systolic 117–163; BP diastolic 49–97
--- NOTE | 2018-05-19 01:00 | NUR ---
PT RESTING COMFORTABLY. NO SIGNS OF ACUTE DISTRESS NOTED. VSS. WILL CONT WITH POC.
--- NOTE | 2018-05-19 03:00 | NUR ---
REASSESSMENT COMPLETE. NO CHANGES FROM PREVIOUS ASSESSMENT. SEE FLOWSHEET FOR FURTHER DETAILS. VSS. WILL CONT WITH POC.
[2018-05-19 04:59] LABS: BASOPHILS 0.2 % (0-2); EOSINOPHILS 0 % (0-7); HEMATOCRIT 40.5 % (36.0-48.0); HEMOGLOBIN 13.2 g/dL (12-16); IMMATURE GRANULOCYTES 0.7 % (0-5); LYMPHOCYTES 7.8 % (15-50); MCH 27.4 pg (26.0-34.0); MCHC 32.6 g/dL (31.0-37.0); MCV 84.2 fL (80.0-100.0); MEAN PLATELET VOLUME 10.8 fL (7.4-10.4); MONOCYTES 3.5 % (2-11); NEUTROPHILS 87.8 % (40-80); PLATELET COUNT 133 10x3/uL (130-400); RBC 4.81 10x6/uL (4.00-5.40); RDW 15.1 % (11.5-14.5); WBC 8.8 10x3/uL (4.8-10.8)
--- NOTE | 2018-05-19 05:05 | NUR ---
REPOSITIONED FOR COMFORT. PT STATES THAT SHE WOULD LIKE A BREAK FROM BIPAP. PLACED 4 L/MIN VIA NC. O2 SAT 98%, RR EVEN AND UNLABORED. WILL CONT TO MONITOR CLOSELY.
[2018-05-19 05:33] LABS: ALBUMIN 2.7 g/dL (3.4-5.0); BILIRUBIN - TOTAL 0.44 mg/dL (0.2-1.3); CALCIUM 9.2 mg/dL (8.5-10.1); CARBON DIOXIDE 28.8 mmol/L (21.0-32.0); CREATININE - SERUM 1.3 mg/dL (0.6-1.3); POTASSIUM - SERUM 4.8 mmol/L (3.5-5.1); PROTEIN - SERUM 5.9 g/dL (6.4-8.2)
--- NOTE | 2018-05-19 07:00 | NUR ---
REC'D REPORT AND RESUMED CARE, SLEEPING WITH BIPAP IN USE, 40% FIO2, SAT 97%, VSS, AROUSES TO VERBAL STIMULI, CONFUSED RE: SITUATION, ASSESSMENT COMPLETE PER FLOWSHEET, SELF REPOSITIONS, CALL LIGHT IN REACH, NO NEEDS AT THIS TIME
--- NOTE | 2018-05-19 08:10 | NUR ---
BREAKFAST TRAY TO BEDSIDE, BIPAP OFF, 4L NC ON INDEPENDENT WITH SET UP AND EATING
--- NOTE | 2018-05-19 09:30 | NUR ---
MORNING MEDS TO BEDSIDE, TOLERATED WITHOUT DIFFICULTY, BIPAP BACK ON
--- NOTE | 2018-05-19 11:00 | NUR ---
RESTING WITH NO SIGN OF DISTRESS, VSS, CONTINUES ON BIPAP CALL LIGHT IN REACH NO NEEDS AT THIS TIME
--- NOTE | 2018-05-19 12:30 | NUR ---
BIPAP OF FOR LUNCH, INDEPENDENT WITH SET UP AND EATING
--- NOTE | 2018-05-19 13:05 | NUR ---
BIPAP BACK ON, POST LUNCH, NO OTHER NEEDS AT THIS TIME
--- NOTE | 2018-05-19 15:00 | NUR ---
ASSESSMENT COMPLETED, NO ACUTE CHANGE FROM PREVIOUS, VSS, BIPAP IN USE
--- NOTE | 2018-05-19 17:10 | NUR ---
DINNER TRAY TO BEDSIDE, BIPAP OFF, INDEPENDENT WITH MEAL
[2018-05-20] VITALS (19 sets, daily range): BP systolic 106–173; BP diastolic 66–95
[2018-05-20 04:56] LABS: BASOPHILS 0 % (0-2); EOSINOPHILS 0 % (0-7); HEMOGLOBIN 13.1 g/dL (12-16); IMMATURE GRANULOCYTES 0.9 % (0-5); LYMPHOCYTES 5.3 % (15-50); MCH 27.7 pg (26.0-34.0); MCHC 32.8 g/dL (31.0-37.0); MCV 84.6 fL (80.0-100.0); MEAN PLATELET VOLUME 10.7 fL (7.4-10.4); MONOCYTES 2.7 % (2-11); NEUTROPHILS 91.1 % (40-80); PLATELET COUNT 150 10x3/uL (130-400); RBC 4.73 10x6/uL (4.00-5.40); RDW 15.2 % (11.5-14.5); WBC 9.3 10x3/uL (4.8-10.8)
[2018-05-20 05:18] LABS: ALBUMIN 2.5 g/dL (3.4-5.0); ANION GAP 11.2 mmol/L (8-16); BILIRUBIN - TOTAL 0.37 mg/dL (0.2-1.3); CALCIUM 8.6 mg/dL (8.5-10.1); CARBON DIOXIDE 30.4 mmol/L (21.0-32.0); CREATININE - SERUM 1.3 mg/dL (0.6-1.3); POTASSIUM - SERUM 4.6 mmol/L (3.5-5.1); PROTEIN - SERUM 5.8 g/dL (6.4-8.2)
--- NOTE | 2018-05-20 07:00 | NUR ---
SLEEPING, ALLOWED TO SLEEP. NO DISTRESS. ON BIPAP MACHINE
--- NOTE | 2018-05-20 09:00 | NUR ---
AWAKEN FOR BREAKFAST PLACED ON 4 LITERS NC. ATE FAIR NO RESP DISTRESS. STATES HER CHEST PAIN IS BETTER, HER ARMS ARE HURTING MORE RIGHT NOW. IV RIGHT AC WITHOUT REDNESS OR SWELLING. HERCULES CATH PATENT. MONITOR SR. PATIENT TALKING ON HER CELL PHONE
--- NOTE | 2018-05-20 10:42 | NUR ---
Nutrition follow-up: Diet: consistent CHO PO Intake ~50% of meals; improved Labs reviewed Wt: 185# RDN following.
--- NOTE | 2018-05-20 11:00 | NUR ---
NAPPING AT INTERVALS AND TALKING ON HER CELL PHONE NO DISTRESS
--- NOTE | 2018-05-20 12:00 | NUR ---
LUNCH TRAY SERVED ATE 30%. NO DISTRESS
--- NOTE | 2018-05-20 14:00 | NUR ---
resting well napping at intervals without bipap, no resp distress pulse greater than 96%. denies any shortness of breath,
--- NOTE | 2018-05-20 16:00 | NUR ---
no distress watching tv talking on cell phone. still on nc no resp distress. no shortness of breath. patient states her breathing is better
--- NOTE | 2018-05-20 17:33 | NUR ---
ate fair at super tray. denies any pain at all. no resp distress.
--- NOTE | 2018-05-20 18:15 | NUR ---
REPORT CALLED TO DENNIS ON MED 3. PATIENT TRANSFERED TO ROOM 1211 PER BED. PATIENT TOLERATED WELL TRANSFERED ON OXYGEN. WITH CELL PHONE AND CELL PHONE RECORDING ARTIST. MESSAGE LEFT FOR SISTER JOHNATHON OF TRANSFER
--- NOTE | 2018-05-20 19:50 | NUR ---
PATIENT RECEIVED FROM ICU. BED IN LOW POSITION WITH SIDERAILS X2 AND CALL LIGHT WITHIN REACH. CATHETER PRODUCING CLEAR YELLOW URINE. THE PATIENT WAS EDUCATED ON USE OF A CALL LIGHT AND DEMONSTRATED UNDERSTANDING VIA TEACHBACK METHOD. THE PATIENT APPEARS COMFORTABLE WITH QUESTIONS OR CONCERNS AT THIS TIME.
[2018-05-21] VITALS (11 sets, daily range): BP systolic 131–165; BP diastolic 62–92
--- NOTE | 2018-05-21 02:35 | NUR ---
THE PATIENT APPEARS TO BE SLEEPING AND LOOKS COMFORTABLE.
[2018-05-21 07:37] LABS: BASOPHILS 0 % (0-2); EOSINOPHILS 0 % (0-7); HEMATOCRIT 41.2 % (36.0-48.0); HEMOGLOBIN 13.2 g/dL (12-16); IMMATURE GRANULOCYTES 0.6 % (0-5); MCH 27.2 pg (26.0-34.0); MCV 84.9 fL (80.0-100.0); MEAN PLATELET VOLUME 10.4 fL (7.4-10.4); MONOCYTES 2.9 % (2-11); NEUTROPHILS 92.5 % (40-80); PLATELET COUNT 134 10x3/uL (130-400); RBC 4.85 10x6/uL (4.00-5.40)
[2018-05-21 07:43] LABS: WBC 13.7 10x3/uL (4.8-10.8)
[2018-05-21 08:07] LABS: ALBUMIN 2.5 g/dL (3.4-5.0); ANION GAP 12.8 mmol/L (8-16); BILIRUBIN - TOTAL 0.41 mg/dL (0.2-1.3); CALCIUM 8.7 mg/dL (8.5-10.1); CARBON DIOXIDE 29.1 mmol/L (21.0-32.0); CREATININE - SERUM 1.2 mg/dL (0.6-1.3); POTASSIUM - SERUM 4.9 mmol/L (3.5-5.1); PROTEIN - SERUM 5.6 g/dL (6.4-8.2)
--- NOTE | 2018-05-21 10:05 | NUR ---
OFF FLOOR TO RADIOLOGY VIA .
--- NOTE | 2018-05-21 12:01 | NUR ---
OFF FLOOR TO PROFESSIONAL ATHLETES COACH VIA BED.
--- NOTE | 2018-05-21 13:05 | NUR ---
RETURNED TO ROOM FROM ELECTRICAL CONTRACTOR VIA BED. VSS. O2 2L NC IN USE. TR BAND IN USE TO R WRIST. DROWSY BUT AWAKENS TO VERBAL STIUMULI.
--- NOTE | 2018-05-21 14:14 | NUR ---
VISITING WITH FAMILY. DEWATERING FILTERING SUPERVISOR IN USE-SHOWING AFIB WITH PACED BEATS PER TECH.
--- NOTE | 2018-05-21 16:00 | NUR ---
2 CC'S OF AIR REMOVED FROM TR BAND. NO BLEEDING NOTED.
--- NOTE | 2018-05-21 16:30 | NUR ---
NO BLEEDING NOTED TO R WRIST. 2 MORE CC'S REMOVED.
--- NOTE | 2018-05-21 18:00 | NUR ---
NO BLEEDING NOTED. TR BAND REMOVED. BANDAID APPLIED TO R WRIST. BRUISING NOTED TO R FA.
--- NOTE | 2018-05-21 18:15 | OP ---
PATIENT NAME: UVALDO SANCHEZ MEDICAL RECORD: [id number] :48 LOCATION:D.M3 D.1211 ADMISSION DATE:05/11/18 SURGEON: KARISSA YOU MD DATE OF OPERATION: 05/21/2018 DATE OF SERVICE: 05/21/2018 PROCEDURES: 1. PTCA stent LAD. 2. Selective coronary angiography. INDICATION: Angina and coronary artery disease. PROCEDURE IN DETAIL: After informed consent was obtained and after a detailed description of risks, benefits as well as alternative therapies, the patient elected to proceed with angiogram and angioplasty. The right radial area was prepped and draped in normal sterile fashion. Right radial artery was cannulated via modified Seldinger technique with placement of 6-Puerto Rican sheath. All catheters exchanged through this sheath. FINDINGS: The left anterior descending has 75% stenosis proximally. This was addressed with a 3.5 x 15-mm Leroy stent taken to 17 atmospheres. Result was 0% residual stenosis. OVERALL IMPRESSION: Successful percutaneous transluminal coronary angioplasty stent of the left anterior descending going from 75% initial stenosis to 0% residual. TRANSINT:[id number] Voice Confirmation ID: [id number] DOCUMENT ID: [id number] KARISSA YOU MD at 1815 CC: [id number] DICTATION DATE: 05/21/18 1245 MIX CHEMIST: 05/21/18 1316 ADM IN [place] [address] [place] [address]
[2018-05-22 07:51] LABS: ALBUMIN 2.2 g/dL (3.4-5.0); BILIRUBIN - TOTAL 0.33 mg/dL (0.2-1.3); CALCIUM 8.4 mg/dL (8.5-10.1); CARBON DIOXIDE 25.7 mmol/L (21.0-32.0); CREATININE - SERUM 1.2 mg/dL (0.6-1.3); POTASSIUM - SERUM 4.7 mmol/L (3.5-5.1); PROTEIN - SERUM 5.3 g/dL (6.4-8.2)
[2018-05-22 07:52] LABS: BASOPHILS 0.1 % (0-2); EOSINOPHILS 0 % (0-7); HEMATOCRIT 39.7 % (36.0-48.0); HEMOGLOBIN 12.9 g/dL (12-16); IMMATURE GRANULOCYTES 0.8 % (0-5); LYMPHOCYTES 4.9 % (15-50); MCH 27.4 pg (26.0-34.0); MCHC 32.5 g/dL (31.0-37.0); MCV 84.5 fL (80.0-100.0); MEAN PLATELET VOLUME 11.2 fL (7.4-10.4); MONOCYTES 3.4 % (2-11); NEUTROPHILS 90.8 % (40-80); PLATELET COUNT 136 10x3/uL (130-400); WBC 12.7 10x3/uL (4.8-10.8)
[2018-05-22 08:00] VITALS: BP 144/76
--- NOTE | 2018-05-22 08:00 | NUR ---
AM ROUNDS COMPLETED. INTRODUCED MYSELF TO PT PRIMARY RN FOR TODAYS SHIFT. PT IS A&O SITTING UP IN BED RESTING QUIETLY. SHIFT ASSESSMENT COMPLETED. PT STATES SHE SLEPT ALRIGHT BUT C/O HER R.WRIST HURTING WHERE HER TR BAND WAS, BRUISING NOTED BUT NO S/S OF HEMATOMA OR BLEEDING. WILL PAGE PRIMARY AND INQUIRE ABOUT A PAIN MEDICATION. PT VOICED THANKS. NO CURRENT NEEDS AT THIS TIME. CL IN REACH, BED IN LOWEST, SIDE RAILS X2. WILL CTM.
[2018-05-22 12:00] VITALS: BP 134/69
--- NOTE | 2018-05-22 14:10 | NUR ---
PT SITTING UP IN BED ARGUING WITH HER SISTER ON THE PHONE. PT STATES SHE IS ANNOYING HER AND CONTINUES TO BOTHER HER I TOLD PT WE CAN SCREEN HER CALLS IF NEEDED AND SHE DENIES AT THIS TIME. PT C/O ACHING ALL OVER BUT MORE PAIN IN R.WRIST R/T HEART CATH. PROVIDED PT WITH JACOB IGLESIAS REQUESTED AND SHE VOICED THANKS. NO FURTHER NEEDS AT THIS TIME. CL IN REACH, BED IN LOWEST, SIDE RAILS X2. WILL CTM.
[2018-05-22 16:00] VITALS: BP 138/80
--- NOTE | 2018-05-22 16:24 | NUR ---
Rehab [facility]te- Acute Inpatient Rehab prescreen order received. The patient has [facility] insurance and will require a PreAuth prior to an acute inpatient rehab stay. Will being the PreAuth process. WIll follow at this time. Thank you for this referral! Roxane De Jesus RN Clinical Liaison, [facility] Re[facility]
[2018-05-22 19:00] VITALS: BP 139/78
--- NOTE | 2018-05-22 19:17 | NUR ---
PT IN BED. DENIES NEEDS AT THIS TIME.
[2018-05-23] VITALS: BP 132/67
[2018-05-23 04:00] VITALS: BP 146/74
[2018-05-23 06:43] LABS: BASOPHILS 0 % (0-2); EOSINOPHILS 0 % (0-7); HEMATOCRIT 39.1 % (36.0-48.0); HEMOGLOBIN 12.8 g/dL (12-16); IMMATURE GRANULOCYTES 0.8 % (0-5); LYMPHOCYTES 4.5 % (15-50); MCH 27.4 pg (26.0-34.0); MCHC 32.7 g/dL (31.0-37.0); MCV 83.5 fL (80.0-100.0); MEAN PLATELET VOLUME 10.5 fL (7.4-10.4); MONOCYTES 2.8 % (2-11); NEUTROPHILS 91.9 % (40-80); PLATELET COUNT 121 10x3/uL (130-400); RBC 4.68 10x6/uL (4.00-5.40); RDW 15.1 % (11.5-14.5)
[2018-05-23 07:04] LABS: ALBUMIN 2.2 g/dL (3.4-5.0); ANION GAP 10.3 mmol/L (8-16); BILIRUBIN - TOTAL 0.48 mg/dL (0.2-1.3); CALCIUM 8.3 mg/dL (8.5-10.1); CARBON DIOXIDE 27.4 mmol/L (21.0-32.0); CREATININE - SERUM 1.2 mg/dL (0.6-1.3); POTASSIUM - SERUM 4.7 mmol/L (3.5-5.1); PROTEIN - SERUM 5.1 g/dL (6.4-8.2)
[2018-05-23 07:57] VITALS: BP 148/71
--- NOTE | 2018-05-23 08:11 | NUR ---
PT SITTING UP IN BED EATING BREAKFAST, RESPIRATIONS EVEN AND UNLABORED, NO S/S OF DISTRESS NOTED. WHEEZES NOTED IN BILAT UPPER LOBES. BRUISES NOTED ALL OVER PT. HERCULES CATHETER NOTED, GOOD OUTPUT. DENIES NEEDS AT THIS TIME. BED LOW AND LOCKED, SR UP X2, CL IN EASY REACH. WILL CONTINUE TO MONITOR THROUGHOUT THE DAY.
[2018-05-23 12:00] VITALS: BP 129/73
--- NOTE | 2018-05-23 12:07 | NUR ---
PT ATTEMPTED TO SIT UP IN BED AND REMOVED IV FROM RIGHT AC. ATTEMPTED TO RESITE IV, UNABLE. WILL PROBABLY NEED NEED SURGERY CONSULT FOR A CENTRAL LINE IF FLUIDS ARE NEEDED. WILL SPEAK WITH DR. NAYAK TO SEE ABOUT MAYBE STARTING SOME PO STEROIDS.
--- NOTE | 2018-05-23 14:13 | NUR ---
PT HERE FOR COPD FOR THIS VISIT PT DENIES NEEDS AT THIS TIME WILL CONTINUE TO MONITOR
--- NOTE | 2018-05-23 14:45 | NUR ---
PT ASSISTED BACK TO BED PER PHYSICAL THERAPY. DENIES FURTHER NEEDS AT THIS TIME. CL IN EASY REACH.
[2018-05-23 17:43] LABS: APPEARANCE CLEAR (CLEAR); BILIRUBIN NEGATIVE (NEGATIVE); COLOR YELLOW (YELLOW); EPITHELIAL CELLS 0-5 /hpf (0-5); GLUCOSE NEGATIVE (NEGATIVE); KETONE NEGATIVE (NEGATIVE); NITRITE NEGATIVE (NEGATIVE); PROTEIN 1+ mg/dL (NEGATIVE); UROBILINOGEN NORMAL (NORMAL); WHITE CELLS - URINE 0-5 /hpf (0-5)
--- NOTE | 2018-05-23 19:21 | NUR ---
PT IN BED. C/O OF NAUSEA. NO IV ACCESS AT THIS TIME. WILL ATTEMPT TO RESITE TO PROVIDE IV ANTI EMETIC. PT DENIES FURTHER NEEDS AT THIS TIME.
--- NOTE | 2018-05-24 03:51 | NUR ---
PT REFUSED NITRO APPLICATION AT THIS TIME.
--- NOTE | 2018-05-24 07:39 | NUR ---
PT LAYING IN BED RESTING, RESPIRATIONS EVEN AND UNLABORED, NO S/S OF DISTRESS NOTED. WHEEZES TO UPPER LOBES NOTED UPON EXPIRATION. LOWER LOBES DIMINISHED SOUNDING. DENIES NEEDS AT THIS TIME, PT KEPT NPO AT THIS TIME FOR TESTING. BED LOW AND LOCKED, SR UP X2, CL IN EASY REACH. WILL CONTINUE TO MONITOR.
[2018-05-24 07:59] LABS: HEMATOCRIT 43.3 % (36.0-48.0); HEMOGLOBIN 14.3 g/dL (12-16); MCH 27.6 pg (26.0-34.0); MCV 83.4 fL (80.0-100.0); MEAN PLATELET VOLUME 11.1 fL (7.4-10.4); PLATELET COUNT 140 10x3/uL (130-400); RBC 5.19 10x6/uL (4.00-5.40); RDW 15.2 % (11.5-14.5)
[2018-05-24 08:12] LABS: ALBUMIN 2.4 g/dL (3.4-5.0); ANION GAP 14.2 mmol/L (8-16); BILIRUBIN - TOTAL 0.54 mg/dL (0.2-1.3); CALCIUM 8.3 mg/dL (8.5-10.1); CARBON DIOXIDE 24.7 mmol/L (21.0-32.0); CREATININE - SERUM 1.3 mg/dL (0.6-1.3); POTASSIUM - SERUM 4.9 mmol/L (3.5-5.1); PROTEIN - SERUM 5.4 g/dL (6.4-8.2)
[2018-05-24 08:42] LABS: LYMPHOCYTES 8 % (15-50); MONOCYTES 1 % (2-11); NEUTROPHILS 90 % (40-80); PLATELET ESTIMATE NORMAL
[2018-05-24 12:00] VITALS: BP 148/75
[2018-05-24 16:00] VITALS: BP 134/86
--- NOTE | 2018-05-24 19:17 | NUR ---
NGT PLACED TO RIGHT NARE, LOW INTERMITTENT SUCTION. LIGHT BROWN OUTPUT NOTED IN CANISTER. PT TOLERATED PROCEDURE WELL. DENIES NEEDS. CL IN EASY REACH.
[2018-05-24 20:39] VITALS: BP 155/60
[2018-05-25 00:35] VITALS: BP 154/78
--- NOTE | 2018-05-25 01:40 | NUR ---
A/OX4. NG TUBE CAME OUT. PT DOESNT KNOW HOW IT CAME OUT. PLACED ANOTHER NG TUBE. POSIVITE RETURN ON RESIDUAL STOMACH CONTENTS. CHECKED PLACEMENT WITH STETHOSCOPE. WILL CONTINUE POC.
--- NOTE | 2018-05-25 02:22 | NUR ---
PT STATED THAT SHE WOULD NOT WEAR BIPAP OR 3L NC BECAUSE OF NG TUBE IN PLACE. RT STATED IMPORTANCE OF OXYGEN AND BIPAP. PT WANTED TO WAIT UNTIL LATER.
[2018-05-25 04:46] VITALS: BP 163/86
[2018-05-25 07:56] LABS: HEMATOCRIT 42.7 % (36.0-48.0); HEMOGLOBIN 13.9 g/dL (12-16); MCH 27.4 pg (26.0-34.0); MCHC 32.6 g/dL (31.0-37.0); MCV 84.2 fL (80.0-100.0); MEAN PLATELET VOLUME 10.7 fL (7.4-10.4); PLATELET COUNT 128 10x3/uL (130-400); RBC 5.07 10x6/uL (4.00-5.40); RDW 15.6 % (11.5-14.5); WBC 21.3 10x3/uL (4.8-10.8)
[2018-05-25 08:08] VITALS: BP 167/88
[2018-05-25 08:09] LABS: ALBUMIN 2.4 g/dL (3.4-5.0); BILIRUBIN - TOTAL 0.57 mg/dL (0.2-1.3); CALCIUM 8.4 mg/dL (8.5-10.1); CARBON DIOXIDE 26.9 mmol/L (21.0-32.0); CREATININE - SERUM 1.2 mg/dL (0.6-1.3); POTASSIUM - SERUM 4.9 mmol/L (3.5-5.1); PROTEIN - SERUM 5.3 g/dL (6.4-8.2)
[2018-05-25 08:56] LABS: LYMPHOCYTES 7 % (15-50); MONOCYTES 3 % (2-11); NEUTROPHILS 90 % (40-80)
[2018-05-25 08:59] LABS: HYPER SEGMENTED NEUTROPHILS OCC; PLATELET ESTIMATE NORMAL; ROULEAUX OCC
[2018-05-25 12:16] VITALS: BP 145/97
[2018-05-25 17:21] VITALS: BP 152/83
--- NOTE | 2018-05-25 18:34 | NUR ---
OT NOTE: PT COMPLETED BUE AROM EXS FOR INCREASED AX TOLERANCE . PT COMPLETED FACE WASH WITH SET UP. THANK YOU, KAROL PERRY
--- NOTE | 2018-05-25 19:08 | NUR ---
PATIENT IS SLEEPING. BED IS DWON LOW WITH SIDE RAILS UP X2. CALL LIGHT IS IN REACH.
[2018-05-25 20:00] VITALS: BP 138/85
[2018-05-26 01:32] VITALS: BP 138/80
[2018-05-26 04:00] VITALS: BP 135/90
--- NOTE | 2018-05-26 05:02 | NUR ---
ATTEMPTED THROUGHOUT THE NIGHT TO ASK PT TO WEAR BIPAP REFUSED
[2018-05-26 07:25] LABS: BASOPHILS 0 % (0-2); EOSINOPHILS 0 % (0-7); HEMATOCRIT 42.9 % (36.0-48.0); HEMOGLOBIN 13.8 g/dL (12-16); IMMATURE GRANULOCYTES 0.5 % (0-5); LYMPHOCYTES 4.9 % (15-50); MCH 27.5 pg (26.0-34.0); MCHC 32.2 g/dL (31.0-37.0); MCV 85.6 fL (80.0-100.0); MONOCYTES 7.3 % (2-11); NEUTROPHILS 87.3 % (40-80); PLATELET COUNT 105 10x3/uL (130-400); RBC 5.01 10x6/uL (4.00-5.40); RDW 15.4 % (11.5-14.5); WBC 22.2 10x3/uL (4.8-10.8)
[2018-05-26 07:34] LABS: ALBUMIN 2.3 g/dL (3.4-5.0); ANION GAP 8.9 mmol/L (8-16); BILIRUBIN - TOTAL 0.47 mg/dL (0.2-1.3); CALCIUM 8.3 mg/dL (8.5-10.1); CARBON DIOXIDE 32.1 mmol/L (21.0-32.0); CREATININE - SERUM 1.2 mg/dL (0.6-1.3); PROTEIN - SERUM 5.2 g/dL (6.4-8.2)
[2018-05-26 08:32] VITALS: BP 163/94
--- NOTE | 2018-05-26 10:34 | NUR ---
[facility]. NG TUBE TO RT NOSTRIL. MONITOR SHOWING FLUTTER 130.
--- NOTE | 2018-05-26 12:19 | NUR ---
pt again refused abg will try later
--- NOTE | 2018-05-26 14:09 | NUR ---
NPO x2days Prior to this pt eating fairly well On Procalamine at 75mL/hour RD to continue to monitor and follow up
--- NOTE | 2018-05-26 15:18 | NUR ---
OT NOTE: PERFORMED BED MOB WITH MIN/MOD ASSIST FOR ROLLING; MOD ASSIST FOR SUPINE TO SIT; MAX/TOTAL ASSIST WITH TRANSFERS FROM BED TO TOILET. ABLE TO MAINTAIN STATIC SITTING ON BS COMMODE; MAX ASSIST FOR TOILET HYGIENE. ABLE TO PERFORM GROOMING TASKS WITH SET UP. LISA BENZ, OTR/L
--- NOTE | 2018-05-26 19:55 | NUR ---
NOTIFIED BY TELE THAT THE PATIENT'S IS 130 UNCONT A-FIB. PATIENT IS ALERT AND ORIENTED AND IS ASYPMTOMATIC. ADMINISTERED NEXT DOSE OF BETAPACE. PATIENT DENIES OTHER NEEDS AT THIS TIME. BED IN LOWEST POSITION AND CALL LIGHT WITHIN REACH. ENCOURAGED THE PATIENT TO CALL IF SHE HAS NEEDS. WILL CONTINUE TO MONITOR.
--- NOTE | 2018-05-26 20:51 | NUR ---
MONITOR READING 110 UNCONT A-FIB
--- NOTE | 2018-05-26 21:49 | NUR ---
OT NOTE: PT COMPLETED BED MOB WITH SIDE ROLLING WITH MIN A. PT COMPLETED TOILET HYGIENE TASKS WITH MAX A. PT COMPLETED GROOMING TASK WITH MIN A. THANK YOU, KAROL PERRY
--- NOTE | 2018-05-26 22:55 | NUR ---
NGT DC. PT DENIES PAIN AT THIS TIME. COUGH NOTED. INFOMED PT TO TAKE SMALL DRINKS AT THIS TIME. PT AGREED. NO FURTHER CONCERNS AT THIS TIME.
--- NOTE | 2018-05-26 23:54 | NUR ---
PT SITTING UP IN BED. A/O, WEAKNESS NOTED. NITROPASTE REMOVED FROM R CHEST, REAPPLIED TO L CHEST. HERCULES IN PLACE. L WRIST IV- PROCAL @ 75 CC/HR. 3L 02 VIA NC. VITALS STABLE. MEDS TAKEN WITHOUT DIFFICULTY. NGT OUT AT THIS TIME. NON PRODUCTIVE COUGH NOTED. NO FURTHER CONCERNS AT THIS TIME. BED LOWERED AND LOCKED. CL IN REACH. WILL CPOC.
[2018-05-27] VITALS: BP 122/57
[2018-05-27 04:00] VITALS: BP 124/58
[2018-05-27 07:23] LABS: BASOPHILS 0.1 % (0-2); EOSINOPHILS 0.1 % (0-7); HEMATOCRIT 39.4 % (36.0-48.0); HEMOGLOBIN 12.3 g/dL (12-16); IMMATURE GRANULOCYTES 0.6 % (0-5); LYMPHOCYTES 5.7 % (15-50); MCHC 31.2 g/dL (31.0-37.0); MCV 86.6 fL (80.0-100.0); MEAN PLATELET VOLUME 10.9 fL (7.4-10.4); MONOCYTES 4.8 % (2-11); NEUTROPHILS 88.7 % (40-80); PLATELET COUNT 100 10x3/uL (130-400); RBC 4.55 10x6/uL (4.00-5.40); RDW 15.6 % (11.5-14.5); WBC 19.3 10x3/uL (4.8-10.8)
[2018-05-27 07:41] LABS: ALBUMIN 2.2 g/dL (3.4-5.0); ANION GAP 9.5 mmol/L (8-16); BILIRUBIN - TOTAL 0.61 mg/dL (0.2-1.3); CALCIUM 8.5 mg/dL (8.5-10.1); CARBON DIOXIDE 32.9 mmol/L (21.0-32.0); MAGNESIUM - SERUM 2.3 mg/dL (1.8-2.4); PHOSPHOROUS 2.9 mg/dL (2.5-4.9); POTASSIUM - SERUM 4.4 mmol/L (3.5-5.1)
[2018-05-27 11:05] VITALS: BP 124/80
[2018-05-27 14:11] VITALS: BP 142/54
[2018-05-27 17:20] VITALS: BP 128/68
--- NOTE | 2018-05-27 18:08 | NUR ---
OT NOTE: PT COMPLETED BUE AROM EXS FOR INCREASED I WITH ADLS. PT COMPLETED SELF GROOM WITH SET UP. THANK YOU, KAROL KAPLAN
--- NOTE | 2018-05-27 19:40 | NUR ---
PT CALLING NEEDING TO GET TO BEDSIDE COMMODE. PT UP TO SIDE OF BED WITH ONE PERSON ASSIST. PT WILL NOT BEAR WEIGHT TO LEGS. 2 PERSON ASSIST TO BSC, 80% ASSIST TO BSC. ONCE DONE WITH SMALL BM LIQUID WITH SOME FORMED STOOL CHAIR FOR APPROX 30 MINS. THAN TOOK 2 PERSONS TO ASSIST PT BACK TO BED. MAX ASSIST. PT BACK INTO BED APPROX 2044 PT HAS NO S/S OF DISTRESS. BEDLOW AND CALL LIGHT IN REACH. FIXED STAT LOCK TO DELISA, FIXED TELEMETRY . PT HAS A SMALL SKIN TEAR ON LEFT OUTER LOWER LEG FROM TRANSFER. PLACED NAME AND DATE ON BOARD. PT HAS NO IV ACCESS AT THIS TIME. PT STATES SHE DOESNT NEED ONE. BRADEN HAS BEEN D/C'D. WILL CPOC
[2018-05-27 20:00] VITALS: BP 115/62
--- NOTE | 2018-05-27 23:30 | NUR ---
PT RESTING IN BED. NO S/S OF DISTRESS. BED LOW AND CALL LIGHT IN REACH. 3L O2 NC. RESP EVEN AND UNLABORED. COUGH PRODUCTIVE DARK YELLOW THICK SPUTUM. PT WILL CALL FOR ASSIST WHEN NEEDED. WILL CPOC
[2018-05-28] VITALS: BP 109/51
--- NOTE | 2018-05-28 00:26 | NUR ---
PT FSBS IS 156, REFUSES ANY COVERAGE AT THIS TIME. PT HAS NO S/S OF DISTRESS. RESP EVEN AND UNLABORED. BEDLOW AND CALL LIGHT IN REACH. 3L O2 NC. WILL CPOC
--- NOTE | 2018-05-28 02:32 | NUR ---
RESP PLACED BIPAP ON PT PER PULMONARY PLAN, ONCE NGT OUT THAN RESUME BIPAP 11/12,
--- NOTE | 2018-05-28 03:10 | NUR ---
PT COMPLAINS OF GENERALIZED PAIN AND DISCOMFORT. NORCO GIVEN PT DENIES ANY OTHER NEEDS. PLACED BIPAP BACK ON. PT HAS NO S/S OF DISTRESS. WILL CPOC
[2018-05-28 04:00] VITALS: BP 108/54
--- NOTE | 2018-05-28 04:23 | NUR ---
PT REFUSES NITRO PASTE AT THIS TIME. PT STATES SHE IS FEELING FINE AND JUST WANTS TO SLEEP. PT BEDLOW AND CALL LIGHT IN REACH. BIPAP ON, NO S/S OF DISTRESS. WILL CPOC
[2018-05-28 06:36] LABS: BASOPHILS 0 % (0-2); EOSINOPHILS 0.4 % (0-7); HEMATOCRIT 34.5 % (36.0-48.0); HEMOGLOBIN 10.8 g/dL (12-16); IMMATURE GRANULOCYTES 0.4 % (0-5); LYMPHOCYTES 7.2 % (15-50); MCH 26.9 pg (26.0-34.0); MCHC 31.3 g/dL (31.0-37.0); MCV 85.8 fL (80.0-100.0); MEAN PLATELET VOLUME 10.4 fL (7.4-10.4); MONOCYTES 3.7 % (2-11); NEUTROPHILS 88.3 % (40-80); PLATELET COUNT 80 10x3/uL (130-400); RBC 4.02 10x6/uL (4.00-5.40); RDW 15.8 % (11.5-14.5)
[2018-05-28 06:59] LABS: ALBUMIN 1.9 g/dL (3.4-5.0); ALKALINE PHOSPHATASE 32 U/L (46-116); ALT (SGPT) 36 U/L (10-68); BILIRUBIN - TOTAL 0.56 mg/dL (0.2-1.3); CALC OSMOLALITY 293 mosm/kg (275-300); CALCIUM 8.1 mg/dL (8.5-10.1); CARBON DIOXIDE 30.5 mmol/L (21.0-32.0); CHLORIDE - SERUM 107 mmol/L (98-107); CREATININE - SERUM 0.8 mg/dL (0.6-1.3); GLUCOSE 125 mg/dL (74-106); POTASSIUM - SERUM 3.8 mmol/L (3.5-5.1); PROTEIN - SERUM 4.6 g/dL (6.4-8.2); SODIUM 144 mmol/L (136-145); UREA NITROGEN 30 mg/dL (7-18); eGFR NON AFRICAN AMERICAN 75 mL/min (90-120)
[2018-05-28 07:00] LABS: WBC 12.7 10x3/uL (4.8-10.8)
[2018-05-28 08:04] LABS: PLATELET ESTIMATE DECREASED
--- NOTE | 2018-05-28 10:46 | NUR ---
RESTING QUIETLY IN BED. DENIES ANY NEEDS AT THIS TIME.
--- NOTE | 2018-05-28 11:30 | MORECARE ---
CASE MANAGEMENT DISCHARGE SUMMARY PATIENT: UVALDO SANCHEZ [place] UNIT: [id number] ADM DATE: 05/11/18 AGE: 68 : 49 SEX: F ROOM/BED: D.1211 AUTHOR: ERIC,DOC PHYSICIAN: REFERRING PHYSICIAN: TEREZA ROME MD DATE OF SERVICE: 05/28/18 Discharge Plan Patient Name: UVALDO SANCHEZ Facility: [facility]:[place] : 1950 Planned Disposition: Home Anticipated Discharge Date: Discharge Date: Expected LOS: Initial Reviewer: [email or web address] Initial Review Date: 05/18/2018 Generated: 05/28/18 12:30 pm Comments DCP- Discharge Planning Updated by [id number]: Linda Caballero on 05/28/18 10:[address] Patient Name: UVALDO SANCHEZ Admission Status: ER Accout number: [id number] Admission Date: 05-11-2018 : 1950 Admission Diagnosis:CHRONIC OBSTRUCTIVE PULMONARY DISEASE W (ACUTE) EXACERB Attending: TEREZA ROME Current LOS: 17 Anticipated DC Date: Planned Disposition: Home Primary Insurance: [facility] MEDICARE SOLUTIONS Discharge Planning Comments: CM SPOKE WITH PATIENT'S SISTER ANAHI ON THE PHONE. HER NUMBER IS [phone], SHE IS AT WORK RIGHT NOW. I EXPLAINED TO HER THAT IF HER SISTER IS TOO LOW FUNCTION FOR IP REHAB THEN WE WOULD NEED TO DO SNF. SHE STATED SHE WOULD LIKE THE [facility]. SHE WANTS TO MEET WITH THE [facility] AT THE HOSPITAL AT 11 TOMORROW IF POSSIBLE. CM WILL FOLLOW AND ASSIST NEEDED WITH DC PLANNING/NEEDS. Senior Production Manager: Linda Caballero DCP- Discharge Planning Updated by [id number]: Anupama Millard on 05/18/18 5:[address] Patient Name: UVALOD SANCHEZ Admission Status: ER Accout number: [id number] Admission Date: 05-11-2018 : 1950 Admission Diagnosis:CHRONIC OBSTRUCTIVE PULMONARY DISEASE W (ACUTE) EXACERB Attending: TEREZA ROME Current LOS: 7 Anticipated DC Date: Planned Disposition: Home Primary Insurance: [facility] MEDICARE SOLUTIONS Discharge Planning Comments: CM met with patient at bedside. Patient states she lives alone and plans to return to her home after discharge. Patient states she has a BIPAP, 02, nebulizer, walker and cane at home. Patient states she has home health visits but doesn't know who her provider is. CM will continue to follow and assist as needed with discharge planning / needs. Senior Production Manager: Anupama Millard DCP- Discharge Planning Updated by [id number]: Anupama Millard on 05/15/18 9:[address] CM attempted to do intake assessment for discharge planning. Patient is currently on BiPap and unable to talk. No family available at this time. CM will continue to follow and assist as needed with discharge planning / needs DCPIA - Discharge Planning Initial Assessment Updated by [id number]: Anupama Millard on 05/18/18 6:29 pm * Is the patient Alert and Oriented? Yes * How many steps to enter\exit or inside your home? * PCP [facility] * Pharmacy [facility] * Preadmission Environment Home Alone * ADLs Independent * Other Equipment BIPAP, 02, CANE, WALKER, NEBULIZER, * List name and contact numbers for known caregivers / representatives who currently or will assist patient after discharge: JOSH TELLEZ - AUNT - ?? * Verbal permission to speak to the caregivers and representatives has been obtained from the patient. Yes * Community resources currently utilized Home Health * Please name any agencies selected above. UNKNOWN PROVIDER * Additional services required to return to the preadmission environment? No * Can the patient safely return to the preadmission environment? Yes * Has this patient been hospitalized within the prior 30 days at any hospital? No Last DP export: 05/18/18 5:41 p Patient Name: UVALDO SANCHEZ Page [id number] at 1130 All edits/amendments must be made on the electronic document DICTATION DATE: 05/28/18 112 RETROFIT INSTALLER: ROBERT 05/28/18 112 RPT#: [id number] DC DATE: STATUS: ADM IN [facility] [address] [place] [address] END OF REPORT
--- NOTE | 2018-05-28 15:25 | NUR ---
OT NOTE: PT REPORTED FEELING BETTER TODAY. MAX ASSIST FOR TOILETING AND HYGIENE SHE IS CURRENTLY USING BEDPAN. ABLE TO PERFORM BED MOB WITH MIN ASSIST FOR SUPINE TO SIT. INSTRUCTED PT TO PERFORM SIT TO STAND WITH USE OF WALKER, HOWEVER, SHE CONTINUES TO USE ONLY UES...DOES NOT ATTEMPT TO USE QUADS. HAD PT PERFORM KNEE FLEX/EXT AND HIP FLEX EXS..TESTED STRENGTH WHICH WAS APPROX 3+/5 KELY. EXPLAINED TO PT THAT SHE HAD THE STRENGTH TO STAND AND WAS UNSURE WHY SHE WAS UNABLE TO DO SO. WITH ASSIST OF MYSELF AND P.T.. WE ASSISTED PT FROM SIT TO STAND WITH MAX ASSIST, AND WITH USE OF WALKER, PT WAS ABLE TO SUPPORT HERSELF IN STANDING FOR APPROX 30 SEC. WITH ENCOURAGEMENT, PT WAS ABLE TO PERFORM BED MOB WITH VERY MINIMAL ASSIST TO GET LEGS BACK INTO BED. INSTRUCTED ON UE/LE EXS THAT SHE CAN PERFORM WHILE LIEING DOWN. WILL REQUIRED CONTINUED THERAPY UPON DC. LISA BENZ, OTR/L
--- NOTE | 2018-05-28 19:02 | NUR ---
DR EDMONDS CAME THROUGH AND VERBALIZED TO TELL RT TO CHANGE THE BIPAP SETTINGS TO 13/7 VERBALIZED TO JERMAN AND HE CHANGED SETTINGS ORDERED. PT PULLED UP IN BED AND REPOSITIONED. PT DENIES ANY NEEDS. NO S/S OF DISTRESS. 3L O2 NC. PT WILL CALL FOR ASSIST WHEN NEEDED. NAME AND DATE PLACED ON BOARD. WILL CPOC
--- NOTE | 2018-05-28 19:58 | NUR ---
DONNED BILEVEL 07/11 YANET 2 40% SPO2 98% PT DONNED APPLICATION WELL
[2018-05-28 20:00] VITALS: BP 132/68
--- NOTE | 2018-05-28 20:15 | NUR ---
PT FAMILY HERE AND BROUGHT PT FAST FOOD. PT SITTING UP IN BED, HOB ELEVATED 35, BIPAP ON. PT HAS NO S/S OF DISTRESS. RESP EVEN AND UNLABORED. WILL TAKE BIPAP OFF AND NC ON AT 3L IF PT REQUEST. PT HAS CALLLIGHT IN REACH. WILL CPOC
--- NOTE | 2018-05-28 21:03 | NUR ---
OT NOTE: PT COMPLETED FACE WASHING WITH SET UP. PT COMPLETED BUE AROM AXS. THANK YOU, KAROL PERRY
--- NOTE | 2018-05-29 00:08 | NUR ---
PT REFUSES FSBS AT THIS TIME. NORCO GIVEN FOR GENERALIZED PAIN. PT BIPAP PLACED BACK ON. PT BEDLOW AND CALL LIGHT IN REACH. WILL CPOC
[2018-05-29 00:30] VITALS: BP 131/68
[2018-05-29 04:00] VITALS: BP 153/55
--- NOTE | 2018-05-29 04:44 | NUR ---
MORNING MEDS GIVEN. NORCO GIVEN FOR DISCOMFORT. PT DENIES ANY NEEDS, 3L O2 NC. NO S/S OF DISTRESS. BEDLOW AND CALL LIGHT IN REACH. WILL CPOC
--- NOTE | 2018-05-29 05:41 | NUR ---
FSBS IS 118, NO INSULIN NEEDED PER SLIDING SCALE. WILL CPOC
[2018-05-29 06:43] LABS: ALBUMIN 1.9 g/dL (3.4-5.0); ALKALINE PHOSPHATASE 35 U/L (46-116); ALT (SGPT) 28 U/L (10-68); BILIRUBIN - TOTAL 0.59 mg/dL (0.2-1.3); CALC OSMOLALITY 287 mosm/kg (275-300); CARBON DIOXIDE 27.7 mmol/L (21.0-32.0); CHLORIDE - SERUM 106 mmol/L (98-107); CREATININE - SERUM 0.8 mg/dL (0.6-1.3); GLUCOSE 118 mg/dL (74-106); POTASSIUM - SERUM 3.6 mmol/L (3.5-5.1); PROTEIN - SERUM 4.8 g/dL (6.4-8.2); SODIUM 142 mmol/L (136-145); UREA NITROGEN 24 mg/dL (7-18); eGFR NON AFRICAN AMERICAN 75 mL/min (90-120)
[2018-05-29 06:47] LABS: BASOPHILS 0 % (0-2); EOSINOPHILS 0.4 % (0-7); HEMATOCRIT 33.1 % (36.0-48.0); HEMOGLOBIN 10.4 g/dL (12-16); IMMATURE GRANULOCYTES 0.5 % (0-5); LYMPHOCYTES 7.1 % (15-50); MCH 26.7 pg (26.0-34.0); MCHC 31.4 g/dL (31.0-37.0); MCV 85.1 fL (80.0-100.0); MEAN PLATELET VOLUME 10.4 fL (7.4-10.4); MONOCYTES 3.5 % (2-11); NEUTROPHILS 88.5 % (40-80); RBC 3.89 10x6/uL (4.00-5.40); RDW 15.8 % (11.5-14.5); WBC 12.1 10x3/uL (4.8-10.8)
[2018-05-29 07:05] LABS: PLATELET COUNT 86 10x3/uL (130-400)
[2018-05-29 07:15] VITALS: BP 145/75
--- NOTE | 2018-05-29 08:43 | NUR ---
AWAKE AND ALERT. ORIENTED X3. NO C/O AT THIS TIME. LUNGS HAVE INSPIRATROY WHEEZES NOTED IN UPPPER LOBES. NO COUGH NOTED. SKIN IS INTACT WITHOUT REDNESS. UP TO CHIAR FOR BREAKFAST. BACK TO BED MAS ASSIST OF 2. NO IV ACCESS. DENIES NEEDS. HERCULES PATENT WITH CLEAR YELLOW URINE. SCD'S IN PLACE.
[2018-05-29 12:00] VITALS: BP 132/74
--- NOTE | 2018-05-29 12:00 | NUR ---
REFUSED TO GET OOB FOR LUNCH. BUT SAT SELF UP ON SIDE OF BED WITH GREAT EFFORT. DENIES NEEDS.
--- NOTE | 2018-05-29 13:49 | NUR ---
IV SITED TO LEFT HAND AFTER ONE ATTEMPT WITH 22G. TOLERATED WELL.
--- NOTE | 2018-05-29 14:23 | NUR ---
Nutrition Follow Up: Chart reviewed. Diet has been advanced and po intake is improving. Noted pt's family has brought fast food in at times. Diet: ADA PO Intake: 25% meal avg I<O BM: 05/27/18 Labs reviewed Meds noted including Prednisone Rec continue current diet as tolerated. RD following.
--- NOTE | 2018-05-29 15:39 | MORECARE ---
CASE MANAGEMENT DISCHARGE SUMMARY PATIENT: UVALDO SANCHEZ UNIT: [id number] ADM DATE: 05/11/18 AGE: 68 : 49 SEX: F ROOM/BED: D.1211 AUTHOR: ERICDOC PHYSICIAN: REFERRING PHYSICIAN: TEREZA ROME MD DATE OF SERVICE: 05/29/18 Discharge Plan Patient Name: UVALDO SANCHEZ Facility: [facility]:[place] : 1950 Planned Disposition: Home Anticipated Discharge Date: Discharge Date: Expected LOS: Initial Reviewer: [email or web address] Initial Review Date: 05/18/2018 Generated: 05/29/18 4:39 pm Comments DCP- Discharge Planning Updated by [email or web address]: Linda Caballero on 05/29/18 2:[address] Patient Name: UVALDO SANCHEZ Admission Status: ER Accout number: [id number] Admission Date: 05-11-2018 : 1950 Admission Diagnosis:CHRONIC OBSTRUCTIVE PULMONARY DISEASE W (ACUTE) EXACERB Attending: TEREZA ROME Current LOS: 18 Anticipated DC Date: Planned Disposition: Home Primary Insurance: [facility] MEDICARE SOLUTIONS Discharge Planning Comments: NEIL SPOKE WITH MIGUEL IN IP REHAB, SHE STATES PATIENT INSURANCE DENIED INPT REHAB STAY. IF DR. EDMONDS WANTS TO DO A P2P WITH THE [facility] HE NEEDS TO CALL [phone] BY FRIDAY AT 3PM. CM PAGED DR. EDMONDS AND WILL ATEMPT TO GET HIM THE MESSAGE BEFORE FRIDAY. Cleaner And Presser: Linda Caballero DCP- Discharge Planning Updated by [id number]: Linda Caballero on 05/28/18 10:[address] Patient Name: UVALDO SANCHEZ Admission Status: ER Accout number: [id number] Admission Date: 05-11-2018 : 1950 Admission Diagnosis:CHRONIC OBSTRUCTIVE PULMONARY DISEASE W (ACUTE) EXACERB Attending: TEREZA ROME Current LOS: 17 Anticipated DC Date: Planned Disposition: Home Primary Insurance: [facility] MEDICARE SOLUTIONS Discharge Planning Comments: CM SPOKE WITH PATIENT'S SISTER CRISTIAN ON THE PHONE. HER NUMBER IS [phone], SHE IS AT WORK RIGHT NOW. I EXPLAINED TO HER THAT IF HER SISTER IS TOO LOW FUNCTION FOR IP REHAB THEN WE WOULD NEED TO DO SNF. SHE STATED SHE WOULD LIKE [facility]. SHE WANTS TO MEET WITH THE [facility] AT THE HOSPITAL AT 11 TOMORROW IF POSSIBLE. CM WILL FOLLOW AND ASSIST NEEDED WITH DC PLANNING/NEEDS. Cleaner And Presser: Lindaana Caballero DCP- Discharge Planning Updated by [email or web address]: Anupama Millard on 05/18/18 5:[address] Patient Name: UVALDO SANCHEZ Admission Status: ER Accout number: [id number] Admission Date: 05-11-2018 : 1950 Admission Diagnosis:CHRONIC OBSTRUCTIVE PULMONARY DISEASE W (ACUTE) EXACERB Attending: TEREZA ROME Current LOS: 7 Anticipated DC Date: Planned Disposition: Home Primary Insurance: [facility] MEDICARE SOLUTIONS Discharge Planning Comments: CM met with patient at bedside. Patient states she lives alone and plans to return to her home after discharge. Patient states she has a BIPAP, 02, nebulizer, walker and cane at home. Patient states she has home health visits but doesn't know who her provider is. CM will continue to follow and assist as needed with discharge planning / needs. Cleaner And Presser: Anupama Millard DCP- Discharge Planning Updated by [id number]: Anupama Millard on 05/15/18 9:[address] CM attempted to do intake assessment for discharge planning. Patient is currently on BiPap and unable to talk. No family available at this time. CM will continue to follow and assist as needed with discharge planning / needs DCPIA - Discharge Planning Initial Assessment Updated by [id number]: Anupama Millard on 05/18/18 6:29 pm * Is the patient Alert and Oriented? Yes * How many steps to enter\exit or inside your home? * PCP [facility] * Pharmacy [facility] * Preadmission Environment Home Alone * ADLs Independent * Other Equipment BIPAP, 02, CANE, WALKER, NEBULIZER, * List name and contact numbers for known caregivers / representatives who currently or will assist patient after discharge: JOSH TELLEZ - AUNT - ?? * Verbal permission to speak to the caregivers and representatives has been obtained from the patient. Yes * Community resources currently utilized Home Health * Please name any agencies selected above. UNKNOWN PROVIDER * Additional services required to return to the preadmission environment? No * Can the patient safely return to the preadmission environment? Yes * Has this patient been hospitalized within the prior 30 days at any hospital? No Coverage Notice Reviewer: [email or web address] Tracee Caballero Notice Issued Date-Time: 05/28/2018 11:35 Notice Type: Patient Choice Letter Notice Delivered To: Family Member Relationship to Patient: Sister Field Representative/Health Education Name: cristian Delivery Method: PHONE - Phone Sun Days: Prior Verbal Notification: Recipient Understood Notice: Yes Recipient Signature: Med Rec Note Co-signed by Attending: Coverage Notice Comment: Sister elizabeth will be here at hospital Friday at 11pm and requested the [facility] if she needs a SNF. Last DP export: 05/28/18 10:30 a Patient Name: UVALDO SANCHEZ Page 10421 at 1539 All edits/amendments must be made on the electronic document DICTATION DATE: 05/29/188 PHARMACY TECHNICIAN INSTRUCTOR: ROBERT 05/29/181537 RPT#: [id number] DC DATE: STATUS: ADM IN [facility] [address] [place] [address] END OF REPORT
--- NOTE | 2018-05-29 15:49 | MORECARE ---
CASE MANAGEMENT DISCHARGE SUMMARY PATIENT: UVALDO SANCHEZ [place] UNIT: [id number] ADM DATE: 05/11/18 AGE: 68 : 49 SEX: F ROOM/BED: D.1211 AUTHOR: ERICDOC PHYSICIAN: REFERRING PHYSICIAN: TEREZA ROME MD DATE OF SERVICE: 05/29/18 Discharge Plan Patient Name: UVALDO SANCHEZ Facility: [facility]:[place] : 1950 Planned Disposition: Home Anticipated Discharge Date: Discharge Date: Expected LOS: Initial Reviewer: [id number] Initial Review Date: 05/18/2018 Generated: 05/29/18 4:49 pm Comments DCP- Discharge Planning Updated by [email or web address]: Linda Caballero on 05/29/18 2:[address] Patient Name: UVALDO SANCHEZ Admission Status: ER Accout number: [id number] Admission Date: 05-11-2018 : 1950 Admission Diagnosis:CHRONIC OBSTRUCTIVE PULMONARY DISEASE W (ACUTE) EXACERB Attending: TEREZA ROME Current LOS: 18 Anticipated DC Date: Planned Disposition: Home Primary Insurance: [facility] MEDICARE SOLUTIONS Discharge Planning Comments: CM SPOKE WITH MIGUEL IN IP REHAB, SHE STATES PATIENT INSURANCE DENIED INPT REHAB STAY. IF DR. EDMONDS WANTS TO DO A P2P WITH THE [facility] HE NEEDS TO CALL [phone] BY FRIDAY AT 3PM. CM PAGED DR. EDMONDS AND WILL ATEMPT TO GET HIM THE MESSAGE BEFORE FRIDAY. Board Of Directors: Linda Caballero Appended by Linda Caballero on 05/29/2018 15:46 SOLDERING MACHINE OPERATOR HELPER: SPOKE WITH DR. EDMONDS AND PRIMARY SHOULD DO THE P2P. SENT MSG TO [facility] TO SEE WHAT THEY WANT TO DO. DCP- Discharge Planning Updated by [email or web address]: Linda Caballero on 05/28/18 10:[address] Patient Name: UVALDO SANCHEZ Admission Status: ER Accout number: [id number] Admission Date: 05-11-2018 : 1950 Admission Diagnosis:CHRONIC OBSTRUCTIVE PULMONARY DISEASE W (ACUTE) EXACERB Attending: TEREZA ROME Current LOS: 17 Anticipated DC Date: Planned Disposition: Home Primary Insurance: [facility] [employer] SOLUTIONS Discharge Planning Comments: CM SPOKE WITH PATIENT'S SISTER CRISTIAN ON THE PHONE. HER NUMBER IS [phone], SHE IS AT WORK RIGHT NOW. I EXPLAINED TO HER THAT IF HER SISTER IS TOO LOW FUNCTION FOR IP REHAB THEN WE WOULD NEED TO DO SNF. SHE STATED [facility]. SHE WANTS TO [facility]ET WITH [facility] AT [facility]OSPITAL AT 11 TOMORROW IF POSSIBLE. CM WILL FOLLOW AND ASSIST NEEDED WITH DC PLANNING/NEEDS. Board Of Directors: Linda Caballero DCP- Discharge Planning Updated by [id number]: Anupama Millard on 05/18/18 5:[address] Patient Name: UVALDO SANCHEZ Admission Status: ER Accout number: [id number] Admission Date: 05-11-2018 : 1950 Admission Diagnosis:CHRONIC OBSTRUCTIVE PULMONARY DISEASE W (ACUTE) EXACERB Attending: TEREZA ROME Current LOS: 7 Anticipated DC Date: Planned Disposition: Home Primary Insurance: [facility] [employer] SOLUTIONS Discharge Planning Comments: CM met with patient at bedside. Patient states she lives alone and plans to return to her home after discharge. Patient states she has a BIPAP, 02, nebulizer, walker and cane at home. Patient states she has home health visits but doesn't know who her provider is. CM will continue to follow and assist as needed with discharge planning / needs. Board Of Directors: Anupama Millard DCP- Discharge Planning Updated by [email or web address]: Anupama Millard on 05/15/18 9:[address] CM attempted to do intake assessment for discharge planning. Patient is currently on BiPap and unable to talk. No family available at this time. CM will continue to follow and assist as needed with discharge planning / needs DCPIA - Discharge Planning Initial Assessment Updated by [email or web address]: Anupama Millard on 05/18/18 6:29 pm * Is the patient Alert and Oriented? Yes * How many steps to enter\exit or inside your home? * PCP [facility] * Pharmacy [facility] * Preadmission Environment Home Alone * ADLs Independent * Other Equipment BIPAP, 02, CANE, WALKER, NEBULIZER, * List name and contact numbers for known caregivers / representatives who currently or will assist patient after discharge: JOSH GEOFF - AUNT - ?? * Verbal permission to speak to the caregivers and representatives has been obtained from the patient. Yes * Community resources currently utilized Home Health * Please name any agencies selected above. UNKNOWN PROVIDER * Additional services required to return to the preadmission environment? No * Can the patient safely return to the preadmission environment? Yes * Has this patient been hospitalized within the prior 30 days at any hospital? No Coverage Notice Reviewer: [id number] Tracee Linda Caballero Notice Issued Date-Time: 05/28/2018 11:35 Notice Type: Patient Choice Letter Notice Delivered To: Family Member Relationship to Patient: Sister Human Service Worker Name: cristian Delivery Method: PHONE - Phone Sun Days: Prior Verbal Notification: Recipient Understood Notice: Yes Recipient Signature: Med Rec Note Co-signed by Attending: Coverage Notice Comment: Sister elizabeth will be here at hospital Friday at 11pm and requested the [facility] if she needs a SNF. Last DP export: 05/29/18 2:39 pm Patient Name: UVALDO SANCHEZ Page 44225 at 154 All edits/amendments must be made on the electronic document DICTATION DATE: 05/29/18 1549 FACILITIES MAINTENANCE WORKER: ROBERT 05/29/18 1549 RPT#: [id number] DC DATE: STATUS: ADM IN [facility] [address] [place] [address] END OF REPORT
--- NOTE | 2018-05-29 15:54 | NUR ---
Recieved a call from [facility] with [facility]. This patient has been denied for the acute rehab per their director medical safety. If the physician disagrees a peer to peer can be done by calling [phone] before 3:00 pm 06/01/18. Discussed with the CM Lisa. Katarina Francisco RN Clinical Liaison, Rehab
[2018-05-29 16:00] VITALS: BP 132/66
--- NOTE | 2018-05-29 16:13 | NUR ---
OT NOTE: PT COMPLETED BUE AROM EXS FOR INCREASED I WITH BED MOB. PT COMPLETED GROOMING TASKS WITH SET UP. THANK YOU, KAROL PERRY
--- NOTE | 2018-05-29 17:50 | NUR ---
ATE ONLY A FEW BITES OF SUPPER. DENIES NEEDS.
--- NOTE | 2018-05-29 18:00 | NUR ---
FSBS 157. GIVEN 2 UNITS REGULAR SUBQ PER SS.
--- NOTE | 2018-05-29 19:35 | NUR ---
PT RESTING IN BED WATCHING TV. NAME AND DATE PLACED ON BOARD. PT IS AAO X4, ON 4L O2 NC, BIPAP AT BEDSIDE. LUNGS COURSE ON EXHALE, IRREGULAR HR, LEFT HAND 22G WITH NS INFUSING KVO. PT LLQ HYPERACTIVE, LUQ HYPOACTIVE,RLQ HYPERACTIVE, RUQ ACTIVE. PT C/O TENDERNESS IN ABDOMEN. PT HAS OLD SKIN TEARS ON HAND AND ARMS. TRACE EDEMA UPPER AND LOWER EXTREM. SCD'S ON BILATERAL LOWER EXTREM. HERCULES NOTED NO KINKS OR LOOPS. PT WILL CALL FOR ASSIST WHEN NEEDED. NO S/S OF DISTERSS. WILL CPOC
[2018-05-29 20:00] VITALS: BP 105/53
--- NOTE | 2018-05-29 22:38 | NUR ---
PT COMPLAINING OF DISCOMFORT, NORCO GIVEN. PT DENIES ANY OTHER NEEDS. NO S/S OF DISTRESS. WILL CPOC
[2018-05-30] VITALS: BP 143/69
--- NOTE | 2018-05-30 00:13 | NUR ---
PLACED BIPAP ON PATIENT AND SHE KEPT IT ON FOR A FEW MINUTES AND STATED "I CAN NOT WEAR THAT MASK,I JUST CANT AND HAD TO TAKE IT OFF AND PLACE HER BACK ON 4LPM NASAL CANNULA
--- NOTE | 2018-05-30 00:23 | NUR ---
PT FSBS IS 92, NO INSULIN NEEDED PER SLIDING SCALE. PT DENIES ANY NEEDS. NO S/S OF DISTRESS. CALL LIGHT IN REACH. WILL CPOC
[2018-05-30 04:00] VITALS: BP 141/88
--- NOTE | 2018-05-30 08:05 | NUR ---
FSBS IS 93 NO INSULIN NEEDED
[2018-05-30 08:38] VITALS: BP 126/49
--- NOTE | 2018-05-30 08:39 | NUR ---
PT AAOX4 RESP EVEN AND NONALABORED, PT HAVING A SCAN DONE AT THIS TIME, NO SIGNS OF DISTRESS NOTED, CL IN REACH
[2018-05-30 12:37] VITALS: BP 121/58
--- NOTE | 2018-05-30 14:30 | NUR ---
SITTING UP IN CHAIR. CALL LIGHT WITHIN REACH.
[2018-05-30 17:29] VITALS: BP 103/51
[2018-05-30 20:00] VITALS: BP 134/62
--- NOTE | 2018-05-30 22:41 | NUR ---
PT SITTING UP IN BED WITH CPAP ON. A/O X 4. HERCULES IN PLACE. VITALS STABLE. TOOK MEDS WITHOUT DIFFICULTY. NITRO APPLIED TO L CHEST. L HAND IV WITH NS @ KVO. 4L 02 VIA NC. SCDS ON AND WORKING PROPERLY. PACEMAKER TO R CHEST. CAF ON TELEMETRY. NO FURTHER CONCERNS AT THIS TIME. BED LOWERED AND LOCKED. CL IN REACH. WILL CONTINUE TO MONITOR.
[2018-05-31] VITALS: BP 147/71
--- NOTE | 2018-05-31 03:29 | NUR ---
PATIENT RESTING IN BED WITH EYES CLOSED AND NO S/S OF DISTRESS. BED IN LOWEST POSITION AND CALL LIGHT WITHIN REACH. WILL CONTINUE TO MONITOR.
[2018-05-31 04:00] VITALS: BP 154/50
--- NOTE | 2018-05-31 05:29 | NUR ---
PT LAYING IN BED RESTING. VITALS STABLE. TOOK MORNING MEDS WITHOUT DIFFICULTY. BS 84, NO TREATMENT. NOTED UPON ENTRY INTO ROOM WITH TILE SHADER THAT PT HERCULES WAS LEAKING ONTO FLOOR. HERCULES EMPTIED OF 500 CC YELLOW URINE, HERCULES SECURED SHUT AND HUNG ON A NON MOVEABLE PART OF BED. PT DENIES PAIN AT THIS TIME. NO FURTHER CONCERNS. BED LOWERED AND LOCKED. CL IN REACH. WILL CPOC.
[2018-05-31 06:43] LABS: BASOPHILS 0 % (0-2); EOSINOPHILS 0.7 % (0-7); HEMATOCRIT 33.4 % (36.0-48.0); HEMOGLOBIN 10.6 g/dL (12-16); IMMATURE GRANULOCYTES 0.5 % (0-5); LYMPHOCYTES 10.6 % (15-50); MCH 26.8 pg (26.0-34.0); MCHC 31.7 g/dL (31.0-37.0); MCV 84.3 fL (80.0-100.0); MEAN PLATELET VOLUME 9.5 fL (7.4-10.4); MONOCYTES 4.2 % (2-11); RBC 3.96 10x6/uL (4.00-5.40); RDW 15.6 % (11.5-14.5)
[2018-05-31 06:51] LABS: ANION GAP 12.4 mmol/L (8-16); CALCIUM 7.9 mg/dL (8.5-10.1); POTASSIUM - SERUM 3.4 mmol/L (3.5-5.1)
[2018-05-31 07:02] LABS: PLATELET COUNT 113 10x3/uL (130-400)
--- NOTE | 2018-05-31 07:59 | NUR ---
PT AAOX4 RESP EVEN AND NONLABORED, NO SIGNS OF DISTRESS NOTED, REQUESTING A CUP OF WATER BROUGHT TO PT AT THIS TIME, NO OTHER NEEDS EXPRESSED, CL IN REACH WILL CONTINUE TO MONITOR
[2018-05-31 08:05] VITALS: BP 166/77
[2018-05-31 12:00] VITALS: BP 142/64
--- NOTE | 2018-05-31 12:44 | NUR ---
PT SITTING IN CHAIR AT BEDSIDE REQUESTING TO BE BACK IN BED PHYSICAL THERAPY PAGED
--- NOTE | 2018-05-31 13:57 | NUR ---
ASSISTANT STORE MANAGER NOTES - 3L O2 PER NC, CPAP AT NIGHT, DYSPNEA ON EXERTION. HERCULES IN PLACE.
--- NOTE | 2018-05-31 14:28 | NUR ---
OT NOTE: PT UP IN CHAIR; STATED THAT SHE WAS FEELING BETTER. INFORMED PT THAT WE WOULD BE PRACTICING SIT TO STAND WITH USE OF WALKER. PT IMMEDIATELY BEGAN TO STATE THAT SHE COULDNT DO IT...SHE WASNT STRONG ENOUGH..AND THAT SHE JUST WANTED THE [facility] TO PICK HER UP AND PUT HER IN BED AGAIN. BEGAN BREATHING RAPIDLY AND BECAME VERY ANXIOUS (BEFORE WE EVEN ATTEMPTED THE TASK)..HAD PT PERFORM KNEE FLEX/EXT EXS X 15 REPS PRIOR TO ATTEMPT. INSTRUCTED PT ON PROPER HAND POSITIONING AND POSTURE PRIOR TO. PT WOULD ATTEMPT TO PUSH WITH ARMS BUT ABSOLUTELY NO QUAD FIRE FOR STANDING. EXPLAINED TO PT THAT SHE HAD TO USE HER LEGS TO ASSIST..AND THOUGH SHE SAID THAT SHE WAS, SHE WAS SHOWN THAT SHE WAS NOT USING QUAD MUSCLES. ATTEMPTED 3 MORE TIMES, THEN P.T.CAME IN AND WE ATTEMPTED 3 MORE TIMES. P.T. HAD TO END UP TRANSFERRING HER WITH MAX/TOTAL ASSIST BACK TO BED; MIN ASSIST WITH SIT TO SUPINE AND MOD ASSIST FOR SCOOTING UP IN BED. LISA BENZ, OTR/L
[2018-05-31 16:00] VITALS: BP 119/59
--- NOTE | 2018-05-31 18:37 | NUR ---
PT AAOX4 RESP EVEN AND NONLABORED, NO SIGNS OF DISTRESS NOTED, CL IN REACH
--- NOTE | 2018-05-31 19:35 | MORECARE ---
CASE MANAGEMENT DISCHARGE SUMMARY PATIENT: UVALDO SANCHEZ UNIT: [id number] ADM DATE: 05/11/18 AGE: 68 : 49 SEX: F ROOM/BED: D.1211 AUTHOR: ERIC,DOC PHYSICIAN: REFERRING PHYSICIAN: TEREZA ROME MD DATE OF SERVICE: 05/31/18 Discharge Plan Patient Name: UVALDO SANCHEZ Facility: [facility]:[place] : 1950 Planned Disposition: Home Anticipated Discharge Date: Discharge Date: Expected LOS: Initial Reviewer: [id number] Initial Review Date: 05/18/2018 Generated: 05/31/18 8:34 pm Comments DCP- Discharge Planning Updated by [email or web address]: Josefina Dow on 05/31/18 6:[address] ORDER RECEIVED: Call [employer] about trilogy not working..... CM called [employer] [place]) [phone], spoke to Diallo and he stated he would be here in the morning to see what was wrong with her machine and get it serviced. CM faxed order to him @ [phone]. Josefina Dow RN, [facility] DCP- Discharge Planning Updated by [id number]: Linda Caballero on 05/29/18 2:[address] Patient Name: UVALDO SANCHEZ Admission Status: ER Accout number: [id number] Admission Date: 05-11-2018 : 1950 Admission Diagnosis:CHRONIC OBSTRUCTIVE PULMONARY DISEASE W (ACUTE) EXACERB Attending: TEREZA ROME Current LOS: 18 Anticipated DC Date: Planned Disposition: Home Primary Insurance: [facility] MED[employer] SOLUTIONS Discharge Planning Comments: CM SPOKE WITH MIGUEL IN IP REHAB, SHE STATES PATIENT INSURANCE DENIED INPT REHAB STAY. IF DR. EDMONDS WANTS TO DO A P2P WITH THE [facility] HE NEEDS TO CALL [phone] BY FRIDAY AT 3PM. CM PAGED DR. EDMONDS AND WILL ATEMPT TO GET HIM THE MESSAGE BEFORE FRIDAY. Plating Stripper: Linda Caballero Appended by Linda Caballero on 05/29/2018 15:46 POEM WRITER: SPOKE WITH DR. EDMONDS AND PRIMARY SHOULD DO THE P2P. SENT MSG TO [facility] TO SEE WHAT THEY WANT TO DO. DCP- Discharge Planning Updated by [id number]: Linda Caballero on 05/28/18 10:[address] Patient Name: UVALDO SANCHEZ Admission Status: ER Accout number: [id number] Admission Date: 05-11-2018 : 1950 Admission Diagnosis:CHRONIC OBSTRUCTIVE PULMONARY DISEASE W (ACUTE) EXACERB Attending: TEREZA ROME Current LOS: 17 Anticipated DC Date: Planned Disposition: Home Primary Insurance: [facility] [employer]UTIONS Discharge Planning Comments: CM SPOKE WITH PATIENT'S SISTER CRISTIAN ON THE PHONE. HER NUMBER IS [phone], SHE IS AT WORK RIGHT NOW. I EXPLAINED TO HER THAT IF HER SISTER IS TOO LOW FUNCTION FOR IP REHAB THEN WE WOULD NEED TO DO SNF. SHE STATED SHE WOULD LIKE [facility]. SHE WANTS TO MEET WITH [facility] AT THE HOSPITAL AT 11 TOMORROW IF POSSIBLE. CM WILL FOLLOW AND ASSIST NEEDED WITH DC PLANNING/NEEDS. Plating Stripper: Linda Caballero DCP- Discharge Planning Updated by [email or web address]: Anupama Milalrd on 05/18/18 5:[address] Patient Name: UVALDO SANCHEZ Admission Status: ER Accout number: [id number] Admission Date: 05-11-2018 : 1950 Admission Diagnosis:CHRONIC OBSTRUCTIVE PULMONARY DISEASE W (ACUTE) EXACERB Attending: TEREZA ROME Current LOS: 7 Anticipated DC Date: Planned Disposition: Home Primary Insurance: [facility] [employer]UT[employer] Discharge Planning Comments: CM met with patient at bedside. Patient states she lives alone and plans to return to her home after discharge. Patient states she has a BIPAP, 02, nebulizer, walker and cane at home. Patient states she has home health visits but doesn't know who her provider is. CM will continue to follow and assist as needed with discharge planning / needs. Plating Stripper: Anupama Millard DCP- Discharge Planning Updated by [id number]: Anupama Millard on 05/15/18 9:[address] CM attempted to do intake assessment for discharge planning. Patient is currently on BiPap and unable to talk. No family available at this time. CM will continue to follow and assist as needed with discharge planning / needs DCPIA - Discharge Planning Initial Assessment Updated by [email or web address]: Anupama Millard on 05/18/18 6:29 pm * Is the patient Alert and Oriented? Yes * How many steps to enter\exit or inside your home? * PCP [facility] * Pharmacy [facility] * Preadmission Environment Home Alone * ADLs Independent * Other Equipment BIPAP, 02, CANE, WALKER, NEBULIZER, * List name and contact numbers for known caregivers / representatives who currently or will assist patient after discharge: JOSH TELLEZ - AUNT - ?? * Verbal permission to speak to the caregivers and representatives has been obtained from the patient. Yes * Community resources currently utilized Home Health * Please name any agencies selected above. UNKNOWN PROVIDER * Additional services required to return to the preadmission environment? No * Can the patient safely return to the preadmission environment? Yes * Has this patient been hospitalized within the prior 30 days at any hospital? No Coverage Notice Reviewer: [id number] Tracee Caballero Notice Issued Date-Time: 05/28/2018 11:35 Notice Type: Patient Choice Letter Notice Delivered To: Family Member Relationship to Patient: Sister Silver Cleaner Name: cristian Delivery Method: PHONE - Phone Sun Days: Prior Verbal Notification: Recipient Understood Notice: Yes Recipient Signature: Med Rec Note Co-signed by Attending: Coverage Notice Comment: Sister elizabeth will be here at hospital Friday at 11pm and requested [facility] if she needs a SNF. Last DP export: 05/29/18 2:49 pm Patient Name: UVALDO SANCHEZ Page 48701 at 1935 All edits/amendments must be made on the electronic document DICTATION DATE: 05/31/181933 BAG MACHINE ADJUSTER: ROBERT 05/31/181933 RPT#: [id number] DC DATE: STATUS: ADM IN [facility] [address] [place] [address] END OF REPORT
--- NOTE | 2018-05-31 23:52 | NUR ---
CHECKED PT FSBS 141
--- NOTE | 2018-05-31 23:58 | NUR ---
REST QUIELTY IN BED, CALL LIGHT IN REACH.
--- NOTE | 2018-06-01 02:17 | NUR ---
PATIENT RESTING IN BED WITH EYES CLOSED AND NO S/S OF DISTRESS. BED IN LOWEST POSITION AND CALL LIGHT WITHIN REACH. WILL CONTINUE TO MONITOR.
[2018-06-01 07:36] LABS: ANION GAP 11.6 mmol/L (8-16); CALCIUM 8.1 mg/dL (8.5-10.1); CARBON DIOXIDE 28.1 mmol/L (21.0-32.0); CREATININE - SERUM 0.9 mg/dL (0.6-1.3); POTASSIUM - SERUM 3.7 mmol/L (3.5-5.1)
[2018-06-01 07:50] LABS: BASOPHILS 0 % (0-2); EOSINOPHILS 0.4 % (0-7); HEMATOCRIT 32.1 % (36.0-48.0); HEMOGLOBIN 10.2 g/dL (12-16); IMMATURE GRANULOCYTES 0.4 % (0-5); LYMPHOCYTES 12.9 % (15-50); MCH 26.6 pg (26.0-34.0); MCHC 31.8 g/dL (31.0-37.0); MCV 83.8 fL (80.0-100.0); MEAN PLATELET VOLUME 10.3 fL (7.4-10.4); MONOCYTES 4.1 % (2-11); NEUTROPHILS 82.2 % (40-80); RBC 3.83 10x6/uL (4.00-5.40); RDW 15.7 % (11.5-14.5)
[2018-06-01 07:52] LABS: PLATELET COUNT 145 10x3/uL (130-400)
--- NOTE | 2018-06-01 07:53 | NUR ---
VANCOMYCIN TROUGH WAS ELEVATED AT 24.9 WILL LOWER DOSES DOWN TO 1 GRAM Q 12H RESTART DOSING A 1500 TODAY
[2018-06-01 08:38] VITALS: BP 136/65
--- NOTE | 2018-06-01 08:57 | NUR ---
LYING IN BED WITH EYES CLOSED. CALL LIGHT IN EASY REACH.
[2018-06-01 12:30] VITALS: BP 135/67
--- NOTE | 2018-06-01 14:45 | NUR ---
OT NOTE: PRACTICED TRANSFER FROM WC TO BED WITH ASSIST X 2. PT WANTED TO BE LIFTED BACK TO BED, BUT EXPLAINED THAT IT WOULD NOT BE CONSIDERED THERAPY AND SHE WOULD NOT GAIN ANY INDEP BY DOING IT THAT WAY. REQUIRED MOD ASSIST X 2 FOR SIT TO STAND WITH WALKER, THEN PT WAS ABLE TO TAKE APPROX 3 STEPS TO BED WITH WALKER AND MIN ASSIST. EDUCATED ON EXS SHE COULD PERFORM IN BED. LISA BENZ, OTR/L
[2018-06-01 17:03] VITALS: BP 131/64
--- NOTE | 2018-06-01 18:13 | NUR ---
HERCULES BAG LEAKING. CHANGED BAG WITH NEW. SCD'S ON PATIENT ALL DAY, REFUSES TO WEAR OVERNIGHT.
--- NOTE | 2018-06-01 18:30 | NUR ---
OT NOTE: PT COMPLETED BUE AROM FOR INCREASED STRENGTH. PT COMPLETED SIDE ROLLING WITH SBA. THANK YOU, KAROL PERRY
--- NOTE | 2018-06-01 20:21 | NUR ---
REST IN BED, CALL LIGHT IN REACH.
--- NOTE | 2018-06-01 21:25 | NUR ---
PLACED PT ON HOME TRILOGY UNIT PER HOME SETTINGS PT STATES FITS WELL FEELS COMFORTABLE
[2018-06-01 22:01] VITALS: BP 133/70
[2018-06-02] VITALS: BP 141/84
--- NOTE | 2018-06-02 01:46 | NUR ---
LYING IN BED WITH EYES CLOSED. SNORING. RESP NONLABORED. O2 @ 6L/NC. IV INFUSING WITHOUT DIFF. HERCULES CATH PATENT AND DRAINING YELLOW URINE. NO DISTRESS. SR ELEVATED X2. CL IN REACH.
--- NOTE | 2018-06-02 02:09 | NUR ---
REST QUIELTY IN BED, CALL LIGHT IN REACH.
--- NOTE | 2018-06-02 05:56 | NUR ---
FSBS 106.
[2018-06-02 05:59] VITALS: BP 149/94
[2018-06-02 07:03] LABS: BASOPHILS 0.1 % (0-2); EOSINOPHILS 0.2 % (0-7); HEMATOCRIT 33.7 % (36.0-48.0); HEMOGLOBIN 10.6 g/dL (12-16); IMMATURE GRANULOCYTES 0.4 % (0-5); LYMPHOCYTES 12.3 % (15-50); MCH 26.5 pg (26.0-34.0); MCHC 31.5 g/dL (31.0-37.0); MCV 84.3 fL (80.0-100.0); MEAN PLATELET VOLUME 9.3 fL (7.4-10.4); MONOCYTES 4.2 % (2-11); NEUTROPHILS 82.8 % (40-80); PLATELET COUNT 133 10x3/uL (130-400); RDW 15.8 % (11.5-14.5)
[2018-06-02 07:22] LABS: ANION GAP 11.6 mmol/L (8-16); CALCIUM 8.4 mg/dL (8.5-10.1); CARBON DIOXIDE 28.3 mmol/L (21.0-32.0); CREATININE - SERUM 0.9 mg/dL (0.6-1.3); POTASSIUM - SERUM 3.9 mmol/L (3.5-5.1)
--- NOTE | 2018-06-02 08:27 | MORECARE ---
CASE MANAGEMENT DISCHARGE SUMMARY PATIENT: UVALDO SANCHEZ UNIT: [id number] ADM DATE: 05/11/18 AGE: 68 : 49 SEX: F ROOM/BED: D.1211 AUTHOR: ERIC,DOC PHYSICIAN: REFERRING PHYSICIAN: TEREZA ROME MD DATE OF SERVICE: 06/02/18 Discharge Plan Patient Name: UVALDO SANCHEZ Facility: [facility]:[place] : 1950 Planned Disposition: Longterm Facility Anticipated Discharge Date: Discharge Date: Expected LOS: Initial Reviewer: [id number] Initial Review Date: 05/18/2018 Generated: 06/02/18 9:27 am Comments DCP- Discharge Planning Updated by [email or web address]: Josefina Dow on 05/31/18 6:[address] ORDER RECEIVED: Call [employer] about trilogy not working..... CM called [facility]) [phone], spoke to Diallo and he stated he would be here in the morning to see what was wrong with her machine and get it serviced. CM faxed order to him @ [phone]. Josefina Dow RN, [facility] DCP- Discharge Planning Updated by [email or web address]: Linda Caballero on 05/29/18 2:[address] Patient Name: UVALDO SANCHEZ Admission Status: ER Accout number: [id number] Admission Date: 05-11-2018 : 1950 Admission Diagnosis:CHRONIC OBSTRUCTIVE PULMONARY DISEASE W (ACUTE) EXACERB Attending: TEREZA ROME Current LOS: 18 Anticipated DC Date: Planned Disposition: Home Primary Insurance: [facility] MEDICARE SOLUTIONS Discharge Planning Comments: CM SPOKE WITH MIGUEL IN IP REHAB, SHE STATES PATIENT INSURANCE DENIED INPT REHAB STAY. IF DR. EDMONDS WANTS TO DO A P2P WITH THE [employer] HE NEEDS TO CALL [phone] BY FRIDAY AT 3PM. CM PAGED DR. EDMONDS AND WILL ATEMPT TO GET HIM THE MESSAGE BEFORE FRIDAY. Engagement Liaison: Linda Caballero Appended by Linda Caballero on 05/29/2018 15:46 BATH STEWARD/STEWARDESS: SPOKE WITH DR. EDMONDS AND PRIMARY SHOULD DO THE P2P. SENT MSG TO [facility] TO SEE WHAT THEY WANT TO DO. DCP- Discharge Planning Updated by [id number]: Linda Caballero on 05/28/18 10:[address] Patient Name: UVALDO SANCHEZ Admission Status: ER Accout number: [id number] Admission Date: 05-11-2018 : 1950 Admission Diagnosis:CHRONIC OBSTRUCTIVE PULMONARY DISEASE W (ACUTE) EXACERB Attending: TEREZA ROME Current LOS: 17 Anticipated DC Date: Planned Disposition: Home Primary Insurance: [facility] MEDICARE SOLUTIONS Discharge Planning Comments: CM SPOKE WITH PATIENT'S SISTER CRISTIAN ON THE PHONE. HER NUMBER IS [phone], SHE IS AT WORK RIGHT NOW. I EXPLAINED TO HER THAT IF HER SISTER IS TOO LOW FUNCTION FOR IP REHAB THEN WE WOULD NEED TO DO SNF. SHE STATED SHE WOULD LIKE [facility]. SHE WANTS TO MEET WITH [facility] AT THE HOSPITAL AT 11 TOMORROW IF POSSIBLE. CM WILL FOLLOW AND ASSIST NEEDED WITH DC PLANNING/NEEDS. Engagement Liaison: Linda Caballero DCP- Discharge Planning Updated by [email or web address]: Anupama Millard on 05/18/18 5:[address] Patient Name: UVALDO SANCHEZ Admission Status: ER Accout number: [id number] Admission Date: 05-11-2018 : 1950 Admission Diagnosis:CHRONIC OBSTRUCTIVE PULMONARY DISEASE W (ACUTE) EXACERB Attending: TEREZA ROME Current LOS: 7 Anticipated DC Date: Planned Disposition: Home Primary Insurance: [facility] MEDICARE SOLUTIONS Discharge Planning Comments: CM met with patient at bedside. Patient states she lives alone and plans to return to her home after discharge. Patient states she has a BIPAP, 02, nebulizer, walker and cane at home. Patient states she has home health visits but doesn't know who her provider is. CM will continue to follow and assist as needed with discharge planning / needs. Engagement Liaison: Anupama Millard DCP- Discharge Planning Updated by [email or web address]: Anupama Millard on 05/15/18 9:[address] CM attempted to do intake assessment for discharge planning. Patient is currently on BiPap and unable to talk. No family available at this time. CM will continue to follow and assist as needed with discharge planning / needs DCPIA - Discharge Planning Initial Assessment Updated by [id number]: Anupama Millard on 05/18/18 6:29 pm * Is the patient Alert and Oriented? Yes * How many steps to enter\exit or inside your home? * PCP [facility] * [facility] * Preadmission Environment Home Alone * ADLs Independent * Other Equipment BIPAP, 02, CANE, WALKER, NEBULIZER, * List name and contact numbers for known caregivers / representatives who currently or will assist patient after discharge: JOSH TELLEZ - AUNT - ?? * Verbal permission to speak to the caregivers and representatives has been obtained from the patient. Yes * Community resources currently utilized Home Health * Please name any agencies selected above. UNKNOWN PROVIDER * Additional services required to return to the preadmission environment? No * Can the patient safely return to the preadmission environment? Yes * Has this patient been hospitalized within the prior 30 days at any hospital? No External Providers External Provider: [facility] Next Contact Date: Service Request Date: Service Type: Resolution: Reviewer: Comments: Coverage Notice Reviewer: [id number] Tracee Caballero Notice Issued Date-Time: 05/28/2018 11:35 Notice Type: Patient Choice Letter Notice Delivered To: Family Member Relationship to Patient: Sister Awning Hanger Helper Name: cristian Delivery Method: PHONE - Phone Sun Days: Prior Verbal Notification: Recipient Understood Notice: Yes Recipient Signature: Med Rec Note Co-signed by Attending: Coverage Notice Comment: Sister elizabeth will be here at hospital Friday at 11pm and requested the [facility] if she needs a SNF. Reviewer: [id number] Tracee Caballero Notice Issued Date-Time: 06/02/2018 8:23 Notice Type: Patient Choice Letter Notice Delivered To: Patient Relationship to Patient: Self Awning Hanger Helper Name: Delivery Method: HAND - Hand Delivered Sun Days: Prior Verbal Notification: Recipient Understood Notice: Yes Recipient Signature: Yes Med Rec Note Co-signed by Attending: Coverage Notice Comment: [facility] Reviewer: [id number] Tracee Caballero Notice Issued Date-Time: 06/02/2018 8:23 Notice Type: IM Discharge Notice Notice Delivered To: Patient Relationship to Patient: Awning Hanger Helper Name: Delivery Method: - Sun Days: Prior Verbal Notification: Recipient Understood Notice: Recipient Signature: Med Rec Note Co-signed by Attending: Coverage Notice Comment: Last DP export: 05/31/18 6:35 pm Patient Name: UVALDO SANCHEZ Page [phone] at 0827 All edits/amendments must be made on the electronic document DICTATION DATE: 06/02/18825 WILDERNESS GUIDE: ROBERT 06/02/18825 RPT#: [id number] DC DATE: STATUS: ADM IN [facility] [address] [place] [address] END OF REPORT
--- NOTE | 2018-06-02 08:39 | MORECARE ---
CASE MANAGEMENT DISCHARGE SUMMARY PATIENT: UVALDO SANCHEZ UNIT: [id number] ADM DATE: 05/11/18 AGE: 68 : 49 SEX: F ROOM/BED: D.1211 AUTHOR: ERCI,DOC PHYSICIAN: REFERRING PHYSICIAN: TEREZA ROME MD DATE OF SERVICE: 06/02/18 Discharge Plan Patient Name: UVALDO SANCHEZ Facility: [facility]:[place] : 1950 Planned Disposition: Prison Facility Anticipated Discharge Date: Discharge Date: Expected LOS: Initial Reviewer: [id number] Initial Review Date: 05/18/2018 Generated: 06/02/18 9:39 am Comments DCP- Discharge Planning Updated by [email or web address]: Linda Caballero on 06/02/18 7:[address] Patient Name: UVALDO SANCHEZ Admission Status: ER Accout number: [id number] Admission Date: 05-11-2018 : 1950 Admission Diagnosis:CHRONIC OBSTRUCTIVE PULMONARY DISEASE W (ACUTE) EXACERB Attending: TEREZA ROME Current LOS: 22 Anticipated DC Date: Planned Disposition: Prison Facility Primary Insurance: [facility] MEDICARE SOLUTIONS Discharge Planning Comments: CM SPOKE WITH PATIENT , WALDO SIGNED FOR [facility]. ARIK CONTACTED AT THE [facility] AND REFERRAL FAXED. IMM SIGNED. WAITING TO HEAR BACK FROM THE [facility]. Director Of Integrated Marketing: Linda Caballero DCP- Discharge Planning Updated by [email or web address]: Josefina Dow on 05/31/18 6:[address] ORDER RECEIVED: Call [employer] [facility] about trilogy not working..... CM called [facility]) [phone], spoke to Diallo and he stated he would be here in the morning to see what was wrong with her machine and get it serviced. CM faxed order to him @ [phone]. Josefina Dow RN, [facility] DCP- Discharge Planning Updated by [id number]: Linda Caballero on 05/29/18 2:[address] Patient Name: UVALDO SANCHEZ Admission Status: ER Accout number: [id number] Admission Date: 05-11-2018 : 1950 Admission Diagnosis:CHRONIC OBSTRUCTIVE PULMONARY DISEASE W (ACUTE) EXACERB Attending: TEREZA ROME Current LOS: 18 Anticipated DC Date: Planned Disposition: Home Primary Insurance: [facility] MEDICARE SOLUTIONS Discharge Planning Comments: CM SPOKE WITH MIGUEL IN IP REHAB, SHE STATES PATIENT INSURANCE DENIED INPT REHAB STAY. IF DR. EDMONDS WANTS TO DO A P2P WITH THE [employer] HE NEEDS TO CALL [phone] BY FRIDAY AT 3PM. CM PAGED DR. EDMONDS AND WILL ATEMPT TO GET HIM THE MESSAGE BEFORE FRIDAY. Director Of Integrated Marketing: Linda Caballero Appended by Linda Caballero on 05/29/2018 15:46 HOTEL OR MOTEL MANAGER: SPOKE WITH DR. EDMONDS AND PRIMARY SHOULD DO THE P2P. SENT MSG TO [facility] TO SEE WHAT THEY WANT TO DO. DCP- Discharge Planning Updated by [email or web address]: Linda Caballero on 05/28/18 10:[address] Patient Name: UVALDO SANCHEZ Admission Status: ER Accout number: [id number] Admission Date: 05-11-2018 : 1950 Admission Diagnosis:CHRONIC OBSTRUCTIVE PULMONARY DISEASE W (ACUTE) EXACERB Attending: TEREZA ROME Current LOS: 17 Anticipated DC Date: Planned Disposition: Home Primary Insurance: [facility] MEDICARE SOLUTIONS Discharge Planning Comments: CM SPOKE WITH PATIENT'S SISTER CRISTIAN ON THE PHONE. HER NUMBER IS [phone], SHE IS AT WORK RIGHT NOW. I EXPLAINED TO HER THAT IF HER SISTER IS TOO LOW FUNCTION FOR IP REHAB THEN WE WOULD NEED TO DO SNF. SHE STATED SHE WOULD LIKE [facility]. SHE WANTS TO MEET WITH THE [facility] AT THE HOSPITAL AT 11 TOMORROW IF POSSIBLE. CM WILL FOLLOW AND ASSIST NEEDED WITH DC PLANNING/NEEDS. Director Of Integrated Marketing: Linda Caballero DCP- Discharge Planning Updated by [id number]: Anupama Millard on 05/18/18 5:[address] Patient Name: UVALDO SANCHEZ Admission Status: ER Accout number: [id number] Admission Date: 05-11-2018 : 1950 Admission Diagnosis:CHRONIC OBSTRUCTIVE PULMONARY DISEASE W (ACUTE) EXACERB Attending: TEREZA ROME Current LOS: 7 Anticipated DC Date: Planned Disposition: Home Primary Insurance: [facility] MEDICARE SOLUTIONS Discharge Planning Comments: CM met with patient at bedside. Patient states she lives alone and plans to return to her home after discharge. Patient states she has a BIPAP, 02, nebulizer, walker and cane at home. Patient states she has home health visits but doesn't know who her provider is. CM will continue to follow and assist as needed with discharge planning / needs. Director Of Integrated Marketing: Anupama Millard DCP- Discharge Planning Updated by [id number]: Anupama Millard on 05/15/18 9:[address] CM attempted to do intake assessment for discharge planning. Patient is currently on BiPap and unable to talk. No family available at this time. CM will continue to follow and assist as needed with discharge planning / needs DCPIA - Discharge Planning Initial Assessment Updated by [email or web address]: Anupama Millard on 05/18/18 6:29 pm * Is the patient Alert and Oriented? Yes * How many steps to enter\exit or inside your home? * PCP [facility] * Pharmacy [facility] * Preadmission Environment Home Alone * ADLs Independent * Other Equipment BIPAP, 02, CANE, WALKER, NEBULIZER, * List name and contact numbers for known caregivers / representatives who currently or will assist patient after discharge: JOSH TELLEZ - AUNT - ?? * Verbal permission to speak to the caregivers and representatives has been obtained from the patient. Yes * Community resources currently utilized Home Health * Please name any agencies selected above. UNKNOWN PROVIDER * Additional services required to return to the preadmission environment? No * Can the patient safely return to the preadmission environment? Yes * Has this patient been hospitalized within the prior 30 days at any hospital? No External Providers External Provider: [facility] and [facility] Next Contact Date: Service Request Date: Service Type: Resolution: Reviewer: Comments: Coverage Notice Reviewer: [id number] Tracee Caballero Notice Issued Date-Time: 06/02/2018 8:23 Notice Type: Patient Choice Letter Notice Delivered To: Patient Relationship to Patient: Self Wet Process Miller Name: Delivery Method: HAND - Hand Delivered Sun Days: Prior Verbal Notification: Recipient Understood Notice: Yes Recipient Signature: Yes Med Rec Note Co-signed by Attending: Coverage Notice Comment: [facility] Reviewer: [id number] Tracee Caballero Notice Issued Date-Time: 05/28/2018 11:35 Notice Type: Patient Choice Letter Notice Delivered To: Family Member Relationship to Patient: Sister Wet Process Miller Name: cristian Delivery Method: PHONE - Phone Sun Days: Prior Verbal Notification: Recipient Understood Notice: Yes Recipient Signature: Med Rec Note Co-signed by Attending: Coverage Notice Comment: Sister will be here at hospital Friday at 11pm and requested [facility] if she needs a SNF. Reviewer: [id number] - Linda Caballero Notice Issued Date-Time: 06/02/2018 8:23 Notice Type: IM Discharge Notice Notice Delivered To: Patient Relationship to Patient: Wet Process Miller Name: Delivery Method: - Sun Days: Prior Verbal Notification: Recipient Understood Notice: Recipient Signature: Med Rec Note Co-signed by Attending: Coverage Notice Comment: Last DP export: 06/02/18 7:27 am Patient Name: UVALDO SANCHEZ Page [phone] at 0839 All edits/amendments must be made on the electronic document DICTATION DATE: 06/02/18838 MENTALLY IMPAIRED TEACHER: ROBERT 06/02/1839 RPT#: [id number] DC DATE: STATUS: ADM IN [facility] [address] [place] [address] END OF REPORT
[2018-06-02 09:43] VITALS: BP 149/78
--- NOTE | 2018-06-02 10:52 | NUR ---
OT NOTE: PT PERFORMED BED MOB WITH MIN ASSIST; MAX ASSIST FOR SIT TO STAND WITH WALKER; MIN ASSIST FOR TRANSFER WITH 3-4 STEPS TO BS COMMODE; MAX ASSIST WITH HYGIENE, HOWEVER, PT ABLE TO STAY STANDING FOR APPROX 1 MIN WHILE HYGIENE WAS PERFORMED; MIN ASSIST WITH BED MOB BACK TO BED. GROOMING TASKS WITH SET UP. LISA BENZ, OTR/L
[2018-06-02 11:45] VITALS: BP 119/50
--- NOTE | 2018-06-02 17:23 | NUR ---
OT NOTE: PT COMPLETED UE AROM EXS. PT COMPLETED BED MOB (SIDE ROLLING) WITH SBA. PT COMPLETED GROOMING TASK WITH SET UP. THANK YOU, KAROL PERRY
[2018-06-02 19:54] VITALS: BP 118/53
--- NOTE | 2018-06-02 20:00 | NUR ---
LYING IN BED. ALERT AND ORIENTED X4. IRRITABLE. STATES SHE IS BEING DISCHARGED TOMORROW TO REHAB. RESP IRREG. SOB NOTED. O2 @ 3L/NC. NONPROD COUGH NOTED. HERCULES CATH PATENT AND DRAINING DK YELLOW URINE. TELEMETRY SHOWS PACED AFIB WITH RATE OF 90. BRUISES NOTED TO BUE. SCDS ON BILAT. NO IV ACCESS. DENIES PAIN. NO DISTRESS. SR ELEVATED X2. CL IN REACH.
--- NOTE | 2018-06-03 01:49 | NUR ---
HAS RESTED WELL TONIGHT. REFUSED TO WEAR BIPAP. NO DISTRESS. REFUSED MIDNIGHT INSULIN. CL IN REACH.
--- NOTE | 2018-06-03 02:09 | NUR ---
PT HAS IV MEDS SCHEDULED BUT REFUSES TO LET STAFF RESTART IV.
[2018-06-03 05:12] VITALS: BP 155/83
[2018-06-03 06:56] LABS: BASOPHILS 0 % (0-2); EOSINOPHILS 0.4 % (0-7); HEMATOCRIT 34.7 % (36.0-48.0); HEMOGLOBIN 11.1 g/dL (12-16); IMMATURE GRANULOCYTES 0.3 % (0-5); LYMPHOCYTES 11.7 % (15-50); MCH 26.7 pg (26.0-34.0); MCV 83.4 fL (80.0-100.0); MEAN PLATELET VOLUME 9.2 fL (7.4-10.4); MONOCYTES 3.9 % (2-11); NEUTROPHILS 83.7 % (40-80); PLATELET COUNT 157 10x3/uL (130-400); RBC 4.16 10x6/uL (4.00-5.40); RDW 15.9 % (11.5-14.5); WBC 9.7 10x3/uL (4.8-10.8)
[2018-06-03 07:07] LABS: ANION GAP 10.9 mmol/L (8-16); CALCIUM 8.4 mg/dL (8.5-10.1); CARBON DIOXIDE 29.3 mmol/L (21.0-32.0); CREATININE - SERUM 0.9 mg/dL (0.6-1.3)
[2018-06-03 07:10] LABS: POTASSIUM - SERUM 3.2 mmol/L (3.5-5.1)
[2018-06-03 08:27] VITALS: BP 147/67
--- NOTE | 2018-06-03 08:45 | NUR ---
WAS CALLED TO THE ROOM BY 2 XRAY STAFF TO ASSIST THEM WITH GETTING THE PATIENT OFF THE FLOOR. WHEN ENTERING THE ROOM THE PATIENT WAS ON THE FLOOR, RESTING ON HER KNEES WITH THE WALKER OVER HER. CHARGE NURSE, NAMRATA ALSO ASSISTED THE THREE OF US GET THE PATIENT BACK INTO THE BED. XRAY STAFF REPORTS THEY WILL FILL OUT INCIDENT REPORT. PATIENT DENIES HITTING HER HEAD, STATED "THEY JUST LOWERED ME TO THE FLOOR".
--- NOTE | 2018-06-03 09:45 | NUR ---
DR BAUER AT THE BEDSIDE AT THIS TIME AND WAS NOTIFIED OF THE PATIENTS INCIDENT THIS MORNING WITH THE XRAY STUDENTS. NO NEW ORDERS GIVEN.
--- NOTE | 2018-06-03 09:53 | NUR ---
PAGED DR MAYO AT THIS TIME THROUGH ANSWERING SERVICE, SPOKE TO AIDAN
--- NOTE | 2018-06-03 09:58 | NUR ---
CALLED [facility] TELLE[facility], THE EMERGENCY CONTACT FOR THE PATIENT. LEFT HER A MESSAGE TO RETURN THE CALL, LEFT THE NURSE STATION DESK PHONE NUMBER ALL ON VOICEMAIL. ENSURED HER THERE WAS NO EMERGENCY JUST REQUESTING A RETURN CALL.
--- NOTE | 2018-06-03 10:04 | NUR ---
CALLED DR MAYO AND REPORTED THE INCIDENT WITH THE STUDENTS EASING THE PATIENT TO THE FLOOR THIS MORNING, INFORMED HIM OF DR EDMONDS ALSO BEING NOTIFIED, NO NEW ORDERES GIVEN AT THIS TIME
[2018-06-03 11:16] VITALS: BP 122/56
--- NOTE | 2018-06-03 13:56 | MORECARE ---
CASE MANAGEMENT DISCHARGE SUMMARY PATIENT: UVALDO SANCHEZ UNIT: [id number] ADM DATE: 05/11/18 AGE: 68 : 49 SEX: F ROOM/BED: D.1211 AUTHOR: ERICDOC PHYSICIAN: REFERRING PHYSICIAN: TEREZA ROME MD DATE OF SERVICE: 06/03/18 Discharge Plan Patient Name: UVALDO SANCHEZ Facility: [facility]:[place] : 1950 Planned Disposition: Group Home Facility Anticipated Discharge Date: Discharge Date: Expected LOS: Initial Reviewer: [id number] Initial Review Date: 05/18/2018 Generated: 06/03/18 2:56 pm Comments DCP- Discharge Planning Updated by [id number]: Linda Caballero on 06/03/18 12:[address] Patient Name: UVALDO SANCHEZ Admission Status: ER Accout number: [id number] Admission Date: 05-11-2018 : 1950 Admission Diagnosis:CHRONIC OBSTRUCTIVE PULMONARY DISEASE W (ACUTE) EXACERB Attending: TEREZA ROME Current LOS: 23 Anticipated DC Date: Planned Disposition: Group Home Facility Primary Insurance: [facility] MEDICARE SOLUTIONS Discharge Planning Comments: The [facility] has accepted, as soon as the dc order is put in the nurse or cm can call the [facility] for van transport and to give report. CM will follow and assist as needed with dc planning/needs. The [facility] number is [phone]. Bag Worker: Linda Caballero DCP- Discharge Planning Updated by [id number]: Linda Caballero on 06/02/18 7:[address] Patient Name: UVALDO SANCHEZ Admission Status: ER Accout number: [id number] Admission Date: 05-11-2018 : 1950 Admission Diagnosis:CHRONIC OBSTRUCTIVE PULMONARY DISEASE W (ACUTE) EXACERB Attending: TEREZA ROME Current LOS: 22 Anticipated DC Date: Planned Disposition: Group Home Facility Primary Insurance: [facility] MEDICARE SOLUTIONS Discharge Planning Comments: CM SPOKE WITH PATIENT , WALDO SIGNED FOR THE [facility] SNF. ARIK CONTACTED AT THE [facility] AND REFERRAL FAXED. IMM SIGNED. WAITING TO HEAR BACK FROM THE [facility]. Bag Worker: Linda Caballero DCP- Discharge Planning Updated by [id number]: Josefina Dow on 05/31/18 6:[address] ORDER RECEIVED: Call [employer] about trilogy not working..... CM called [facility]) [phone], spoke to Diallo and he stated he would be here in the morning to see what was wrong with her machine and get it serviced. CM faxed order to him @ [phone]. Josefina Dow RN, [facility] DCP- Discharge Planning Updated by [id number]: Linda Caballero on 05/29/18 2:[address] Patient Name: UVALDO SANCHEZ Admission Status: ER Accout number: [id number] Admission Date: 05-11-2018 : 1950 Admission Diagnosis:CHRONIC OBSTRUCTIVE PULMONARY DISEASE W (ACUTE) EXACERB Attending: TEREZA ROME Current LOS: 18 Anticipated DC Date: Planned Disposition: Home Primary Insurance: [facility] MEDICARE SOLUTIONS Discharge Planning Comments: CM SPOKE WITH MIGUEL IN IP REHAB, SHE STATES PATIENT INSURANCE DENIED INPT REHAB STAY. IF DR. EDMONDS WANTS TO DO A P2P WITH THE [employer] HE NEEDS TO CALL [phone] BY FRIDAY AT 3PM. CM PAGED DR. EDMONDS AND WILL ATEMPT TO GET HIM THE MESSAGE BEFORE FRIDAY. Bag Worker: Linda Caballero Appended by Linda Caballero on 05/29/2018 15:46 PIERCER: SPOKE WITH DR. EDMONDS AND PRIMARY SHOULD DO THE P2P. SENT MSG TO [facility] TO SEE WHAT THEY WANT TO DO. DCP- Discharge Planning Updated by [id number]: Lindaana Caballero on 05/28/18 10:[address] Patient Name: UVALDO SANCHEZ Admission Status: ER Accout number: [id number] Admission Date: 05-11-2018 : 1950 Admission Diagnosis:CHRONIC OBSTRUCTIVE PULMONARY DISEASE W (ACUTE) EXACERB Attending: TEREZA ROME Current LOS: 17 Anticipated DC Date: Planned Disposition: Home Primary Insurance: [facility] MEDICARE SOLUTIONS Discharge Planning Comments: CM SPOKE WITH PATIENT'S SISTER ANAHI ON THE PHONE. HER NUMBER IS [phone], SHE IS AT WORK RIGHT NOW. I EXPLAINED TO HER THAT IF HER SISTER IS TOO LOW FUNCTION FOR IP REHAB THEN WE WOULD NEED TO DO SNF. SHE STATED SHE WOULD LIKE [facility]. SHE WANTS TO MEET WITH [facility] AT THE [facility]OSP[facility] AT 11 TOMORROW IF POSSIBLE. CM WILL FOLLOW AND ASSIST NEEDED WITH DC PLANNING/NEEDS. Bag Worker: Linda Caballero DCP- Discharge Planning Updated by [id number]: Anupama Millard on 05/18/18 5:[address] Patient Name: UVALDO SANCHEZ Admission Status: ER Accout number: [id number] Admission Date: 05-11-2018 : 1950 Admission Diagnosis:CHRONIC OBSTRUCTIVE PULMONARY DISEASE W (ACUTE) EXACERB Attending: TEREZA ROME Current LOS: 7 Anticipated DC Date: Planned Disposition: Home Primary Insurance: [facility] MEDICARE SOLUTIONS Discharge Planning Comments: CM met with patient at bedside. Patient states she lives alone and plans to return to her home after discharge. Patient states she has a BIPAP, 02, nebulizer, walker and cane at home. Patient states she has home health visits but doesn't know who her provider is. CM will continue to follow and assist as needed with discharge planning / needs. Bag Worker: Anupama Millard DCP- Discharge Planning Updated by [id number]: Anupama Millard on 05/15/18 9:[address] CM attempted to do intake assessment for discharge planning. Patient is currently on BiPap and unable to talk. No family available at this time. CM will continue to follow and assist as needed with discharge planning / needs DCPIA - Discharge Planning Initial Assessment Updated by [email or web address]: Anupama Millard on 05/18/18 6:29 pm * Is the patient Alert and Oriented? Yes * How many steps to enter\exit or inside your home? * PCP [facility] * Pharmacy [facility] * Preadmission Environment Home Alone * ADLs Independent * Other Equipment BIPAP, 02, CANE, WALKER, NEBULIZER, * List name and contact numbers for known caregivers / representatives who currently or will assist patient after discharge: JOSH TELLEZ - AUNT - ?? * Verbal permission to speak to the caregivers and representatives has been obtained from the patient. Yes * Community resources currently utilized Home Health * Please name any agencies selected above. UNKNOWN PROVIDER * Additional services required to return to the preadmission environment? No * Can the patient safely return to the preadmission environment? Yes * Has this patient been hospitalized within the prior 30 days at any hospital? No Coverage Notice Reviewer: [id number] Tracee Caballero Notice Issued Date-Time: 05/28/2018 11:35 Notice Type: Patient Choice Letter Notice Delivered To: Family Member Relationship to Patient: Sister Chef De Froid Name: anahi Delivery Method: PHONE - Phone Sun Days: Prior Verbal Notification: Recipient Understood Notice: Yes Recipient Signature: Med Rec Note Co-signed by Attending: Coverage Notice Comment: Sister elizabeth will be here at hospital Friday at 11pm and requested the [facility] if she needs a SNF. Reviewer: [id number] Caballero Notice Issued Date-Time: 06/02/2018 8:23 Notice Type: Patient Choice Letter Notice Delivered To: Patient Relationship to Patient: Self Chef De Froid Name: Delivery Method: HAND - Hand Delivered Sun Days: Prior Verbal Notification: Recipient Understood Notice: Yes Recipient Signature: Yes Med Rec Note Co-signed by Attending: Coverage Notice Comment: [facility] Reviewer: [id number] Caballero Notice Issued Date-Time: 06/02/2018 8:23 Notice Type: IM Discharge Notice Notice Delivered To: Patient Relationship to Patient: Chef De Froid Name: Delivery Method: - Sun Days: Prior Verbal Notification: Recipient Understood Notice: Recipient Signature: Med Rec Note Co-signed by Attending: Coverage Notice Comment: Last DP export: 06/02/18 7:39 am Patient Name: UVALDO SANCHEZ Page [id number] at 1356 All edits/amendments must be made on the electronic document DICTATION DATE: 06/03/18 1350 TIN POURER: ROBERT 06/03/18 1355 RPT#: [id number] [place] DATE: STATUS: ADM IN [facility] [address] [place] [address] END OF REPORT
[2018-06-03] MEDS ORDERED: Nystatin Oral Susp [ PO (14:18)
[2018-06-03] MEDS ORDERED: LEVOFLOXACIN500 MG PO (14:18)
[2018-06-03] MEDS ORDERED: ATROVENT 0.02%2.5 ML UPD (14:19)
[2018-06-03] MEDS ORDERED: XOPENEX 0.0.63 MG/3 INH (14:19)
[2018-06-03] MEDS ORDERED: DALIRESP500 MCG PO (14:20)
[2018-06-03] MEDS ORDERED: PULMICORT0.5 MG/21 UPD (14:20)
[2018-06-03] MEDS ORDERED: VITAMIN B-1100 M1 PO (14:21)
[2018-06-03] MEDS ORDERED: FOLIC ACID1 MG PO (14:21)
[2018-06-03] MEDS ORDERED: FLORAJEN3 CAPS460 MG PO (14:21)
[2018-06-03] MEDS ORDERED: PREDNISONE20 MG PO (14:21)
--- NOTE | 2018-06-03 15:24 | MORECARE ---
CASE MANAGEMENT DISCHARGE SUMMARY PATIENT: UVALDO SANCHEZ UNIT: [id number] ADM DATE: 05/11/18 AGE: 68 : [birth year] SEX: F ROOM/BED: D.1211 AUTHOR: ERICDOC PHYSICIAN: REFERRING PHYSICIAN: TEREZA ROME MD DATE OF SERVICE: 06/03/18 Discharge Plan Patient Name: UVALDO SANCHEZ Facility: [facility]:[place] : 1950 Planned Disposition: Nursing Home Facility Anticipated Discharge Date: Discharge Date: Expected LOS: Initial Reviewer: [id number] Initial Review Date: 05/18/2018 Generated: 06/03/18 4:24 pm Comments DCP- Discharge Planning Updated by [id number]: Linda Caballero on 06/03/18 12:[address] Patient Name: UVALDO SANCHEZ Admission Status: ER Accout number: [id number] Admission Date: 05-11-2018 : 1950 Admission Diagnosis:CHRONIC OBSTRUCTIVE PULMONARY DISEASE W (ACUTE) EXACERB Attending: TEREZA ROME Current LOS: 23 Anticipated DC Date: Planned Disposition: Nursing Home Facility Primary Insurance: [facility] MEDICARE SOLUTIONS Discharge Planning Comments: The [facility] has accepted, as soon as the dc order is put in the nurse or cm can call the [facility] for van transport and to give report. CM will follow and assist as needed with dc planning/needs. The [facility] number is [phone]. Credit Coordinator: Linda Caballero DCP- Discharge Planning Updated by [id number]: Linda Caballero on 06/02/18 7:[address] Patient Name: UVALDO SANCHEZ Admission Status: ER Accout number: [id number] Admission Date: 05-11-2018 : 1950 Admission Diagnosis:CHRONIC OBSTRUCTIVE PULMONARY DISEASE W (ACUTE) EXACERB Attending: TEREZA ROME Current LOS: 22 Anticipated DC Date: Planned Disposition: Nursing Home Facility Primary Insurance: [facility] MEDICARE SOLUTIONS Discharge Planning Comments: CM SPOKE WITH PATIENT , WALDO SIGNED FOR THE [facility] SNF. ARIK CONTACTED AT THE [facility] AND REFERRAL FAXED. IMM SIGNED. WAITING TO HEAR BACK FROM THE [facility]. Credit Coordinator: Linda Caballero DCP- Discharge Planning Updated by [id number]: Josefina Dow on 05/31/18 6:[address] ORDER RECEIVED: Call [employer] about trilogy not working..... CM called [facility]) [phone], spoke to Diallo and he stated he would be here in the morning to see what was wrong with her machine and get it serviced. CM faxed order to him @ [phone]. Josefina Dow RN, [facility] DCP- Discharge Planning Updated by [id number]: Linda Caballero on 05/29/18 2:[address] Patient Name: UVALDO SANCHEZ Admission Status: ER Accout number: [id number] Admission Date: 05-11-2018 : 1950 Admission Diagnosis:CHRONIC OBSTRUCTIVE PULMONARY DISEASE W (ACUTE) EXACERB Attending: TEREZA ROME Current LOS: 18 Anticipated DC Date: Planned Disposition: Home Primary Insurance: [facility] MEDICARE SOLUTIONS Discharge Planning Comments: CM SPOKE WITH MIGUEL IN IP REHAB, SHE STATES PATIENT INSURANCE DENIED INPT REHAB STAY. IF DR. EDMONDS WANTS TO DO A P2P WITH THE [employer] HE NEEDS TO CALL [phone] BY FRIDAY AT 3PM. CM PAGED DR. EDMONDS AND WILL ATEMPT TO GET HIM THE MESSAGE BEFORE FRIDAY. Credit Coordinator: Linda Caballero Appended by Linda Caballero on 05/29/2018 15:46 CHIEF CLERK SHELTER: SPOKE WITH DR. EDMONDS AND PRIMARY SHOULD DO THE P2P. SENT MSG TO [facility] TO SEE WHAT THEY WANT TO DO. DCP- Discharge Planning Updated by [id number]: Lindaana Caballero on 05/28/18 10:[address] Patient Name: UVLADO SANCHEZ Admission Status: ER Accout number: [id number] Admission Date: 05-11-2018 : 1950 Admission Diagnosis:CHRONIC OBSTRUCTIVE PULMONARY DISEASE W (ACUTE) EXACERB Attending: TEREZA ROME Current LOS: 17 Anticipated DC Date: Planned Disposition: Home Primary Insurance: [facility] MEDICARE SOLUTIONS Discharge Planning Comments: CM SPOKE WITH PATIENT'S SISTER ANAHI ON THE PHONE. HER NUMBER IS [phone], SHE IS AT WORK RIGHT NOW. I EXPLAINED TO HER THAT IF HER SISTER IS TOO LOW FUNCTION FOR IP REHAB THEN WE WOULD NEED TO DO SNF. SHE STATED SHE WOULD LIKE [facility]. SHE WANTS TO MEET WITH THE [facility] AT THE HOSPITAL AT 11 TOMORROW IF POSSIBLE. CM WILL FOLLOW AND ASSIST NEEDED WITH DC PLANNING/NEEDS. Credit Coordinator: Linda Caballero DCP- Discharge Planning Updated by [id number]: Anupama Millard on 05/18/18 5:[address] Patient Name: UVALDO SANCHEZ Admission Status: ER Accout number: [id number] Admission Date: 05-11-2018 : 1950 Admission Diagnosis:CHRONIC OBSTRUCTIVE PULMONARY DISEASE W (ACUTE) EXACERB Attending: TEREZA ROME Current LOS: 7 Anticipated DC Date: Planned Disposition: Home Primary Insurance: [facility] MEDICARE SOLUTIONS Discharge Planning Comments: CM met with patient at bedside. Patient states she lives alone and plans to return to her home after discharge. Patient states she has a BIPAP, 02, nebulizer, walker and cane at home. Patient states she has home health visits but doesn't know who her provider is. CM will continue to follow and assist as needed with discharge planning / needs. Credit Coordinator: Anupama Millard DCP- Discharge Planning Updated by [id number]: Anupama Millard on 05/15/18 9:[address] CM attempted to do intake assessment for discharge planning. Patient is currently on BiPap and unable to talk. No family available at this time. CM will continue to follow and assist as needed with discharge planning / needs DCPIA - Discharge Planning Initial Assessment Updated by [id number]: Anupama Millard on 05/18/18 6:29 pm * Is the patient Alert and Oriented? Yes * How many steps to enter\exit or inside your home? * PCP [facility] * Pharmacy [facility] * Preadmission Environment Home Alone * ADLs Independent * Other Equipment BIPAP, 02, CANE, WALKER, NEBULIZER, * List name and contact numbers for known caregivers / representatives who currently or will assist patient after discharge: JOSH TELLEZ - AUNT - ?? * Verbal permission to speak to the caregivers and representatives has been obtained from the patient. Yes * Community resources currently utilized Home Health * Please name any agencies selected above. UNKNOWN PROVIDER * Additional services required to return to the preadmission environment? No * Can the patient safely return to the preadmission environment? Yes * Has this patient been hospitalized within the prior 30 days at any hospital? No External Providers External Provider: [facility] [place] Next Contact Date: Service Request Date: Service Type: Resolution: Reviewer: Comments: Coverage Notice Reviewer: [id number] Tracee Caballero Notice Issued Date-Time: 05/28/2018 11:35 Notice Type: Patient Choice Letter Notice Delivered To: Family Member Relationship to Patient: Photovoltaic Installation Technician Name: anahi Delivery Method: PHONE - Phone Sun Days: Prior Verbal Notification: Recipient Understood Notice: Yes Recipient Signature: Med Rec Note Co-signed by Attending: Coverage Notice Comment: Sister elizabeth will be here at hospital Friday at 11pm and requested the [facility] if she needs a SNF. Reviewer: [id number] Tracee Caballero Notice Issued Date-Time: 06/02/2018 8:23 Notice Type: Patient Choice Letter Notice Delivered To: Patient Relationship to Patient: Self Photovoltaic Installation Technician Name: Delivery Method: HAND - Hand Delivered Sun Days: Prior Verbal Notification: Recipient Understood Notice: Yes Recipient Signature: Yes Med Rec Note Co-signed by Attending: Coverage Notice Comment: the [facility] snf Reviewer: [id number] Tracee Caballero Notice Issued Date-Time: 06/02/2018 8:23 Notice Type: IM Discharge Notice Notice Delivered To: Patient Relationship to Patient: Photovoltaic Installation Technician Name: Delivery Method: - Sun Days: Prior Verbal Notification: Recipient Understood Notice: Recipient Signature: Med Rec Note Co-signed by Attending: Coverage Notice Comment: Last DP export: 06/03/18 12:56 pm Patient Name: UVALDO SANCHEZ Page 01961 at 1524 All edits/amendments must be made on the electronic document DICTATION DATE: 06/03/18 1524 [employer] PROGRAM MANAGER: ROBERT 06/03/18 1524 RPT#: [id number] DC DATE: STATUS: ADM IN [facility] [address] [place] [address] END OF REPORT
--- NOTE | 2018-06-03 15:35 | NUR ---
CALLED REPORT TO ELLEN Milton LVN AT THE [facility], [phone]. THE PATIENT IS GOING TO BE PICKED UP AT 1600 AND GOING TO ROOM 105
--- NOTE | 2018-06-03 15:41 | NUR ---
BOTH STENT CARD GIVEN TO THE PATIENT, SISTER IN THE ROOM
--- NOTE | 2018-06-03 15:46 | NUR ---
HERCULES REMOVED AT THIS TIME
--- NOTE | 2018-06-03 15:53 | MORECARE ---
CASE MANAGEMENT DISCHARGE SUMMARY PATIENT: UVALDO SANCHEZ UNIT: [id number] ADM DATE: 05/11/18 AGE: 68 : 49 SEX: F ROOM/BED: D.1211 AUTHOR: ERICDOC PHYSICIAN: REFERRING PHYSICIAN: TEREZA ROME MD DATE OF SERVICE: 06/03/18 Discharge Plan Patient Name: UVALDO SANCHEZ Facility: [facility]:[place] : 1950 Planned Disposition: Long Term Facility Anticipated Discharge Date: Discharge Date: Expected LOS: Initial Reviewer: [email or web address] Initial Review Date: 05/18/2018 Generated: 06/03/18 4:53 pm Comments DCP- Discharge Planning Updated by [email or web address]: Linda Caballero on 06/03/18 12:[address] Patient Name: UVALDO SANCHEZ Admission Status: ER Accout number: [id number] Admission Date: 05-11-2018 : 1950 Admission Diagnosis:CHRONIC OBSTRUCTIVE PULMONARY DISEASE W (ACUTE) EXACERB Attending: TEREZA ROME Current LOS: 23 Anticipated DC Date: Planned Disposition: Long Term Facility Primary Insurance: [facility] MEDICARE SOLUTIONS Discharge Planning Comments: The [facility] has accepted, as soon as the dc order is put in the nurse or cm can call the [facility] for van transport and to give report. CM will follow and assist as needed with dc planning/needs. The [facility] number is [phone]. Dog Breeder: Linda Caballero DCP- Discharge Planning Updated by [email or web address]: Linda Caballero on 06/02/18 7:[address] Patient Name: UVALDO SANCHEZ Admission Status: ER Accout number: [id number] Admission Date: 05-11-2018 : 1950 Admission Diagnosis:CHRONIC OBSTRUCTIVE PULMONARY DISEASE W (ACUTE) EXACERB Attending: TEREZA ROME Current LOS: 22 Anticipated DC Date: Planned Disposition: Long Term Facility Primary Insurance: [facility] MEDICARE SOLUTIONS Discharge Planning Comments: CM SPOKE WITH PATIENT , WALDO SIGNED FOR THE [facility] SNF. ARIK CONTACTED AT THE [facility] AND REFERRAL FAXED. IMM SIGNED. WAITING TO HEAR BACK FROM THE [facility]. Dog Breeder: Linda Caballero DCP- Discharge Planning Updated by [id number]: Josefina Dow on 05/31/18 6:[address] ORDER RECEIVED: Call [employer] about trilogy not working..... CM called [facility]) [phone], spoke to Diallo and he stated he would be here in the morning to see what was wrong with her machine and get it serviced. CM faxed order to him @ [phone]. Josefina Dow RN, [facility] DCP- Discharge Planning Updated by [id number]: Linda Caballero on 05/29/18 2:[address] Patient Name: UVALDO SANCHEZ Admission Status: ER Accout number: [id number] Admission Date: 05-11-2018 : 1950 Admission Diagnosis:CHRONIC OBSTRUCTIVE PULMONARY DISEASE W (ACUTE) EXACERB Attending: TEREZA ROME Current LOS: 18 Anticipated DC Date: Planned Disposition: Home Primary Insurance: [facility] MEDICARE SOLUTIONS Discharge Planning Comments: CM SPOKE WITH MIGUEL IN IP REHAB, SHE STATES PATIENT INSURANCE DENIED INPT REHAB STAY. IF DR. EDMONDS WANTS TO DO A P2P WITH THE [employer] HE NEEDS TO CALL [phone] BY FRIDAY AT 3PM. CM PAGED DR. EDMONDS AND WILL ATEMPT TO GET HIM THE MESSAGE BEFORE FRIDAY. Dog Breeder: Linda Caballero Appended by Linda Caballero on 05/29/2018 15:46 GEOTECHNICIAN: SPOKE WITH DR. EDMONDS AND PRIMARY SHOULD DO THE P2P. SENT MSG TO [facility] TO SEE WHAT THEY WANT TO DO. DCP- Discharge Planning Updated by [id number]: Lindaana Caballero on 05/28/18 10:[address] Patient Name: UVALDO SANCHEZ Admission Status: ER Accout number: [id number] Admission Date: 05-11-2018 : 1950 Admission Diagnosis:CHRONIC OBSTRUCTIVE PULMONARY DISEASE W (ACUTE) EXACERB Attending: TEREZA ROME Current LOS: 17 Anticipated DC Date: Planned Disposition: Home Primary Insurance: [facility] MEDIC[employer] SOLUTIONS Discharge Planning Comments: CM SPOKE WITH PATIENT'S SISTER ANAHI ON THE PHONE. HER NUMBER IS [phone], SHE IS AT WORK RIGHT NOW. I EXPLAINED TO HER THAT IF HER SISTER IS TOO LOW FUNCTION FOR IP REHAB THEN WE WOULD NEED TO DO SNF. SHE STATED SHE WOULD LIKE [facility]. SHE [facility]S TO [facility]ET WITH [facility] AT [facility] AT 11 TOMORROW IF POSSIBLE. CM WILL FOLLOW AND ASSIST NEEDED WITH DC PLANNING/NEEDS. Dog Breeder: Linda Caballero DCP- Discharge Planning Updated by [id number]: Anupama Millard on 05/18/18 5:[address] Patient Name: UVALDO SANCHEZ Admission Status: ER Accout number: [id number] Admission Date: 05-11-2018 : 1950 Admission Diagnosis:CHRONIC OBSTRUCTIVE PULMONARY DISEASE W (ACUTE) EXACERB Attending: TEREZA ROME Current LOS: 7 Anticipated DC Date: Planned Disposition: Home Primary Insurance: [facility] MEDICARE SOLUTIONS Discharge Planning Comments: CM met with patient at bedside. Patient states she lives alone and plans to return to her home after discharge. Patient states she has a BIPAP, 02, nebulizer, walker and cane at home. Patient states she has home health visits but doesn't know who her provider is. CM will continue to follow and assist as needed with discharge planning / needs. Dog Breeder: Anupama Millard DCP- Discharge Planning Updated by [id number]: Anupama Millard on 05/15/18 9:[address] CM attempted to do intake assessment for discharge planning. Patient is currently on BiPap and unable to talk. No family available at this time. CM will continue to follow and assist as needed with discharge planning / needs DCPIA - Discharge Planning Initial Assessment Updated by [id number]: Anupama Millard on 05/18/18 6:29 pm * Is the patient Alert and Oriented? Yes * How many steps to enter\exit or inside your home? * PCP [facility] * Pharmacy [facility] * Preadmission Environment Home Alone * ADLs Independent * Other Equipment BIPAP, 02, CANE, WALKER, NEBULIZER, * List name and contact numbers for known caregivers / representatives who currently or will assist patient after discharge: JOSH TELLEZ - AUNT - ?? * Verbal permission to speak to the caregivers and representatives has been obtained from the patient. Yes * Community resources currently utilized Home Health * Please name any agencies selected above. UNKNOWN PROVIDER * Additional services required to return to the preadmission environment? No * Can the patient safely return to the preadmission environment? Yes * Has this patient been hospitalized within the prior 30 days at any hospital? No Coverage Notice Reviewer: [email or web address] Tracee Caballero Notice Issued Date-Time: 05/28/2018 11:35 Notice Type: Patient Choice Letter Notice Delivered To: Family Member Relationship to Patient: Sister Automatic Nailing Machine Operator Name: anahi Delivery Method: PHONE - Phone Sun Days: Prior Verbal Notification: Recipient Understood Notice: Yes Recipient Signature: Med Rec Note Co-signed by Attending: Coverage Notice Comment: Sister elizabeth will be here at hospital Friday at 11pm and requested the [facility] if she needs a SNF. Reviewer: [id number] Caballero Notice Issued Date-Time: 06/02/2018 8:23 Notice Type: Patient Choice Letter Notice Delivered To: Patient Relationship to Patient: Self Automatic Nailing Machine Operator Name: Delivery Method: HAND - Hand Delivered Sun Days: Prior Verbal Notification: Recipient Understood Notice: Yes Recipient Signature: Yes Med Rec Note Co-signed by Attending: Coverage Notice Comment: [facility] Reviewer: [id number] Caballero Notice Issued Date-Time: 06/02/2018 8:23 Notice Type: IM Discharge Notice Notice Delivered To: Patient Relationship to Patient: Automatic Nailing Machine Operator Name: Delivery Method: - Sun Days: Prior Verbal Notification: Recipient Understood Notice: Recipient Signature: Med Rec Note Co-signed by Attending: Coverage Notice Comment: Last DP export: 06/03/18 2:24 pm Patient Name: UVALDO SANCHEZ Page [id number] at 1553 All edits/amendments must be made on the electronic document DICTATION DATE: 06/03/181551 LABOR ARBITRATOR HEARING OFFICE: ROBERT 06/03/18 1552 RPT#: [id number] [place] DATE: STATUS: ADM IN [facility] [address] [place] [address] END OF REPORT
--- NOTE | 2018-06-03 16:41 | NUR ---
REMOVED THE HERCULES, AND IV. ASSISTED THE PATIENT TO PUT A PULL UP ON, AND CODE MUSCLE WAS CALLED TO ASSIST THE PATIENT TO THE WHEELCHAIR. PATIENT LEFT VIA WHEELCHAIR TO BE TRANSPORTED TO THE [facility]. ALL PERSONAL BELONGINGS SENT WITH THE PATIENT.
--- NOTE | 2018-06-03 17:22 | MORECARE ---
CASE MANAGEMENT DISCHARGE SUMMARY PATIENT: UVALDO SANCHEZ HILLARY UNIT: [id number] ADM DATE: 05/11/18 AGE: 68 : 49 SEX: F ROOM/BED: D.1211 AUTHOR: ERIC,DOC PHYSICIAN: REFERRING PHYSICIAN: TEREZA ROME MD DATE OF SERVICE: 06/03/18 Discharge Plan Patient Name: UVALDO SANCHEZ Facility: [facility]:[place] : 1950 Planned Disposition: Assisted Facility Anticipated Discharge Date: 06/03/18 Discharge Date: 06/03/2018 Expected LOS: 23 Initial Reviewer: [email or web address] Initial Review Date: 05/18/2018 Generated: 06/03/18 6:21 pm Comments DCP- Discharge Planning Updated by [id number]: Linda Caballero on 06/03/18 12:[address] Patient Name: UVALDO SANCHEZ Admission Status: ER Accout number: [id number] Admission Date: 05-11-2018 : 1950 Admission Diagnosis:CHRONIC OBSTRUCTIVE PULMONARY DISEASE W (ACUTE) EXACERB Attending: TEREZA ROME Current LOS: 23 Anticipated DC Date: Planned Disposition: Assisted Facility Primary Insurance: [facility] MEDICARE SOLUTIONS Discharge Planning Comments: The [facility] has accepted, as soon as the dc order is put in the nurse or cm can call the [facility] for van transport and to give report. CM will follow and assist as needed with dc planning/needs. The [facility] number is [phone]. Wait Staff: Linda Caballero DCP- Discharge Planning Updated by [email or web address]: Linda Caballero on 06/02/18 7:[address] Patient Name: UVALDO SANCHEZ Admission Status: ER Accout number: [id number] Admission Date: 05-11-2018 : 1950 Admission Diagnosis:CHRONIC OBSTRUCTIVE PULMONARY DISEASE W (ACUTE) EXACERB Attending: TEREZA ROME Current LOS: 22 Anticipated DC Date: Planned Disposition: Assisted Facility Primary Insurance: [facility] MEDICARE SOLUTIONS Discharge Planning Comments: CM SPOKE WITH PATIENT , WALDO SIGNED FOR THE [facility] SNF. ARIK CONTACTED AT THE [facility] AND REFERRAL FAXED. IMM SIGNED. WAITING TO HEAR BACK FROM THE [facility]. Wait Staff: Linda Caballero DCP- Discharge Planning Updated by [id number]: Josefina Dow on 05/31/18 6:[address] ORDER RECEIVED: Call [employer] about trilogy not working..... CM called [facility]) [phone], spoke to Diallo and he stated he would be here in the morning to see what was wrong with her machine and get it serviced. CM faxed order to him @ [phone]. Josefina Dow RN, [facility] DCP- Discharge Planning Updated by [id number]: Linda Caballero on 05/29/18 2:[address] Patient Name: UVALDO SANCHEZ Admission Status: ER Accout number: [id number] Admission Date: 05-11-2018 : 1950 Admission Diagnosis:CHRONIC OBSTRUCTIVE PULMONARY DISEASE W (ACUTE) EXACERB Attending: TEREZA ROME Current LOS: 18 Anticipated DC Date: Planned Disposition: Home Primary Insurance: [facility] MEDICARE SOLUTIONS Discharge Planning Comments: NEIL SPOKE WITH MIGUEL IN IP REHAB, SHE STATES PATIENT INSURANCE DENIED INPT REHAB STAY. IF DR. EDMONDS WANTS TO DO A P2P WITH THE [employer] HE NEEDS TO CALL [phone] BY FRIDAY AT 3PM. CM PAGED DR. EDMONDS AND WILL ATEMPT TO GET HIM THE MESSAGE BEFORE FRIDAY. Wait Staff: Linda Caballero Appended by Linda Caballero on 05/29/2018 15:46 [employer]P [employer]: SPOKE WITH DR. EDMONDS AND PRIMARY SHOULD DO THE P2P. SENT MSG TO [facility] TO SEE WHAT THEY WANT TO DO. DCP- Discharge Planning Updated by [id number]: Linda Caballero on 05/28/18 10:[address] Patient Name: UVALDO SANCHEZ Admission Status: ER Accout number: [id number] Admission Date: 05-11-2018 : 1950 Admission Diagnosis:CHRONIC OBSTRUCTIVE PULMONARY DISEASE W (ACUTE) EXACERB Attending: TEREZA ROME Current LOS: 17 Anticipated DC Date: Planned Disposition: Home Primary Insurance: [facility] [employer] SOLUTIONS Discharge Planning Comments: CM SPOKE WITH PATIENT'S SISTER ANAHI ON THE PHONE. HER NUMBER IS [phone], SHE IS AT WORK RIGHT NOW. I EXPLAINED TO HER THAT IF HER SISTER IS TOO LOW FUNCTION FOR IP REHAB THEN WE WOULD NEED TO DO SNF. SHE STATED [facility]OULD LIKE [facility]. SHE WANTS TO MEET WITH THE [facility] AT THE [facility]OS[facility] AT 11 TOMORROW IF POSSIBLE. CM WILL FOLLOW AND ASSIST NEEDED WITH DC PLANNING/NEEDS. Wait Staff: Linda Caballero DCP- Discharge Planning Updated by [email or web address]: Anupama Millard on 05/18/18 5:[address] Patient Name: UVALDO SANCHEZ Admission Status: ER Accout number: [id number] Admission Date: 05-11-2018 : 1950 Admission Diagnosis:CHRONIC OBSTRUCTIVE PULMONARY DISEASE W (ACUTE) EXACERB Attending: TEREZA ROME Current LOS: 7 Anticipated DC Date: Planned Disposition: Home Primary Insurance: [facility] [employer] SOLUTIONS Discharge Planning Comments: CM met with patient at bedside. Patient states she lives alone and plans to return to her home after discharge. Patient states she has a BIPAP, 02, nebulizer, walker and cane at home. Patient states she has home health visits but doesn't know who her provider is. CM will continue to follow and assist as needed with discharge planning / needs. Wait Staff: Anupama Millard DCP- Discharge Planning Updated by [email or web address]: Anupama Millard on 05/15/18 9:[address] CM attempted to do intake assessment for discharge planning. Patient is currently on BiPap and unable to talk. No family available at this time. CM will continue to follow and assist as needed with discharge planning / needs DCPIA - Discharge Planning Initial Assessment Updated by [email or web address]: Anupama Millard on 05/18/18 6:29 pm * Is the patient Alert and Oriented? Yes * How many steps to enter\exit or inside your home? * PCP [facility] * Pharmacy [facility] * Preadmission Environment Home Alone * ADLs Independent * Other Equipment BIPAP, 02, CANE, WALKER, NEBULIZER, * List name and contact numbers for known caregivers / representatives who currently or will assist patient after discharge: JOSH TELLEZ - AUNT - ?? * Verbal permission to speak to the caregivers and representatives has been obtained from the patient. Yes * Community resources currently utilized Home Health * Please name any agencies selected above. UNKNOWN PROVIDER * Additional services required to return to the preadmission environment? No * Can the patient safely return to the preadmission environment? Yes * Has this patient been hospitalized within the prior 30 days at any hospital? No Coverage Notice Reviewer: [email or web address] Tracee Caballero Notice Issued Date-Time: 05/28/2018 11:35 Notice Type: Patient Choice Letter Notice Delivered To: Family Member Relationship to Patient: Advertising Specialist Name: anahi Delivery Method: PHONE - Phone Sun Days: Prior Verbal Notification: Recipient Understood Notice: Yes Recipient Signature: Med Rec Note Co-signed by Attending: Coverage Notice Comment: Sister elizabeth will be here at hospital Friday at 11pm and [facility] if she needs a SNF. Reviewer: [email or web address] Tracee Caballero Notice Issued Date-Time: 06/02/2018 8:23 Notice Type: Patient Choice Letter Notice Delivered To: Patient Relationship to Patient: Self Advertising Specialist Name: Delivery Method: HAND - Hand Delivered Sun Days: Prior Verbal Notification: Recipient Understood Notice: Yes Recipient Signature: Yes Med Rec Note Co-signed by Attending: Coverage Notice Comment: [facility] Reviewer: [id number] Caballero Notice Issued Date-Time: 06/02/2018 8:23 Notice Type: IM Discharge Notice Notice Delivered To: Patient Relationship to Patient: Advertising Specialist Name: Delivery Method: - Sun Days: Prior Verbal Notification: Recipient Understood Notice: Recipient Signature: Med Rec Note Co-signed by Attending: Coverage Notice Comment: Last DP export: 06/03/18 2:53 pm Patient Name: UVALDO SANCHEZ Page [id number] at 1722 All edits/amendments must be made on the electronic document DICTATION DATE: 06/03/181720 RATE AND COST ANALYST: ROBERT 06/03/181720 RPT#: [id number] DC DATE:06/03/18 STATUS: DIS IN [facility] [address] [place] [address] END OF REPORT
== END 2018-06-03 16:30 | DRG 981 ==
LOC: D.ER 11:53 → D.ICU 15:53 → D.M3 15:53 → D.EDHOLD 15:53 → D.M2 15:53 → D.ICU 05-13 16:59 → D.M3 05-20 19:02
PROVIDERS: Family Medicine; Internal Medicine Interventional Cardiology; Internal Medicine Pulmonary Disease; ADMIT Internal Medicine Nephrology
PROC: B2111ZZ Fluoroscopy of Multiple Coronary Arteries using Low Osmolar Contrast (ICD-10-PCS; 2018-05-13)
PROC: B2151ZZ Fluoroscopy of Left Heart using Low Osmolar Contrast (ICD-10-PCS; 2018-05-13)
PROC: 4A023N7 Measurement of Cardiac Sampling and Pressure, Left Heart, Percutaneous Approach (ICD-10-PCS; 2018-05-13)
PROC: 5A09357 Assistance with Respiratory Ventilation, Less than 24 Consecutive Hours, Continuous Positive Airway Pressure (ICD-10-PCS; 2018-05-13)
PROC: 027034Z Dilation of Coronary Artery, One Artery with Drug-eluting Intraluminal Device, Percutaneous Approach (ICD-10-PCS; principal; 2018-05-13 11:45)
PROC: 027034Z Dilation of Coronary Artery, One Artery with Drug-eluting Intraluminal Device, Percutaneous Approach (ICD-10-PCS; 2018-05-21)
DX: J44.1 Chronic obstructive pulmonary disease with (acute) exacerbation (principal); I50.33 Acute on chronic diastolic (congestive) heart failure; J96.21 Acute and chronic respiratory failure with hypoxia; J96.22 Acute and chronic respiratory failure with hypercapnia; J18.9 Pneumonia, unspecified organism; I13.0 Hypertensive heart and chronic kidney disease with heart failure and stage 1 through stage 4 chronic kidney disease, or unspecified chronic kidney disease; E87.1 Hypo-osmolality and hyponatremia; N17.9 Acute kidney failure, unspecified; G93.40 Encephalopathy, unspecified; J98.11 Atelectasis; B37.0 Candidal stomatitis; K56.7 Ileus, unspecified; N18.9 Chronic kidney disease, unspecified; E11.22 Type 2 diabetes mellitus with diabetic chronic kidney disease; I48.0 Paroxysmal atrial fibrillation; G47.33 Obstructive sleep apnea (adult) (pediatric); K21.9 Gastro-esophageal reflux disease without esophagitis; E78.5 Hyperlipidemia, unspecified; F32.9 Major depressive disorder, single episode, unspecified; R53.81 Other malaise; Z72.89 Other problems related to lifestyle; G89.29 Other chronic pain; D72.829 Elevated white blood cell count, unspecified; J44.0 Chronic obstructive pulmonary disease with (acute) lower respiratory infection

== ENCOUNTER 2018-11-17 14:00 | Outpatient (CLI) | payer MEDICARE, MEDICAID ==
[2018-05-18 15:48] VITALS: BMI 36.1
[~2018-11-17 14:00] MED LIST changes: +ATROVENT 0.02%2.5 ML UPD; +DALIRESP500 MCG PO; +FLORAJEN3 CAPS460 MG PO; +FOLIC ACID1 MG PO; +K-TAB10 MEQ PO; +LEVOFLOXACIN500 MG PO; +Nystatin Oral Susp [ PO; +PREDNISONE20 MG PO; +PULMICORT0.5 MG/21 UPD; +SINGULAIR10 MG PO; +VITAMIN B-1100 M1 PO; +XOPENEX 0.0.63 MG/3 INH
== END 2018-11-17 14:30 | disposition home or self-care (01) ==
LOC: D.MAMMO 14:00
PROVIDERS: ATTEND Emergency Medicine
DX: Z12.31 Encounter for screening mammogram for malignant neoplasm of breast (principal)

== ENCOUNTER → 2018-12-17 08:37 | Outpatient (CLI) | payer MEDICARE, MEDICAID ==
[2018-05-18 15:48] VITALS: BMI 36.1
[~2018-12-17 08:37] MED LIST changes: +CARDIZEM CD360 MG PO; +FLUTICASONE PR; +HUMULIN R100 U/ML SC; +MUCINEX600 MG PO; +MUCUS RELIEF; +PREDNISONE5 MG; +VITAMIN B-12500 MCG PO; +VITAMIN C500 M1 PO; +VITAMIN E; +[UNRECOGNIZED DRUG - OTHER]
== END | disposition home or self-care (01) ==
LOC: D.RT 10-28 08:00 → D.RAD 10-28 09:00 → D.RT 10-30 09:00 → D.RAD 10-30 09:00 → D.RT 12-08 15:00 → D.RAD 08:37
PROVIDERS: ATTEND Internal Medicine Pulmonary Disease
DX: J44.9 Chronic obstructive pulmonary disease, unspecified (principal)

== ENCOUNTER 2018-12-20 18:25 | Inpatient (IN) | payer MEDICARE, MEDICAID ==
[~2018-12-20] VITALS: Ht 167.6 cm; Wt 89.2 kg
[~2018-12-20 18:25] MED LIST changes: -CARDIZEM CD360 MG PO; -FLUTICASONE PR; -HUMULIN R100 U/ML SC; -MUCINEX600 MG PO; -MUCUS RELIEF; -PREDNISONE5 MG; -VITAMIN B-12500 MCG PO; -VITAMIN C500 M1 PO; -VITAMIN E; -[UNRECOGNIZED DRUG - OTHER]
[2018-12-20] MEDS ORDERED: AMBIEN10 MG PO (18:33)
[2018-12-20] MEDS ORDERED: ULTRAM50 MG PO (18:34)
[2018-12-20] MEDS ORDERED: PIOGLITAZONE15 MG PO (18:34)
[2018-12-20] MEDS ORDERED: BETAPACE 120 M120 MG PO (18:35)
[2018-12-20] MEDS ORDERED: VITAMIN E (18:37)
[2018-12-20] MEDS ORDERED: [UNRECOGNIZED DRUG - OTHER] (18:37)
[2018-12-20] MEDS ORDERED: ASPIRIN81 MG PO (18:38)
[2018-12-20] MEDS ORDERED: MUCUS RELIEF (18:38)
[2018-12-20] MEDS ORDERED: FLUTICASONE PR (18:39)
[2018-12-20] MEDS ORDERED: VITAMIN B-12500 MCG PO (18:39)
[2018-12-20] MEDS ORDERED: CARDIZEM CD360 MG PO (18:40)
[2018-12-20] MEDS ORDERED: VITAMIN C500 M1 PO (18:42)
[2018-12-20 19:12] LABS: BASOPHILS 0.1 % (0-2); EOSINOPHILS 1.1 % (0-7); HEMATOCRIT 40.3 % (36.0-48.0); HEMOGLOBIN 12.7 g/dL (12-16); IMMATURE GRANULOCYTES 0.6 % (0-5); LYMPHOCYTES 16.5 % (15-50); MCH 24.4 pg (26.0-34.0); MCHC 31.5 g/dL (31.0-37.0); MCV 77.5 fL (80.0-100.0); MEAN PLATELET VOLUME 9.9 fL (7.4-10.4); NEUTROPHILS 73.7 % (40-80); PLATELET COUNT 167 10x3/uL (130-400); RDW 18.5 % (11.5-14.5); WBC 9.7 10x3/uL (4.8-10.8)
[2018-12-20 19:44] LABS: ALKALINE PHOSPHATASE 56 U/L (46-116); ALT (SGPT) 67 U/L (10-68); BILIRUBIN - TOTAL 0.25 mg/dL (0.2-1.3); CALC OSMOLALITY 289 mosm/kg (275-300); CALCIUM 9.2 mg/dL (8.5-10.1); CHLORIDE - SERUM 101 mmol/L (98-107); CREATININE - SERUM 1.6 mg/dL (0.6-1.3); GLUCOSE 114 mg/dL (74-106); POTASSIUM - SERUM 3.8 mmol/L (3.5-5.1); SODIUM 139 mmol/L (136-145); UREA NITROGEN 43 mg/dL (7-18); eGFR NON AFRICAN AMERICAN 34 mL/min (90-120)
[2018-12-20 19:51] LABS: CKMB 0.5 U/L (0.0-3.6); CREATINE KINASE 50 UL (21-215); PRO BNP 8837 pg/mL (0-125)
[2018-12-20 19:58] LABS: TROPONIN-I < 0.017 ng/mL (0.000-0.060)
[2018-12-20 20:09] VITALS: BP 146/76
--- NOTE | 2018-12-20 21:58 | NUR ---
REPORT RECEIVED FROM CASSIE IN THE ER.
[2018-12-20 22:28] VITALS: BP 128/73; BMI 30.7
--- NOTE | 2018-12-20 22:38 | NUR ---
ADMISSION ASSESSMENT COMPLETE.
[2018-12-21 04:00] VITALS: BP 115/76
[2018-12-21 05:36] LABS: BASOPHILS 0 % (0-2); EOSINOPHILS 0 % (0-7); HEMATOCRIT 38.9 % (36.0-48.0); HEMOGLOBIN 11.9 g/dL (12-16); IMMATURE GRANULOCYTES 0.6 % (0-5); LYMPHOCYTES 4.4 % (15-50); MCH 24.1 pg (26.0-34.0); MCHC 30.6 g/dL (31.0-37.0); MCV 78.7 fL (80.0-100.0); MEAN PLATELET VOLUME 10.3 fL (7.4-10.4); MONOCYTES 0.5 % (2-11); NEUTROPHILS 94.5 % (40-80); PLATELET COUNT 164 10x3/uL (130-400); RBC 4.94 10x6/uL (4.00-5.40); RDW 18.6 % (11.5-14.5); WBC 8.5 10x3/uL (4.8-10.8)
[2018-12-21 05:59] LABS: ANION GAP 11.2 mmol/L (8-16); CALCIUM 8.6 mg/dL (8.5-10.1); CREATININE - SERUM 1.6 mg/dL (0.6-1.3); POTASSIUM - SERUM 4.2 mmol/L (3.5-5.1)
--- NOTE | 2018-12-21 07:50 | NUR ---
PATIENT RESTING WITH 02 2L/NC, IV PATENT TO RIGHT AC, COUGH WITH WHEEZING AND RHONCHI. CL IN REACH
[2018-12-21 09:02] VITALS: BP 141/77
[2018-12-21 09:35] LABS: APPEARANCE CLEAR (CLEAR); COLOR YELLOW (YELLOW); NITRITE NEGATIVE (NEGATIVE)
[2018-12-21 09:36] LABS: BILIRUBIN NEGATIVE (NEGATIVE); GLUCOSE NEGATIVE (NEGATIVE); KETONE NEGATIVE (NEGATIVE); PROTEIN 1+ mg/dL (NEGATIVE); UROBILINOGEN NORMAL (NORMAL)
[2018-12-21 09:40] LABS: BACTERIA FEW /hpf (NONE SEEN); EPITHELIAL CELLS NSEEN /hpf (0-5); RED CELLS - URINE NONE SEEN /hpf (0-5); WHITE CELLS - URINE 0-5 /hpf (0-5)
[2018-12-21 12:35] VITALS: Ht 167.6 cm; Wt 89.2 kg
[2018-12-21 13:12] VITALS: BP 140/88
[2018-12-21 18:02] VITALS: BP 114/63
--- NOTE | 2018-12-21 19:35 | NUR ---
PT SITTING UP IN BED WITHOUT DISTRESS, ALERT AND ORIENTED. IV RIGHT AC INFUSING NS @ KVO. REFUSES SCDS. RESP AT BEDSIDE ADMINISTERING BREATHING TX. PT WITH FREQUENT COUGH, NON PRODUCTIVE. INFORMED OF NEED FOR CULTURE. VERBALIZED UNDERSTANDING. GENERALIZED PAIN 5/10, WORSE WITH COUGHING. DENIES OTHER NEEDS. CL IN REACH, WILL CTM
[2018-12-21 20:00] VITALS: BP 109/48
[2018-12-22 04:00] VITALS: BP 116/61
[2018-12-22 06:51] LABS: BASOPHILS 0 % (0-2); EOSINOPHILS 0 % (0-7); HEMATOCRIT 38.6 % (36.0-48.0); HEMOGLOBIN 11.9 g/dL (12-16); IMMATURE GRANULOCYTES 0.5 % (0-5); LYMPHOCYTES 2.5 % (15-50); MCH 25.1 pg (26.0-34.0); MCHC 30.8 g/dL (31.0-37.0); MONOCYTES 3.2 % (2-11); NEUTROPHILS 93.8 % (40-80); PLATELET COUNT 179 10x3/uL (130-400); RBC 4.74 10x6/uL (4.00-5.40); RDW 18.7 % (11.5-14.5)
[2018-12-22 07:03] LABS: ANION GAP 14.2 mmol/L (8-16); CALCIUM 8.7 mg/dL (8.5-10.1); CREATININE - SERUM 2.2 mg/dL (0.6-1.3); POTASSIUM - SERUM 5.2 mmol/L (3.5-5.1)
[2018-12-22 07:20] LABS: MCV 81.4 fL (80.0-100.0); WBC 14.8 10x3/uL (4.8-10.8)
[2018-12-22 09:08] VITALS: BP 122/60
--- NOTE | 2018-12-22 10:41 | NUR ---
PATIENT RESTING RESPIRATIONS NONLABORED AT THIS TIME. EDUCTATED PATIENT ON SPUTUM CULTURE NEEDED.
[2018-12-22 12:17] VITALS: BP 143/84
--- NOTE | 2018-12-22 16:05 | NUR ---
BLADDER SCANNED AFTER PATIENT VOIDED WITH NO RESIDUAL RECORDED
[2018-12-22 16:45] VITALS: BP 124/57
--- NOTE | 2018-12-22 19:35 | NUR ---
PT SITTING UP IN BED WITHOUT DISTRESS, AOX4. STATES PAIN IN CHEST AND BACK 4/10, WORSE WHEN COUGHING. FREQUENT NON PRODUCTIVE COUGH. IV RIGHT WRIST INFUSING NS @ KVO. O2 4L/NC. REFUSES SCDS. HR 67 PACED PER TELE. DENIES NEEDS AT THIS TIME. CL IN REACH, WILL CTM
[2018-12-22 20:00] VITALS: BP 128/63
[2018-12-23] VITALS (11 sets, daily range): BP systolic 122–153; BP diastolic 58–90
[2018-12-23 06:21] LABS: BASOPHILS 0.1 % (0-2); EOSINOPHILS 0.1 % (0-7); HEMATOCRIT 40.6 % (36.0-48.0); HEMOGLOBIN 12.1 g/dL (12-16); IMMATURE GRANULOCYTES 0.9 % (0-5); LYMPHOCYTES 3.4 % (15-50); MCH 24.5 pg (26.0-34.0); MCHC 29.8 g/dL (31.0-37.0); MCV 82.2 fL (80.0-100.0); MEAN PLATELET VOLUME 10.4 fL (7.4-10.4); NEUTROPHILS 90.5 % (40-80); PLATELET COUNT 200 10x3/uL (130-400); RBC 4.94 10x6/uL (4.00-5.40); RDW 18.4 % (11.5-14.5); WBC 13.1 10x3/uL (4.8-10.8)
[2018-12-23 06:35] LABS: ANION GAP 12.2 mmol/L (8-16); CALCIUM 8.7 mg/dL (8.5-10.1); CARBON DIOXIDE 28.1 mmol/L (21.0-32.0); POTASSIUM - SERUM 5.3 mmol/L (3.5-5.1)
[2018-12-23 06:36] LABS: CREATININE - SERUM 3.1 mg/dL (0.6-1.3)
--- NOTE | 2018-12-23 08:42 | NUR ---
PT RESTING IN BED. WORKING ON FLUTTER. NO S/S OF ACUTE DISTRESS. CL IN PLACE.
--- NOTE | 2018-12-23 15:45 | NUR ---
PT ARRIVED TO UNIT. HOOKED UP TO MONITOR. BIPAP AND PACED. WILL CONTINUE TO MONITOR
--- NOTE | 2018-12-23 16:02 | NUR ---
CALLED REPORT TO DAHLIA WU. TRANS PT TO 2308 ICU. RT, ROSALIO ASSITED. NO S/S OF ACUTE DISTRESS. ALL BELONGINGS, CELL PHONE AND PURSE TAKEN WITH HER.
--- NOTE | 2018-12-23 17:00 | NUR ---
PT RESTING IN BED WITH BIPAP ON. NO COMPLAINTS AT THIS TIME. WILL CONTINUE TO MONITOR
--- NOTE | 2018-12-23 19:00 | NUR ---
Received patient laying in bed with eyes open, assessment completed per flowsheet. Patient AO x4, slightly lethargic but awakens and follows commands with stimuli. S1/S2 noted NSR with Regular pacing on telemetry, rythmic and regular. Breathing is shallow/short of breath on BiPAP 40% with O2 sat 99%, expiratory wheeze noted bilateral upper and mid with diminished lower. Abdomen is round/soft with bowel sounds active x4, non-tender. All pulses palpable with cap refill < 3 sec, skin warm/dry. Denies pain or other needs at this time, see flowsheet for details. All VSS and will continue to monitor.
--- NOTE | 2018-12-23 21:00 | NUR ---
Patient resting in bed on BiPAP 40% with family at bedside, discussed treatment plan/medications with all questions answered to satisfaction. HS meds given as ordered, full linen change performed. Denies pain at this time, all VSS and will continue to monitor.
--- NOTE | 2018-12-23 23:00 | NUR ---
Reassessment completed per flowsheet, no changes noted from previous assessment. Lung sounds clear/diminished bilateral upper with diminished mid and lower, patient on BiPAP 30% with O2 sat 96%. All pulses palpable wtih cap refill < 3 sec, skin warm/dry. Denies pain or other needs at this time, see flowsheet for details. All VSS and will continue to monitor.
[2018-12-24] VITALS (23 sets, daily range): BP systolic 133–184; BP diastolic 61–99
--- NOTE | 2018-12-24 00:45 | NUR ---
Patient repeatedly removing BiPAP mask, states she "can't take it" and "it's too tight". Attempted to adjust with no relief, explained need for BiPAP with stated understanding. Patient refuses to wear, Jose Luis OLIVAREZ paged to notify of situation.
--- NOTE | 2018-12-24 01:20 | NUR ---
Georgia PICKARD at bedside, explained need for BiPAP to patient with stated understanding. Patient agreed to wear BiPAP, will continue to monitor.
--- NOTE | 2018-12-24 03:00 | NUR ---
Reassessment completed per flowsheet, no changes noted from previous assessment. Breathing is shallow/short of breath on BiPAP 30% with O2 sat 99%, lung sounds clear/diminished upper and diminished mid and lower. All pulses palpable with cap refill < 3 sec, skin warm/dry. Repositioned for comfort, denies pain or other needs at this time. Patient still c/o BiPAP mask, continues to wear per Dr orders. See flowsheet for details, all VSS and will continue to monitor.
[2018-12-24 04:35] LABS: BASOPHILS 0 % (0-2); EOSINOPHILS 0 % (0-7); HEMATOCRIT 38.8 % (36.0-48.0); HEMOGLOBIN 11.7 g/dL (12-16); IMMATURE GRANULOCYTES 0.8 % (0-5); MCHC 30.2 g/dL (31.0-37.0); MEAN PLATELET VOLUME 10.1 fL (7.4-10.4); MONOCYTES 5.6 % (2-11); NEUTROPHILS 89.6 % (40-80); PLATELET COUNT 171 10x3/uL (130-400); RBC 4.88 10x6/uL (4.00-5.40); WBC 13.9 10x3/uL (4.8-10.8)
[2018-12-24 04:41] LABS: MCV 79.5 fL (80.0-100.0)
[2018-12-24 04:48] LABS: ANION GAP 13.7 mmol/L (8-16); CALCIUM 8.6 mg/dL (8.5-10.1); CARBON DIOXIDE 26.7 mmol/L (21.0-32.0); CREATININE - SERUM 3.3 mg/dL (0.6-1.3); PHOSPHOROUS 7.5 mg/dL (2.5-4.9); POTASSIUM - SERUM 5.4 mmol/L (3.5-5.1)
--- NOTE | 2018-12-24 08:49 | NUR ---
0700 IN BED WEARING BPAP AT 30% HERCULES PLACEMENT DONE NS INFUSING AT 75ML/HR TO RIGHT AC ASSESSMENT COMPLETE
--- NOTE | 2018-12-24 10:09 | NUR ---
0900 TRYING TO PULL OFF BPAP RESECURED OT FACE INSTRUCTED PT ON USE AND PURPOSE CALMING MEASURES PROVIDED A FIB NOTED
--- NOTE | 2018-12-24 11:11 | NUR ---
1100 RESTING QUIETLY WEARING BPAP
--- NOTE | 2018-12-24 19:10 | NUR ---
Received patient resting in bed with eyes closed, assessment completed per flowsheet. Patient agitated, c/o of BiPAP mask uncomfortable and "wants to take it off". S1/S2 noted Controlled Afib with PVC on telemetry, irregular. Breathing is short of breath on BiPAP 40% with O2 sat 98%, lung sounds clear bilateral upper with clear/diminished mid and diminished lower. Abdomen is obese/round with bowel sounds active x4, non-tender. All pulses palpable with cap refill < 3 sec, weakness/generalized edema noted all. Braswell secured, slight ron cloudy urine noted. Denies further needs at this time, see flowsheet for details. All VSS and will continue to monitor.
--- NOTE | 2018-12-24 19:23 | NUR ---
[address] MAS OF AFIB IN AM AND CONVERTED TO SR. HE SAID HE WASNT CONCERNED AT THIS TIME
--- NOTE | 2018-12-24 19:25 | NUR ---
1500 SLEEPING ANDK TOLERATLING BPAP AT NEW SETTINGS OF 405
--- NOTE | 2018-12-24 19:26 | NUR ---
1700 [address] 134 NO INSULIN COVERAGE NEEDED
--- NOTE | 2018-12-24 20:49 | MORECARE ---
CASE MANAGEMENT DISCHARGE SUMMARY PATIENT: UVALDO SANCHEZ HILLARY UNIT: [id number] ADM DATE: 12/20/18 AGE: 68 : [birth year] SEX: F ROOM/BED: D.2308 AUTHOR: LUIS REYES PHYSICIAN: REFERRING PHYSICIAN: ASHU BANSAL MD DATE OF SERVICE: 12/24/18 Discharge Plan Patient Name: UVALDO SANCHEZ [facility] : 1950 Planned Disposition: Anticipated Discharge Date: Discharge Date: Expected LOS: Initial Reviewer: [email or web address] Initial Review Date: 12/20/2018 Generated: 12/24/18 9:49 pm Comments DCP- Discharge Planning Updated by [email or web address]: Anupama Millard on 12/24/18 7:[address] CM attempted to visit with patient regarding discharge planning/ needs. Patient currently on BiPap and c/o pain. no family available. CM will continue to follow and assist as needed with discharge planning / needs Patient Name: UVALDO SANCHEZ Page [id number] at 204 All edits/amendments must be made on the electronic document DICTATION DATE: 12/24/182048 LINE PATROLLER: ROBERT 12/24/182048 RPT#: [id number] DC DATE: STATUS: ADM IN [facility] [address] [place] [address] END OF REPORT
--- NOTE | 2018-12-24 23:00 | NUR ---
RESTING WITH EYES CLOSED, EASILY ROUSED AND ALERT. CONTINUES ON BIPAP. CALL LIGHT IN REACH. VSS
[2018-12-25] VITALS (21 sets, daily range): BP systolic 139–174; BP diastolic 61–104
[2018-12-25 04:30] LABS: BASOPHILS 0 % (0-2); EOSINOPHILS 0 % (0-7); HEMATOCRIT 36.5 % (36.0-48.0); HEMOGLOBIN 11.6 g/dL (12-16); IMMATURE GRANULOCYTES 0.3 % (0-5); LYMPHOCYTES 4.2 % (15-50); MCH 24.1 pg (26.0-34.0); MCHC 31.8 g/dL (31.0-37.0); MCV 75.7 fL (80.0-100.0); MEAN PLATELET VOLUME 9.8 fL (7.4-10.4); MONOCYTES 3.2 % (2-11); NEUTROPHILS 92.3 % (40-80); PLATELET COUNT 148 10x3/uL (130-400); RBC 4.82 10x6/uL (4.00-5.40); WBC 9.1 10x3/uL (4.8-10.8)
[2018-12-25 05:00] LABS: ANION GAP 15.5 mmol/L (8-16); CALCIUM 9.2 mg/dL (8.5-10.1); CARBON DIOXIDE 26.5 mmol/L (21.0-32.0); VANCOMYCIN - RANDOM 7.1 ug/mL (10.0-20.0)
--- NOTE | 2018-12-25 05:00 | NUR ---
IV OUT.CATH INTACT. LARGE SKIN TEAR TO RFA OBSERVED. CLEANED AND BANDAGED.
[2018-12-25 05:02] LABS: CREATININE - SERUM 1.7 mg/dL (0.6-1.3)
--- NOTE | 2018-12-25 06:30 | NUR ---
ATTEMPTED IV ACCESS X 2 RN'S WITH NO SUCCESS.
--- NOTE | 2018-12-25 07:30 | NUR ---
REPORT RECEIVED. PT ALERT AND ON BIPAP AT 30%. NO IV ACCESS. PT HAS A HERCULES. SHE HAS A PACEMAKER AND IS IN CONTROLLED AFIB. SHE IS A FSBS ACHS. VSS. WILL CONTINUE TO MONITOR.
--- NOTE | 2018-12-25 08:30 | NUR ---
ATTEMPTED IV TO LEFT FOREARM. BLEW VEIN. CONSULTED VASCULAR ACCESS NURSE WHO GOT A 22 GAUGE IN PT'S RIGHT UPPER ARM.
--- NOTE | 2018-12-25 09:30 | NUR ---
PT TOOK AM MEDICATIONS. GOT WINDED THE 5-10 MINUTES HER BIPAP WAS OFF AND THE O2 AT 6L WAS ON. PUT BIPAP BACK ON SOON DONE.
--- NOTE | 2018-12-25 11:05 | NUR ---
DR EDMONDS ROUNDED ON PT. ASKED ME TO SEE ABOUT GETTING VASCULAR NURSE TO PLACE A PICC LINE OR MIDLINE. CALLED DAHLIA COLLINS, VASCULAR ACCESS NURSE, AND LEFT VOICEMAIL. WILL FOLLOW UP.
--- NOTE | 2018-12-25 12:34 | NUR ---
Nutrition follow-up: Diet: consistent CHO PO intake poor due to breathing issues Labs reviewed WT: 194# RDN following.
--- NOTE | 2018-12-25 13:14 | NUR ---
FAMILY AT BEDSIDE. WANT TO SPEAK WITH DR EDMONDS. PAGED DR EDMONDS. PUT NEW DRESSING ON RIGHT FOREARM SKIN TEAR. PT HAVING PANIC ATTACK WHILE SISTER IN ROOM. SISTER TOOK BIPAP OFF PT AND PUT O2 ON PT. TRIED TO EDUCATE FAMILY. THE SISTER SPOKE WITH DR EDMONDS AND FELT BETTER AFTER TALKING TO HIM. STATES THAT SHE WON'T REMOVE THE BIPAP OR ANY OTHER EQUIPMENT ON HER SISTER.
--- NOTE | 2018-12-25 15:00 | NUR ---
MIDLINE IV PLACED TO LEFT UPPER ARM PER VASCULAR NURSEDENNIS. PT RESTLESS. GOING BACK AND FORTH FROM WEARING O2 AT 6L AND WEARING HOME TRILOGY CPAP.
--- NOTE | 2018-12-25 17:15 | NUR ---
PT PULLED OUT MIDLINE IN LEFT UPPER ARM. WON'T LEAVE OXYGEN ON. VISIBLY AGITATED. SPOKE WITH DR ROME ABOUT PT DRINKING BEER DAILY AND SMOKING, PER PT'S FRIENDS. NEW ORDERS PLACED.
--- NOTE | 2018-12-25 18:31 | NUR ---
22 GAUGE IV PLACED TO LEFT HAND.
--- NOTE | 2018-12-25 19:00 | NUR ---
REPORT RECIEVED, PT RESTING IN BED, AROUSES TO VOICE AND STIMULI. PT SLIGHTLY CONFUSED, BUT COMFORTABLE. VITALS STABLE, PT ON 6L O2 VIA NC. ASSESSMENT COMPLETED, SEE FLOWSHEET. LEFT HAND PIV 22G IN PLACE, SEE FLOWSHEET. NO ACUTE DISTRESS NOTED AT THIS TIME, MIKIE CONTINUE TO MONITOR.
--- NOTE | 2018-12-25 19:59 | MORECARE ---
CASE MANAGEMENT DISCHARGE SUMMARY PATIENT: UVALDO SANCHEZ [place] UNIT: [id number] ADM DATE: 12/20/18 AGE: 68 : 49 SEX: F ROOM/BED: D.2308 AUTHOR: LUIS REYES PHYSICIAN: REFERRING PHYSICIAN: ASHU BANSAL MD DATE OF SERVICE: 12/25/18 Discharge Plan Patient Name: UVALDO SANCHEZ [facility] : 1950 Planned Disposition: Anticipated Discharge Date: Discharge Date: Expected LOS: Initial Reviewer: [email or web address] Initial Review Date: 12/20/2018 Generated: 12/25/18 8:59 pm DCP- Discharge Planning Updated by [email or web address]: Anupama Millard on 12/24/18 7:[address] CM attempted to visit with patient regarding discharge planning/ needs. Patient currently on BiPap and c/o pain. no family available. CM will continue to follow and assist as needed with discharge planning / needs Last DP export: 12/24/18 7:49 p Patient Name: UVALDO SANCHEZ Page [id number] at 1958 All edits/amendments must be made on the electronic document DICTATION DATE: 12/25/181958 TRADING ASSISTANT: ROBERT 12/25/181958 RPT#: [id number] DC DATE: STATUS: ADM IN [facility] [address] [place] [address] END OF REPORT
--- NOTE | 2018-12-25 20:06 | MORECARE ---
CASE MANAGEMENT DISCHARGE SUMMARY PATIENT: UVALDO SANCHEZ [facility] UNIT: [id number] ADM DATE: 12/20/18 AGE: 68 : 49 SEX: F ROOM/BED: D.2308 AUTHOR: LUIS REYES PHYSICIAN: REFERRING PHYSICIAN: ASHU BANSAL MD DATE OF SERVICE: 12/25/18 Discharge Plan Patient Name: UVALDO SANCHEZ [facility] [facility] 1950 Planned Disposition: Anticipated Discharge Date: Discharge Date: Expected LOS: Initial Reviewer: [email or web address] Initial Review Date: 12/20/2018 Generated: 12/25/18 9:06 pm DCP- Discharge Planning Updated by [email or web address]: Anupama Millard on 12/24/18 7:[address] CM attempted to visit with patient regarding discharge planning/ needs. Patient currently on BiPap and c/o pain. no family available. CM will continue to follow and assist as needed with discharge planning / needs Last DP export: 12/25/18 6:59 p Patient Name: UVALDO SANCHEZ Page 10469 at 2006 All edits/amendments must be made on the electronic document DICTATION DATE: 12/25/182004 DYE TUB OPERATOR: ROBERT 12/25/182004 RPT#: [id number] DC DATE: STATUS: ADM IN [facility] [address] [place] [address] END OF REPORT
--- NOTE | 2018-12-25 20:12 | MORECARE ---
CASE MANAGEMENT DISCHARGE SUMMARY PATIENT: UVALDO SANCHEZ [place] UNIT: [id number] ADM DATE: 12/20/18 AGE: 68 : 49 SEX: F ROOM/BED: D.2308 AUTHOR: LUIS REYES PHYSICIAN: REFERRING PHYSICIAN: ASHU BANSAL MD DATE OF SERVICE: 12/25/18 Discharge Plan Patient Name: UVALDO SANCHEZ Facility: [facility]:[place] : 1950 Planned Disposition: Anticipated Discharge Date: Discharge Date: Expected LOS: Initial Reviewer: [email or web address] Initial Review Date: 12/20/2018 Generated: 12/25/18 9:12 pm DCP- Discharge Planning Updated by SERGE Millard on 12/24/18 7:[address] CM attempted to visit with patient regarding discharge planning/ needs. Patient currently on BiPap and c/o pain. no family available. CM will continue to follow and assist as needed with discharge planning / needs DCPIA - Discharge Planning Initial Assessment Updated by [email or web address]: Anupama Millard on 12/25/18 8:09 pm * Is the patient Alert and Oriented? Yes * How many steps to enter\exit or inside your home? * PCP Bean * Pharmacy [facility] * Preadmission Environment Home Alone * ADLs Independent * Other Equipment TRILOGY, HOME / PORTSBLE 02, NEBULIZER, BSC, SC, * List name and contact numbers for known caregivers / representatives who currently or will assist patient after discharge: ANAHI ZAMBRANO [facility]- [phone] * Verbal permission to speak to the caregivers and representatives has been obtained from the patient. Yes * Community resources currently utilized Home Health * Please name any agencies selected above. [facility]? * Additional services required to return to the preadmission environment? No * Can the patient safely return to the preadmission environment? Yes * Has this patient been hospitalized within the prior 30 days at any hospital? No Last DP export: 12/25/18 7:06 p Patient Name: UVALDO SANCHEZ Page [id number] at 2012 All edits/amendments must be made on the electronic document DICTATION DATE: 12/25/182011 CHAMBER WALKER: DM 12/25/182011 RPT#: [id number] DC DATE: STATUS: ADM IN [facility] [address] [place] [address] END OF REPORT
--- NOTE | 2018-12-25 20:25 | MORECARE ---
CASE MANAGEMENT DISCHARGE SUMMARY PATIENT: UVALDO SANCHEZ UNIT: [id number] ADM DATE: 12/20/18 AGE: 68 : 49 SEX: F ROOM/BED: D.2308 AUTHOR: ERIC,DOC PHYSICIAN: REFERRING PHYSICIAN: ASHU BANSAL MD DATE OF SERVICE: 12/25/18 Discharge Plan Patient Name: UVALDO SANCHEZ Facility: [facility]:[place] : 1950 Planned Disposition: Anticipated Discharge Date: Discharge Date: Expected LOS: Initial Reviewer: [email or web address] Initial Review Date: 12/20/2018 Generated: 12/25/18 9:24 pm Comments DCP- Discharge Planning Updated by [email or web address]: Anupama Millard on 12/25/18 7:[address] Patient Name: UVALDO SANCHEZ Admission Status: ER Accout number: [id number] Admission Date: 12-20-2018 : 1950 Admission Diagnosis:CHRONIC OBSTRUCTIVE PULMONARY DISEASE W (ACUTE) EXACERB Attending: NIMISHA, Current LOS: 5 Anticipated DC Date: Planned Disposition: Primary Insurance: [employer] ADV Discharge Planning Comments: CM met with patient to complete initial dc planning assessment. CM educated patient on the CM role and verbal consent given by patient to complete assessment. Patient lives at home alone where she is independent with her care. At discharge patient plans to return home. Patient may need SNF or rehab prior to discharging home. Patient is having a hard time breathing and could only speak a few words at a time. CM discussed availability of home health, rehab services, and medical equipment. Patient is wearing her trilogy from home ([facility]) she states she has home 02, nebulizer, bsc, and walker. Patient denied known discharge needs at this time. CM will continue to follow and will assist as needed with dc plans/needs. Dining Car Server: Anupama Millard DCP- Discharge Planning Updated by [email or web address]: Anupama Millard on 12/24/18 7:[address] CM attempted to visit with patient regarding discharge planning/ needs. Patient currently on BiPap and c/o pain. no family available. CM will continue to follow and assist as needed with discharge planning / needs DCPIA - Discharge Planning Initial Assessment Updated by [email or web address]: Anupama Millard on 12/25/18 8:09 pm * Is the patient Alert and Oriented? Yes * How many steps to enter\exit or inside your home? * PCP Bean * Pharmacy [facility] * Preadmission Environment Home Alone * ADLs Independent * Other Equipment TRILOGY, HOME / PORTSBLE 02, NEBULIZER, BSC, SC, * List name and contact numbers for known caregivers / representatives who currently or will assist patient after discharge: ANAHI ZAMBRANO - [facility]- [phone] * Verbal permission to speak to the caregivers and representatives has been obtained from the patient. Yes * Community resources currently utilized Home Health * Please name any agencies selected above. [facility]? * Additional services required to return to the preadmission environment? No * Can the patient safely return to the preadmission environment? Yes * Has this patient been hospitalized within the prior 30 days at any hospital? No Last DP export: 12/25/18 7:12 p Patient Name: UVALDO SANCHEZ Page [id number] at 202 All edits/amendments must be made on the electronic document DICTATION DATE: 12/25/182023 [employer]: ROBERT 12/25/182023 RPT#: [id number] DC DATE: STATUS: ADM IN [facility] [address] [place] [address] END OF REPORT
--- NOTE | 2018-12-25 21:00 | NUR ---
PM MEDS GIVEN WITH SIPS OF WATER, TOLERATED WELL. NO ACUTE DISTRESS NOTED, VITALS STABLE.
--- NOTE | 2018-12-25 23:00 | NUR ---
PT RESTING IN BED, BIPAP ON, 20/7 30%, VITALS STABLE.
[2018-12-26] VITALS (14 sets, daily range): BP systolic 148–200; BP diastolic 74–119
--- NOTE | 2018-12-26 01:00 | NUR ---
PT RESTING, AROUSES TO STIMULI, WILL CONTINUE TO MONITOR.
--- NOTE | 2018-12-26 03:10 | NUR ---
PT PLACED ON 6L O2 VIA NC FOR PO MED ADMINISTRATION. NO SIGNS OF ACUTE DISTRESS.
--- NOTE | 2018-12-26 05:00 | NUR ---
PT RESTING IN BED, AAOX4. WILL CONTINUE TO MONITOR
[2018-12-26 09:29] LABS: BASOPHILS 0 % (0-2); EOSINOPHILS 0 % (0-7); HEMATOCRIT 37.3 % (36.0-48.0); IMMATURE GRANULOCYTES 0.3 % (0-5); LYMPHOCYTES 3.8 % (15-50); MCH 24.3 pg (26.0-34.0); MCHC 32.2 g/dL (31.0-37.0); MCV 75.7 fL (80.0-100.0); MEAN PLATELET VOLUME 9.7 fL (7.4-10.4); NEUTROPHILS 89.9 % (40-80); PLATELET COUNT 176 10x3/uL (130-400); RBC 4.93 10x6/uL (4.00-5.40); RDW 18.5 % (11.5-14.5); WBC 9.3 10x3/uL (4.8-10.8)
[2018-12-26 09:42] LABS: ANION GAP 11.3 mmol/L (8-16); CALCIUM 9.6 mg/dL (8.5-10.1); CARBON DIOXIDE 29.3 mmol/L (21.0-32.0); CREATININE - SERUM 1.3 mg/dL (0.6-1.3); MAGNESIUM - SERUM 2.4 mg/dL (1.8-2.4); PHOSPHOROUS 3.7 mg/dL (2.5-4.9); POTASSIUM - SERUM 4.6 mmol/L (3.5-5.1); VANCOMYCIN - RANDOM 9.7 ug/mL (10.0-20.0)
--- NOTE | 2018-12-26 12:26 | NUR ---
0700 AWAKE ALERT SITTING UP IN BED O2/NC AT 5L O2 SAT 100% ASSESSMENT COMPLETE NS INFUSING TO LEFT HAND IV SITE
--- NOTE | 2018-12-26 12:32 | NUR ---
0900 APPETITE POOR ONLY HAD FEW SIPS OF COFFEE AND 1 BITE EGG
--- NOTE | 2018-12-26 12:32 | NUR ---
1100 DR EDMONDS ROUNDING ON PATIENT AND NEW ORDER FOR TRANSFER WRITTEN
--- NOTE | 2018-12-26 14:56 | NUR ---
1300 RESTING QUIETLY WEARING 02 AT 4L/NC SAT 96%
--- NOTE | 2018-12-26 14:57 | NUR ---
1430 REPORT CALLED TO MED II
--- NOTE | 2018-12-26 14:57 | NUR ---
1445 TRANSPORTED VIA BED WITH 02 ON AT 4L
--- NOTE | 2018-12-26 15:06 | NUR ---
FROM ICU TO ROOM 2135. ALERT AND ORIENTED. NS AT 75CC/HR L HAND. O2 ON AT4L NC. RESTING WO DISTRESS. CL IN REACH.
--- NOTE | 2018-12-26 17:35 | NUR ---
NO CHANGE IN ASSESSMENT. RALES THROUGH OUT. KEEPS TAKING OFF TRILOGY MASK. HAVE REPLACED IT 3 TIMES SINCE TRANSFERED TO THIS UNIT. DID NOT EAT ANY DINNER. TAKES MEDS WO DIFFICULTY. HAS HERCULES. SL TO L HAND. CL IN REACH.
--- NOTE | 2018-12-26 20:00 | NUR ---
PT IS RESTING IN BED WITH EYES OPEN. ALERT AND ORIENTED X 3. DENIES ACUTE DISCOMFORT AT THIS TIME. TRILOGY MASK IS ON AND WORKING PROPERLY. IV IS INFUSING TO LEFT HAND WITHOUT DIFFICULTY. SR'S ARE UP X 2 IN BED. CALL LIGHT AND BEDSIDE TABLE ARE WITHIN EASY REACH.
--- NOTE | 2018-12-26 22:20 | NUR ---
PT IS RESTING IN BED WITH EYES OPEN. NO NEEDS VOICED. TRILOGY IS ON.
--- NOTE | 2018-12-27 02:48 | NUR ---
RESITNG QUIETLY IN BED WITH EYES CLOSED.
[2018-12-27 03:31] VITALS: BP 216/103
--- NOTE | 2018-12-27 04:00 | NUR ---
I have reviewed this patient and I concur with the Shift Assessment completed by the Licensed Practical Nurse today this shift.
--- NOTE | 2018-12-27 04:22 | NUR ---
PT KEEPS TAKING OFF HOME TRILOGY MACHINE AND NASAL CANNULA. STATED IMPORTANCE OF PT HOME TRILOGY MACHINE AND THAT SHE NEEDS TO WEAR IT. PT AGREED TO PUT TRILOGY BACK ON AT THIS TIME.
[2018-12-27 07:18] LABS: ANION GAP 12.8 mmol/L (8-16); CALCIUM 9.6 mg/dL (8.5-10.1); CARBON DIOXIDE 31.6 mmol/L (21.0-32.0); CREATININE - SERUM 1.1 mg/dL (0.6-1.3); POTASSIUM - SERUM 4.4 mmol/L (3.5-5.1); VANCOMYCIN - RANDOM 12.3 ug/mL (10.0-20.0)
[2018-12-27 08:33] VITALS: BP 191/101
--- NOTE | 2018-12-27 10:25 | NUR ---
ALERT AND ORIENTED X4. SITTING UP IN BED. RECIEVING BREATHING TREATMENT. REPORTS DYSPNEA. O2 @ 4L. REFUSES TO LEAVE TRILOGY ON. PATIENT STATES, "I'M GONNA HERE." REVIEW CODE STATIS. PATIENT STATES, "YES, I WANT EVERYTHING DONE EXCEPT INTUBATION AT THIS TIME." BP-178/99, O2-97% WITH 4L, HR-82. CONTINUE PLAN OF CARE AND SAFETY PRECAUTIONS.
[2018-12-27 12:06] VITALS: BP 186/89
[2018-12-27 15:00] VITALS: BP 161/81
--- NOTE | 2018-12-27 19:22 | NUR ---
PT IS RESTING IN BED WITH EYES OPEN. ALERT AND ORIENTED X 3. DENIES ACUTE DISCOMFORT AT THIS TIME. NO NEEDS VOICED. O2 IS ON @ 4LPM PER NC. NO SOB NOTED AT THIS TIME. HERCULES CATH IS PATENT AND DRAINING TO A GRAVITY BAG. SR'S ARE UP X 3 IN BED. CALL LIGHT AND BEDSIDE TABLE ARE WITHIN EASY REACH.
[2018-12-27 20:00] VITALS: BP 155/89
--- NOTE | 2018-12-27 21:13 | NUR ---
PT RESTING IN BED WITH EYES CLOSED. TRILOGY ON. NO DISTRESS NOTED.
[2018-12-28] VITALS (7 sets, daily range): BP systolic 122–166; BP diastolic 63–89
--- NOTE | 2018-12-28 00:42 | NUR ---
RESTING IN BED WITH EYES CLOSED.
--- NOTE | 2018-12-28 03:00 | NUR ---
PT RESTING IN BED WITH EYES CLOSED. TRILOGY REPLACED ON PT FREQUENTLY. PT VOICES UNDERSTANDING OF NEED FOR IT, BUT REMOVES IT IN JUST A FEW MINS AFTER BEING DONNED EACH TIME.
--- NOTE | 2018-12-28 07:20 | NUR ---
PT RESTING IN BED, SHIFT ASSESSMENT PERFORMED. DENIES ANY NEEDS AT THIS TIME, WILL CONT TO FOLLOW POC
--- NOTE | 2018-12-28 10:37 | NUR ---
PIV TO PT LEFT HAND INFILTRATED. PIV REMOVED WITH CATHETER TIP INTACT.
--- NOTE | 2018-12-28 18:57 | NUR ---
PT AWAKE AND ORIENTED. RESTING, EASILY ARROUSABLE. NO COMPLAINTS/CONCERNS. ADJUSTED PT IN BED, STATES SHE'S COMFORTABLE AT THIS TIME. CL INR EACH, SRX2.
--- NOTE | 2018-12-28 19:49 | NUR ---
IN BED WITH EYES OPEN AND TELEVISION ON, DRESSING TO RIGHT ARM IS STILL INTACT, WILL ATTMEPT TO REDRESS AT SOME POINT THIS SHIFT, HERCULES CATH IS PATENT WITH URINE DRAINING TO CDS. ABLE TO VOICE ALL NEEDS. WILL NOTE ANY CHANGE.
--- NOTE | 2018-12-28 23:59 | NUR ---
DISCUSSED IMPORTANCE OF BIPAP HOWEVER PT REFUSED TO WEAR TRILOGY
--- NOTE | 2018-12-29 02:37 | NUR ---
RESTING COMFORTABLY THIS SHIFT, CONTINUES TO REFUSE RT TO USE TRILOGY, NO S/S OF ANY ACUTE DISTRESS NOTED. WILL NOTE ANY CHANGE.
--- NOTE | 2018-12-29 03:51 | NUR ---
I have reviewed this patient and I concur with the Shift Assessment completed by the Licensed Practical Nurse today this shift.
[2018-12-29 04:00] VITALS: BP 138/75
--- NOTE | 2018-12-29 06:24 | NUR ---
DRESSING TO RIGHT FOREARM IS IN PLACE, UNKNOWN SKIN ISSUES UNDERNEATH, SLIGHT SKIN TEAR NOTED TO TOP OF DRESSING, WILL REPORT TO DAY TIME NURSING TO SEE ABOUT GETTING A WOUND CARE CONSULT.
--- NOTE | 2018-12-29 07:00 | NUR ---
RECEIVED REPORT. ASSUMED CARE OF PATIENT. CALL LIGHT WITHIN REACH. RESP EVEN AND UNLABORED. NO DISTRESS. DRESSING REMOVED FROM RIGHT ARM TO ASSESS FOR WOUNDS. PATIENT WITH LARGE SKIN TEAR THAT IS DRY TO RIGHT FOREARM. AREA CLEANSED AND NEW DRESSING REAPPLIED TO AREA. DENIES NEEDS AT THIS TIME.
[2018-12-29 08:02] VITALS: BP 146/69
[2018-12-29 08:16] LABS: BASOPHILS 0.1 % (0-2); EOSINOPHILS 0 % (0-7); HEMATOCRIT 38.2 % (36.0-48.0); HEMOGLOBIN 12.1 g/dL (12-16); IMMATURE GRANULOCYTES 0.4 % (0-5); LYMPHOCYTES 5.4 % (15-50); MCH 24.5 pg (26.0-34.0); MCHC 31.7 g/dL (31.0-37.0); MCV 77.5 fL (80.0-100.0); MEAN PLATELET VOLUME 9.6 fL (7.4-10.4); MONOCYTES 3.2 % (2-11); NEUTROPHILS 90.9 % (40-80); PLATELET COUNT 157 10x3/uL (130-400); RBC 4.93 10x6/uL (4.00-5.40); RDW 18.7 % (11.5-14.5); WBC 10.8 10x3/uL (4.8-10.8)
[2018-12-29 08:29] LABS: ALBUMIN 2.7 g/dL (3.4-5.0); ALKALINE PHOSPHATASE 49 U/L (46-116); ALT (SGPT) 299 U/L (10-68); BILIRUBIN - TOTAL 0.85 mg/dL (0.2-1.3); CALC OSMOLALITY 301 mosm/kg (275-300); CALCIUM 9.4 mg/dL (8.5-10.1); CHLORIDE - SERUM 106 mmol/L (98-107); CREATININE - SERUM 0.8 mg/dL (0.6-1.3); GLUCOSE 160 mg/dL (74-106); POTASSIUM - SERUM 4.3 mmol/L (3.5-5.1); PROTEIN - SERUM 5.7 g/dL (6.4-8.2); SODIUM 146 mmol/L (136-145); UREA NITROGEN 34 mg/dL (7-18); eGFR NON AFRICAN AMERICAN 75 mL/min (90-120)
[2018-12-29 11:19] VITALS: BP 136/64
--- NOTE | 2018-12-29 11:20 | NUR ---
FSBS 193. PATIENT REFUSED INSULIN SHE IS NOT EATING.
--- NOTE | 2018-12-29 11:34 | NUR ---
PATIENT OOB TO CHAIR AT BEDSIDE. NO DISTRESS.
--- NOTE | 2018-12-29 14:29 | NUR ---
Nutrition Follow-up: Pt reports appetite/PO intake remains poor. Agreed to Glucerna with meals. States that she has not had a BM since before admit. Requesting a stool softener. Diet: Diabetic Wt: 180# Labs reviewed Meds reviewed Continue current diet as tolerated. +Glucerna with meals. May consider stool softener per pt request. RD following.
[2018-12-29 15:08] VITALS: BP 125/63
--- NOTE | 2018-12-29 15:34 | NUR ---
RESTING IN BED WITH EYES CLOSED. RESP EVEN AND UNLABORED. SOFT SNORING NOTED. CALL LIGHT AND PERSONAL BELONGINGS WITHIN REACH. NO DISTRESS.
--- NOTE | 2018-12-29 16:12 | NUR ---
FSBS 156. NO INSULIN PER SLIDING SCALE PT REFUSED INSULIN COVERAGE SHE IS NOT EATING WELL. FSBS DOWN FROM FROM 193 AT NOON WITH NO INSULIN COVERAGE.
--- NOTE | 2018-12-29 19:32 | NUR ---
RPEORT RECIEVED AND ROUNDING COMPLETE. PATIENT IN LOW FOWLERS POSITION. PATIENT HAS NO PIV (DR. TOURE AND HASW OK'D) PATIENT IS RECIEVING O2 VIA NASAL CANNULA. PATIENT STATES SHE HAS NO NEEDS AT THIS TIME. CALL LIGHT WITHIN REACH AND BED IN LOWEST LOCKED POSITON. PATIENT IS SHOWING NO S/SX OF DISTRESS. PATIENT HAS A RIGHT ARM SKIN TEAR, DRESSING C/D/I. PATIENT HAS A HERCULES WITH URINE YELLOW. PATIENT HAS A PACEMAKER BUT DOES NOT HAS TELEMTRY ON.
[2018-12-29 20:00] VITALS: BP 138/66
--- NOTE | 2018-12-29 23:23 | NUR ---
HOME TRILOGY ON 6L BLED INTO SYSTEM PT TOLERATE APPLICATION WELL AND AGREES TO KEEP ON WILL CONTINUE TO MONITOR
[2018-12-30] VITALS: BP 140/66
[2018-12-30 04:30] VITALS: BP 128/68
[2018-12-30 06:38] LABS: BASOPHILS 0 % (0-2); EOSINOPHILS 0 % (0-7); HEMATOCRIT 38.5 % (36.0-48.0); HEMOGLOBIN 11.7 g/dL (12-16); IMMATURE GRANULOCYTES 0.4 % (0-5); LYMPHOCYTES 3.7 % (15-50); MCH 23.9 pg (26.0-34.0); MCHC 30.4 g/dL (31.0-37.0); MCV 78.6 fL (80.0-100.0); MEAN PLATELET VOLUME 9.9 fL (7.4-10.4); MONOCYTES 2.7 % (2-11); NEUTROPHILS 93.2 % (40-80); PLATELET COUNT 156 10x3/uL (130-400); RDW 18.6 % (11.5-14.5); WBC 11.9 10x3/uL (4.8-10.8)
[2018-12-30 07:12] LABS: ALBUMIN 2.6 g/dL (3.4-5.0); ANION GAP 4.7 mmol/L (8-16); BILIRUBIN - TOTAL 0.55 mg/dL (0.2-1.3); CALCIUM 9.3 mg/dL (8.5-10.1); CARBON DIOXIDE 39.8 mmol/L (21.0-32.0); CREATININE - SERUM 0.9 mg/dL (0.6-1.3); POTASSIUM - SERUM 4.5 mmol/L (3.5-5.1); PROTEIN - SERUM 5.5 g/dL (6.4-8.2)
--- NOTE | 2018-12-30 07:35 | NUR ---
PT RESTING, EYES CLOSED. RR EVEN AND UNLABORED. NO DISTRESS NOTED. 5.5 L NC. WILL CONTINUE TO MONITOR.
[2018-12-30 07:56] VITALS: BP 144/63
--- NOTE | 2018-12-30 10:03 | NUR ---
Rehab Note- Acute Inpatient Rehab prescreen order received. The patient has [employer] insurance and will require a PreAuth prior to an acute inpatient rehab stay. Spoke with NEIL Dumont to order OT Eval for PreAuth process. WIll begin PreAuth process. Thank you for this referral! Roxane De Jesus RN Clinical Liaison, [facility] Rehab
--- NOTE | 2018-12-30 10:09 | MORECARE ---
CASE MANAGEMENT DISCHARGE SUMMARY PATIENT: UVALDO SANCHEZ [place] UNIT: [id number] ADM DATE: 12/20/18 AGE: 68 : 49 SEX: F ROOM/BED: D.6046 AUTHOR: ERIC,DOC PHYSICIAN: REFERRING PHYSICIAN: ASHU BANSAL MD DATE OF SERVICE: 12/30/18 Discharge Plan Patient Name: UVALDO SANCHEZ Facility: [facility]:[place] : 1950 Planned Disposition: Inpatient Rehab Anticipated Discharge Date: Discharge Date: Expected LOS: Initial Reviewer: [email or web address] Initial Review Date: 12/20/2018 Generated: 12/30/18 11:09 am DCP- Discharge Planning Updated by [email or web address]: Anupama Millard on 12/25/18 7:[address] Patient Name: UVALDO SANCHEZ Admission Status: ER Accout number: [id number] Admission Date: 12-20-2018 : 1950 Admission Diagnosis:CHRONIC OBSTRUCTIVE PULMONARY DISEASE W (ACUTE) EXACERB Attending: NIMISHA, Current LOS: 5 Anticipated DC Date: Planned Disposition: Primary Insurance: [employer] ADV Discharge Planning Comments: CM met with patient to complete initial dc planning assessment. CM educated patient on the CM role and verbal consent given by patient to complete assessment. Patient lives at home alone where she is independent with her care. At discharge patient plans to return home. Patient may need SNF or rehab prior to discharging home. Patient is having a hard time breathing and could only speak a few words at a time. CM discussed availability of home health, rehab services, and medical equipment. Patient is wearing her trilogy from home ([facility]) she states she has home 02, nebulizer, bsc, and walker. Patient denied known discharge needs at this time. CM will continue to follow and will assist as needed with dc plans/needs. Form [employer] Forms: Anupama Millard DCP- Discharge Planning Updated by [email or web address]: Anupama Millard on 12/24/18 7:[address] CM attempted to visit with patient regarding discharge planning/ needs. Patient currently on BiPap and c/o pain. no family available. CM will continue to follow and assist as needed with discharge planning / needs DCPIA - Discharge Planning Initial Assessment Updated by [email or web address]: Anupama Millard on 12/25/18 8:09 pm * Is the patient Alert and Oriented? Yes * How many steps to enter\exit or inside your home? * PCP Bean * Pharmacy [facility] * Preadmission Environment Home Alone * ADLs Independent * Other Equipment TRILOGY, HOME / PORTSBLE 02, NEBULIZER, BSC, SC, * List name and contact numbers for known caregivers / representatives who currently or will assist patient after discharge: ANAHI ZAMBRANO [facility] [phone] * Verbal permission to speak to the caregivers and representatives has been obtained from the patient. Yes * Community resources currently utilized Home Health * Please name any agencies selected above. [facility]? * Additional services required to return to the preadmission environment? No * Can the patient safely return to the preadmission environment? Yes * Has this patient been hospitalized within the prior 30 days at any hospital? No Coverage Notice Reviewer: MARCELO Hale Notice Issued Date-Time: 12/30/2018 9:45 Notice Type: Patient Choice Letter Notice Delivered To: Patient Relationship to Patient: Field Liability Generalist Name: Delivery Method: HAND - Hand Delivered Sun Days: Prior Verbal Notification: Recipient Understood Notice: Yes Recipient Signature: Yes Med Rec Note Co-signed by Attending: Coverage Notice Comment: [facility] Reviewer: MARCELO Hale Notice Issued Date-Time: 12/30/2018 9:45 Notice Type: IM Discharge Notice Notice Delivered To: Patient Relationship to Patient: Field Liability Generalist Name: Delivery Method: HAND - Hand Delivered Sun Days: Prior Verbal Notification: Recipient Understood Notice: Yes Recipient Signature: Yes Med Rec Note Co-signed by Attending: Coverage Notice Comment: Last DP export: 12/25/18 7:25 p Patient Name: UVALDO SANCHEZ Page 24476 at 1009 All edits/amendments must be made on the electronic document DICTATION DATE: 12/30/18 1009 FIRE LIEUTENANT MARINE: ROBERT 12/30/18 1009 RPT#: [id number] DC DATE: STATUS: ADM IN [facility] [address] [place] [address] END OF REPORT
[2018-12-30 11:26] VITALS: BP 118/58
[2018-12-30 13:45] VITALS: BP 114/60
--- NOTE | 2018-12-30 15:50 | NUR ---
OT NOTE: PT COMPLETED SUPINE TO SIT MOD A. PT ATTEMPTED SIT TO STAND WITH MAX A. PT COMPLETED SITTING BALANCE WITH SBA. PT COMPLETED FACE WASH WITH SET UP. PT COMPLETED BUE AROM AXS. PT REQUIRED EXTENSIVE VC TO PUT FORTH GOOD EFFORT. PT DID NOT PUSH THROUGH LEGS FOR SIT TO STAND. THANK YOU, KAROL PERRY
--- NOTE | 2018-12-30 16:43 | MORECARE ---
CASE MANAGEMENT DISCHARGE SUMMARY PATIENT: UVALDO SANCHEZ [place] UN[place]: [id number] ADM DATE: 12/20/18 AGE: 68 : [birth year] SEX: F ROOM/BED: D.2136 AUTHOR: ERIC,DOC PHYSICIAN: REFERRING PHYSICIAN: ASHU BANSAL MD DATE OF SERVICE: 12/30/18 Discharge Plan Patient Name: UVALDO SANCHEZ [facility] [facility] 1950 Planned Disposition: Inpatient Rehab Anticipated Discharge Date: Discharge Date: Expected LOS: Initial Reviewer: [id number] Initial Review Date: 12/20/2018 Generated: 12/30/18 5:42 pm Comments DCP- Discharge Planning Updated by [id number]: Efrem Hale on 12/30/18 3:[address] Patient Name: UVALDO SANCHEZ Admission Status: ER Accout number: [id number] Admission Date: 12-20-2018 : 1950 Admission Diagnosis:CHRONIC OBSTRUCTIVE PULMONARY DISEASE W (ACUTE) EXACERB Attending: NIMISHA, Current LOS: 10 Anticipated DC Date: Planned Disposition: Inpatient Rehab Primary Insurance: [employer] MEDICARE ADV PLANNED EXTERNAL PROVIDER: [facility] INPATIENT REHAB Discharge Planning Comments: CM RECEIVED ORDER FOR INPATIENT REHAB PRESCREENI, MET WITH PT IN ROOM TO DISCUSS DISCHARGE NEEDS AND PLANNING. CM DISCUSSED AVAILABILITY OF HOME HEALTH, REHAB SERVICES AND MEDICAL EQUIPMENT. CM REVIEWED THERAPY NOTES WITH PT. PT AGREES THAT SHE NEEDS REHAB. SHE WOULD LIKE REHAB AT [facility] AND IF DECLINED, SHE WOULD LIKE REFERRAL TO [facility], WHERE SHE HAS HAD REHAB IN THE PAST. CHOICE LETTER SIGNED. IMPORTANT MESSAGE FROM MEDICARE PROVIDED AND EXPLAINED. CM WAITING ADMISSION DETERMINATION FROM [facility] INPATIENT REHAB WELL INSURANCE DETERMINATION FOR INPATIENT REHAB SERVICES. Laboratory Animal Facility Supervisor: Efrem Hale DCP- Discharge Planning Updated by [id number]: Anupama Millard on 12/25/18 7:[address] Patient Name: UVALDO SANCHEZ Admission Status: ER Accout number: [id number] Admission Date: 12-20-2018 : 1950 Admission Diagnosis:CHRONIC OBSTRUCTIVE PULMONARY DISEASE W (ACUTE) EXACERB Attending: NIMISHA, Current LOS: 5 Anticipated DC Date: Planned Disposition: Primary Insurance: [employer] MEDICARE ADV Discharge Planning Comments: CM met with patient to complete initial dc planning assessment. CM educated patient on the CM role and verbal consent given by patient to complete assessment. Patient lives at home alone where she is independent with her care. At discharge patient plans to return home. Patient may need SNF or rehab prior to discharging home. Patient is having a hard time breathing and could only speak a few words at a time. CM discussed availability of home health, rehab services, and medical equipment. Patient is wearing her trilogy from home ([facility]) she states she has home 02, nebulizer, bsc, and walker. Patient denied known discharge needs at this time. CM will continue to follow and will assist as needed with dc plans/needs. Laboratory Animal Facility Supervisor: Anupama Millard DCP- Discharge Planning Updated by [id number]: Anupama Millard on 12/24/18 7:[address] CM attempted to visit with patient regarding discharge planning/ needs. Patient currently on BiPap and c/o pain. no family available. CM will continue to follow and assist as needed with discharge planning / needs DCPIA - Discharge Planning Initial Assessment Updated by [id number]: Anupama Millard on 12/25/18 8:09 pm * Is the patient Alert and Oriented? Yes * How many steps to enter\exit or inside your home? * PCP [facility] * Pharmacy [facility] * Preadmission Environment Home Alone * ADLs Independent * Other Equipment TRILOGY, HOME / [place] 02, NEBULIZER, BSC, SC, * List name and contact numbers for known caregivers / representatives who currently or will assist patient after discharge: [facility]- [phone] * Verbal permission to speak to the caregivers and representatives has been obtained from the patient. Yes * Community resources currently utilized Home Health * Please name any agencies selected above. [facility] ? * Additional services required to return to the preadmission environment? No * Can the patient safely return to the preadmission environment? Yes * Has this patient been hospitalized within the prior 30 days at any hospital? No Coverage Notice Reviewer: [id number] Tracee Hale Notice Issued Date-Time: 12/30/2018 9:45 Notice Type: Patient Choice Letter Notice Delivered To: Patient Relationship to Patient: Hyster Machine Operator Name: Delivery Method: HAND - Hand Delivered Sun Days: Prior Verbal Notification: Recipient Understood Notice: Yes Recipient Signature: Yes Med Rec Note Co-signed by Attending: Coverage Notice Comment: [facility] Reviewer: [id number] Tracee Hale Notice Issued Date-Time: 12/30/2018 9:45 Notice Type: IM Discharge Notice Notice Delivered To: Patient Relationship to Patient: Hyster Machine Operator Name: Delivery Method: HAND - Hand Delivered Sun Days: Prior Verbal Notification: Recipient Understood Notice: Yes Recipient Signature: Yes Med Rec Note Co-signed by Attending: Coverage Notice Comment: Last DP export: 12/30/18 9:09 am Patient Name: UVALDO SANCHEZ Page [id number] at 1643 All edits/amendments must be made on the electronic document DICTATION DATE: 12/30/181641 SCLEROSCOPE TESTER: ROBERT 12/30/181641 RPT#: [id number] DC DATE: STATUS: ADM IN [facility] [place] [address] [place] [address] END OF REPORT
--- NOTE | 2018-12-30 16:58 | NUR ---
I have reviewed this patient and I concur with the Shift Assessment completed by the Licensed Practical Nurse today this shift.
--- NOTE | 2018-12-30 18:37 | NUR ---
PT RESTING, EYES CLOSED. RR EVEN AND UNLABORED.
--- NOTE | 2018-12-30 19:56 | NUR ---
FOUND TRILOGY OFF IN BED REAPPLIED ENCOURAGED PT TO WEAR THROUGHOUT THE NIGHT WILL CONTINUE TO MONITOR
[2018-12-30 20:00] VITALS: BP 133/65
[2018-12-31] VITALS: BP 139/67
--- NOTE | 2018-12-31 00:06 | NUR ---
1919) REC'D AT [facility] OF SHIFT WALKING ROUNDS SUPLINE POSITION EYES CLOSED RESP. DEEP AND EVEN. 02 4L NC. NO RESP. DISTRESS OBSERVED.WILL CONTINUE TO MONITOR FOR ANY CHGES IN RESP. STATUS AND FOLLOW CURRENT PLAN OF CARE.
--- NOTE | 2018-12-31 00:49 | NUR ---
FOUND PT WITH TRILOGY OFF. REFUSES TO PUT ON STATES DR WANTS HER ONLY TO WEAR BID A DAY. WILL NOT KEEP MASK ON.
--- NOTE | 2018-12-31 01:39 | NUR ---
BIPAP REPEATEDLY PUT BACK ON BY NURSE AND RESPIRATORY THERAPIST INSTRUCTED TO LEAVE ON HELPS 02 SATS STAY IN NORMAL RANGE.SAYS OK. BEFORE LEAVING ROOM HAD ALREADY TAKEN OFF STATES CAN YOU HELP ME GET THIS BACK ON? WILL CONTINUE TO MONITOR
--- NOTE | 2018-12-31 04:23 | NUR ---
0300)02 PLACED NC BY ILSA PICKARD. AT 3.5L WILL NOT KEEP BIPAP ON.SATS 88% AT PRESENT TIME. NO SIGNS OR SYMPTOMS OF ANY RESP. DIFFICULTY AT PRESENT TIME WILL CONTINUE TO MONITOR FOR ANY FURTHER CHGES OR SIGNS OF RESP. DIFFICULTY AND FOLLOW CURRENT PLAN OF CARE
[2018-12-31 04:30] VITALS: BP 124/67
[2018-12-31 04:52] LABS: BASOPHILS 0 % (0-2); EOSINOPHILS 0 % (0-7); HEMATOCRIT 37.8 % (36.0-48.0); HEMOGLOBIN 11.5 g/dL (12-16); IMMATURE GRANULOCYTES 0.7 % (0-5); LYMPHOCYTES 4.2 % (15-50); MCH 23.9 pg (26.0-34.0); MCHC 30.4 g/dL (31.0-37.0); MCV 78.4 fL (80.0-100.0); MEAN PLATELET VOLUME 9.8 fL (7.4-10.4); MONOCYTES 3.5 % (2-11); NEUTROPHILS 91.6 % (40-80); PLATELET COUNT 179 10x3/uL (130-400); RBC 4.82 10x6/uL (4.00-5.40); RDW 18.5 % (11.5-14.5); WBC 13.3 10x3/uL (4.8-10.8)
[2018-12-31 05:03] LABS: ALBUMIN 2.5 g/dL (3.4-5.0); ALKALINE PHOSPHATASE 52 U/L (46-116); ALT (SGPT) 255 U/L (10-68); BILIRUBIN - TOTAL 0.59 mg/dL (0.2-1.3); CALC OSMOLALITY 302 mosm/kg (275-300); CARBON DIOXIDE 38.3 mmol/L (21.0-32.0); CHLORIDE - SERUM 106 mmol/L (98-107); CREATININE - SERUM 0.8 mg/dL (0.6-1.3); GLUCOSE 185 mg/dL (74-106); POTASSIUM - SERUM 4.6 mmol/L (3.5-5.1); PROTEIN - SERUM 5.5 g/dL (6.4-8.2); SODIUM 145 mmol/L (136-145); UREA NITROGEN 39 mg/dL (7-18); eGFR NON AFRICAN AMERICAN 75 mL/min (90-120)
[2018-12-31 08:00] VITALS: BP 131/64
--- NOTE | 2018-12-31 12:31 | NUR ---
OT NOTE: PRACTICED BED MOB TO INCLUDE ROLLING FROM SIDE TO SIDE; SCOOTING BOTTOM OVER FROM SIDE TO SIDE. PT EXTREMELY WEAK IN UE/LES. ATTEMPTED TO USE UES TO HOLD TO BED RAILS AND STILL UNABLE TO PERFORM. TOTAL ASSIST WITH TRANSFER FROM BED TO CHAIR AND CHAIR TO BED. NUMEROUS ATTEMPTS TO PERFORM SIT TO STAND WITH WALKER, BUT PT UNABLE TO BEAR WT THROUGH LES. EDUCATION FOR EXS TO PERFORM IN BED TO IMPROVE UE STRENGTH. LISA BENZ, OTR/L
[2018-12-31 12:45] VITALS: BP 114/60
--- NOTE | 2018-12-31 15:38 | NUR ---
Rehab Note- Have spoken with Janina with [facility] and the medical receord is still pending for possible inpatient acute rehab stay with the biomedical technician. Will continue to await determination at this time. Will continue to follow at this time. Thank you for this referral! Roxane De Jesus RN CLinical Liaison, [facility] Rehab
[2018-12-31 16:58] VITALS: BP 145/67
[2018-12-31 20:00] VITALS: BP 155/65
--- NOTE | 2018-12-31 21:37 | NUR ---
HS MEDS GIVEN WITH FRESH ICE WATER. BS COVERED PER S/S. PT DENIES PAIN OR NEEDS, BED LOW, CL IN REACH.
[2019-01-01] VITALS (7 sets, daily range): BP systolic 126–166; BP diastolic 62–94
--- NOTE | 2019-01-01 02:22 | NUR ---
RESTING WITH EYES CLOSED, RESPERATIONS EVEN, NO S/S DISTRESS NOTED.
--- NOTE | 2019-01-01 05:30 | NUR ---
I have reviewed this patient and I concur with the Shift Assessment completed by the Licensed Practical Nurse today this shift.
[2019-01-01 06:27] LABS: BASOPHILS 0.1 % (0-2); EOSINOPHILS 0 % (0-7); HEMATOCRIT 39.6 % (36.0-48.0); HEMOGLOBIN 12.7 g/dL (12-16); IMMATURE GRANULOCYTES 1.1 % (0-5); LYMPHOCYTES 4.1 % (15-50); MCH 24.7 pg (26.0-34.0); MCHC 32.1 g/dL (31.0-37.0); MCV 76.9 fL (80.0-100.0); MEAN PLATELET VOLUME 10.3 fL (7.4-10.4); MONOCYTES 4.4 % (2-11); NEUTROPHILS 90.3 % (40-80); PLATELET COUNT 195 10x3/uL (130-400); RBC 5.15 10x6/uL (4.00-5.40); WBC 16.2 10x3/uL (4.8-10.8)
[2019-01-01 06:49] LABS: ALBUMIN 2.7 g/dL (3.4-5.0); ANION GAP 8.8 mmol/L (8-16); BILIRUBIN - TOTAL 0.76 mg/dL (0.2-1.3); CALCIUM 9.1 mg/dL (8.5-10.1); CARBON DIOXIDE 37.8 mmol/L (21.0-32.0); POTASSIUM - SERUM 4.6 mmol/L (3.5-5.1)
--- NOTE | 2019-01-01 06:55 | NUR ---
REPORT RECEIVED. SHE IS CONFUSED. SHE KNOWS HER NAME ONLY. TRILIGY REAPPLIED AT THIS TIME. O2 IS ON AT 4 LITERS VIA N/C UNDER HER MACHINE. F/C IS PAIENT WITH YELLOW URINE DRAINING. BBS WITH CRACKLES NOTED. CAREPLAN REVIEW DONE WITH SAFETY PRECAUTIONS IN PLACE. BED IN LOWEST POSITION AND LOCKED. BED ALARM IS ON
--- NOTE | 2019-01-01 12:46 | NUR ---
FSBS WAS 155 BUT SHE WILL NOT EAT BUT FEW BITES OF LUNCH AT THIS TIME INSULIN WAS HELD.
--- NOTE | 2019-01-01 14:13 | NUR ---
Nutrition Follow-up: Pt continues to report poor appetite/PO intake. Likes Glucerna; reports drinking 1/day. Per chart review, noted BM today but pt reports that she doesn't remember when her last BM was. Diet: Diabetic, Glucerna with meals Wt: 167# (180# on 12/28; rec reweigh) Labs noted: Na 146, Glu 176, Alb 2.7 Meds noted: Prednisone, Humulin Continue current diet as tolerated. Encouraged pt to drink more Glucerna, as well as increase PO intake. [place] food preferences within diet restrictions. RD following.
--- NOTE | 2019-01-01 16:03 | NUR ---
OT NOTE: ENTERED ROOM JUST A FEW MIN AFTER RESP THERAPY HAD EDUCATED PT ON KEEPING BI PAP ON. PT HAD REMOVED THAT AND 02. INSTRUCTED PT THAT SHE IS TO KEEP THIS ON AND NOT TO REMOVE. PT WITH INCREASED CONFUSION. REQUESTING A NEW BED BECAUSE OF THE "CRAZY" PERSON IN THE BED NEXT TO HER. RE APPLIED BI PAP AND ASSISTED PT TO EOB WITH MAX ASSIST. SITTING ON EOB WITH MIN ASSIST FOR BALANCE. ATTEMPTED TO STAND WITH MAX ASSIST X 2 BUT UNABLE TO BEAR WT DUE TO WEAKNESS IN B LES. LISA BENZ, OTR/L
--- NOTE | 2019-01-01 16:11 | NUR ---
OT NOTE: PT COMPLETED BUE AROM AXS. PT COMPLETED GROOMING TASKS WITH SET UP. PT REQUIRED MAX A FOR ATTEMPTED SIT TO STAND. PT STATED " I CANT STAND." THANK YOU, KAROL PERRY
--- NOTE | 2019-01-01 16:30 | NUR ---
SHE HAD A 20 GUAGE SALINE LOCK IN LEFT THUMB THAT WAS USED FOR CTA BUT SHE PULLED IT OUT. I HAVE REPLACED HER TRILIGY AND OXYGEN MULTIPLE TIMES TODAY. SHE REMAINS CONFUSED. O2 SAT AT THIS TIME IS 93%
--- NOTE | 2019-01-01 21:15 | NUR ---
PT SUPINE IN BED, A&O TO SELF. REORIENTED TO PLACE, TIME, AND SITUATION.4L O2 IN USE VIA HIGH FLOW NC. DAUGHTER AT BEDSIDE. PT DENIES ANY PAIN/DISCOMFORT. FAMILY MEMBER INSISTS HER MOTHER NOT RECIEVE AND MEDICATION THAT MAY CONTRIBUTE TO CONFUSION. PT AND DAUGHTER VOICED CONCERNS ABOUT WHEN SHE GOES HOME. STATES PT IS NORMALLY UP AD ADELSO W/O ASSISTIVE DEVICES AND LIVES INDEPENDENTLY. INFORMED OF PROBABLE NEED FOR REHAB. UNDERSTANDING VERBALIZED. DENIES FURTHER NEEDS AT THIS TIME, WILL CONTINUE TO MONITOR.
[2019-01-02 04:21] VITALS: BP 147/66
[2019-01-02 06:18] LABS: BASOPHILS 0.1 % (0-2); EOSINOPHILS 0 % (0-7); HEMATOCRIT 40.4 % (36.0-48.0); HEMOGLOBIN 12.9 g/dL (12-16); LYMPHOCYTES 4.2 % (15-50); MCH 24.3 pg (26.0-34.0); MCHC 31.9 g/dL (31.0-37.0); MCV 76.1 fL (80.0-100.0); MEAN PLATELET VOLUME 9.8 fL (7.4-10.4); NEUTROPHILS 89.7 % (40-80); PLATELET COUNT 208 10x3/uL (130-400); RBC 5.31 10x6/uL (4.00-5.40); RDW 19.1 % (11.5-14.5); WBC 15.7 10x3/uL (4.8-10.8)
[2019-01-02 06:25] LABS: ALBUMIN 2.9 g/dL (3.4-5.0); ANION GAP 7.4 mmol/L (8-16); BILIRUBIN - TOTAL 0.74 mg/dL (0.2-1.3); CALCIUM 9.6 mg/dL (8.5-10.1); CARBON DIOXIDE 39.3 mmol/L (21.0-32.0); CREATININE - SERUM 0.9 mg/dL (0.6-1.3); POTASSIUM - SERUM 4.7 mmol/L (3.5-5.1); PROTEIN - SERUM 6.3 g/dL (6.4-8.2)
--- NOTE | 2019-01-02 07:00 | NUR ---
RECEIVED REPORT. ASSUMED CARE OF PATIENT. CALL LIGHT WITHIN REACH. PATIENT WITHOUT TRILOGY ON. O2 VIA NASAL CANULA, HIGH FLOW. RESP EVEN AND UNLABORED. NO DISTRESS. PATIENT CONFUSED THIS AM, WANTING TO PUT HER CLOTHES ON AND GET TO THE [facility] FOR A DRINK THIS AM. REORIENTED AND TRILOGY APPLIED.
[2019-01-02 08:45] VITALS: BP 141/69
--- NOTE | 2019-01-02 10:15 | NUR ---
PHYSICAL THEAPY ATTEMPTED TO WORK WITH PATIENT BUT DUE TO HER CONFUSION AND INSISTING TO GET DRESSED AND GO TO THE [facility] AT THIS TIME, PT WILL TRY TO COME BACK AND WORK WITH HER THIS AFTERNOON. PATIENT ON TRILOGY AT THIS TIME.
--- NOTE | 2019-01-02 11:33 | NUR ---
FSBS 130. NO INSULIN PER SLIDING SCALE.
--- NOTE | 2019-01-02 11:38 | NUR ---
PATIENT REMAINS CONFUSED. CONTINUES TO TAKE OXYGEN OFF. STATES HER IS SITTING ON THE WINDOW SEAL AND SHE WANTS TO GO HOME WITH HIM. NO VISITORS AT BEDSIDE. PATIENT DOES HAVE A PHOTO OF HER DOG AND IN THE WINDOW. CALL LIGHT WITHIN REACH. NO DISTRESS.
--- NOTE | 2019-01-02 12:12 | NUR ---
PATIENT CONTINUES TO BE CONFUSED. SEEING PEOPLE IN HER ROOM SUCH HER SISTER THAT ARE NOT THERE. REORIENTED PATIENT. PATIENT SAYS SHE HAS NEVER BEEN HER BEFORE. ACUTE PYSCHOSIS OR RESULT OF ELEVATED CO2 FROM NOT WEARING TRILOGY? CALL LIGHT WITHIN REACH. NO DISTRESS.
--- NOTE | 2019-01-02 12:23 | NUR ---
SPOKE WITH PATIENTS SISTER AND SHE STATES THAT MARGARET HAS BEEN HAVING INCREASED CONFUSION OVER THE PAST 3 DAYS. EXPLAINED THAT PATIENT CO2 LEVEL IS HIGH FROM NOT WEARING TRILOGY, KEEPS TAKING OXYGEN OFF WHICH CAUSES DECREASE IN O2 SAT, SEEING PEOPLE IN THE ROOM THAT ARE NOT THERE. PATIENTS SISTER STATES THE ANGELS ARE COMING TO TAKE HER HOME, THIS SENIOR ATTORNEY HAD NO RESPONSE ON WHAT THE PATIENT SEEING PEOPLE IN HER ROOM MIGHT INDICATE. PATIENTS SISTER, MS. FORBES THANKED THIS SENIOR ATTORNEY FOR CALLING HER BACK AND IF ANYTHING CHANGES, PLEASE CALL HER.
[2019-01-02 12:39] VITALS: BP 134/51
--- NOTE | 2019-01-02 13:20 | NUR ---
TRILOGY APPLIED TO PATIENT AT THIS TIME.
--- NOTE | 2019-01-02 15:30 | NUR ---
RESTING WELL, TRILOGY IS PATENT. NO DISTRESS.
[2019-01-02 16:45] VITALS: BP 132/63
--- NOTE | 2019-01-02 17:01 | NUR ---
FSBS 179. REFUSED INSULIN PER SLIDING SCALE. PATIENT NOTED TO HAVE A POOR APPETITE THIS SHIFT. ALTERNATIVES OFFERED, REFUSED
--- NOTE | 2019-01-02 19:32 | NUR ---
RECIEVED UP IN BED WITH EYES CLOSED. EASILY AROUSES WITH VERBAL STIMULI. ORIENTED TO PERSON AND PLACE. DSG TO RIGHT FA CDI. F/C INTACT WITH CLEAR YELLOW URINE DRAINING TO BEDSIDE DRAINAGE BAG. TELEMETRY IN PLACE. DENIES ANY NEEDS AT THIS TIME.
[2019-01-02 21:31] VITALS: BP 138/65
[2019-01-03 01:07] VITALS: BP 148/72
[2019-01-03 04:36] VITALS: BP 146/79
[2019-01-03 06:28] LABS: BASOPHILS 0.1 % (0-2); EOSINOPHILS 0 % (0-7); HEMATOCRIT 40.2 % (36.0-48.0); HEMOGLOBIN 12.6 g/dL (12-16); IMMATURE GRANULOCYTES 1.3 % (0-5); LYMPHOCYTES 4.2 % (15-50); MCH 24.2 pg (26.0-34.0); MCHC 31.3 g/dL (31.0-37.0); MCV 77.2 fL (80.0-100.0); MEAN PLATELET VOLUME 10.2 fL (7.4-10.4); MONOCYTES 4.2 % (2-11); NEUTROPHILS 90.2 % (40-80); PLATELET COUNT 188 10x3/uL (130-400); RBC 5.21 10x6/uL (4.00-5.40); RDW 19.5 % (11.5-14.5); WBC 14.9 10x3/uL (4.8-10.8)
--- NOTE | 2019-01-03 07:00 | NUR ---
RECEIVED REPORT. ASSUMED CARE OF PATIENT. PATIENT RESTING WELL WITH EYES CLOSED, TRILOGY PATENT. CALL LIGHT WITHIN REACH. RESP EVEN AND UNLABORED. NO DISTRESS.
[2019-01-03 07:11] LABS: ALBUMIN 2.7 g/dL (3.4-5.0); BILIRUBIN - TOTAL 0.56 mg/dL (0.2-1.3); CALCIUM 9.3 mg/dL (8.5-10.1); CARBON DIOXIDE 35.7 mmol/L (21.0-32.0); MAGNESIUM - SERUM 2.1 mg/dL (1.8-2.4); POTASSIUM - SERUM 4.7 mmol/L (3.5-5.1); PROTEIN - SERUM 5.7 g/dL (6.4-8.2)
[2019-01-03 08:11] VITALS: BP 103/76
--- NOTE | 2019-01-03 08:39 | NUR ---
TRILOGY REMOVED FOR AM MEAL CONSUMPTION. NO DISTRESS.
--- NOTE | 2019-01-03 11:23 | NUR ---
FSBS 177. 4 UNITS HUMULIN R ADMINISTERED PER SLIDING SCALE.
[2019-01-03 11:34] VITALS: BP 125/70
--- NOTE | 2019-01-03 14:05 | NUR ---
PATIENT ASSISTED OFF THE BEDPAN. PATIENT STATES SHE ONLY HAD GAS. DIET LEMON SITKA SODA PROVIDED AT THIS TIME. NO DISTRESS.
[2019-01-03 15:52] VITALS: BP 125/68
--- NOTE | 2019-01-03 16:39 | NUR ---
FSBS 164. PATIENT REFUSED INSULIN AT THIS TIME.
--- NOTE | 2019-01-03 18:40 | NUR ---
PATIENT RESTING IN BED WITH EYES CLOSED. SNORING. RESP EVEN AND UNLABORED. CALL LIGHT WITHIN REACH. NO DISTRESS.
--- NOTE | 2019-01-03 19:33 | NUR ---
CONTINUES TO REST WITH EYES CLOSED RESP EVEN AND UNLABERED I WILL FULLY ASSESS LATER BED LOW AND LOCKED
[2019-01-03 20:00] VITALS: BP 124/63
[2019-01-04 00:01] VITALS: BP 127/66
[2019-01-04 04:00] VITALS: BP 131/61
[2019-01-04 05:36] LABS: BASOPHILS 0.1 % (0-2); EOSINOPHILS 0.1 % (0-7); HEMATOCRIT 39.9 % (36.0-48.0); HEMOGLOBIN 12.3 g/dL (12-16); IMMATURE GRANULOCYTES 0.8 % (0-5); LYMPHOCYTES 6.1 % (15-50); MCH 24.1 pg (26.0-34.0); MCHC 30.8 g/dL (31.0-37.0); MCV 78.1 fL (80.0-100.0); MEAN PLATELET VOLUME 9.8 fL (7.4-10.4); NEUTROPHILS 85.9 % (40-80); PLATELET COUNT 190 10x3/uL (130-400); RBC 5.11 10x6/uL (4.00-5.40); RDW 19.5 % (11.5-14.5); WBC 15.6 10x3/uL (4.8-10.8)
--- NOTE | 2019-01-04 05:51 | NUR ---
I have reviewed this patient and I concur with the Shift Assessment completed by the Licensed Practical Nurse today this shift.
[2019-01-04 05:57] LABS: APTT 21.3 SECONDS (22.8-39.4); INR 0.99 (0.85-1.17); PROTIME 12.6 SECONDS (11.6-15.0)
[2019-01-04 06:06] LABS: ALBUMIN 2.6 g/dL (3.4-5.0); ANION GAP 4.3 mmol/L (8-16); BILIRUBIN - TOTAL 0.52 mg/dL (0.2-1.3); CALCIUM 9.2 mg/dL (8.5-10.1); CREATININE - SERUM 0.9 mg/dL (0.6-1.3); POTASSIUM - SERUM 4.2 mmol/L (3.5-5.1); PROTEIN - SERUM 5.7 g/dL (6.4-8.2)
[2019-01-04 06:08] LABS: CARBON DIOXIDE 41.9 mmol/L (21.0-32.0)
--- NOTE | 2019-01-04 07:05 | NUR ---
PT LYING IN BED WITH HOB ELEVATED. EYES CLOSED. CHEST RISING AND FALLING. O2 AT 8L. NO IV. PACING ON THE MONITOR. PT HAS NO FURTHER NEEDS AT TIME. BED LOW. CL IN REACH.
[2019-01-04 07:38] VITALS: BP 129/78
--- NOTE | 2019-01-04 10:09 | NUR ---
Pk ASSISTED PT TO RECLINER CHAIR.
[2019-01-04 11:39] VITALS: BP 115/53
--- NOTE | 2019-01-04 11:43 | NUR ---
Rehab Note- received voicemail that received Auth for acute inpatient rehab stay from [facility] on behalf of [facility]- will accept the patient when medically stable & ready for discharge from the acute hospital. Has a CT guided thoracentsis ordered for today. Will continue to follow at this time. Thank you for this referral! Roxane De Jesus RN Clinical Liaison, [facility] Rehab
[2019-01-04 14:51] VITALS: BP 113/54
--- NOTE | 2019-01-04 15:02 | NUR ---
OT NOTE: MUCH MORE ALERT WITH NO CONFUSION TODAY. PT STATES THAT SHE FEELS MUCH BETTER. ABLE TO PERFORM BED MOB INCLUDING SUPINE TO SIT WITH MIN/MOD ASSIST AND EXT TIME/REST BREAKS TO PERFORM INDEPENDENTLY POSSIBLE. MAX ASSIST X 2 FOR TRANSFER FROM BED TO CHAIR. PT REMAINS WITH MINIMAL USE OF LES. PREPARED TRAY AND PT FED SELF WITH SET UP. WASHED FACE AND HANDS WITH CLOTH AND SET UP. DID NOT TOLERATE SITTING UP IN CHAIR FOR VERY LONG TODAY ( APPROX 1-2 HRS) SECONDARY TO C/O PAIN IN BOTTOM. LISA BENZ, OTR/L
--- NOTE | 2019-01-04 15:19 | NUR ---
OT NOTE: PT EXHIBITED DECREASED CONFUSION AND INCREASED ABILITY TO FOLLOW COMMANDS. PT EXHIBITES GREAT DIFFICULTY WITH BEARING WT THROUGH LES. PT COMPLETED BED MOB TASKS WITH MOD A. PT COMPLETED SIMPLE HYGIENE TASK WITH MIN A. THANK YOU, KAROL PERRY
[2019-01-04 20:00] VITALS: BP 120/57
--- NOTE | 2019-01-04 20:25 | NUR ---
RECIEVED SITTING UP ON SIDE OF BED. ALERT AND ORIENTED X4. UP AD ADELSO TO B/R WITH WALKER. BRYNN WRAP TO BILATERAL LEGS CDI. NO IV ACCESS. [id number] ANY NEEDS AT THIS TIME.
--- NOTE | 2019-01-04 20:28 | NUR ---
RECIEVED UP IN BED WITH EYES OPEN AND SISTER AT BEDSIDE. SISTER ASSISTED WITH REMOVING T SHIRT UNDER GOWN. ALERT AND ORIENTED X3. O2@ 8 LITERS PER N/C IN PLACE. RESP EVEN AND UNLABORED. PACEMAKER TO LEFT CHEST. F/C INTACT WITH CLEAR YELLOW URINE DRAINING SINAN BEDSIDE DRAINAGE SYSTEM. NICOTINE PATCH TO LEFT UPPER ARM. DENIES ANY NEEDS AT THIS TIME.
--- NOTE | 2019-01-04 22:23 | NUR ---
APPLIED TRILOGY WITH POSITIVE COMPLIANCE 7L 02 BLED IN SYSTEM CURRENT [id number]% WILL CONTINUE TO MONITOR
[2019-01-05] VITALS (17 sets, daily range): BP systolic 98–144; BP diastolic 55–668
--- NOTE | 2019-01-05 00:03 | NUR ---
LAYING IN BED WITH EYES CLOSED AND TRILOGY IN PLACE. HOB ELEVATED TO 30 DEGREES. NO S/S OF DISTRESS OBSERVED.
[2019-01-05 05:40] LABS: BASOPHILS 0.1 % (0-2); EOSINOPHILS 0.1 % (0-7); HEMATOCRIT 40.4 % (36.0-48.0); HEMOGLOBIN 12.6 g/dL (12-16); IMMATURE GRANULOCYTES 0.9 % (0-5); LYMPHOCYTES 5.7 % (15-50); MCH 24.7 pg (26.0-34.0); MCHC 31.2 g/dL (31.0-37.0); MCV 79.1 fL (80.0-100.0); MEAN PLATELET VOLUME 9.9 fL (7.4-10.4); NEUTROPHILS 87.2 % (40-80); PLATELET COUNT 177 10x3/uL (130-400); RBC 5.11 10x6/uL (4.00-5.40); WBC 13.6 10x3/uL (4.8-10.8)
[2019-01-05 06:08] LABS: ALBUMIN 2.5 g/dL (3.4-5.0); BILIRUBIN - TOTAL 0.58 mg/dL (0.2-1.3); CALCIUM 8.6 mg/dL (8.5-10.1); PROTEIN - SERUM 5.7 g/dL (6.4-8.2)
[2019-01-05 07:36] LABS: APTT 23.1 SECONDS (22.8-39.4); INR 0.98 (0.85-1.17); PROTIME 12.5 SECONDS (11.6-15.0)
--- NOTE | 2019-01-05 07:55 | NUR ---
CONSENT FORMS SIGNED FOR THORACENTESIS TODAY.
[2019-01-05 08:09] LABS: CALCIUM 8.9 mg/dL (8.5-10.1); POTASSIUM - SERUM 4.2 mmol/L (3.5-5.1)
[2019-01-05 08:14] LABS: CARBON DIOXIDE 44.2 mmol/L (21.0-32.0)
--- NOTE | 2019-01-05 11:04 | NUR ---
TO IR VIA BED FOR THORACENTESIS
--- NOTE | 2019-01-05 12:45 | NUR ---
PT ARRIVED ON UNIT VIA BED, HOOKED TO MONITORS, ASSESSMENT COMPLETE, PT ON 75% BIPAP WITH 98% O2 SAT. PATENT F/C WITH CLOUDY UOP, ALL PPP, VSS, CALL LIGHT IN REACH
--- NOTE | 2019-01-05 13:30 | NUR ---
DR. LASSITER AT BEDSIDE, UPDATE GIVEN
--- NOTE | 2019-01-05 15:31 | NUR ---
REASSESSMENT COMPLETE, NO CHANGES NOTED, PT RESTING AT THIS TIME, VSS, WILL CON'T TO MONITOR
[2019-01-05 16:06] LABS: PROTEIN - BODY FLUID 1.2 G/DL
[2019-01-05 17:11] LABS: MACROPHAGES BF 14 %; MESOTHELIALS BF 7 %; NEUT - BF 67 %
--- NOTE | 2019-01-05 19:00 | NUR ---
PT REPORT RECEIVED FROM DAY SHIFT NURSE. CURRENTLY ON BIPAP. NO SIGNS OF DISTRESS. VSS. WILL CONTINUE TO MONITOR
--- NOTE | 2019-01-05 21:00 | NUR ---
TALKED WITH DR LASSITER ON THE TELEPHONE. RECEIVED ORDER TO KEEP PT ON BIPAP THROUGHOUT THE NIGHT. VSS. WILL CONTINUE TO MONITOR
--- NOTE | 2019-01-05 23:00 | NUR ---
PT RESTING IN BED. BIPAP STILL IN USE. VSS. WILL CONTINUE TO MONITOR
[2019-01-06] VITALS (15 sets, daily range): BP systolic 97–130; BP diastolic 54–95
--- NOTE | 2019-01-06 01:00 | NUR ---
PT RESTING IN BED. NO SIGNS OF DISTRESS NOTED. WILL CONTINUE TO MONITOR
--- NOTE | 2019-01-06 03:00 | NUR ---
PT REASSESSMENT COMPLETED. PT TOLERATED WELL. RESTING IN BED. WILL CONTINUE TO MONITOR
[2019-01-06 03:51] LABS: BASOPHILS 0.1 % (0-2); EOSINOPHILS 0.5 % (0-7); HEMATOCRIT 39.5 % (36.0-48.0); HEMOGLOBIN 12.1 g/dL (12-16); IMMATURE GRANULOCYTES 0.6 % (0-5); LYMPHOCYTES 6.6 % (15-50); MCH 24.4 pg (26.0-34.0); MCHC 30.6 g/dL (31.0-37.0); MCV 79.6 fL (80.0-100.0); MEAN PLATELET VOLUME 10.1 fL (7.4-10.4); MONOCYTES 5.8 % (2-11); NEUTROPHILS 86.4 % (40-80); PLATELET COUNT 158 10x3/uL (130-400); RBC 4.96 10x6/uL (4.00-5.40); RDW 19.8 % (11.5-14.5); WBC 10.8 10x3/uL (4.8-10.8)
[2019-01-06 04:12] LABS: ALBUMIN 2.2 g/dL (3.4-5.0); ANION GAP 0.4 mmol/L (8-16); BILIRUBIN - TOTAL 0.77 mg/dL (0.2-1.3); CALCIUM 8.9 mg/dL (8.5-10.1); CREATININE - SERUM 1.2 mg/dL (0.6-1.3); MAGNESIUM - SERUM 1.8 mg/dL (1.8-2.4); POTASSIUM - SERUM 4.4 mmol/L (3.5-5.1); PROTEIN - SERUM 5.1 g/dL (6.4-8.2)
--- NOTE | 2019-01-06 05:00 | NUR ---
PT RESTING IN BED. VSS. WILL CONTINUE TO MONITOR
--- NOTE | 2019-01-06 13:02 | NUR ---
Nutrition follow-up: Diet advanced to consistent CHO s/p thoracentesis; 450 cc removed 01/05 labs reviewed Wt: 196# Pt remains on BIPAP transfering to floor today. RDN following.
[2019-01-06 13:10] LABS: FUNGUS STAIN Final report (())
--- NOTE | 2019-01-06 15:30 | NUR ---
PT ARRIVED TO FLOOR FROM ICU. VSS AND WNL. DENIES ANY NEEDS AT THIS TIME, WILL CONT TO FOLLOW POC
--- NOTE | 2019-01-06 16:28 | NUR ---
Rehab Note- Faxed updated clinicals to [facility] d/t Auth expires tomorrow 01/07. Will continue to follow the patient at this time. Thank you for this referral! Roxane De Jesus RN Clinical Liaison, [facility] Rehab
[2019-01-06 18:08] LABS: ACID FAST SMEAR Negative (()); AFB SPECIMEN PROCESSING Not Indicated (())
--- NOTE | 2019-01-06 19:30 | NUR ---
REPORT RECEIVED, WILL CONTINUE POC. PATIENT IS A/OX4, EXTENSIVE ASSIST. RR EVEN AND NONLABORED ON 4L O2 VIA NC. NO S/S OF DISTRESS OBSERVED. PATIENT HAS F/C INTACT, DRAINING CLEAR YELLOW URINE TO DRAINAGE SYSTEM HANGING TO LT SIDE OF BED. IV TO LT FA, PATENT, SL, DRSG C/D/I. PACEMAKER TO LT CHEST. PATIENT ATTEMPTED TO HAVE BM ON BEDPAN BUT WAS UNSUCCESSFUL. WANTS TO KNOW WHY PT ISN'T WORKING WITH HER FAR ALLOWING HER TO WALK. INFORMED PATIENT THAT PT WILL WORK WITH HER, DEPENDING ON WHAT SHE CAN TOLERATE, AND ADVANCE THEY SEE FIT. PATIENT DENIES FURTHER NEEDS AT THIS TIME. CL IN REACH, BED LOCKED AND LOWERED. WILL CTM.
--- NOTE | 2019-01-06 21:10 | NUR ---
BS 255, 10UNITS INSULIN ADMINISTERED PER SLIDING SCALE. PATIENT REFUSED LIBRIUM.
[2019-01-07 00:51] VITALS: BP 116/58
[2019-01-07 04:30] VITALS: BP 117/62
--- NOTE | 2019-01-07 04:34 | NUR ---
I have reviewed this patient and I concur with the Shift Assessment completed by the Licensed Practical Nurse today this shift.
--- NOTE | 2019-01-07 07:15 | NUR ---
PT RESTING IN BED, SHIFT ASSESSMENT PERFORMED. DENIES ANY NEEDS AT THIS TIME, WILL CONT TO FOLLOW POC
[2019-01-07 07:55] LABS: BASOPHILS 0 % (0-2); EOSINOPHILS 0.1 % (0-7); HEMATOCRIT 36.4 % (36.0-48.0); HEMOGLOBIN 11.4 g/dL (12-16); IMMATURE GRANULOCYTES 0.5 % (0-5); LYMPHOCYTES 8.3 % (15-50); MCH 24.4 pg (26.0-34.0); MCHC 31.3 g/dL (31.0-37.0); MCV 77.8 fL (80.0-100.0); MEAN PLATELET VOLUME 10.2 fL (7.4-10.4); NEUTROPHILS 87.1 % (40-80); RBC 4.68 10x6/uL (4.00-5.40); RDW 19.3 % (11.5-14.5); WBC 10.4 10x3/uL (4.8-10.8)
[2019-01-07 07:57] LABS: PLATELET COUNT 126 10x3/uL (130-400)
[2019-01-07 08:02] VITALS: BP 132/80
[2019-01-07 08:09] LABS: ALBUMIN 2.2 g/dL (3.4-5.0); BILIRUBIN - TOTAL 0.62 mg/dL (0.2-1.3); CALCIUM 8.7 mg/dL (8.5-10.1); CARBON DIOXIDE 39.8 mmol/L (21.0-32.0); CREATININE - SERUM 0.9 mg/dL (0.6-1.3); MAGNESIUM - SERUM 1.9 mg/dL (1.8-2.4); POTASSIUM - SERUM 3.8 mmol/L (3.5-5.1); PROTEIN - SERUM 5.3 g/dL (6.4-8.2)
--- NOTE | 2019-01-07 10:09 | NUR ---
Spoke with Diallo from [facility] about bringing new mask for pt's Home Trilogy. Diallo states he isnt comfortable supply pt with supplies while in our facilty due to past non-reimbursement from facilty of damage supplies. Will have Director of Respiratory contact him.
[2019-01-07] MEDS ORDERED: PREDNISONE20 MG PO (10:59)
--- NOTE | 2019-01-07 12:10 | NUR ---
PT RESTING IN BED EATING LUNCH, DENIES ANY NEEDS AT THIS TIME, WILL CONT TO FOLLOW POC
--- NOTE | 2019-01-07 15:27 | NUR ---
OT NOTE: PT COMPLETED BED MOB TASKS WITH MOD A. PT COMPLETED GROOMING TASKS WITH SET UP. THANK YOU, KAROL PERRY
--- NOTE | 2019-01-07 15:57 | NUR ---
DISCHARGE INSTRUCTIONS REVIEWED WITH PT AND ALL QUESTIONS ANSWERED. PIV REMOVED WITH CATHETER TIP INTACT. ASSISTED PT TO REHAB VIA BED
[2019-01-07] MEDS ORDERED: MUCINEX600 MG PO (18:38)
[2019-01-07] MEDS ORDERED: NORVASC10 MG PO (18:42)
[2019-01-07] MEDS ORDERED: HUMULIN R100 U/ML SC (18:42)
--- NOTE | 2019-01-08 07:54 | MORECARE ---
CASE MANAGEMENT DISCHARGE SUMMARY PATIENT: UVALDO SANCHEZ [place] UNIT: [id number] ADM DATE: 12/20/18 AGE: 68 : 49 SEX: F ROOM/BED: D.1204 AUTHOR: ERIC,DOC PHYSICIAN: REFERRING PHYSICIAN: ASHU BANSAL MD DATE OF SERVICE: 01/08/19 Discharge Plan Patient Name: UVALDO SANCHEZ [facility] [facility] 1950 Planned Disposition: Inpatient Rehab Anticipated Discharge Date: Discharge Date: 01/07/2019 Expected LOS: Initial Reviewer: [email or web address] Initial Review Date: 12/20/2018 Generated: 01/08/19 8:53 am DCP- Discharge Planning Updated by [email or web address]: Efrem Hale on 12/30/18 3:[address] Patient Name: UVALDO SANCHEZ Admission Status: ER Accout number: [id number] Admission Date: 12-20-2018 : 1950 Admission Diagnosis:CHRONIC OBSTRUCTIVE PULMONARY DISEASE W (ACUTE) EXACERB Attending: NIMISHA, Current LOS: 10 Anticipated DC Date: Planned Disposition: Inpatient Rehab Primary Insurance: [employer] MEDICARE ADV PLANNED EXTERNAL PROVIDER: [facility] Discharge Planning Comments: CM RECEIVED ORDER FOR INPATIENT REHAB PRESCREENI, MET WITH PT IN ROOM TO DISCUSS DISCHARGE NEEDS AND PLANNING. CM DISCUSSED AVAILABILITY OF HOME HEALTH, REHAB SERVICES AND MEDICAL EQUIPMENT. CM REVIEWED THERAPY NOTES WITH PT. PT AGREES THAT SHE NEEDS REHAB. SHE WOULD LIKE REHAB AT [facility] AND IF DECLINED, SHE WOULD LIKE REFERRAL TO THE [facility], WHERE SHE HAS HAD REHAB IN THE PAST. CHOICE LETTER SIGNED. IMPORTANT MESSAGE FROM MEDICARE PROVIDED AND EXPLAINED. CM WAITING ADMISSION DETERMINATION FROM [facility] WELL INSURANCE DETERMINATION FOR INPATIENT REHAB SERVICES. Meat Apprentice: Efrem Hale DCP- Discharge Planning Updated by [email or web address]: Anupama Millard on 12/25/18 7:[address] Patient Name: UVALDO SANCHEZ Admission Status: ER Accout number: [id number] Admission Date: 12-20-2018 : 1950 Admission Diagnosis:CHRONIC OBSTRUCTIVE PULMONARY DISEASE W (ACUTE) EXACERB Attending: NIMISHA, Current LOS: 5 Anticipated DC Date: Planned Disposition: Primary Insurance: [employer] MEDICARE ADV Discharge Planning Comments: CM met with patient to complete initial dc planning assessment. CM educated patient on the CM role and verbal consent given by patient to complete assessment. Patient lives at home alone where she is independent with her care. At discharge patient plans to return home. Patient may need SNF or rehab prior to discharging home. Patient is having a hard time breathing and could only speak a few words at a time. CM discussed availability of home health, rehab services, and medical equipment. Patient is wearing her trilogy from home ([employer]) she states she has home 02, nebulizer, bsc, and walker. Patient denied known discharge needs at this time. CM will continue to follow and will assist as needed with dc plans/needs. Meat Apprentice: Anupama Millard DCP- Discharge Planning Updated by [email or web address]: Anupama Millard on 12/24/18 7:[address] CM attempted to visit with patient regarding discharge planning/ needs. Patient currently on BiPap and c/o pain. no family available. CM will continue to follow and assist as needed with discharge planning / needs DCPIA - Discharge Planning Initial Assessment Updated by [email or web address]: Anupama Millard on 12/25/18 8:09 pm * Is the patient Alert and Oriented? Yes * How many steps to enter\exit or inside your home? * PCP [facility] * Pharmacy [facility] * Preadmission Environment Home Alone * ADLs Independent * Other Equipment TRILOGY, HOME / [place] 02, NEBULIZER, BSC, SC, * List name and contact numbers for known caregivers / representatives who currently or will assist patient after discharge: [facility] [phone] * Verbal permission to speak to the caregivers and representatives has been obtained from the patient. Yes * Community resources currently utilized Home Health * Please name any agencies selected above. [facility] ? * Additional services required to return to the preadmission environment? No * Can the patient safely return to the preadmission environment? Yes * Has this patient been hospitalized within the prior 30 days at any hospital? No Coverage Notice Reviewer: [id number] - Efrem Hale Notice Issued Date-Time: 12/30/2018 9:45 Notice Type: Patient Choice Letter Notice Delivered To: Patient Relationship to Patient: Slubber Runner Name: Delivery Method: HAND - Hand Delivered Sun Days: Prior Verbal Notification: Recipient Understood Notice: Yes Recipient Signature: Yes Med Rec Note Co-signed by Attending: Coverage Notice Comment: [facility] Reviewer: [id number] - Efrem Hale Notice Issued Date-Time: 12/30/2018 9:45 Notice Type: IM Discharge Notice Notice Delivered To: Patient Relationship to Patient: Slubber Runner Name: Delivery Method: HAND - Hand Delivered Sun Days: Prior Verbal Notification: Recipient Understood Notice: Yes Recipient Signature: Yes Med Rec Note Co-signed by Attending: Coverage Notice Comment: Reviewer: [email or web address] Tracee Caballero Notice Issued Date-Time: 01/07/2019 12:46 Notice Type: IM Discharge Notice Notice Delivered To: Patient Relationship to Patient: Slubber Runner Name: Delivery Method: HAND - Hand Delivered Sun Days: Prior Verbal Notification: Recipient Understood Notice: Yes Recipient Signature: Yes Med Rec Note Co-signed by Attending: Coverage Notice Comment: Last DP export: 12/30/18 3:43 pm Patient Name: UVALDO SANCHEZ Page [id number] at 0754 All edits/amendments must be made on the electronic document DICTATION DATE: 01/08/19752 WING COVERER: ROBERT 01/08/19 075 RPT#: [id number] DC DATE:01/07/19 STATUS: DIS IN [facility] [address] [place] [address] END OF REPORT
[2019-01-11 15:09] LABS: FUNGUS MYCOLOGY CULTURE Preliminary report (())
== END 2019-01-07 15:59 | DRG 193 ==
LOC: D.ER 18:25 → D.ICU 20:54 → D.MS 20:54 → D.M2 20:54 → D.MS 12-21 11:11 → D.SDCHOLD 12-21 11:11 → D.ICU 12-23 15:51 → D.M2 12-26 14:48 → D.ICU 01-05 13:13 → D.M3 01-06 15:42
PROVIDERS: Family Medicine; Family Medicine Adult Medicine; General Practice; Internal Medicine Nephrology; Internal Medicine Pulmonary Disease; ADMIT Family Medicine; ATTEND Family Medicine
PROC: 5A09357 Assistance with Respiratory Ventilation, Less than 24 Consecutive Hours, Continuous Positive Airway Pressure (ICD-10-PCS; 2018-12-24)
PROC: 05HY33Z Insertion of Infusion Device into Upper Vein, Percutaneous Approach (ICD-10-PCS; principal; 2018-12-25)
PROC: 0W993ZZ Drainage of Right Pleural Cavity, Percutaneous Approach (ICD-10-PCS; 2019-01-05)
DX: J18.1 Lobar pneumonia, unspecified organism (principal); J96.22 Acute and chronic respiratory failure with hypercapnia; J96.21 Acute and chronic respiratory failure with hypoxia; J44.1 Chronic obstructive pulmonary disease with (acute) exacerbation; N17.9 Acute kidney failure, unspecified; I13.0 Hypertensive heart and chronic kidney disease with heart failure and stage 1 through stage 4 chronic kidney disease, or unspecified chronic kidney disease; I50.32 Chronic diastolic (congestive) heart failure; E87.1 Hypo-osmolality and hyponatremia; F17.203 Nicotine dependence unspecified, with withdrawal; F10.231 Alcohol dependence with withdrawal delirium; J44.0 Chronic obstructive pulmonary disease with (acute) lower respiratory infection; Z99.81 Dependence on supplemental oxygen; I25.10 Atherosclerotic heart disease of native coronary artery without angina pectoris; E78.5 Hyperlipidemia, unspecified; K21.9 Gastro-esophageal reflux disease without esophagitis; F32.9 Major depressive disorder, single episode, unspecified; R53.81 Other malaise; G89.29 Other chronic pain; N18.9 Chronic kidney disease, unspecified; E11.22 Type 2 diabetes mellitus with diabetic chronic kidney disease; I48.91 Unspecified atrial fibrillation; G47.33 Obstructive sleep apnea (adult) (pediatric); J20.9 Acute bronchitis, unspecified; E87.5 Hyperkalemia

== ENCOUNTER 2019-01-07 14:24 | Inpatient (IN) | payer MEDICARE, MEDICAID ==
[~2019-01-07] VITALS: Ht 167.6 cm; Wt 81.6 kg
[~2019-01-07 14:24] MED LIST changes: +CARDIZEM CD360 MG PO; +FLUTICASONE PR; +MUCUS RELIEF; +VITAMIN B-12500 MCG PO; +VITAMIN C500 M1 PO; +VITAMIN E; +[UNRECOGNIZED DRUG - OTHER]
[2019-01-07 18:01] VITALS: BP 116/54; BMI 29.1
[2019-01-07] MEDS ORDERED: MUCINEX600 MG PO (18:38)
[2019-01-07] MEDS ORDERED: NORVASC10 MG PO (18:42)
[2019-01-07] MEDS ORDERED: HUMULIN R100 U/ML SC (18:42)
--- NOTE | 2019-01-07 19:34 | NUR ---
AWAKE AND ALERT. RESTING IN BED WITH BIPAP ON BUT REQUEST IT BE OFF SO SHE CAN EAT SUPPER. BIPAP REMOVED AND HIFLOW OXYGEN APPLIED FOR MEAL. O2 SATURATION 94%, WILL MONITOR CLOSELY. HERCULES PATENT. NO ACUTE DISTRESS NOTED. CALL LIGHT IN REACH.
[2019-01-07 20:00] VITALS: BP 130/58
--- NOTE | 2019-01-07 23:05 | NUR ---
PT CURRENTLY WEARING BIPAP 50% SPO2 90% INCREASED FIO2 TO 60% IN ATTEMPT TO TITRATE O2 92% NURSE NOTIFIED ZERO CYANOSIS NO IMMEDIATE S/S RESP DISTRESS
--- NOTE | 2019-01-08 01:36 | NUR ---
RESTING IN BED. BIPAP ON. NO ACUTE DISTRESS NOTED. CALL LIGHT IN REACH.
--- NOTE | 2019-01-08 01:38 | NUR ---
RESPIRATORY THERAPIST HERE AND ASSESSED PATIENT. STATES O2 SATURATION IS 92% ON BIPAP. WILL CONTINUE TO MONITOR.
--- NOTE | 2019-01-08 01:38 | NUR ---
PT RESTING COMFORTABLY BILEVEL IN USE 60% FIO2 PT CURRENT SPO2 92 AND HOLDING
--- NOTE | 2019-01-08 05:03 | NUR ---
PATIENT PULLED OFF BIPAP AT TOSSED ASIDE AND REFUSED TO PUT BACK ON. STATES "I HAVE WORN THAT ALL NIGHT." HI FLOW OXYGEN PLACED ON FOR NOW. ASSISTED ON BEDPAN AFTER SUPPOSITORY GIVEN. SHE IS TRYING TO HAVE A BM. NO ACUTE DISTRESS NOTED.
--- NOTE | 2019-01-08 05:49 | NUR ---
PATIENT O2 SATURATION DROPPED TO 78% ON HIGH FLOW O2 AT 4L. BIPAP PLACED BACK ON AND O2 SATURATION INCREASED TO 90% AFTER [address] MESSAGE LEFT FOR [address] VELASQUEZ ON ROUNDING SHEET.
[2019-01-08 07:48] LABS: CALCIUM 8.5 mg/dL (8.5-10.1); CARBON DIOXIDE 38.7 mmol/L (21.0-32.0); POTASSIUM - SERUM 3.7 mmol/L (3.5-5.1)
[2019-01-08 07:51] LABS: BASOPHILS 0 % (0-2); EOSINOPHILS 0.2 % (0-7); HEMATOCRIT 38.3 % (36.0-48.0); HEMOGLOBIN 12.2 g/dL (12-16); IMMATURE GRANULOCYTES 0.6 % (0-5); MCH 24.5 pg (26.0-34.0); MCHC 31.9 g/dL (31.0-37.0); MCV 76.9 fL (80.0-100.0); MEAN PLATELET VOLUME 10.2 fL (7.4-10.4); MONOCYTES 5.6 % (2-11); NEUTROPHILS 84.6 % (40-80); PLATELET COUNT 142 10x3/uL (130-400); RBC 4.98 10x6/uL (4.00-5.40); RDW 19.8 % (11.5-14.5); WBC 12.1 10x3/uL (4.8-10.8)
[2019-01-08 08:00] VITALS: BP 127/62
--- NOTE | 2019-01-08 11:49 | NUR ---
PATIENT ADMITTED TO REHAB FROM ACUTE FLOOR. PATIENT LIVES ALONE. HER PCP IS DR. WILKINS. DME AT HOME IS O2, NEBULIZER, BEDSIDE COMMODE, WALKER AND SHE HAS HER TRILOGY HERE AT BEDSIDE. SHE IS A CLIENT OF [facility]. IF UNABLE TO DISCHARGE HOME PATIENT WOULD LIKE A REFERRAL TO THE [facility]. WILL CONTINUE TO FOLLOW WITH PATIENT.
[2019-01-08 13:17] VITALS: Ht 167.6 cm; Wt 81.6 kg
--- NOTE | 2019-01-08 19:41 | NUR ---
RECEIVED PT LYING IN BED ON BIPAP MACHINE EYES CLOSED RESTING QUIETLY. EASILY AROUSED WITH STIMULI. NO SIGNS OF DISTRESS NOTED. O2 SAT 94%. HERCULES PATENT FREE OF KINKS. CALL LIGHT WITHIN REACH, FALL PRECAUTIONS IN PLACE. WILL CONTINUE TO MONITOR
[2019-01-08 21:42] VITALS: BP 104/50
--- NOTE | 2019-01-09 01:58 | NUR ---
QUIET HOURS. PT LYING IN BED HOB 30 DEGREES EYES CLOSED RESTING QUIETLY. BIPAP IN USE.
--- NOTE | 2019-01-09 04:57 | NUR ---
PT LYING IN BED HOB 30 DEGREES, BIPAP ON, EYES CLOSED RESTING QUIETLY.
--- NOTE | 2019-01-09 07:28 | NUR ---
RESTING WO DISTRESS. RESP EVEN AND UNLABORED. CL IN REACH.
--- NOTE | 2019-01-09 07:45 | NUR ---
PT SITTING UP IN BED EATING BREAKFAST 02 AT 6 LITERS HIGH FLOW CANULA CALL LIGHT IN REACH NO PROBLEMS WILL MONITER
[2019-01-09 10:35] VITALS: BP 147/57
--- NOTE | 2019-01-09 18:11 | NUR ---
PT RESTING IN BED WITH EYES OPEN CALL LIGHT IN REACH WILL MONITER
--- NOTE | 2019-01-09 19:20 | NUR ---
ASSISTED ON BEDPAN. BM LOOSE NOTED. CL IN REACH. A/O X4. RESP EVEN AND UNLABORED. O2 ON 6L HIGH FLOW. DENIES FURTHER NEEDS. WILL CONTINUE TO MONITOR.
[2019-01-09 20:19] VITALS: BP 104/55
--- NOTE | 2019-01-09 21:53 | NUR ---
ASSISTED ON BEDPAN. LOOSE BM NOTED. CL IN REACH. DENIES FURTHER NEEDS. WCTM
--- NOTE | 2019-01-09 23:17 | NUR ---
I have reviewed this patient and I concur with the Shift Assessment completed by the Licensed Practical Nurse today this shift.
--- NOTE | 2019-01-10 02:00 | NUR ---
PT RESTING QUIETLY. EYES CLOSED. BIPAP ON. NO DISTRESS NOTED. WCTM
--- NOTE | 2019-01-10 03:41 | NUR ---
PT LYING IN BED EYES CLOSED RESTING CINDY. BIPAP IN USE
--- NOTE | 2019-01-10 08:00 | NUR ---
PT RESTING IN BED WITH EYES OPEN CALL LIGHT IN REACH NO PROBLEMS WILL MONITER
--- NOTE | 2019-01-10 11:48 | NUR ---
PT RESTING IN BED EATING LUNCH TOLERATING WELL CALL LIGHT IN REACH NO PROBLEMS WILL MONITER
[2019-01-10 13:25] VITALS: BP 94/46
--- NOTE | 2019-01-10 13:45 | NUR ---
PATIENT RECIEVED FROM PREVIOUS NURSE RESTING WITH NO NEEDS VOICED, RESPITATIONS REGULAR AND NON-LABORED. CL IN REACH
[2019-01-10 20:36] VITALS: BP 104/45
--- NOTE | 2019-01-10 22:56 | NUR ---
I have reviewed this patient and I concur with the Shift Assessment completed by the Licensed Practical Nurse today this shift.
--- NOTE | 2019-01-11 01:45 | NUR ---
PT AWAKE AND REQUEST BIPAP TO BE REMOVED DUE TO BRIDGE OF NOSE HURTING AND SORE. WILL CONTINUE TO MONITOR. WILL PLACE BIPAP BACK ON PT IN AN HOUR
--- NOTE | 2019-01-11 02:55 | NUR ---
ASSISTED ON AND OFF BEDPAN. LOOSE BM NOTED. GEMINI CARE PREFORMED. CL IN REACH. DENIES FURTHER NEEDS. BIPAP PLACED BACK ON PT. WILL CONTINUE TO MONITOR.
[2019-01-11 06:01] LABS: BASOPHILS 0.1 % (0-2); EOSINOPHILS 0 % (0-7); HEMOGLOBIN 10.8 g/dL (12-16); LYMPHOCYTES 8.5 % (15-50); MCH 24.4 pg (26.0-34.0); MCHC 31.8 g/dL (31.0-37.0); MCV 76.7 fL (80.0-100.0); NEUTROPHILS 85.4 % (40-80); PLATELET COUNT 127 10x3/uL (130-400); RBC 4.43 10x6/uL (4.00-5.40); RDW 19.4 % (11.5-14.5); WBC 9.3 10x3/uL (4.8-10.8)
[2019-01-11 06:29] LABS: ANION GAP 9.8 mmol/L (8-16); CALCIUM 8.1 mg/dL (8.5-10.1); CARBON DIOXIDE 35.4 mmol/L (21.0-32.0); POTASSIUM - SERUM 4.2 mmol/L (3.5-5.1)
--- NOTE | 2019-01-11 08:42 | NUR ---
THE PATIENT WAS LYING IN BED AND WATCHING TELEVISION WHEN STAFF ENTERED HIS ROOM. BED IS IN THE LOW POSITION WITH SIDERAILS X2 AND CALL LIGHT WITHIN REACH. THE PATIENT WAS EDUCATED ON THE USE OF A CALL LIGHT AND DEMOSNTRATES UNDERSTANDING VIA TEACHBACK METHOD. THE PATIENT APPEARS COMFORTABLE WITH NO QUESTIONS OR COCNERNS AT THIS TIME.
--- NOTE | 2019-01-11 11:27 | RHP ---
PATIENT: UVALDO SANCHEZ MEDICAL RECORD: [id number] ACCOUNT: [id number] LOCATION:[facility] : [birth year] ADMISSION DATE: 01/07/19 REHABILITATION HISTORY AND PHYSICAL EXAMINATION POST ADMISSION PHYSICIAN EXAMINATION DATE OF ADMISSION: 01/07/2019. ADMITTING DIAGNOSIS: Acute exacerbation of chronic obstructive pulmonary disease. HISTORY OF PRESENT ILLNESS: The patient is a 68-year-old female patient who presented to ER with atrial fibrillation and increasing shortness of breath. She has got a past medical history significant for atrial fibrillation, hypertension, coronary artery disease, and she had a stent placement in April of this year. She has COPD, wears O2 at home. She got obstructive sleep apnea, wears a CPAP at bedtime, history of chronic kidney disease. She has had 90% of her colon removed for colon cancer in the past. She is tobacco smoker. She got Germain esophagitis. She has had a left lower lobe lobectomy for bronchogenic cancer in 2016 and she has had no treatment since then. She is followed by Dr. Clemons. She has got a history of PE in the past, depression, anxiety, and pulmonary hypertension. She was admitted to the acute hospital for worsening shortness of breath. On 12/23/2018, she developed increasing shortness of breath and decreased level of conscious and was transferred to the ICU where she remained until 12/26/2018. She has had some continued problem with her shortness of breath requiring increasing amounts of O2. She has had a thoracentesis on 01/05/2019 for increasing pleural effusion and respiratory failure, had 450 cc out. She developed worsening shortness of breath and was transfer back to the ICU on 01/05 back out to the floor on 01/06. She has had continued shortness of breath. She has been seen by PT and OT and therapies and she is progressing with them. She is currently on telemetry. Increase supplemental O2. She is on anticoagulation and electrolyte protocol, dyspnea with exertion is noted with sats dropping down in the 80s. She got debility, weakness, impaired mobility, gait disturbance. She is a high fall risk and has self-care deficit. These are all barriers to discharge home at this time. She lives at home alone in an apartment, uses a roller for mobility was independent with ADL. She is currently set up for max assist with ADLs, mod to max assist for mobility. She would like to return back home at her prior level of functioning or better if any possibility of this exist. COMORBIDITIES: In this patient include diabetes, falls, hypoxia, dyspnea, shortness of breath, electrolyte abnormalities, dehydration, edema, impaired skin integrity, aspiration infection, fatigue, malaise, bleeding, cardiac arrhythmias, acute mental status changes, pain, respiratory distress, DVT, loss of appetite, PE, change in cognition, malnutrition, weight loss, incontinence, depression, postop pain, infection, and wound dehiscence. PAST MEDICAL HISTORY: Significant for previous paralysis. She has got a history of diabetes, thyroid problems, hepatitis C, [place], stents and angioplasty, atrial fib, pacemaker placement, COPD, emphysema, chronic bronchitis, lung cancer, cervical cancer, and colon cancer. PAST SURGICAL HISTORY: Includes a hip replacement, hysterectomy, pacemaker placement, cervical fusion, back surgery, benign tumor removed from her breast. She has had 90% of her colon removed. She has had both hips replaced and a neck HISTORY AND PHYSICAL [id number] UVALDO SANCHEZ HILLARY fusion. ALLERGIES: SULFA AND CODEINE. CURRENT MEDICATIONS: Include Actos 15 mg daily, amlodipine 10 mg daily, Nicoderm patch 14 mg daily, Daliresp 250 mg daily; prednisone, she is on tapering doses, potassium 10 mEq daily, Cardizem 360 daily, vitamin B12 500 mcg daily, Plavix 75 mg daily, citalopram 20 mg daily, aspirin chewable 81 mg daily, vitamin C 500 mg daily, Protonix 40 mg daily, Synthroid 25 mcg daily. She is on insulin sliding scale with Humulin R. She is on thiamine 100 mg b.i.d., sotalol 120 mg b.i.d., Mucinex 1200 mg b.i.d., Singulair 10 mg at bedtime, Dulcolax 10 mg daily p.r.n., Xopenex 0.63 mg q.4 hours p.r.n., Pulmicort 0.5 mg b.i.d., Brovana 15 mcg b.i.d., zolpidem 10 mg at bedtime p.r.n. She is on a glucose replacement protocol, tramadol 50 mg q.4 hours p.r.n., and once again DuoNeb updrafts as needed. HABITS: Does have a history of tobacco use. FAMILY HISTORY: Noncontributory. SOCIAL HISTORY: The patient hopes to return back home and get back to her prior level of function. REVIEW OF SYSTEMS: GENERAL: Does complain of weakness and fatigue. HEENT: Does complain of cold, cough, and congestion. CARDIOVASCULAR: Denies any chest pain. LUNGS: Does complain of shortness of breath with minimal exertion. PHYSICAL EXAMINATION: VITAL SIGNS: Stable. She is afebrile. GENERAL: A morbidly obese female who is in no acute distress, alert upon exam. NEUROLOGIC: She can answer questions in full sentences, but does get markedly short of breath. HEENT: Normocephalic and atraumatic. Mucosa moist. NECK: Supple. No adenopathy. LUNGS: Coarse breath sounds bilaterally. HEART: Irregular rate and rhythm. ABDOMEN: Benign. EXTREMITIES: No clubbing, cyanosis, or edema. NEUROLOGIC: She does have noted proximal muscle weakness, but is mainly limited by her lung functions. LABORATORY DATA: White count is 12.1, H and H of 12 and 38 and platelet count was noted to be 142. Sodium 147, potassium 3.7, BUN and creatinine of 35 and 1.0 and blood sugar is noted to be 112. ASSESSMENT: This is a 68-year-old female patient admitted to rehab with a working diagnosis of debility secondary to severe COPD. The patient has potential to make improvement. We instituted the following multidisciplinary therapies including, but not limited to physical, occupational, respiratory, speech, nutritional services, prosthetics, and orthotics. Given her complex medical condition and risk for more complications, rehabilitation services cannot be provided at a low level of care such as skilled nurse facility. HISTORY AND PHYSICAL [id number] UVALDO SANCHEZ PLAN: [facility]. [facility] to include the following disciplines: A. Physical therapy to improve gait, all transfer skills and bed mobility to a modified independent level. B. Occupational therapy to a modified independent level. C. Case management to assist with discharge planning and placement options. D. Nutrition to assist with nutritional needs. E. Rehabilitation nursing to assist in monitoring the patient's underlying medical conditions and to assist with any type of bowel or bladder management. 2. The patient's current medication and medical care will be continued. 3. I am going to go ahead and consult pulmonary to follow to follow her during her stay down here. She is requiring some BiPAP, which is somewhat worrisome and will follow up their recommendations. TRANSINT:[id number] Voice Confirmation ID: [id number] DOCUMENT ID: [id number] CHUCHO notes whether there has been none or any medical/functional change since admission: - No chance since preadmission screen. CHUCHO attests patient continues to be appropriate for IRF: - Continues to be appropriate. ADILIA VELASQUEZ MD at 1127 CC: [id number] DICTATION DATE: 01/08/19 0857 ACADEMIC PROGRAM SPECIALIST: 01/08/19 0944 ADM IN [facility] [address] [place] [id number]
[2019-01-11 11:55] VITALS: BP 119/56
[2019-01-11 18:41] VITALS: BP 115/53
--- NOTE | 2019-01-11 21:15 | NUR ---
NIGHT TIME MEDS ADMINISTERED ORDERED.
[2019-01-11 22:25] VITALS: BP 113/60
--- NOTE | 2019-01-11 23:36 | NUR ---
I have reviewed this patient and I concur with the Shift Assessment completed by the Licensed Practical Nurse today this shift.
--- NOTE | 2019-01-12 00:58 | NUR ---
REST IN BED, EYE CLOSE, BIPAP ON. CALL LIGHT IN REACH.
--- NOTE | 2019-01-12 08:00 | NUR ---
RESTING WITH EYES CLOSED. HOB UP. PEG WITH GLUCERNA AT 65CC/HR INFUSING. NO DISTRESS NOTED. CL IN REACH.
[2019-01-12 08:21] VITALS: BP 129/84
--- NOTE | 2019-01-12 10:48 | NUR ---
CAN FEED SELF AND OPEN OWN CONTAINERS BUT GETS IV PROCAL SO EATING SCORE IS #1.
--- NOTE | 2019-01-12 12:09 | NUR ---
ITTING IN CHAIR EATING LUNCH. CL IN REACH.
--- NOTE | 2019-01-12 14:27 | NUR ---
Nutrition Follow-up: Diet: Diabetic + Glucerna with meals PO intake: 70-90%, reports good appetite. likes and drinkng Glucerna. No longer on TF or with ProCalamine Stage II on coccyx Labs and meds reviewed Wt: 180# (01/08/19) +BM RD Following
--- NOTE | 2019-01-12 16:57 | NUR ---
NO CHANGE IN ASSESSMENT. RESTING IN BED AT THIS TIME. CL IN REACH.
--- NOTE | 2019-01-12 19:06 | NUR ---
AWAKE AND ALERT. RESTING IN BED. RECIEVING BREATHING TREATMENT. NO ACUTE DISTRESS NOTED. CALL LIGHT IN REACH.
[2019-01-12 20:46] VITALS: BP 103/45
--- NOTE | 2019-01-13 00:21 | NUR ---
RESTING IN BED WITH BIPAP ON. NO DISTRESS NOTED. CALL LIGHT IN REACH.
--- NOTE | 2019-01-13 03:21 | NUR ---
RESTING IN BED WITH O2 HIGH FLOW ON, HAS BEEN OFF BIPAP PER RESPIRATORY THERAPIST FOR ALMOST AN HOUR AND O2 SATURATION IS 91%. WILL CONTINUE TO MONITOR. NO DISTRESS NOTED.
--- NOTE | 2019-01-13 05:01 | NUR ---
QUIET HOURS. RESTING IN BED WITH NO DISTRESS NOTED. O2 ON HIGH FLOW. CALL LIGHT IN REACH. DELISA PATENT.
[2019-01-13 06:37] LABS: BASOPHILS 0.1 % (0-2); EOSINOPHILS 0.4 % (0-7); HEMATOCRIT 33.3 % (36.0-48.0); HEMOGLOBIN 10.4 g/dL (12-16); IMMATURE GRANULOCYTES 1.2 % (0-5); MCH 24.1 pg (26.0-34.0); MCHC 31.2 g/dL (31.0-37.0); MCV 77.3 fL (80.0-100.0); MEAN PLATELET VOLUME 10.1 fL (7.4-10.4); MONOCYTES 6.5 % (2-11); NEUTROPHILS 76.8 % (40-80); PLATELET COUNT 134 10x3/uL (130-400); RBC 4.31 10x6/uL (4.00-5.40); RDW 20.2 % (11.5-14.5); WBC 7.3 10x3/uL (4.8-10.8)
[2019-01-13 07:33] LABS: ANION GAP 7.6 mmol/L (8-16); CALCIUM 7.9 mg/dL (8.5-10.1); CARBON DIOXIDE 36.6 mmol/L (21.0-32.0); POTASSIUM - SERUM 4.2 mmol/L (3.5-5.1)
--- NOTE | 2019-01-13 07:34 | NUR ---
PT RESTING IN BED WITH EYES OPEN CALL LIGHT IN REACH NO PROBLEMS WILL MONITER
[2019-01-13 07:56] VITALS: BP 120/67
--- NOTE | 2019-01-13 18:11 | NUR ---
PT RESTING IN BED WITH EYES OPEN CALL LIGHT IN REACH NO PROBLEM WITH EYES OPEN CALL LIGHT IN REACH NO PROBLEMS WILL MONITER
--- NOTE | 2019-01-13 19:25 | NUR ---
BEDSIDE REPORT COMPLETE. PT SITTING UP IN BED WATCHING TV. ALERT AND ORIENTED X4. DENIES ANY NEEDS OR PAIN. CONTINUES ON 6L VIA HIGHFLOW NC. BLE EDEMA +1 PITTING. BUE GENERALIZED EDEMA. BUTTOCKS DRESSING C/D/I. CALL LIGHT AND WATER WITHIN REACH, FALL PRECAUTIONS IN PLACE. WILL CONTINUE TO MONITOR
[2019-01-13 21:59] VITALS: BP 105/58
--- NOTE | 2019-01-14 01:18 | NUR ---
QUIET HOURS. PT LYING IN BED EYES CLOSED RESTING QUIETLY. BIPAP IN USE
--- NOTE | 2019-01-14 03:42 | NUR ---
PT LYING IN BED EYES CLOSED RESTING QUIETLY. BIPAP ON
[2019-01-14 07:00] VITALS: BP 119/63
--- NOTE | 2019-01-14 07:58 | NUR ---
UP IN BED WATCHING TV AT THIS TIME AND EATING BREAKFAST AT THIS TIME. NO ACUTE DISTRESS NOTED. WILL CONTINUE PLAN OF CARE.
[2019-01-14 08:00] VITALS: BP 119/63
--- NOTE | 2019-01-14 09:04 | NUR ---
NOTED SHORTNESS OF BREATH ON EXERTION WITH OXYGEN SATURATION AT 88% AT LOWEST ON 6L O2 VIA HIGH FLOW NC. PER LINGO CLEANER NOTE, GOAL TO TITRATE OXYGEN SATURATION ABOVE 88%. AFTER A FEW MOMENTS BREAK BEGAN TO RISE TO 90S% ON 6L O2. WILL CONTINUE TO OBSERVE.
--- NOTE | 2019-01-14 09:58 | NUR ---
IN THERAPY ROOM WORKING WITH THERAPISTS. NO ACUTE DISTERSS NOTED. VSS. WILL CONTINUE PLAN OF CARE.
--- NOTE | 2019-01-14 11:58 | NUR ---
UP IN ROOM IN WHEELCHAIR AT THIS TIME. NO ACUTE DISTRESS NOTED. VSS. WILL CONTINUE PLAN OF CARE.
--- NOTE | 2019-01-14 13:27 | NUR ---
NO ACUTE DISTRESS NOTED. UP IN WHEELCHAIR AT THIS TIME. CALL LIGHT IN REACH. PT DENIES ANY NEEDS. WILL CONTINUE PLAN OF CARE.
--- NOTE | 2019-01-14 14:22 | NUR ---
UP IN THERAPY GYM WORKING WITH THERAPISTS. NO ACUTE DISTRESS NOTED. VSS. WILL CONTINUE PLAN OF CARE.
--- NOTE | 2019-01-14 15:50 | NUR ---
CLINICAL UPDATES FAXED TO DANIELLE AT [facility] REGARDING AUTH. # [id number], FAXED TO WITH A TENATIVE DISCHARGE DATE BEING 01/21/19. WILL CONTINUE TO FOLLOW WITH PATIENT.
--- NOTE | 2019-01-14 16:27 | NUR ---
UP IN BED WATCHING TV AT THIS TIME. NO ACUTE DISTRESS NOTED. CALL LIGHT IN REACH. WILL CONTINUE PLAN OF CARE.
--- NOTE | 2019-01-14 17:26 | NUR ---
UP IN BED EATING SUPPER AT THIS TIME. NO ACUTE DISTRESS NOTED. CALL LIGHT IN REACH. WILL CONTINUE PLAN OF CARE.
--- NOTE | 2019-01-14 19:05 | NUR ---
BEDSIDE REPORT COMPLETE. PT SITTING UP IN BED ALERT AND ORIENTED X4. DENIES ANY NEEDS OR PAIN. HERCULES PATENT, FREE OF KINKS. 1ST STEP OVERLAY. CONTINUES ON 6L VIA NC. CALL LIGHT AND WATER WITHIN REACH, FALL PRECAUTIONS IN PLACE. WILL CONTINUE TO MONITOR
[2019-01-14 20:34] VITALS: BP 110/53
--- NOTE | 2019-01-14 23:44 | NUR ---
PT LYING IN BED HOB 35 DEGREES EYES CLOSED RESTING QUIETLY
--- NOTE | 2019-01-15 03:56 | NUR ---
PT LYING IN BED EYES CLOSED RESTING QUIETLY.
--- NOTE | 2019-01-15 06:18 | NUR ---
PT SITTING UP IN BED, RESPIRATORY AT BEDSIDE
--- NOTE | 2019-01-15 07:30 | NUR ---
REPORT RECEIVED. PT ALERT AND ORIENTED. ON O2 6L HIGH FLOW NC. WEARS BIPAP AT NIGHT. TRILOGY NEEDS NEW NOSE PIECE. PT HAS A PACEMAKER. SHE HAS A HERCULES. SHE IS ON A 1ST STEP OVERLAY AIR MATTRESS. SHE HAS STAGE 2 PRESSURE ULCERS TO BILATERAL BUTTOCK. SHE HAS NO COMPLAINTS OR NEEDS AT THIS TIME.
[2019-01-15 07:53] LABS: BASOPHILS 0 % (0-2); EOSINOPHILS 0.6 % (0-7); HEMATOCRIT 33.8 % (36.0-48.0); HEMOGLOBIN 10.6 g/dL (12-16); IMMATURE GRANULOCYTES 1.6 % (0-5); LYMPHOCYTES 16.8 % (15-50); MCH 24.3 pg (26.0-34.0); MCHC 31.4 g/dL (31.0-37.0); MCV 77.5 fL (80.0-100.0); MEAN PLATELET VOLUME 9.8 fL (7.4-10.4); MONOCYTES 9.1 % (2-11); NEUTROPHILS 71.9 % (40-80); PLATELET COUNT 135 10x3/uL (130-400); RBC 4.36 10x6/uL (4.00-5.40); RDW 20.5 % (11.5-14.5); WBC 5.1 10x3/uL (4.8-10.8)
[2019-01-15 08:03] LABS: ANION GAP 6.5 mmol/L (8-16); CALCIUM 8.1 mg/dL (8.5-10.1); CARBON DIOXIDE 37.3 mmol/L (21.0-32.0); CREATININE - SERUM 1.1 mg/dL (0.6-1.3); POTASSIUM - SERUM 3.8 mmol/L (3.5-5.1)
[2019-01-15 08:36] VITALS: BP 114/52
--- NOTE | 2019-01-15 10:20 | NUR ---
TOOK MEDICATIONS WITH NO ISSUES. RECEIVING BREATHING TX AT THIS TIME. WILL CONTINUE TO MONITOR.
--- NOTE | 2019-01-15 11:50 | NUR ---
BLOOD SUGAR 144. NO INSULIN COVERAGE NEEDED. LUNCH GIVEN TO PT. WILL CONTINUE TO MONITOR.
--- NOTE | 2019-01-15 13:45 | NUR ---
PT DOWN IN THERAPY AT THIS TIME.
--- NOTE | 2019-01-15 15:45 | NUR ---
PT RESTING QUIETLY WITH NO DISTRESS NOTED. BED IN LOWEST POSITION. SIDE RAILS UP X2. CALL LIGHT IN REACH.
--- NOTE | 2019-01-15 17:34 | NUR ---
BLOOD SUGAR 277. COVERED WITH 10 UNITS OF HUMULIN. PT SITTING UP IN BED EATING DINNER. NO COMPLAINTS OR NEEDS AT THIS TIME. CALL LIGHT IN REACH.
[2019-01-15 18:29] VITALS: BP 103/50
--- NOTE | 2019-01-15 19:28 | NUR ---
AWAKE AND ALERT. RESTING IN BED WITH O2/6L HIGH FLOW OXYGEN ON. O2 SATURAITON 92%. HEAD OF BED ELEVATED 35 DEGRESS. HERCULES PATENT. NO ACUTE DISTRESS NOTED. CALL LIGHT IN REACH. SISTER IN ROOM.
--- NOTE | 2019-01-15 23:51 | NUR ---
RESTING IN BED WITH BIPAP ON. NO ACUTE DISTRESS NOTED. CALL LIGHT IN REACH.
--- NOTE | 2019-01-16 03:59 | NUR ---
DRESSING CHANGED TO BUTTOCKS ORDERED. HAD A SMALL BM WITH STRONG ODOR AND WHAT APPEARED TO BE BLOOD IN STOOL. MESSAGE LEFT ON ROUNDING SHEET FOR DR. VELASQUEZ. WILL CONTINUE TO MONITOR.
--- NOTE | 2019-01-16 09:10 | NUR ---
PT AM MEDS ADMINISTERED. PT DENIES NEEDS.W CTM.
[2019-01-16 11:05] VITALS: BP 110/62
--- NOTE | 2019-01-16 12:00 | NUR ---
SITTING UP EATING LUNCH.CL IN REACH.
[2019-01-16 19:10] VITALS: BP 113/50
--- NOTE | 2019-01-16 19:23 | NUR ---
AWAKE AND ALERT. RESTING IN BED WITH O2/6L HIGH FLOW . HAD A BM A SHORT TIME AGO AND WAS REPORTED THAT SHE HAD BLOOD IN STOOL. PATIENT STATES SHE HAS HAD A BLOOD IN STOOL BEFORE AND HAS HAD COLON CANCER AND 90% OF COLON REMOVED. MESSAGE LEFT ON ROUNDING SHEET FOR DR VELASQUEZ. WILL CONTINUE TO MONITOR. SKIN IS WARM AND PINK. HERCULES PATENT. HEAD OF BED 45 DEGREES AT THIS TIME. DRESSINGS INTACT TO BUTTOCKS. NO ACUTE DISTRESS NOTED. CALL LIGHT IN REACH.
--- NOTE | 2019-01-17 01:45 | NUR ---
RESTING IN BED. ASK FOR BIPAP TO BE TAKEN OFF AND O2 ON. O2/6L HIGH FLOW PLACED ON PATIENT. WILL MONITOR.
--- NOTE | 2019-01-17 05:28 | NUR ---
QUIET HOURS. NO ACUTE CHANGES IN CONDITION THIS SHIFT. RESPIRATORY THERAPY DID REPORT THAT SHE LOWERED THE HIGH FLOW OXYGEN TO 4L DUE TO PATIENT HAVING A CONSISTANT O2 SATURATION OF 97-98%. RESTING NOW WITH NO DISTRESS NOTED. CALL LIGHT IN REACH.
--- NOTE | 2019-01-17 09:00 | NUR ---
PATIENT SITTING UP IN BED TO EAT BREAKFAST. PATIENT IS ALERT/ORIENT. CALL LIGHT WITHIN REACH. VOICES NO NEEDS AT THIS TIME. WILL CONTINUE WITH PLAN OF CARE
--- NOTE | 2019-01-17 13:01 | NUR ---
PATIENT REMAINS RESTING IN BED. WATCHING T.V. VOICES NO NEEDS.
--- NOTE | 2019-01-17 14:00 | NUR ---
I have reviewed this patient and I concur with the Shift Assessment completed by the Licensed Practical Nurse today this shift.
[2019-01-17 19:05] VITALS: BP 115/56
--- NOTE | 2019-01-17 19:10 | NUR ---
PT RESTING IN BED WITH EYES OPEN. ALERT AND ORIENTED X 3. DENIES ACUTE PAIN OR DISCOMFORT AT THIS TIME. VSS. O2 IS ON @4LPM PER NC. NO SOB NOTED AT THIS TIME. SAT IS 90%. HERCULES CATH IS PATENT AND DRAINING TO A GRAVITY BAG. PT REQUESTED NIGHT MEDS EARLY AND TO BE PUT ON THE BIPAP ANITRA. MEDS GIVEN REQUESTED. DRESSING TO CESAR BUTTOCKS CHANGED PER ORDERS. RESP THERAPIST CALLED TO APPLY BIPAP. SR'S ARE UP X 3 IN BED. CALL LIGHT AND BEDSIDE TABLE ARE WITHIN EASY REACH.
--- NOTE | 2019-01-17 21:57 | NUR ---
RESTING QUIETLY IN BED WITH EYES CLOSED. BIPAP ON.
--- NOTE | 2019-01-18 01:20 | NUR ---
I have reviewed this patient and I concur with the Shift Assessment completed by the Licensed Practical Nurse today this shift.
--- NOTE | 2019-01-18 06:11 | NUR ---
PT RESTING IN BED WITH EYES OPEN. NO NEEDS VOICED.
[2019-01-18 07:47] LABS: BASOPHILS 0 % (0-2); EOSINOPHILS 1.2 % (0-7); HEMATOCRIT 33.8 % (36.0-48.0); HEMOGLOBIN 10.7 g/dL (12-16); IMMATURE GRANULOCYTES 2.1 % (0-5); LYMPHOCYTES 25.1 % (15-50); MCH 24.8 pg (26.0-34.0); MCHC 31.7 g/dL (31.0-37.0); MCV 78.2 fL (80.0-100.0); MEAN PLATELET VOLUME 9.4 fL (7.4-10.4); MONOCYTES 9.5 % (2-11); NEUTROPHILS 62.1 % (40-80); PLATELET COUNT 124 10x3/uL (130-400); RBC 4.32 10x6/uL (4.00-5.40); RDW 20.9 % (11.5-14.5); WBC 4.2 10x3/uL (4.8-10.8)
[2019-01-18 08:04] VITALS: BP 129/70
[2019-01-18 08:04] LABS: CALC OSMOLALITY 290 mosm/kg (275-300); CALCIUM 8.4 mg/dL (8.5-10.1); CHLORIDE - SERUM 105 mmol/L (98-107); CREATININE - SERUM 0.8 mg/dL (0.6-1.3); GLUCOSE 84 mg/dL (74-106); POTASSIUM - SERUM 3.4 mmol/L (3.5-5.1); SODIUM 145 mmol/L (136-145); UREA NITROGEN 22 mg/dL (7-18); eGFR NON AFRICAN AMERICAN 75 mL/min (90-120)
--- NOTE | 2019-01-18 08:08 | NUR ---
ALERT AND ORIENTED. EATING BREAKFAST. NO DISTRESS NOTED. CL IN REACH.
--- NOTE | 2019-01-18 13:15 | NUR ---
BATHED WITH BATH WIPES TODAY.
--- NOTE | 2019-01-18 13:46 | NUR ---
PARTICIPATED IN THERAPY THIS MORNING. SITTING IN WC AT THIS TIME.
--- NOTE | 2019-01-18 14:31 | NUR ---
PATIENT AND SISTER ASK FOR A MEETING REGARDING DISCHARGE PLANS . AT THIS TIME PATIENT AND SISTER FEELS THAT A [facility] DSICHARGE WOULD BE FOR PATIENT TO GO TO SNF. PATIENT WOULD LIKE A REFERRAL TO THE [facility]. WILL SEND REFERRAL TODAYMPER PATIENT REQUEST.WILL CONTINUE TO FOLLOW WITH PATIENT.
--- NOTE | 2019-01-18 15:13 | NUR ---
Nutrition Follow-up: Diet: Diabetic PO intake: 83% average x last 10 meals Pt does not want Glucerna to be sent on meal trays anymore. Still with stage II PU open wound to buttocks. She is willing to try Doug. Labs and meds reviewed. Last wt: 180# (01/08/19). +BM Will d/c Glucerna and add Doug. RD Following.
--- NOTE | 2019-01-18 18:04 | NUR ---
NO CHANGE IN ASSESSMENT. ENCOURAGED TO COUGH MUCH POSSIBLE PER DR EDMONDS'S INSTRUCTIONS. O2 IS AT 6L. CL IN REACH.
--- NOTE | 2019-01-18 21:05 | NUR ---
DRESSING CHANGED DONE FOR PT.
[2019-01-18 21:36] VITALS: BP 110/54
--- NOTE | 2019-01-19 01:39 | NUR ---
I have reviewed this patient and I concur with the Shift Assessment completed by the Licensed Practical Nurse today this shift.
--- NOTE | 2019-01-19 01:45 | NUR ---
QUIET HOURS. PT LYING IN BED HOB 30 DEGREES, EYES CLOSED RESTING QUIETLY. TRILOGY ON.
--- NOTE | 2019-01-19 02:36 | NUR ---
REST IN BED. EYE CLOSE, CALL LIGHT IN REACH.
--- NOTE | 2019-01-19 04:32 | NUR ---
REST IN BED, RESP EVEN. NO S/S DISTRESS. CALL LIGHT IN REACH.
[2019-01-19 10:15] LABS: BASOPHILS 0.3 % (0-2); EOSINOPHILS 1.3 % (0-7); HEMATOCRIT 33.9 % (36.0-48.0); HEMOGLOBIN 10.6 g/dL (12-16); LYMPHOCYTES 24.6 % (15-50); MCH 24.7 pg (26.0-34.0); MCHC 31.3 g/dL (31.0-37.0); MCV 78.8 fL (80.0-100.0); MEAN PLATELET VOLUME 9.4 fL (7.4-10.4); MONOCYTES 9.4 % (2-11); NEUTROPHILS 62.4 % (40-80); PLATELET COUNT 137 10x3/uL (130-400); WBC 3.9 10x3/uL (4.8-10.8)
[2019-01-19 10:21] LABS: APTT 23.7 SECONDS (22.8-39.4); INR 0.99 (0.85-1.17); PROTIME 12.6 SECONDS (11.6-15.0)
--- NOTE | 2019-01-19 10:32 | NUR ---
DUE TO CHANGE IN RESPIRATORY STATUS AND MEDICAL CONDITION, PATIENT DSICHARGE FROM REHAB AND ADMITTED TO ACUTE FLOOR
--- NOTE | 2019-01-19 15:00 | NUR ---
PT TAKEN TO HAVE BRONCHOSCOPY THEN TRANSFERED TO 1207
== END 2019-01-19 16:39 | disposition short-term general hospital (02) | DRG 190 ==
LOC: D.REHAB 14:24
PROVIDERS: Internal Medicine Pulmonary Disease; ADMIT Emergency Medicine; ATTEND Emergency Medicine
PROC: 0B9B8ZZ Drainage of Left Lower Lobe Bronchus, Via Natural or Artificial Opening Endoscopic (ICD-10-PCS; principal; 2019-01-19)
PROC: 0B978ZZ Drainage of Left Main Bronchus, Via Natural or Artificial Opening Endoscopic (ICD-10-PCS; 2019-01-19)
DX: J43.9 Emphysema, unspecified (principal); I26.99 Other pulmonary embolism without acute cor pulmonale; I82.409 Acute embolism and thrombosis of unspecified deep veins of unspecified lower extremity; E46 Unspecified protein-calorie malnutrition; J96.12 Chronic respiratory failure with hypercapnia; J96.11 Chronic respiratory failure with hypoxia; J90 Pleural effusion, not elsewhere classified; N17.9 Acute kidney failure, unspecified; F17.203 Nicotine dependence unspecified, with withdrawal; F10.231 Alcohol dependence with withdrawal delirium; R06.00 Dyspnea, unspecified; R06.02 Shortness of breath; E87.8 Other disorders of electrolyte and fluid balance, not elsewhere classified; E86.0 Dehydration; R60.9 Edema, unspecified; R53.83 Other fatigue; R53.81 Other malaise; R41.82 Altered mental status, unspecified; R32 Unspecified urinary incontinence; Z95.0 Presence of cardiac pacemaker; F32.9 Major depressive disorder, single episode, unspecified; E11.65 Type 2 diabetes mellitus with hyperglycemia; E87.5 Hyperkalemia; E11.22 Type 2 diabetes mellitus with diabetic chronic kidney disease; I12.9 Hypertensive chronic kidney disease with stage 1 through stage 4 chronic kidney disease, or unspecified chronic kidney disease; N18.9 Chronic kidney disease, unspecified; K21.9 Gastro-esophageal reflux disease without esophagitis; E78.5 Hyperlipidemia, unspecified

== ENCOUNTER 2019-01-19 13:21 | Inpatient (IN) | payer MEDICARE, MEDICAID ==
[~2019-01-19] VITALS: Ht 168.9 cm; Wt 83.9 kg
[~2019-01-19 13:21] MED LIST changes: +HUMULIN R100 U/ML SC; +MUCINEX600 MG PO
[2019-01-19 17:27] VITALS: BP 109/51; BMI 29.4
--- NOTE | 2019-01-19 19:00 | NUR ---
PATIENT LYING IN BED SLEEPING. PATIENT AROUSES EASILY WHEN TALKED TO. PATIENT HOOKED UP TO VITAL SIGNS MACHINE FOR CONTINUOUS MONITERING OF BLOOD PRESSURE. PATIENT WEARING NASAL CANULA @ 6L. ENCOURAGED PATIENT TO CALL WITH ANY NEEDS. BED IN LOW POSITION. CALL LIGHT AND BEDSIDE TABLE IN REACH.
[2019-01-19 19:37] VITALS: BP 94/41
[2019-01-20 00:25] VITALS: BP 109/54
[2019-01-20 04:05] VITALS: BP 119/72
[2019-01-20 07:09] LABS: BASOPHILS 0 % (0-2); EOSINOPHILS 0.7 % (0-7); HEMATOCRIT 33.1 % (36.0-48.0); HEMOGLOBIN 10.4 g/dL (12-16); IMMATURE GRANULOCYTES 1.7 % (0-5); LYMPHOCYTES 24.1 % (15-50); MCH 24.7 pg (26.0-34.0); MCHC 31.4 g/dL (31.0-37.0); MCV 78.6 fL (80.0-100.0); MONOCYTES 10.2 % (2-11); NEUTROPHILS 63.3 % (40-80); PLATELET COUNT 140 10x3/uL (130-400); RBC 4.21 10x6/uL (4.00-5.40); RDW 20.6 % (11.5-14.5)
[2019-01-20 07:38] LABS: ANION GAP 6.5 mmol/L (8-16); CARBON DIOXIDE 38.7 mmol/L (21.0-32.0); CREATININE - SERUM 0.9 mg/dL (0.6-1.3); MAGNESIUM - SERUM 1.3 mg/dL (1.8-2.4); POTASSIUM - SERUM 3.2 mmol/L (3.5-5.1)
[2019-01-20 11:00] VITALS: BP 107/48
--- NOTE | 2019-01-20 11:45 | NUR ---
0700 AWAKE ALERT STATING SHE FEELS GREAT ASSESSMENT COMPLETE VOICES NO C/O PAIN REPOSITIONED IN 1ST CARE AIR FLOW BED PLACED SCD ON
--- NOTE | 2019-01-20 11:47 | NUR ---
0900 DR EDMONDS ROUNDING ON PT NEW ORDERS NOTED
--- NOTE | 2019-01-20 11:48 | NUR ---
1100 REPOSITIONED PLACED TELEMETRY ON PER DR EDMONDS ORDER CBS 125 NO INSULIN INDICATED
--- NOTE | 2019-01-20 12:34 | MORECARE ---
CASE MANAGEMENT DISCHARGE SUMMARY PATIENT: UVALDO SANCHEZ HILLARY UNIT: [id number] ADM DATE: 01/20/19 AGE: 68 : 49 SEX: F ROOM/BED: D.1207 AUTHOR: LUIS REYES PHYSICIAN: REFERRING PHYSICIAN: TEREZA ROME MD DATE OF SERVICE: 01/20/19 Discharge Plan Patient Name: UVALDO SANCHEZ [facility] [facility] 1950 Planned Disposition: [facility] Facility Anticipated Discharge Date: 01/22/19 Discharge Date: Expected LOS: 2 Initial Reviewer: [email or web address] Initial Review Date: 01/19/2019 Generated: 01/20/19 1:34 pm Patient Name: UVALDO SANCHEZ Page [id number] at 1234 All edits/amendments must be made on the electronic document DICTATION DATE: 01/20/19 1234 SENIOR INTEGRATION ARCHITECT: ROBERT 01/20/19 1234 RPT#: [id number] DC DATE: STATUS: ADM IN [facility] [address] [place] [address] END OF REPORT
--- NOTE | 2019-01-20 12:43 | MORECARE ---
CASE MANAGEMENT DISCHARGE SUMMARY PATIENT: UVALDO SANCHEZ UNIT: [id number] ADM DATE: 01/20/19 AGE: 68 : 49 SEX: F ROOM/BED: D.1207 AUTHOR: LUIS REYES PHYSICIAN: REFERRING PHYSICIAN: TEREZA ROME MD DATE OF SERVICE: 01/20/19 Discharge Plan Patient Name: UVALDO SANCHEZ Facility: [facility]:[place] : 1950 Planned Disposition: Assisted Facility Anticipated Discharge Date: 01/22/19 Discharge Date: Expected LOS: 2 Initial Reviewer: [email or web address] Initial Review Date: 01/19/2019 Generated: 01/20/19 1:42 pm DCP- Discharge Planning Updated by [email or web address]: Josefina Dow on 01/20/19 11:[address] DC PLAN: Patient wants to go to [facility] at discharge. ANTICIPATED DC NEEDS: Need OT/PT consults to send referral. CM met with patient to complete initial dc planning assessment. CM educated patient on the CM role and verbal consent given by patient to complete assessment. CM verified patient's address, phone number, and emergency contact phone numbers. Patient lives at home alone and reports she was able to care for herself prior to the first hospital admission. She was in Inpatient Rehab and had to be transferred back to the hospital yesterday for worsening shortness of breath and had a bronchoscopy. She is now having electrolyte imbalances requiring treatment for correction. At discharge patient plans to go to [facility]. She stated she did not want to return to Rehab. WALDO form signed by patient for [facility]. CM will fax referral once PT/OT evals are completed. WALDO form placed in her chart and a signed form with left with the patient. CM will await admission determination from [facility] and also the patient will require authorization from her insurance before she can go to rehab. CM will continue to follow and will assist as needed with dc plans/needs. IMM delivered, explained, signed by the patient, and placed in his chart. Signed form also left with patient. BLANCO delivered, explained, signed by the patient, and placed in his chart. Signed form also left with patient. Josefina Dow RN, [facility] [phone] DCPIA - Discharge Planning Initial Assessment Updated by [email or web address]: Josefina Dow on 01/20/19 12:35 pm * Is the patient Alert and Oriented? Yes * How many steps to enter\exit or inside your home? One * PCP Dr. Kelly Bean * Pharmacy [facility] * Preadmission Environment Acute Inpatient Rehab * [facility] * ADLs Partial Dependent * Partial ADLs (Assistance needed) Ambulation Bathing Transfers * Equipment Bedside Commode Cane Other Oxygen Rolling Walker Wheelchair * Other Equipment Trilogy * List name and contact numbers for known caregivers / representatives who currently or will assist patient after discharge: Janina Johnson [facility] - [phone] * Verbal permission to speak to the caregivers and representatives has been obtained from the patient. Yes * Additional services required to return to the preadmission environment? Yes * Can the patient safely return to the preadmission environment? Yes * Has this patient been hospitalized within the prior 30 days at any hospital? Yes External Providers External Provider: [facility] Next Contact Date: Service Request Date: Service Type: Resolution: Reviewer: Comments: Last DP export: 01/20/19 11:34 a Patient Name: UVALDO SANCHEZ Page [phone] at 1243 All edits/amendments must be made on the electronic document DICTATION DATE: 01/20/191241 CONSTRUCTION MGR: ROBERT 01/20/19 124 RPT#: [id number] DC DATE: STATUS: ADM IN [facility] [address] [place] [address] END OF REPORT
--- NOTE | 2019-01-20 12:50 | MORECARE ---
CASE MANAGEMENT DISCHARGE SUMMARY PATIENT: UVALDO SANCHEZ UNIT: [id number] ADM DATE: 01/20/19 AGE: 68 : 49 SEX: F ROOM/BED: D.1207 AUTHOR: ERICDOC PHYSICIAN: REFERRING PHYSICIAN: TEREZA ROME MD DATE OF SERVICE: 01/20/19 Discharge Plan Patient Name: UVALDO SANCHEZ Facility: [facility]:[place] : 1950 Planned Disposition: Nursing Home Facility Anticipated Discharge Date: 01/22/19 Discharge Date: Expected LOS: 2 Initial Reviewer: [email or web address] Initial Review Date: 01/19/2019 Generated: 01/20/19 1:49 pm DCP- Discharge Planning Updated by [email or web address]: Josefina Dow on 01/20/19 11:[address] DC PLAN: Patient wants to go to [facility] at discharge. ANTICIPATED DC NEEDS: Need OT/PT consults to send referral. CM met with patient to complete initial dc planning assessment. CM educated patient on the CM role and verbal consent given by patient to complete assessment. CM verified patient's address, phone number, and emergency contact phone numbers. Patient lives at home alone and reports she was able to care for herself prior to the first hospital admission. She was in Inpatient Rehab and had to be transferred back to the hospital yesterday for worsening shortness of breath and had a bronchoscopy. She is now having electrolyte imbalances requiring treatment for correction. At discharge patient plans to go to [facility]. She stated she did not want to return to Rehab. WALDO form signed by patient for [facility]. CM faxed referral tot the [facility] and will fax PT/OT evals once completed. WALDO form placed in her chart and a signed form with left with the patient. CM will await admission determination from [facility] and also the patient will require authorization from her insurance before she can go to rehab. CM will continue to follow and will assist as needed with dc plans/needs. IMM delivered, explained, signed by the patient, and placed in his chart. Signed form also left with patient. BLANCO delivered, explained, signed by the patient, and placed in his chart. Signed form also left with patient. Josefina Dow RN, [facility] [phone] DCPIA - Discharge Planning Initial Assessment Updated by [email or web address]: Josefina Dow on 01/20/19 12:35 pm * Is the patient Alert and Oriented? Yes * How many steps to enter\exit or inside your home? One * PCP Dr. Kelly Bean * Pharmacy [facility] * Preadmission Environment Acute Inpatient Rehab * Facility Name [facility] * ADLs Partial Dependent * Partial ADLs (Assistance needed) Ambulation Bathing Transfers * Equipment Bedside Commode Cane Other Oxygen Rolling Walker Wheelchair * Other Equipment Trilogy * List name and contact numbers for known caregivers / representatives who currently or will assist patient after discharge: Janina Johnson [facility] [phone] * Verbal permission to speak to the caregivers and representatives has been obtained from the patient. Yes * Additional services required to return to the preadmission environment? Yes * Can the patient safely return to the preadmission environment? Yes * Has this patient been hospitalized within the prior 30 days at any hospital? Yes Last DP export: 01/20/19 11:43 a Patient Name: UVALDO SANCHEZ Page 60541 at 1250 All edits/amendments must be made on the electronic document DICTATION DATE: 01/20/191248 COREMAKER SUPERVISOR: ROBERT 01/20/191248 RPT#: [id number] DC DATE: STATUS: ADM IN [facility] [address] [place] [address] END OF REPORT
[2019-01-20 15:01] VITALS: Ht 168.9 cm; Wt 83.9 kg
--- NOTE | 2019-01-20 15:10 | NUR ---
1300 CT ANGIO ORDERED PLACED 20 GAUGE IV TO RIGHT HAND FOT CTA
--- NOTE | 2019-01-20 15:31 | MORECARE ---
CASE MANAGEMENT DISCHARGE SUMMARY PATIENT: UVALDO SANCHEZ HILLARY UNIT: [id number] ADM DATE: 01/20/19 AGE: 68 : 49 SEX: F ROOM/BED: D.1207 AUTHOR: ERIC,DOC PHYSICIAN: REFERRING PHYSICIAN: TEREZA ROME MD DATE OF SERVICE: 01/20/19 Discharge Plan Patient Name: UVALDO SANCHEZ Facility: [facility]:[place] : 1950 Planned Disposition: Care Home Facility Anticipated Discharge Date: 01/22/19 Discharge Date: Expected LOS: 2 Initial Reviewer: [email or web address] Initial Review Date: 01/19/2019 Generated: 01/20/19 4:31 pm Comments DCP- Discharge Planning Updated by [email or web address]: Josefina Dow on 01/20/19 2:[address] DC PLAN: Referral/Auth pending at [facility]. Need to send PT/OT notes when completed for authorization. Bettie with the [facility] stated they are no longer taking [employer] insurance. CM met with patient and she agreed to any SNF that would take [employer]. CM spoke to German @ [facility] who stated they do take the patient's insurance. CM faxed referral and will await admission determination. PT/OT evals are not complete at this time and will need to be faxed upon completion. CM spoke to Anupama TREJO regarding this information for follow up on . Josefina Dow RN, [facility] DCP- Discharge Planning Updated by [email or web address]: Josefina Dow on 01/20/19 11:[address] DC PLAN: [facility]. ANTICIPATED DC NEEDS: Need OT/PT consults to send referral. CM met with patient to complete initial dc planning assessment. CM educated patient on the CM role and verbal consent given by patient to complete assessment. CM verified patient's address, phone number, and emergency contact phone numbers. Patient lives at home alone and reports she was able to care for herself prior to the first hospital admission. She was in Inpatient Rehab and had to be transferred back to the hospital yesterday for worsening shortness of breath and had a bronchoscopy. She is now having electrolyte imbalances requiring treatment for correction. At discharge patient plans to go to The [facility]. She stated she did not want to return to Rehab. WALDO form signed by patient for The [facility]. CM faxed referral tot the [facility] and will fax PT/OT rylie once completed. WALDO form placed in her chart and a signed form with left with the patient. CM will await admission determination from The [facility] and also the patient will require authorization from her insurance before she can go to rehab. CM will continue to follow and will assist as needed with dc plans/needs. IMM delivered, explained, signed by the patient, and placed in his chart. Signed form also left with patient. BLANCO delivered, explained, signed by the patient, and placed in his chart. Signed form also left with patient. Josefina Dow RN, [facility] [phone] DCPIA - Discharge Planning Initial Assessment Updated by [email or web address]: Josefina Dow on 01/20/19 12:35 pm * Is the patient Alert and Oriented? Yes * How many steps to enter\exit or inside your home? One * PCP Dr. Kelly Bean * Pharmacy [facility] * Preadmission Environment Acute Inpatient Rehab * Facility Name [facility] * ADLs Partial Dependent * Partial ADLs (Assistance needed) Ambulation Bathing Transfers * Equipment Bedside Commode Cane Other Oxygen Rolling Walker Wheelchair * Other Equipment Trilogy * List name and contact numbers for known caregivers / representatives who currently or will assist patient after discharge: Janina Johnson - [facility] - [phone] * Verbal permission to speak to the caregivers and representatives has been obtained from the patient. Yes * Additional services required to return to the preadmission environment? Yes * Can the patient safely return to the preadmission environment? Yes * Has this patient been hospitalized within the prior 30 days at any hospital? Yes External Providers External Provider: [facility] Next Contact Date: Service Request Date: Service Type: Resolution: Reviewer: Comments: External Provider: [facility] Next Contact Date: Service Request Date: Service Type: Resolution: Reviewer: Comments: Coverage Notice Reviewer: [email or web address] Tracee Dow Notice Issued Date-Time: 01/20/2019 10:10 Notice Type: Medicare Outpatient Observation Notice Notice Delivered To: Patient Relationship to Patient: Solar Tech Name: Delivery Method: HAND - Hand Delivered Sun Days: Prior Verbal Notification: Recipient Understood Notice: Recipient Signature: Med Rec Note Co-signed by Attending: Coverage Notice Comment: Reviewer: [email or web address] Tracee Dow Notice Issued Date-Time: 01/20/2019 10:10 Notice Type: IM Discharge Notice Notice Delivered To: Patient Relationship to Patient: Solar Tech Name: Delivery Method: HAND - Hand Delivered Sun Days: Prior Verbal Notification: Recipient Understood Notice: Recipient Signature: Med Rec Note Co-signed by Attending: Coverage Notice Comment: Last DP export: 01/20/19 11:50 a Patient Name: UVALDO SANCHEZ Page [id number] at 1531 All edits/amendments must be made on the electronic document DICTATION DATE: 01/20/19 153 WORD PROCESSOR: ROBERT 01/20/19 153 RPT#: [id number] DC DATE: STATUS: ADM IN [facility] [address] [place] [address] END OF REPORT
--- NOTE | 2019-01-20 15:52 | NUR ---
1420 CT STAFF PRESENT TO TAKE PATIENT VA BED TO RADIOLOGY FOR CTA
--- NOTE | 2019-01-20 16:43 | NUR ---
1505 RETURNED FROM RADIOLOGY IV TO RIGHT HAND BLEW WHILE IN CT
[2019-01-20 17:00] VITALS: BP 103/57
[2019-01-20 21:09] VITALS: BP 144/58
[2019-01-20 21:45] VITALS: BP 141/51
[2019-01-21 04:38] VITALS: BP 126/50
--- NOTE | 2019-01-21 06:29 | NUR ---
PTS SPO2 WAS 88% ON ENTERING ROOM ON 6L/M, TURNED UP TO 8L/M UNTIL SHE WAS ABLE TO WAKE UP , TREATMENT GIVEN AND SPO2 UP TO 97%, DECREASE TO 5L/M WITH SPO2 REMAINING AT 97%
[2019-01-21 07:16] LABS: ANION GAP 5.4 mmol/L (8-16); CALCIUM 8.3 mg/dL (8.5-10.1); CREATININE - SERUM 1.1 mg/dL (0.6-1.3); MAGNESIUM - SERUM 1.8 mg/dL (1.8-2.4); POTASSIUM - SERUM 3.4 mmol/L (3.5-5.1)
--- NOTE | 2019-01-21 08:00 | NUR ---
AM ROUNDS- PT RESTING COMFORTABLY UPRIGHT IN BED. DENIES ANY NEEDS AT THIS TIME. WILL CTM.
[2019-01-21 08:14] LABS: BASOPHILS 0.4 % (0-2); EOSINOPHILS 1.7 % (0-7); HEMATOCRIT 33.5 % (36.0-48.0); HEMOGLOBIN 10.5 g/dL (12-16); IMMATURE GRANULOCYTES 2.8 % (0-5); LYMPHOCYTES 21.5 % (15-50); MCH 24.8 pg (26.0-34.0); MCHC 31.3 g/dL (31.0-37.0); MEAN PLATELET VOLUME 9.5 fL (7.4-10.4); MONOCYTES 10.4 % (2-11); NEUTROPHILS 63.2 % (40-80); PLATELET COUNT 166 10x3/uL (130-400); RBC 4.24 10x6/uL (4.00-5.40); WBC 4.6 10x3/uL (4.8-10.8)
--- NOTE | 2019-01-21 09:14 | EC ---
PATIENT:UVALDO SANCHEZ DATE OF SERVICE: 01/20/19 SEX: F MEDICAL RECORD: [id number] DATE OF : [birth year] LOCATION:D.M3 D.120 AGE OF PATIENT: 68 ADMISSION DATE: 01/20/19 REFERRING PHYSICIAN: INTERPRETING PHYSICIAN: KARISSA GRIFFIN MD ECHOCARDIOGRAM REPORT ECHO CHARGES 4 ECHO COMPLETE Date: 01/20/19 CLINICAL DIAGNOSIS: CHF ECHOCARDIOGRAPHIC MEASUREMENTS (adult normal given) AC root (d.<3.7cm) 2.7 cm LV Septum d (<1.2 cm> 0.9 cm Valve Excursion 1.6 cm LV Septum (systole) 1.1 cm Left Atria (s.<4.0cm> 4.6 cm LVPW d(<1.2cm) 1.1 cm RV (d.<2.3cm) 2.6 cm LVPW (sytole) 1.2 cm LV diastole(<5.6CM) 4.6 cm MV E-F(>70mm/sec) cm LV systole 3.7 cm LVOT Diameter 1.7 cm MV exc.(>10mm) cm Est.ejection fraction (50-75%) % DOPPLER: LVIT cm/sec A 25 cm/sec E 97 cm/sec LA cm/sec RVSP 36.2 mmHg LVOT 108 cm/sec AOP1/2T m/s Asc. Ao 167 cm/sec RVOT 72 cm/sec RA cm/sec PA 97 cm/sec AV Gradient Peak 11.2 mmHg AV Mean 5.1 mmHg AV Area 1.7 cm MV Gradient Peak 4.4 mmHg MV Mean 1.7 mmHg MV Area cm COMMENTS: Paint Crew Supervisor: Domenic BELLALTHEA TASHA Skull Chopper: 1 Dr. Griffin TAPE# PACS Pericardial Effusion N DATE OF SERVICE: 01/20/2019 FINDINGS: 1. Left ventricular chamber size is within normal limits. Left ventricular systolic function is normal at 55% to 60%. 2. Left atrium is enlarged at 4.6 cm. Right atrium and right ventricular chamber sizes are as well mildly dilated. 3. Valvular structures have normal structure and motion. 4. Doppler interrogation reveals mild tricuspid regurgitation, no other valvular insufficiency or stenosis. Pulmonary systolic pressure is estimated 36 ECHOCARDIOGRAM REPORT [id number] UVALDO SANCHEZ mmHg. 5. No evidence of pericardial effusion or left ventricular thrombus. TRANSINT:[id number] Voice Confirmation ID: [id number] DOCUMENT ID: [id number] KARISSA GRIFFIN MD at 0914 CC: [id number] DICTATION DATE: 01/20/19 122 SPECIAL AGENT IN CHARGE: 01/20/192111 ADM IN [facility] [address] [place] [address]
[2019-01-21 09:39] VITALS: BP 103/48
--- NOTE | 2019-01-21 09:40 | NUR ---
ADMINISTERED MORNING MEDICATION AT THIS TIME, NO TROUBLE SWALLOWING. ASSESSED VITALS AT THIS TIME. PT IS ALERT AND ORIENTED X4. REQUESTED FROZEN YOGURT, PROVIDED PROMPTLY. DENIES ANY OTHER NEEDS. WILL CTM. TEMP- 98.1 BP- 103/43 P- 70 R- 18 O2- 95% 6L HIGH FLOW NASAL CANNULA
[2019-01-21 10:38] LABS: APTT 24.2 SECONDS (22.8-39.4); INR 0.99 (0.85-1.17); PROTIME 12.6 SECONDS (11.6-15.0)
--- NOTE | 2019-01-21 11:48 | NUR ---
ASSESSED BLOOD SUGAR, READING OF 151. PT DENIES ANY INSULIN AT THIS TIME. PT SIGNED CONSENTS FOR PROCEDURE BY DR. REECE. DENIES ANY OTHER NEEDS. WILL CTM.
--- NOTE | 2019-01-21 13:15 | NUR ---
PT TO SURGERY.
--- NOTE | 2019-01-21 14:33 | NUR ---
PT RETURNED FROM PROCEDURE. HOOKED UP TO VITAL SIGN MACHINE PER ORDERS.
--- NOTE | 2019-01-21 14:56 | NUR ---
WHEN PT WAS RETURNED FROM PROCEDURE NURSE WAS INFORMED THAT THEY PULLED 650 ML OF FLUID OFF OF PT AND SHE HAS A DRESSING TO HER LEFT BACK SIDE.
[2019-01-21 15:10] LABS: AFB SPECIMEN PROCESSING Concentration (())
[2019-01-21 15:48] LABS: MACROPHAGES BF 31 %; MESOTHELIALS BF 25 %; NEUT - BF 23 %
--- NOTE | 2019-01-21 16:10 | NUR ---
PT RESTING COMFORTABLY IN BED AT THIS TIME. VITALS BEING ASSESSED PER PROTOCOL, ALL ARE STABLE. DENIES ANY NEEDS. WILL CTM.
[2019-01-21 16:22] LABS: PROTEIN - BODY FLUID 1.1 G/DL
--- NOTE | 2019-01-21 17:07 | NUR ---
ADMINISTERED INSULIN PER SLIDING SCALE FOR BLOOD SUGAR OF 228. PT UPRIGHT IN BED EATING DINNER. DENIES ANY NEEDS. WILL CTM.
--- NOTE | 2019-01-21 19:13 | MORECARE ---
CASE MANAGEMENT DISCHARGE SUMMARY PATIENT: UVALDO SANCHEZ HILLARY UNIT: [id number] ADM DATE: 01/20/19 AGE: 68 : 49 SEX: F ROOM/BED: D.1207 AUTHOR: ERIC,DOC PHYSICIAN: REFERRING PHYSICIAN: TEREZA ROME MD DATE OF SERVICE: 01/21/19 Discharge Plan Patient Name: UVALDO SNACHEZ Facility: [facility]:[place] : 1950 Planned Disposition: [facility] Facility Anticipated Discharge Date: 01/22/19 Discharge Date: Expected LOS: 2 Initial Reviewer: [email or web address] Initial Review Date: 01/19/2019 Generated: 01/21/19 8:13 pm Comments DCP- Discharge Planning Updated by [id number]: Anupama Millard on 01/21/19 6:[address] CM faxed OT and PT eval to [facility]. Will be awaiting auth. CM will continue to follow and assist as needed with discharge planning / needs. DCP- Discharge Planning Updated by [id number]: Josefina Dow on 01/20/19 2:[address] DC PLAN: Referral/Auth pending at [facility]. Need to send PT/OT notes when completed for authorization. Bettie with the [facility] stated they are no longer taking [employer] insurance. CM met with patient and she agreed to any SNF that would take [employer]. CM spoke to Tavares @ [facility] who stated they do take the patient's insurance. CM faxed referral and will await admission determination. PT/OT evals are not complete at this time and will need to be faxed upon completion. CM spoke to Anupama TREJO regarding this information for follow up on . Josefina Dow RN, [facility] DCP- Discharge Planning Updated by [id number]: Josefina Dow on 01/20/19 11:[address] DC PLAN: Patient wants to go to [facility] at discharge. ANTICIPATED DC NEEDS: Need OT/PT consults to send referral. CM met with patient to complete initial dc planning assessment. CM educated patient on the CM role and verbal consent given by patient to complete assessment. CM verified patient's address, phone number, and emergency contact phone numbers. Patient lives at home alone and reports she was able to care for herself prior to the first hospital admission. She was in Inpatient Rehab and had to be transferred back to the hospital yesterday for worsening shortness of breath and had a bronchoscopy. She is now having electrolyte imbalances requiring treatment for correction. At discharge patient plans to go to [facility]. She stated she did not want to return to Rehab. WALDO form signed by patient for The [facility]. CM faxed referral tot the [facility] and will fax PT/OT evals once completed. WALDO form placed in her chart and a signed form with left with the patient. CM will await admission determination from The [facility] and also the patient will require authorization from her insurance before she can go to rehab. CM will continue to follow and will assist as needed with dc plans/needs. IMM delivered, explained, signed by the patient, and placed in his chart. Signed form also left with patient. BLANCO delivered, explained, signed by the patient, and placed in his chart. Signed form also left with patient. Josefina Dow RN, [facility] [phone] DCPIA - Discharge Planning Initial Assessment Updated by [email or web address]: Josefina Dow on 01/20/19 12:35 pm * Is the patient Alert and Oriented? Yes * How many steps to enter\exit or inside your home? One * PCP Dr. Kelly Bean * Pharmacy [facility] * Preadmission Environment Acute Inpatient Rehab * [facility] * ADLs Partial Dependent * Partial ADLs (Assistance needed) Ambulation Bathing Transfers * Equipment Bedside Commode Cane Other Oxygen Rolling Walker Wheelchair * Other Equipment Trilogy * List name and contact numbers for known caregivers / representatives who currently or will assist patient after discharge: Janina Johnson [facility] [phone] * Verbal permission to speak to the caregivers and representatives has been obtained from the patient. Yes * Additional services required to return to the preadmission environment? Yes * Can the patient safely return to the preadmission environment? Yes * Has this patient been hospitalized within the prior 30 days at any hospital? Yes Coverage Notice Reviewer: [id number] - Josefina Dow Notice Issued Date-Time: 01/20/2019 10:10 Notice Type: Medicare Outpatient Observation Notice Notice Delivered To: Patient Relationship to Patient: Printing Grey Cloth Tender Name: Delivery Method: HAND - Hand Delivered Sun Days: Prior Verbal Notification: Recipient Understood Notice: Recipient Signature: Med Rec Note Co-signed by Attending: Coverage Notice Comment: Reviewer: [email or web address] Tracee Dow Notice Issued Date-Time: 01/20/2019 10:10 Notice Type: IM Discharge Notice Notice Delivered To: Patient Relationship to Patient: Printing Grey Cloth Tender Name: Delivery Method: HAND - Hand Delivered Sun Days: Prior Verbal Notification: Recipient Understood Notice: Recipient Signature: Med Rec Note Co-signed by Attending: Coverage Notice Comment: Last DP export: 01/20/19 2:31 p Patient Name: UVALDO SANCHEZ Page [id number] at 1913 All edits/amendments must be made on the electronic document DICTATION DATE: 01/21/191912 COLLEGE INSTRUCTOR: ROBERT 01/21/191912 RPT#: [id number] DC DATE: STATUS: ADM IN [facility] [address] [place] [address] END OF REPORT
[2019-01-22 00:49] VITALS: BP 123/60
[2019-01-22 04:48] VITALS: BP 122/44
[2019-01-22 07:23] LABS: BASOPHILS 0.2 % (0-2); HEMATOCRIT 36.5 % (36.0-48.0); MCH 24.8 pg (26.0-34.0); MCHC 30.1 g/dL (31.0-37.0); MCV 82.2 fL (80.0-100.0); MEAN PLATELET VOLUME 9.5 fL (7.4-10.4); MONOCYTES 11.5 % (2-11); NEUTROPHILS 64.3 % (40-80); PLATELET COUNT 209 10x3/uL (130-400); RBC 4.44 10x6/uL (4.00-5.40)
[2019-01-22 07:46] LABS: ANION GAP 5.6 mmol/L (8-16); CALCIUM 8.1 mg/dL (8.5-10.1); CARBON DIOXIDE 39.7 mmol/L (21.0-32.0); CREATININE - SERUM 1.2 mg/dL (0.6-1.3); MAGNESIUM - SERUM 1.7 mg/dL (1.8-2.4); PHOSPHOROUS 2.8 mg/dL (2.5-4.9); POTASSIUM - SERUM 3.3 mmol/L (3.5-5.1)
--- NOTE | 2019-01-22 08:12 | MORECARE ---
CASE MANAGEMENT DISCHARGE SUMMARY PATIENT: UVALDO SANCHEZ HILLARY UNIT: [id number] ADM DATE: 01/20/19 AGE: 68 : 49 SEX: F ROOM/BED: D.1207 AUTHOR: ERIC,DOC PHYSICIAN: REFERRING PHYSICIAN: TEREZA ROME MD DATE OF SERVICE: 01/22/19 Discharge Plan Patient Name: UVALDO SANCHEZ Facility: [facility]:[place] : 1950 Planned Disposition: Detention Facility Anticipated Discharge Date: 01/22/19 Discharge Date: Expected LOS: 2 Initial Reviewer: [email or web address] Initial Review Date: 01/19/2019 Generated: 01/22/19 9:12 am Comments DCP- Discharge Planning Updated by [email or web address]: Anupama Millard on 01/21/19 6:[address] CM faxed OT and PT eval to [facility]. Will be awaiting auth. CM will continue to follow and assist as needed with discharge planning / needs. DCP- Discharge Planning Updated by [id number]: Josefina Dow on 01/20/19 2:[address] DC PLAN: Referral/Auth pending at [facility]. Need to send PT/OT notes when completed for authorization. Bettie with the [facility] stated they are no longer taking [employer] insurance. CM met with patient and she agreed to any SNF that would take [employer]. CM spoke to [place] @ [facility] who stated they do take the patient's insurance. CM faxed referral and will await admission determination. PT/OT evals are not complete at this time and will need to be faxed upon completion. CM spoke to Anupama TREJO regarding this information for follow up on . Josefina Dow RN, [facility] DCP- Discharge Planning Updated by [email or web address]: Josefina Dow on 01/20/19 11:[address] DC PLAN: Patient wants to go to [facility] at discharge. ANTICIPATED DC NEEDS: Need OT/PT consults to send referral. CM met with patient to complete initial dc planning assessment. CM educated patient on the CM role and verbal consent given by patient to complete assessment. CM verified patient's address, phone number, and emergency contact phone numbers. Patient lives at home alone and reports she was able to care for herself prior to the first hospital admission. She was in Inpatient Rehab and had to be transferred back to the hospital yesterday for worsening shortness of breath and had a bronchoscopy. She is now having electrolyte imbalances requiring treatment for correction. At discharge patient plans to go to [facility]. She stated she did not want to return to Rehab. WALDO form signed by patient for [facility]. CM faxed referral tot the [facility] and will fax PT/OT evals once completed. WALDO form placed in her chart and a signed form with left with the patient. CM will await admission determination from [facility] and also the patient will require authorization from her insurance before she can go to rehab. CM will continue to follow and will assist as needed with dc plans/needs. IMM delivered, explained, signed by the patient, and placed in his chart. Signed form also left with patient. BLANCO delivered, explained, signed by the patient, and placed in his chart. Signed form also left with patient. Josefina Dow RN, [facility] [phone] DCPIA - Discharge Planning Initial Assessment Updated by [id number]: Josefina Dow on 01/20/19 12:35 pm * Is the patient Alert and Oriented? Yes * How many steps to enter\exit or inside your home? One * PCP Dr. Kelly Bean * Pharmacy [facility] * Preadmission Environment Acute Inpatient Rehab * [facility] * ADLs Partial Dependent * Partial ADLs (Assistance needed) Ambulation Bathing Transfers * Equipment Bedside Commode Cane Other Oxygen Rolling Walker Wheelchair * Other Equipment Trilogy * List name and contact numbers for known caregivers / representatives who currently or will assist patient after discharge: Janina Johnson [facility] [phone] * Verbal permission to speak to the caregivers and representatives has been obtained from the patient. Yes * Additional services required to return to the preadmission environment? Yes * Can the patient safely return to the preadmission environment? Yes * Has this patient been hospitalized within the prior 30 days at any hospital? Yes Coverage Notice Reviewer: [id number] - Josefina Dow Notice Issued Date-Time: 01/20/2019 10:10 Notice Type: Medicare Outpatient Observation Notice Notice Delivered To: Patient Relationship to Patient: Painter Shipyard Name: Delivery Method: HAND - Hand Delivered Sun Days: Prior Verbal Notification: Recipient Understood Notice: Recipient Signature: Med Rec Note Co-signed by Attending: Coverage Notice Comment: Reviewer: [email or web address] Tracee Dow Notice Issued Date-Time: 01/20/2019 10:10 Notice Type: IM Discharge Notice Notice Delivered To: Patient Relationship to Patient: Painter Shipyard Name: Delivery Method: HAND - Hand Delivered Sun Days: Prior Verbal Notification: Recipient Understood Notice: Recipient Signature: Med Rec Note Co-signed by Attending: Coverage Notice Comment: Last DP export: 01/21/19 6:13 p Patient Name: UVALDO SANCHEZ Page [id number] at 0812 All edits/amendments must be made on the electronic document DICTATION DATE: 01/22/19811 MARINATOR: ROBERT 01/22/19811 RPT#: [id number] DC DATE: STATUS: ADM IN [facility] [address] [place] [address] END OF REPORT
--- NOTE | 2019-01-22 08:30 | NUR ---
PT RESTING IN BED, SHIFT ASSESSMENT PERFORMED. VSS AND WNL. FULL LINEN CHANGE AND GEMINI CARE PROVIDED. HERE ON FLOOR AND EXPLAINED BRONCHOSCOPY PROCEDURE TO PT AND PT AGREES TO HAVE PROCEDURE TODAY. GAVE NURSE OK FOR ALL AM MEDICATIONS. SCDS ON. HERCULES CATHETER DRAINING ANNETTE URINE FREELY WITH NO LOOPS VIA GRAVITY, STAT LOCK IN PLACE. CALL LIGHT WITHIN REACH. BED IN LOWEST POSITION. WILL CONT TO FOLLOW POC
[2019-01-22 08:57] VITALS: BP 112/64
[2019-01-22 11:10] LABS: FUNGUS STAIN Final report (())
[2019-01-22 11:10] LABS: ACID FAST SMEAR Negative (()); FUNGUS STAIN Final report (())
--- NOTE | 2019-01-22 12:11 | NUR ---
Nutrition Follow-up: S/p thoracentesis yesterday with 650 cc fluid removal. Noted plan for bronch today. Diet: NPO No new wt No BMs recorded Labs noted: K+ 3.3, Mg 1.7, Ca 8.1 Meds noted: Prednisone, Lasix, Micro K, Humalog, Mag Sulfate When medically feasible, rec ADAT to cardiac carb consistent diet. RD following.
--- NOTE | 2019-01-22 12:35 | NUR ---
CONSENT FOR BRONCHOSCOPY SIGNED WITH SECOND NURSE WITNESS.
--- NOTE | 2019-01-22 12:45 | NUR ---
PT LEFT FOR BRONCH
--- NOTE | 2019-01-22 13:10 | NUR ---
DR LASSITER HERE DISCUSSING PROCEDURE WITH PATIENT. PATIENT STATES I WANT SEDATION. DR LASSITER EXPLAINS TO PATIENT THE RISK OF TIVA IS GREAT AND YOU MAY NOT COME OFF VENT IF YOU ARE INTUBATED. PT STATES SHE DOESNT CARE. SHE WANTS SEDATION FOR THIS PROCEDURE. PT MOVED FROM BRONCH ROOM TO OR BED 7. ANESTHESIA HERE EVALUATING PT.
--- NOTE | 2019-01-22 13:25 | NUR ---
VERBAL CONSENT GIVEN FOR TIVA DUE TO EXTENSIVE COMORBITYS.
[2019-01-22 15:39] VITALS: BP 111/62
--- NOTE | 2019-01-22 15:45 | NUR ---
PT RETURNED TO ROOM FROM BRONCHOSCOPY. VSS AND WNL. DENIES ANY NEEDS AT THIS TIME. WILL CONT TO FOLLOW POC
--- NOTE | 2019-01-22 16:00 | NUR ---
VSS AND WNL. PT ON 3L HIFLO. DENIES ANY NEEDS AT THIS TIME, WILL CONT TO FOLLOW POC
[2019-01-22 16:08] LABS: AFB SPECIMEN PROCESSING Not Indicated (())
--- NOTE | 2019-01-22 16:15 | NUR ---
PT RESTING IN BED, VSS AND WNL. PT ON 3L NC. DENIES ANY NEEDS AT THIS TIME, WILL CONT TO FOLLOW POC
--- NOTE | 2019-01-22 16:35 | NUR ---
PT RESTING IN BED, VSS AND WNL. DENIES ANY NEEDS AT THIS TIME. WILL CONT TO FOLLOW POC
[2019-01-22 17:21] LABS: EOS BF 4 %; MACROPHAGES BF 14 %; MESOTHELIALS BF 3 %; NEUT - BF 70 %
--- NOTE | 2019-01-22 17:36 | NUR ---
RECIEVED CALL FROM CHECKING IN ON PT. ASKED NURSE TO PLACE PT ON 2L NC SINCE HER O2 SAT HAS BEEN BETWEEN 98% AND 100% ON 3L NC. ALSO ASKED NURSE TO PLACE AN ORDER FOR A CHEST XRAY FOR IN THE AM. PT PLACED ON 2L NC AND HER O2 SAT IS 94%
--- NOTE | 2019-01-22 19:15 | NUR ---
REPORT RECEIVED, WILL CONTINUE POC. PATIENT IS A/OX3, BEDFAST, ON OVERLAY BED. PATIENT HAS HERCULES DRAINING BY GRAVITY TO RT SIDE OF BED, DARK COLOR URINE NOTED. RR UNEVEN AND LABORED ON 2L HFNC. PATIENT DENIES NEEDS AT THIS TIME. CL IN REACH, BED LOCKED AND LOWERED. WILL CTM.
[2019-01-22 20:00] VITALS: BP 117/60
--- NOTE | 2019-01-22 23:37 | NUR ---
HERCULES EMPTIED, 1700ML OF DARK ANNETTE URINE NOTED.
[2019-01-23 00:15] VITALS: BP 99/54
--- NOTE | 2019-01-23 02:42 | NUR ---
I have reviewed this patient and I concur with the Shift Assessment completed by the Licensed Practical Nurse today this shift.
[2019-01-23 04:30] VITALS: BP 91/55
--- NOTE | 2019-01-23 04:30 | NUR ---
EMPTIED 375ML OF DARK YELLOW URINE FROM HERCULES.
--- NOTE | 2019-01-23 07:30 | NUR ---
PT SITTING UP IN BED. REPOSITIONED TO COMFORT PER PT REQUEST. PT SEEMS AGGITATED TALKING ON THE PHONE. SPOKE WITH SISTER ON PHONE AND SPENT SEVERAL MINUTES DISCUSSING POC FOR PT. VERBALIZED UNDERSTANDING AND STATES NO FURTHER QUESTIONS. ASSESSMENT COMPLETE. RR EVEN AND UNLABORED. 4L HIGH FLOW NC. IV TO RIGHT AC, PATENT. PT CLEAN AND DRY. DENIES FURTHER NEEDS OR PAIN AT THIS TIME. WILL CONTINUE TO MONITOR.
[2019-01-23 07:39] VITALS: BP 118/60
[2019-01-23 07:41] LABS: BASOPHILS 0.3 % (0-2); EOSINOPHILS 0.7 % (0-7); HEMATOCRIT 37.8 % (36.0-48.0); HEMOGLOBIN 11.3 g/dL (12-16); IMMATURE GRANULOCYTES 2.6 % (0-5); LYMPHOCYTES 21.6 % (15-50); MCH 24.7 pg (26.0-34.0); MCHC 29.9 g/dL (31.0-37.0); MCV 82.7 fL (80.0-100.0); MEAN PLATELET VOLUME 9.8 fL (7.4-10.4); MONOCYTES 8.6 % (2-11); NEUTROPHILS 66.2 % (40-80); PLATELET COUNT 213 10x3/uL (130-400); RBC 4.57 10x6/uL (4.00-5.40); RDW 21.9 % (11.5-14.5); WBC 5.8 10x3/uL (4.8-10.8)
[2019-01-23 07:52] LABS: CALC OSMOLALITY 285 mosm/kg (275-300); CALCIUM 8.6 mg/dL (8.5-10.1); CARBON DIOXIDE 35.7 mmol/L (21.0-32.0); CHLORIDE - SERUM 102 mmol/L (98-107); GLUCOSE 77 mg/dL (74-106); MAGNESIUM - SERUM 1.7 mg/dL (1.8-2.4); PHOSPHOROUS 2.7 mg/dL (2.5-4.9); SODIUM 143 mmol/L (136-145); UREA NITROGEN 19 mg/dL (7-18)
[2019-01-23 08:03] LABS: CREATININE - SERUM 0.8 mg/dL (0.6-1.3); eGFR NON AFRICAN AMERICAN 75 mL/min (90-120)
--- NOTE | 2019-01-23 11:50 | NUR ---
PT PLACED ON BED ELI AND CLEANED UP AFTER. BM X1. REPOSITIONED TO COMFORT
--- NOTE | 2019-01-23 16:09 | NUR ---
I have reviewed this patient and I concur with the Shift Assessment completed by the Licensed Practical Nurse today this shift.
--- NOTE | 2019-01-23 18:08 | NUR ---
PT ASSISTED ON AND OFF BEDPAN. BM X1.
[2019-01-23 18:14] VITALS: BP 106/52
[2019-01-23 20:17] VITALS: BP 114/59
[2019-01-24 00:36] VITALS: BP 131/59
[2019-01-24 04:34] VITALS: BP 126/67
[2019-01-24 07:50] LABS: BASOPHILS 0.4 % (0-2); EOSINOPHILS 0.4 % (0-7); HEMATOCRIT 35.9 % (36.0-48.0); IMMATURE GRANULOCYTES 2.5 % (0-5); LYMPHOCYTES 23.1 % (15-50); MCH 25.1 pg (26.0-34.0); MCHC 30.6 g/dL (31.0-37.0); MEAN PLATELET VOLUME 9.3 fL (7.4-10.4); MONOCYTES 9.1 % (2-11); NEUTROPHILS 64.5 % (40-80); PLATELET COUNT 185 10x3/uL (130-400); RBC 4.38 10x6/uL (4.00-5.40); RDW 21.7 % (11.5-14.5); WBC 5.2 10x3/uL (4.8-10.8)
[2019-01-24 07:58] LABS: CALC OSMOLALITY 288 mosm/kg (275-300); CALCIUM 8.3 mg/dL (8.5-10.1); CARBON DIOXIDE 39.4 mmol/L (21.0-32.0); CHLORIDE - SERUM 103 mmol/L (98-107); CREATININE - SERUM 0.8 mg/dL (0.6-1.3); GLUCOSE 74 mg/dL (74-106); POTASSIUM - SERUM 3.6 mmol/L (3.5-5.1); SODIUM 144 mmol/L (136-145); UREA NITROGEN 22 mg/dL (7-18); eGFR NON AFRICAN AMERICAN 75 mL/min (90-120)
--- NOTE | 2019-01-24 08:28 | NUR ---
PT ALERT X 4. BREATH SOUNDS CLEAR BILAT, 4L O2 PER NC. TELMETRY IN PLACE. IV TO RIGHT AC, SALINE LOCKED. PT REPORTING PAIN OF 5/10 TO "BOWELS", WILL MONITOR. 1ST STEP MATTRESS IN USE. BED LOW, CALL LIGHT IN REACH. NO OTHER NEEDS AT THIS TIME.
[2019-01-24 09:00] VITALS: BP 118/59
[2019-01-24 16:44] VITALS: BP 110/52
[2019-01-24 19:24] VITALS: BP 121/56
--- NOTE | 2019-01-24 19:25 | NUR ---
PATIENT RESTING IN BED WITH NO S/S OF DISTRESS. VSS. PATIENT DENIES OTHER NEEDS AT THIS TIME. BED IN LOWEST POSITION AND CALL LIGHT WITHIN REACH. ENCOURAGED THE PATIENT TO CALL IF SHE HAS NEEDS. WILL CONTINUE TO MONITOR.
--- NOTE | 2019-01-24 23:00 | NUR ---
PERFORMED HERCULES CARE ON PATIENT. PATIENT DENIES OTHER NEEDS AT THIS TIME. ENCOURAGED THE PATIENT TO CALL IF SHE HAS NEEDS. WILL CONTINUE TO MONITOR.
[2019-01-25 00:37] VITALS: BP 110/62
[2019-01-25 05:02] VITALS: BP 131/53
[2019-01-25 06:16] LABS: HEMATOCRIT 35.4 % (36.0-48.0); HEMOGLOBIN 10.6 g/dL (12-16); MCH 24.4 pg (26.0-34.0); MCHC 29.9 g/dL (31.0-37.0); MCV 81.6 fL (80.0-100.0); MEAN PLATELET VOLUME 9.4 fL (7.4-10.4); RBC 4.34 10x6/uL (4.00-5.40); RDW 22.3 % (11.5-14.5); WBC 5.6 10x3/uL (4.8-10.8)
[2019-01-25 06:20] LABS: PLATELET COUNT 227 10x3/uL (130-400)
[2019-01-25 06:31] LABS: ANION GAP 6.5 mmol/L (8-16); CALCIUM 8.6 mg/dL (8.5-10.1); CARBON DIOXIDE 39.5 mmol/L (21.0-32.0)
--- NOTE | 2019-01-25 07:15 | NUR ---
PATIETN RECIEVED FROM PREVIOUS SHIFT RESTING IN BED WITH NO NEEDS VOICED. RESPIRATIONS REGULAR AND NON-LABORED. 02 SAT 95% ON 4L HF/NC. CL IN REACH
[2019-01-25 08:00] VITALS: BP 128/56
--- NOTE | 2019-01-25 09:42 | MORECARE ---
CASE MANAGEMENT DISCHARGE SUMMARY PATIENT: UVALDO SANCHEZ HILLARY UNIT: [id number] ADM DATE: 01/20/19 AGE: 68 : 49 SEX: F ROOM/BED: D.1207 AUTHOR: ERIC,DOC PHYSICIAN: REFERRING PHYSICIAN: TEREZA ROME MD DATE OF SERVICE: 01/25/19 Discharge Plan Patient Name: UVALDO SANCHEZ Facility: [facility]:[place] : 1950 Planned Disposition: Care Home Facility Anticipated Discharge Date: 01/22/19 Discharge Date: Expected LOS: 2 Initial Reviewer: [email or web address] Initial Review Date: 01/19/2019 Generated: 01/25/19 10:42 am DCP- Discharge Planning Updated by [email or web address]: Josefina Dow on 01/25/19 8:[address] CM called [facility], spoke to German who stated they are still waiting on pre-auth. German stated that on Friday [facility] said they were going to come to the hospital to make a visit to the patient to assess her status. German stated her business office was on the phone now with [facility] now to inquire about auth status. CM will await return call from German. Josefina Dow RN, [facility] DCP- Discharge Planning Updated by [id number]: Anupama Millard on 01/21/19 6:[address] CM faxed OT and PT eval to [facility]. Will be awaiting auth. CM will continue to follow and assist as needed with discharge planning / needs. DCP- Discharge Planning Updated by [email or web address]: Josefina Dow on 01/20/19 2:[address] DC PLAN: Referral/Auth pending at [facility]. Need to send PT/OT notes when completed for authorization. Bettie with the [facility] stated they are no longer taking [employer] insurance. CM met with patient and she agreed to any SNF that would take [employer]. CM spoke to German @ [facility] who stated they do take the patient's insurance. CM faxed referral and will await admission determination. PT/OT evals are not complete at this time and will need to be faxed upon completion. CM spoke to Anupama CM regarding this information for follow up on . Josefina Dow RN, [facility] DCP- Discharge Planning Updated by [id number]: Josefina Dow on 01/20/19 11:[address] DC PLAN: Patient wants to go to [facility] at discharge. ANTICIPATED DC NEEDS: Need OT/PT consults to send referral. CM met with patient to complete initial dc planning assessment. CM educated patient on the CM role and verbal consent given by patient to complete assessment. CM verified patient's address, phone number, and emergency contact phone numbers. Patient lives at home alone and reports she was able to care for herself prior to the first hospital admission. She was in Inpatient Rehab and had to be transferred back to the hospital yesterday for worsening shortness of breath and had a bronchoscopy. She is now having electrolyte imbalances requiring treatment for correction. At discharge patient plans to go to [facility]. She stated she did not want to return to Rehab. WALDO form signed by patient for [facility]. CM faxed referral tot the [facility] and will fax PT/OT evals once completed. WALDO form placed in her chart and a signed form with left with the patient. CM will await admission determination from [facility] and also the patient will require authorization from her insurance before she can go to rehab. CM will continue to follow and will assist as needed with dc plans/needs. IMM delivered, explained, signed by the patient, and placed in his chart. Signed form also left with patient. BLANCO delivered, explained, signed by the patient, and placed in his chart. Signed form also left with patient. Josefina Dow RN, [facility] [phone] DCPIA - Discharge Planning Initial Assessment Updated by [email or web address]: Josefina Dow on 01/20/19 12:35 pm * Is the patient Alert and Oriented? Yes * How many steps to enter\exit or inside your home? One * PCP Dr. Kelly Bean * Pharmacy [facility] * Preadmission Environment Acute Inpatient Rehab * Facility Name [facility] * ADLs Partial Dependent * Partial ADLs (Assistance needed) Ambulation Bathing Transfers * Equipment Bedside Commode Cane Other Oxygen Rolling Walker Wheelchair * Other Equipment Trilogy * List name and contact numbers for known caregivers / representatives who currently or will assist patient after discharge: Janina Johnson - [facility] - [phone] * Verbal permission to speak to the caregivers and representatives has been obtained from the patient. Yes * Additional services required to return to the preadmission environment? Yes * Can the patient safely return to the preadmission environment? Yes * Has this patient been hospitalized within the prior 30 days at any hospital? Yes Coverage Notice Reviewer: [email or web address] Tracee Dow Notice Issued Date-Time: 01/20/2019 10:10 Notice Type: Medicare Outpatient Observation Notice Notice Delivered To: Patient Relationship to Patient: Machine Zipper Trimmer Name: Delivery Method: HAND - Hand Delivered Sun Days: Prior Verbal Notification: Recipient Understood Notice: Recipient Signature: Med Rec Note Co-signed by Attending: Coverage Notice Comment: Reviewer: [email or web address] Tracee Dow Notice Issued Date-Time: 01/20/2019 10:10 Notice Type: IM Discharge Notice Notice Delivered To: Patient Relationship to Patient: Machine Zipper Trimmer Name: Delivery Method: HAND - Hand Delivered Sun Days: Prior Verbal Notification: Recipient Understood Notice: Recipient Signature: Med Rec Note Co-signed by Attending: Coverage Notice Comment: Last DP export: 01/22/19 7:12 a Patient Name: UVALDO SANCHEZ Page [id number] at 0942 All edits/amendments must be made on the electronic document DICTATION DATE: 01/25/19941 BILLING DEPARTMENT SUPERVISOR: ROBERT 01/25/19941 RPT#: [id number] DC DATE: STATUS: ADM IN [facility] [address] [place] [address] END OF REPORT
--- NOTE | 2019-01-25 09:51 | MORECARE ---
CASE MANAGEMENT DISCHARGE SUMMARY PATIENT: UVALDO SANCHEZ HILLARY UNIT: [id number] ADM DATE: 01/20/19 AGE: 68 : 48 SEX: F ROOM/BED: D.1207 AUTHOR: ERIC,DOC PHYSICIAN: REFERRING PHYSICIAN: TEREZA ROME MD DATE OF SERVICE: 01/25/19 Discharge Plan Patient Name: UVALDO SANCHEZ Facility: [facility]:[place] : 1950 Planned Disposition: Prison Facility Anticipated Discharge Date: 01/22/19 Discharge Date: Expected LOS: 2 Initial Reviewer: [email or web address] Initial Review Date: 01/19/2019 Generated: 01/25/19 10:51 am DCP- Discharge Planning Updated by [email or web address]: Josefina Dow on 01/25/19 8:[address] CM called [facility], spoke to German who stated they are still waiting on pre-auth. German stated that on Friday [facility] said they were going to come to the hospital to make a visit to the patient to assess her status. German stated her business office was on the phone now with [facility] now to inquire about auth status. CM will await return call from German. Josefina Dow RN, [facility] DCP- Discharge Planning Updated by [id number]: Anupama Millard on 01/21/19 6:[address] CM faxed OT and PT eval to [facility]. Will be awaiting auth. CM will continue to follow and assist as needed with discharge planning / needs. DCP- Discharge Planning Updated by [id number]: Josefina Dow on 01/20/19 2:[address] DC PLAN: Referral/Auth pending at [facility]. Need to send PT/OT notes when completed for authorization. Bettie with the [facility] stated they are no longer taking [employer] insurance. CM met with patient and she agreed to any SNF that would take [employer]. CM spoke to German @ [facility] who stated they do take the patient's insurance. CM faxed referral and will await admission determination. PT/OT evals are not complete at this time and will need to be faxed upon completion. CM spoke to Anupama CM regarding this information for follow up on . Josefina Dow RN, [facility] DCP- Discharge Planning Updated by [email or web address]: Josefina Dow on 01/20/19 11:[address] DC PLAN: Patient wants to go to [facility] at discharge. ANTICIPATED DC NEEDS: Need OT/PT consults to send referral. CM met with patient to complete initial dc planning assessment. CM educated patient on the CM role and verbal consent given by patient to complete assessment. CM verified patient's address, phone number, and emergency contact phone numbers. Patient lives at home alone and reports she was able to care for herself prior to the first hospital admission. She was in Inpatient Rehab and had to be transferred back to the hospital yesterday for worsening shortness of breath and had a bronchoscopy. She is now having electrolyte imbalances requiring treatment for correction. At discharge patient plans to go to [facility]. She stated she did not want to return to Rehab. WALDO form signed by patient for [facility]. CM faxed referral tot [facility] and will fax PT/OT evals once completed. WALDO form placed in her chart and a signed form with left with the patient. CM will await admission determination from [facility] and also the patient will require authorization from her insurance before she can go to rehab. CM will continue to follow and will assist as needed with dc plans/needs. IMM delivered, explained, signed by the patient, and placed in his chart. Signed form also left with patient. BLANCO delivered, explained, signed by the patient, and placed in his chart. Signed form also left with patient. Josefina Dow RN, [facility] [phone] DCPIA - Discharge Planning Initial Assessment Updated by [email or web address]: Josefina Dow on 01/20/19 12:35 pm * Is the patient Alert and Oriented? Yes * How many steps to enter\exit or inside your home? One * PCP Dr. Kelly Bean * Pharmacy [facility] * Preadmission Environment Acute Inpatient Rehab * Facility Name [facility] * ADLs Partial Dependent * Partial ADLs (Assistance needed) Ambulation Bathing Transfers * Equipment Bedside Commode Cane Other Oxygen Rolling Walker Wheelchair * Other Equipment Trilogy * List name and contact numbers for known caregivers / representatives who currently or will assist patient after discharge: Janina Johnson - [facility] - [phone] * Verbal permission to speak to the caregivers and representatives has been obtained from the patient. Yes * Additional services required to return to the preadmission environment? Yes * Can the patient safely return to the preadmission environment? Yes * Has this patient been hospitalized within the prior 30 days at any hospital? Yes Coverage Notice Reviewer: [id number] Dow Notice Issued Date-Time: 01/20/2019 10:10 Notice Type: Medicare Outpatient Observation Notice Notice Delivered To: Patient Relationship to Patient: Procurement Analyst Name: Delivery Method: HAND - Hand Delivered Sun Days: Prior Verbal Notification: Recipient Understood Notice: Recipient Signature: Med Rec Note Co-signed by Attending: Coverage Notice Comment: Reviewer: [id number] Tracee Dow Notice Issued Date-Time: 01/20/2019 10:10 Notice Type: IM Discharge Notice Notice Delivered To: Patient Relationship to Patient: Procurement Analyst Name: Delivery Method: HAND - Hand Delivered Sun Days: Prior Verbal Notification: Recipient Understood Notice: Recipient Signature: Med Rec Note Co-signed by Attending: Coverage Notice Comment: Last DP export: 01/25/19 8:42 a Patient Name: UVALDO SANCHEZ Page [id number] at 0951 All edits/amendments must be made on the electronic document DICTATION DATE: 01/25/19950 SOLE ROUGHER: ROBERT 01/25/19950 RPT#: [id number] DC DATE: STATUS: ADM IN [facility] [address] [place] [address] END OF REPORT
[2019-01-25 11:02] LABS: BASOPHILS 1 % (0-2); LYMPHOCYTES 24 % (15-50); MONOCYTES 7 % (2-11); NEUTROPHILS 66 % (40-80); PLATELET ESTIMATE NORMAL
[2019-01-25 11:03] LABS: ANISOCYTOSIS OCC; POLYCHROMASIA OCC
--- NOTE | 2019-01-25 12:04 | MORECARE ---
CASE MANAGEMENT DISCHARGE SUMMARY PATIENT: UVALDO SANCHEZ HILLARY UNIT: [id number] ADM DATE: 01/20/19 AGE: 68 : 49 SEX: F ROOM/BED: D.1207 AUTHOR: LUIS REYES PHYSICIAN: REFERRING PHYSICIAN: TEREZA ROME MD DATE OF SERVICE: 01/25/19 Discharge Plan Patient Name: UVALDO SANCHEZ Facility: [facility]:[place] : 1950 Planned Disposition: Alf Facility Anticipated Discharge Date: 01/22/19 Discharge Date: Expected LOS: 2 Initial Reviewer: [email or web address] Initial Review Date: 01/19/2019 Generated: 01/25/19 1:04 pm Comments DCP- Discharge Planning Updated by [email or web address]: Anupama Millard on 01/25/19 11:[address] CM spoke with Lauryn Distribution Accounting Clerk [facility] regarding [facility] for [facility]. Faxed over updated clinical to [facility]. Josefina TREJO received notification that pre-auth has been approved for [facility] when patient is ready for discharge. CM will let Estrellita know that patient has auth for [facility]. CM will continue to follow and assist as needed with discharge planning / needs. DCP- Discharge Planning Updated by [id number]: Josefina Dow on 01/25/19 8:[address] CM called [facility], spoke to German who stated they are still waiting on pre-auth. German stated that on Friday [facility] said they were going to come to the hospital to make a visit to the patient to assess her status. German stated her business office was on the phone now with [facility] now to inquire about auth status. CM will await return call from German. Josefina Dow RN, [facility] DCP- Discharge Planning Updated by [email or web address]: Anupama Millard on 01/21/19 6:[address] CM faxed OT and PT eval to [facility]. Will be awaiting auth. CM will continue to follow and assist as needed with discharge planning / needs. DCP- Discharge Planning Updated by [email or web address]: Josefina Dow on 01/20/19 2:[address] DC PLAN: Referral/Auth pending at [facility]. Need to send PT/OT notes when completed for authorization. Bettie with the [facility] stated they are no longer taking [employer] insurance. CM met with patient and she agreed to any SNF that would take [employer]. CM spoke to German @ [facility] who stated they do take the patient's insurance. CM faxed referral and will await admission determination. PT/OT evals are not complete at this time and will need to be faxed upon completion. CM spoke to Anupama TREJO regarding this information for follow up on . Josefina Dow RN, [facility] DCP- Discharge Planning Updated by [email or web address]: Josefina Dow on 01/20/19 11:[address] DC PLAN: Patient wants to go to [facility] at discharge. ANTICIPATED DC NEEDS: Need OT/PT consults to send referral. CM met with patient to complete initial dc planning assessment. CM educated patient on the CM role and verbal consent given by patient to complete assessment. CM verified patient's address, phone number, and emergency contact phone numbers. Patient lives at home alone and reports she was able to care for herself prior to the first hospital admission. She was in Inpatient Rehab and had to be transferred back to the hospital yesterday for worsening shortness of breath and had a bronchoscopy. She is now having electrolyte imbalances requiring treatment for correction. At discharge patient plans to go to [facility]. She stated she did not want to return to Rehab. WALDO form signed by patient for [facility]. CM faxed referral tot the [facility] and will fax PT/OT evals once completed. WALDO form placed in her chart and a signed form with left with the patient. CM will await admission determination from [facility] and also the patient will require authorization from her insurance before she can go to rehab. CM will continue to follow and will assist as needed with dc plans/needs. IMM delivered, explained, signed by the patient, and placed in his chart. Signed form also left with patient. BLANCO delivered, explained, signed by the patient, and placed in his chart. Signed form also left with patient. Josefina Dow RN, [facility] [phone] DCPIA - Discharge Planning Initial Assessment Updated by [id number]: Josefina Dow on 01/20/19 12:35 pm * Is the patient Alert and Oriented? Yes * How many steps to enter\exit or inside your home? One * PCP Dr. Kelly Bean * Pharmacy [facility] * Preadmission Environment Acute Inpatient Rehab * Facility Name [facility] * ADLs Partial Dependent * Partial ADLs (Assistance needed) Ambulation Bathing Transfers * Equipment Bedside Commode Cane Other Oxygen Rolling Walker Wheelchair * Other Equipment Trilogy * List name and contact numbers for known caregivers / representatives who currently or will assist patient after discharge: Janina Johnson [facility] - [phone] * Verbal permission to speak to the caregivers and representatives has been obtained from the patient. Yes * Additional services required to return to the preadmission environment? Yes * Can the patient safely return to the preadmission environment? Yes * Has this patient been hospitalized within the prior 30 days at any hospital? Yes Coverage Notice Reviewer: [id number] Dow Notice Issued Date-Time: 01/20/2019 10:10 Notice Type: Medicare Outpatient Observation Notice Notice Delivered To: Patient Relationship to Patient: Manager Of Business Name: Delivery Method: HAND - Hand Delivered Snu Days: Prior Verbal Notification: Recipient Understood Notice: Recipient Signature: Med Rec Note Co-signed by Attending: Coverage Notice Comment: Reviewer: [id number] Tracee Dow Notice Issued Date-Time: 01/20/2019 10:10 Notice Type: IM Discharge Notice Notice Delivered To: Patient Relationship to Patient: Manager Of Business Name: Delivery Method: HAND - Hand Delivered Sun Days: Prior Verbal Notification: Recipient Understood Notice: Recipient Signature: Med Rec Note Co-signed by Attending: Coverage Notice Comment: Last DP export: 01/25/19 8:51 a Patient Name: UVALDO SANCHEZ Page [id number] at 1204 All edits/amendments must be made on the electronic document DICTATION DATE: 01/25/19 1204 DIGITAL PROOFING AND PLATEMAKER: ROBERT 01/25/19 1204 RPT#: [id number] DC DATE: STATUS: ADM IN [facility] [address] [place] [address] END OF REPORT
--- NOTE | 2019-01-25 12:12 | MORECARE ---
CASE MANAGEMENT DISCHARGE SUMMARY PATIENT: UVALDO SANCHEZ HILLARY UNIT: [id number] ADM DATE: 01/20/19 AGE: 68 : 49 SEX: F ROOM/BED: D.1207 AUTHOR: LUIS REYES PHYSICIAN: REFERRING PHYSICIAN: TEREZA ROME MD DATE OF SERVICE: 01/25/19 Discharge Plan Patient Name: UVALDO SANCHEZ Facility: [facility]:[place] : 1950 Planned Disposition: Residential Facility Anticipated Discharge Date: 01/22/19 Discharge Date: Expected LOS: 2 Initial Reviewer: [email or web address] Initial Review Date: 01/19/2019 Generated: 01/25/19 1:12 pm Comments DCP- Discharge Planning Updated by [email or web address]: Josefina Dow on 01/25/19 11:[address] DC PLAN: [facility] - auth from insurance received. CM spoke to Cordell who stated they have received auth from [facility]. They can accept patient when she is discharged from the hospital. Josefina Dow RN, [facility] DCP- Discharge Planning Updated by [email or web address]: Anupama Millard on 01/25/19 11:[address] CM spoke with Lauryn Commercial Sales Manager @ [facility] regarding auth for placement. Faxed over updated clinical to [facility]. Josefina TREJO received notification that pre-auth has been approved for [facility] when patient is ready for discharge. CM will let Estrellita know that patient has auth for [facility]. CM will continue to follow and assist as needed with discharge planning / needs. DCP- Discharge Planning Updated by [id number]: Josefina Dow on 01/25/19 8:[address] [facility] called [facility], spoke to German who stated they are still waiting on pre-auth. German stated that on Friday [facility] said they were going to come to the hospital to make a visit to the patient to assess her status. German stated her business office was on the phone now with [facility] now to inquire about auth status. CM will await return call from German. Josefina Dow RN, [facility] DCP- Discharge Planning Updated by [id number]: Anupama Millard on 01/21/19 6:[address] CM faxed OT and PT eval to [facility]. Will be awaiting auth. CM will continue to follow and assist as needed with discharge planning / needs. DCP- Discharge Planning Updated by [email or web address]: Josefina Dow on 01/20/19 2:[address] DC PLAN: Referral/Auth pending at [facility]. Need to send PT/OT notes when completed for authorization. Bettie with the [facility] stated they are no longer taking [employer] insurance. CM met with patient and she agreed to any SNF that would take [employer]. CM spoke to German @ [facility] who stated they do take the patient's insurance. CM faxed referral and will await admission determination. PT/OT evals are not complete at this time and will need to be faxed upon completion. CM spoke to Anupama TREJO regarding this information for follow up on . Josefina Dow RN, [facility] DCP- Discharge Planning Updated by [email or web address]: Josefina Dow on 01/20/19 11:[address] DC PLAN: Patient wants to go to [facility] at discharge. ANTICIPATED DC NEEDS: Need OT/PT consults to send referral. CM met with patient to complete initial dc planning assessment. CM educated patient on the CM role and verbal consent given by patient to complete assessment. CM verified patient's address, phone number, and emergency contact phone numbers. Patient lives at home alone and reports she was able to care for herself prior to the first hospital admission. She was in Inpatient Rehab and had to be transferred back to the hospital yesterday for worsening shortness of breath and had a bronchoscopy. She is now having electrolyte imbalances requiring treatment for correction. At discharge patient plans to go to [facility]. She stated she did not want to return to Rehab. WALDO form signed by patient for [facility]. CM faxed referral tot the [facility] and will fax PT/OT evals once completed. WALDO form placed in her chart and a signed form with left with the patient. CM will await admission determination from [facility] and also the patient will require authorization from her insurance before she can go to rehab. CM will continue to follow and will assist as needed with dc plans/needs. IMM delivered, explained, signed by the patient, and placed in his chart. Signed form also left with patient. BLANCO delivered, explained, signed by the patient, and placed in his chart. Signed form also left with patient. Josefina Dow RN, [facility] [phone] DCPIA - Discharge Planning Initial Assessment Updated by [email or web address]: Josefina Dow on 01/20/19 12:35 pm * Is the patient Alert and Oriented? Yes * How many steps to enter\exit or inside your home? One * PCP Dr. Kelly Bean * Pharmacy [facility] * Preadmission Environment Acute Inpatient Rehab * Facility Name [facility] * ADLs Partial Dependent * Partial ADLs (Assistance needed) Ambulation Bathing Transfers * Equipment Bedside Commode Cane Other Oxygen Rolling Walker Wheelchair * Other Equipment Trilogy * List name and contact numbers for known caregivers / representatives who currently or will assist patient after discharge: Janina Johnson [facility] [phone] * Verbal permission to speak to the caregivers and representatives has been obtained from the patient. Yes * Additional services required to return to the preadmission environment? Yes * Can the patient safely return to the preadmission environment? Yes * Has this patient been hospitalized within the prior 30 days at any hospital? Yes Coverage Notice Reviewer: [email or web address] Tracee Dow Notice Issued Date-Time: 01/20/2019 10:10 Notice Type: Medicare Outpatient Observation Notice Notice Delivered To: Patient Relationship to Patient: Engraver Steel Plate Name: Delivery Method: HAND - Hand Delivered Sun Days: Prior Verbal Notification: Recipient Understood Notice: Recipient Signature: Med Rec Note Co-signed by Attending: Coverage Notice Comment: Reviewer: [email or web address] Tracee Dow Notice Issued Date-Time: 01/20/2019 10:10 Notice Type: IM Discharge Notice Notice Delivered To: Patient Relationship to Patient: Engraver Steel Plate Name: Delivery Method: HAND - Hand Delivered Sun Days: Prior Verbal Notification: Recipient Understood Notice: Recipient Signature: Med Rec Note Co-signed by Attending: Coverage Notice Comment: Last DP export: 01/25/19 11:04 a Patient Name: UVALDO SANCHEZ Page 12693 at 1212 All edits/amendments must be made on the electronic document DICTATION DATE: 01/25/19 1211 CHIEF PRIVACY OFFICER: ROBERT 01/25/19 1211 RPT#: [id number] DC DATE: STATUS: ADM IN [facility] [address] [place] [address] END OF REPORT
[2019-01-25 12:25] VITALS: BP 126/63
[2019-01-25] MEDS ORDERED: PREDNISONE20 MG PO (14:11)
--- NOTE | 2019-01-25 15:02 | NUR ---
PER DR LASSITER, NEW ORDERS RECEIVED TO DISCHARGE TO [facility]. WILL TAPER DOSE OF PREDNISONE: 20 MG ONE DAILY X 3 10 MG ONE DAILY X 3 5 MG ONE DAILY X 3 THEN STOP.
[2019-01-25] MEDS ORDERED: PREDNISONE5 MG (15:06)
--- NOTE | 2019-01-25 15:12 | NUR ---
PER Danelle AT [facility], THEY WANT HER HERCULES CATH OUT BEFORE DISCHARGE.
--- NOTE | 2019-01-25 15:15 | NUR ---
HERCULES CATH REMOVED WITH CATH TIP INTACT. PATIENT TOLERATED WELL. IV REMOVED WITH NO REDNESS OR EDEMA AT SITE. [facility].
--- NOTE | 2019-01-25 15:19 | NUR ---
OT NOTE: PT IN BED; STATED THAT SHE NEEDED TO GET ON THE TOILET. WITH ASSIST OF BOTH O.T AND P.T, PT STOOD WITH MOD ASSIST X 2; PHYSICALLY BLOCKED KNEES INTO EXT AND PT WAS ABLE TO TAKE 2 SMALL STEPS TO TOILET WITH MAX ASSIST. PT HAD LARGE BM AND REQUIRED MAX ASSIST WITH HYGIENE. MADE SEVERAL ATTEMPTS TO STAND WITH USE OF RW, AND ON 3RD ATTEMPT, PT WAS ABLE TO STAND. HOWEVER, UNABLE TO STEP AND HAD TO MANUALLY LIFTED WITH MAX ASSIST X 2 BACK TO BED. MAX ASSIST WITH BED MOB INCLUDING POSITIONING AND SCOOTING UP IN BED. SET UP FOR SIMPLE GROOMING INCLUDING WASHING HANDS AND FACE WITH CLOTH. LISA BENZ, OTR/L
--- NOTE | 2019-01-25 17:39 | NUR ---
PATIENT TAKEN BY AMBULANCE TO [facility]
--- NOTE | 2019-01-25 18:06 | MORECARE ---
CASE MANAGEMENT DISCHARGE SUMMARY PATIENT: UVALDO SANCHEZ [place] UNIT: [id number] ADM DATE: 01/20/19 AGE: 68 : 48 SEX: F ROOM/BED: D.1207 AUTHOR: LUIS REYES PHYSICIAN: REFERRING PHYSICIAN: TEREZA ROME MD DATE OF SERVICE: 01/25/19 Discharge Plan Patient Name: UVALDO SANCHEZ Facility: [facility]:[place] : 1950 Planned Disposition: Half-Way Facility Anticipated Discharge Date: 01/22/19 Discharge Date: 01/25/2019 Expected LOS: 2 Initial Reviewer: [email or web address] Initial Review Date: 01/19/2019 Generated: 01/25/19 7:06 pm Comments DCP- Discharge Planning Updated by [email or web address]: Josefina Dow on 01/25/19 11:[address] DC PLAN: Accepted to [facility] - auth from insurance received. CM spoke to German who stated they have received auth from [facility]. They can accept patient when she is discharged from the hospital. Josefina Dow RN, [facility] DCP- Discharge Planning Updated by [email or web address]: Anupama Millard on 01/25/19 11:[address] CM spoke with Lauryn Work Order Sorting Clerk @ [facility] regarding auth for placement. Faxed over updated clinical to [facility]. Josefina TREJO received notification that pre-auth has been approved for [facility] when patient is ready for discharge. CM will let Estrellita know that patient has auth for [facility]. CM will continue to follow and assist as needed with discharge planning / needs. DCP- Discharge Planning Updated by [email or web address]: Josefina Dow on 01/25/19 8:[address] CM called [facility], spoke to German who stated they are still waiting on pre-auth. German stated that on Friday [facility] said they were going to come to the hospital to make a visit to the patient to assess her status. German stated her business office was on the phone now with [facility] now to inquire about auth status. CM will await return call from German. Josefina Dow RN, [facility] DCP- Discharge Planning Updated by [email or web address]: Anupama Millard on 01/21/19 6:[address] CM faxed OT and PT eval to [facility]. Will be awaiting auth. CM will continue to follow and assist as needed with discharge planning / needs. DCP- Discharge Planning Updated by [email or web address]: Josefina Dow on 01/20/19 2:[address] DC PLAN: Referral/Auth pending at [facility]. Need to send PT/OT notes when completed for authorization. Bettie with the [facility] stated they are no longer taking [employer] insurance. CM met with patient and she agreed to any SNF that would take [employer]. CM spoke to German @ [facility] who stated they do take the patient's insurance. CM faxed referral and will await admission determination. PT/OT evals are not complete at this time and will need to be faxed upon completion. CM spoke to Anupama TREJO regarding this information for follow up on . Josefina Dow RN, [facility] DCP- Discharge Planning Updated by [email or web address]: Josefina Dow on 01/20/19 11:[address] DC PLAN: Patient wants to go to [facility] at discharge. ANTICIPATED DC NEEDS: Need OT/PT consults to send referral. CM met with patient to complete initial dc planning assessment. CM educated patient on the CM role and verbal consent given by patient to complete assessment. CM verified patient's address, phone number, and emergency contact phone numbers. Patient lives at home alone and reports she was able to care for herself prior to the first hospital admission. She was in Inpatient Rehab and had to be transferred back to the hospital yesterday for worsening shortness of breath and had a bronchoscopy. She is now having electrolyte imbalances requiring treatment for correction. At discharge patient plans to go to [facility]. She stated she did not want to return to Rehab. WALDO form signed by patient for [facility]. CM faxed referral tot the [facility] and will fax PT/OT evals once completed. WALDO form placed in her chart and a signed form with left with the patient. CM will await admission determination from [facility] and also the patient will require authorization from her insurance before she can go to rehab. CM will continue to follow and will assist as needed with dc plans/needs. IMM delivered, explained, signed by the patient, and placed in his chart. Signed form also left with patient. BLANCO delivered, explained, signed by the patient, and placed in his chart. Signed form also left with patient. Josefina Dow RN, [facility] [phone] DCPIA - Discharge Planning Initial Assessment Updated by [email or web address]: Josefina Dow on 01/20/19 12:35 pm * Is the patient Alert and Oriented? Yes * How many steps to enter\exit or inside your home? One * PCP Dr. Kelly Bean * Pharmacy [facility] * Preadmission Environment Acute Inpatient Rehab * Facility Name [facility] * ADLs Partial Dependent * Partial ADLs (Assistance needed) Ambulation Bathing Transfers * Equipment Bedside Commode Cane Other Oxygen Rolling Walker Wheelchair * Other Equipment Trilogy * List name and contact numbers for known caregivers / representatives who currently or will assist patient after discharge: Janina blake - [phone] * Verbal permission to speak to the caregivers and representatives has been obtained from the patient. Yes * Additional services required to return to the preadmission environment? Yes * Can the patient safely return to the preadmission environment? Yes * Has this patient been hospitalized within the prior 30 days at any hospital? Yes Coverage Notice Reviewer: [id number] Tracee Dow Notice Issued Date-Time: 01/20/2019 10:10 Notice Type: Medicare Outpatient Observation Notice Notice Delivered To: Patient Relationship to Patient: Food Writer Name: Delivery Method: HAND - Hand Delivered Sun Days: Prior Verbal Notification: Recipient Understood Notice: Recipient Signature: Med Rec Note Co-signed by Attending: Coverage Notice Comment: Reviewer: [email or web address] Tracee Dow Notice Issued Date-Time: 01/20/2019 10:10 Notice Type: IM Discharge Notice Notice Delivered To: Patient Relationship to Patient: Food Writer Name: Delivery Method: HAND - Hand Delivered Sun Days: Prior Verbal Notification: Recipient Understood Notice: Recipient Signature: Med Rec Note Co-signed by Attending: Coverage Notice Comment: Reviewer: [email or web address] Tracee Millard Notice Issued Date-Time: 01/25/2019 12:45 Notice Type: IM Discharge Notice Notice Delivered To: Patient Relationship to Patient: Self Food Writer Name: Delivery Method: HAND - Hand Delivered Sun Days: Prior Verbal Notification: Recipient Understood Notice: Yes Recipient Signature: Yes Med Rec Note Co-signed by Attending: Coverage Notice Comment: Last DP export: 01/25/19 11:12 a Patient Name: UVALDO SANCHEZ Page [id number] at 1806 All edits/amendments must be made on the electronic document DICTATION DATE: 01/25/191805 COMPUTER PROJECT MANAGER: ROBERT 01/25/191805 RPT#: [id number] DC DATE:01/25/19 STATUS: DIS IN [facility] [address] [place] [address] END OF REPORT
[2019-01-27 13:10] LABS: FUNGUS CULTURE RESULT 1 Candida glabrata (())
[2019-02-17 09:10] LABS: FUNGUS MYCOLOGY CULTURE Final report (())
[2019-02-18 17:08] LABS: FUNGUS MYCOLOGY CULTURE Final report (())
[2019-03-17 11:10] LABS: ACID FAST CULTURE Negative (()); ACID FAST SMEAR Negative (())
[2019-03-17 11:10] LABS: ACID FAST CULTURE Negative (())
== END 2019-01-25 17:39 | DRG 193 ==
LOC: D.M3 13:21 → OBSVTIME 13:22 → D.M3 01-20 11:58
PROVIDERS: General Practice; Internal Medicine Pulmonary Disease; ADMIT Internal Medicine Nephrology; ATTEND Internal Medicine Nephrology
PROC: 0W9B3ZZ Drainage of Left Pleural Cavity, Percutaneous Approach (ICD-10-PCS; principal; 2019-01-21 14:08)
PROC: 0B9J8ZX Drainage of Left Lower Lung Lobe, Via Natural or Artificial Opening Endoscopic, Diagnostic (ICD-10-PCS; 2019-01-22)
DX: J18.1 Lobar pneumonia, unspecified organism (principal); J96.22 Acute and chronic respiratory failure with hypercapnia; J96.21 Acute and chronic respiratory failure with hypoxia; I13.0 Hypertensive heart and chronic kidney disease with heart failure and stage 1 through stage 4 chronic kidney disease, or unspecified chronic kidney disease; J98.11 Atelectasis; I50.32 Chronic diastolic (congestive) heart failure; N17.9 Acute kidney failure, unspecified; N18.9 Chronic kidney disease, unspecified; E11.22 Type 2 diabetes mellitus with diabetic chronic kidney disease; I25.10 Atherosclerotic heart disease of native coronary artery without angina pectoris; E03.9 Hypothyroidism, unspecified; Z95.0 Presence of cardiac pacemaker; E78.5 Hyperlipidemia, unspecified; K21.9 Gastro-esophageal reflux disease without esophagitis; J43.9 Emphysema, unspecified; D50.9 Iron deficiency anemia, unspecified; E87.6 Hypokalemia; E83.42 Hypomagnesemia